=== PATIENT | male | born 1955 | race Caucasian/White ===

== ENCOUNTER 2025-04-14 10:28 | Observation (INO) | payer MEDICARE, SELFPAY ==
[2025-04-14] VITALS (9 sets, daily range): BP systolic 102–151; BP diastolic 63–83; PULSE 69–108; RESP 14–20; TEMP 36.6–37.1; O2SAT 97–100; BMI 33.6; BMI 31.8
--- NOTE | 2025-04-14 10:38 | EKG12_ITS ---
Test Reason : Blood Pressure : */* mmHG Vent. Rate : 79 BPM Atrial Rate : 79 BPM P-R Int : 192 ms QRS Dur : 78 ms QT Int : 354 ms P-R-T Axes : 36 11 12 degrees QTcB Int : 405 ms Normal sinus rhythm Low voltage QRS Borderline ECG When compared with ECG of 14-Apr-2025 10:30, MANUAL COMPARISON REQUIRED DATA IS UNCONFIRMED Confirmed by Javier Cary ([id number]), news videotape editor RAUL ROBB ([id number]) on 04/17/2025 11:37:02 AM Also confirmed by Javier Cary ([id number]), news videotape editor RAUL ROBB ([id number]) on 04/18/2025 9:44:31 AM Referred By: NUHA Confirmed By: Javier Cary
--- NOTE | 2025-04-14 10:40 | EDS_ITS ---
HPI History of Present Illness Chief Complaint: Palpitations Detail of Chief Complaint: Tachycardia Informant: patient Narrative Narrative: Patient presents to the emergency department complaint of tachycardia that started this morning. He states he checks his heart rate every morning and yesterday seem to be fine. He denies chest pain or palpitations or shortness of breath. He has had some cold symptoms for a few days. He took some DayQuil yesterday but none today. Denies recent travel or surgery. No history of A- fib. He does have history of hypertension. His mother had A-fib. PFSH PFSH Home Medications ?Medication ?Instructions ?Recorded ?Last Taken ?Type acetaminophen 650 mg/20.3 mL oral 650 mg PO Q6H PRN Unknown History solution aspirin 81 mg tablet,delayed 81 mg PO DAILY 09/21/23 U nknown History release hydrochlorothiazide 25 mg tablet 25 mg PO DAILY Unknown History meloxicam 15 mg tablet 15 mg PO DAILY 09/21/23 Unkn own History ramipril 10 mg capsule 10 mg PO DAILY 09/21/23 Unkn own History Allergy/AdvReac Type Severity Reaction Status Date / Time No Known Allergies Allergy Verified 04/14/25 10:31 Social History Smoking Status: Never smoker alcohol intake: never substance use type: does not use ROS ROS ED Review of Systems ROS Unobtainable: other Constitutional Constitutional ED: Reports lethargy; Denies chills, fever(s), sweats or weight loss Eyes Eyes: Denies blurry vision, change in vision or diplopia ENT ENT ED: Denies rhinorrhea or sore throat Cardiovascular Cardiovascular: Reports racing heartbeat; Denies chest pain or orthopnea Respiratory/Chest Respiratory/Chest: Reports cough, dyspnea and dyspnea on exertion; Denies orthopnea or sputum Gastrointestinal Gastrointestinal: Denies abdominal pain, diarrhea, nausea or vomiting Genitourinary Genitourinary ED: Denies dysuria, hematuria or urinary frequency Musculoskeletal Musculoskeletal: Denies arthralgias, back pain, myalgias or neck pain Integumentary Denies abscess, Abrasions or rash Neurologic Neurologic: Denies headache(s) or weakness Psychiatric Psychiatric: Denies anxiety, depression or suicidal thoughts Endocrine Endocrinology: Denies polydipsia, polyphagia or polyuria Hematologic/Lymphatic Hematologic/Lymphatic: Denies easy bleeding, easy bruising or lymphadenopathy Allergic/Immunologic Allergic/Immunologic ED: Denies mouth swelling, tongue swelling or urticaria EXAM Physical Exam Const Vital Signs: 04/14/25 10:29 04/14/25 10:31 Temperature 98.1 F 97.9 F Temperature Source Oral Oral Pulse Rate 108 H 99 Respiratory Rate 20 H 18 Blood Pressure 115/82 H 126/83 H Blood Pressure Mean 93 97 Pulse Ox 100 100 Oxygen Delivery Method Room Air Room Air Positive well nourished and well developed General Appearance ED: well developed and NAD HEENT Reports TM's clear and moist mucous membranes normocephalic and atraumatic; Negative for trauma or tenderness Tympanic Membrane ED: Yes TM's clear Eyes PERRL and EOMs intact bilaterally General Eye ED: Negative for pale conjunctiva or scleral icterus Neck no lymphadenopathy, supple and no JVD General: Negative for tenderness Chest Wall inspection of chest normal and palpation of chest normal Chest: Negative for tenderness Resp normal respiratory effort and clear to auscultation bilaterally Effort and Inspection: Negative for respiratory distress or pain with movement Auscultation: Negative for rhonchi, wheezes or diminished lung sounds Cardio S1 normal heart sound, S2 normal heart sound and no murmurs; Negative for regular rate or regular rhythm Rate: tachycardic Rhythm: abnormal rhythm irregularly irregular Peripheral Pulses: pulses 2+ throughout GI normal to inspection, nondistended, normoactive bowel sounds, soft to palpation, non-tender, non-distended and no masses Back/Spine no CVA tenderness and no thoracic nor lumbar tenderness Extremity normal to inspection General Extremety ED: Negative for edema General Extremity: Negative for edema Neuro oriented x3, CN's II-XII intact bilaterally, no sensory deficits noted and gait normal Sensorium / Orientation: awake, alert, oriented to person, oriented to place and oriented to time Motor Exam: strength 5/5 throughout and strength abnormal Psych mental status grossly normal Skin no rashes or lesions noted and no wounds MDM MDM MDM Narrative Medical decision making narrative: Patient presents with tachycardia. History of hypertension. Clinically looks well. He said some cold symptoms for few days. IV line established. EKG obtained on arrival shows atrial fibrillation with rapid ventricular response 100 bpm. CBC with differential obtained showed white count 9.3 with hemoglobin 17 and platelet count of 351. Chemistries show sodium 136 with potassium 3.1 for which she did receive 40 mEq of potassium chloride p.o. BUN 14 and creatinine 1.0. Troponin was normal at 11. Glucose 164. While in the department I did give him Cardizem 20 mg IV bolus and heart rate in the 70s but still in A-fib. COVID flu and RSV testing ordered and pending. 1 view chest x- ray on my interpretation shows no acute disease process. Lab Data Attestation: I reviewed the patient's lab results. Labs: Laboratory Results - last 24 hr 04/14/25 10:30 WBC 9.3 RBC 5.39 Hgb 17.2 H Hct 47.6 MCV 88.3 MCH 31.9 MCHC 36.1 H RDW Std Deviation 39.8 RDW Coeff of Brayden 12.2 Plt Count 351 MPV 9.2 Immature Gran % (Auto) 0.300 Neut % (Auto) 61.9 Lymph % (Auto) 25.1 [place] % (Auto) 10.4 H Eos % (Auto) 1.8 Baso % (Auto) 0.5 Absolute Neuts (auto) 5.8 Absolute Lymphs (auto) 2.34 Nucleated RBC % 0 Sodium 136 Potassium 3.1 L Chloride 95 L Carbon Dioxide 27.1 Anion Gap 14 BUN 14 Creatinine 1.00 Estim Creat Clear Calc 83.79 Est GFR (MDRD) Non-Af 82 BUN/Creatinine Ratio 13.5 Glucose 164 H Calcium 9.4 Troponin T High Sens 11 Radiography Diagnostic Testing: Clinical Impression(s) from Imaging Studies Chest X-Ray 04/14/25 11:20 IMPRESSION: No acute cardiopulmonary process. Reading Location: [facility] 1 view chest x-ray obtained interpreted by myself as no evidence of infiltrate or pneumothorax or acute disease process. Radiology in agreement. EKG Initial EKG: Attestation: I personally reviewed and interpreted this EKG as follows: Comments: Atrial fibrillation with ventricular rate of 100 bpm Discharge Plan Dx/Rx/DC Orders Clinical Impression: Atrial fibrillation, new onset, Acute hypokalemia, Hypertension Disposition Disposition: [facility]
[2025-04-14 10:53] LABS: Hematocrit 47.6 % (40-54); Hemoglobin 17.2 g/dL (13.0-16.5); Immature Granulocytes Count 0.030 X10^3/uL (0.0-0.0); Mean Corp Hgb Conc 36.1 g/dL (32-36); Mean Corpuscular Volume 88.3 fL (80-94); Mean Platelet Vol. 9.2 fl (6.2-12.0); NRBC Flagged by Analyzer 0 % (0-5); Platelet Count 351 K/mm3 (150-450); RBC Distribution Width CV 12.2 % (11.6-14.6); RBC Distribution Width SD 39.8 fl (35.1-43.9); Red Blood Count 5.39 M/mm3 (4.6-6.2); White Blood Count 9.3 K/mm3 (4.4-11.0)
[2025-04-14] MEDS: 0.9% Normal Saline (1000mL) 1,000 ML 150 ML IV (10:57)
[2025-04-14 11:20] LABS: Troponin T High Sensitivity 11 ng/L (<=22)
--- NOTE | 2025-04-14 11:20 | RAD_ITS ---
EXAM: XR Chest, 1 View CLINICAL INDICATION: TACHYCARDIA, COUGH TECHNIQUE: Frontal view of the chest. COMPARISON: No relevant prior studies available. FINDINGS: LUNGS AND PLEURAL SPACES: Unremarkable. No consolidation. No pneumothorax. HEART: Unremarkable. No cardiomegaly. MEDIASTINUM: Unremarkable. Normal mediastinal contour. BONES/JOINTS: Unremarkable. No acute fracture. RAD/Chest 1 View (Portable) IMPRESSION: No acute cardiopulmonary process. Reading Location: [id number]
--- OUTSIDE RECORDS SUMMARY | 2025-04-14 11:20 | XMS RPT_ITS | CCD ---
Author Organization [facility] CliniSyct Care Team Providers Care Billet Checker Name Role Phone Lilly Malone MD Primary Care Provider Lilly Malone MD Primary Care Provider Harris APPLICATION CONSULTANT.MATERNITY FLOOR SUPERVISOR, Kalin Unavailable Rona APPLICATION CONSULTANT.COUPLER, Jodee Unavailable Rona APPLICATION CONSULTANT.COUPLER, Jodee Unavailable [phone] TALAMPAS, LILLY D Attending Unavailable TALAMPAS, LILLY D Primary Care Unavailable TALAMPAS, LILLY D Referring Unavailable TALAMPAS, LILLY D Primary Care Unavailable RONA, JODEE Attending Unavailable TALAMPAS, LILLY D Primary Care Unavailable MASON UNGER Attending Unavailable HARRIS, KALIN Referring Unavailable TALAMPAS, LILLY D Primary Care Unavailable HARRIS, KALIN Referring Unavailable TALAMPAS, LILLY D Primary Care Unavailable HARRIS, KALIN Attending Unavailable TALAMPAS, LILLY D Primary Care Unavailable Yanelis POTTS, Dr. Orlando Primary Care Provider [phone] Dr. Johanny Hilario MD Referring Provider Dr. Mitzy Conde DC Attending Provider Mitzy Conde Attending Unavailable Bonezzi, Johanny Primary Care Unavailable Bonezzrbyson, Johanny Referring Unavailable DosMitzy hayden Attending Unavailable Yanelis, Johanny Referring Unavailable Bonezzbryson, Johanny Primary Care Unavailable DosMitzy hayden Attending Unavailable [place], Johanny Referring Unavailable Bonezzi, Johanny Primary Care Unavailable DosMitzy hayden Attending Unavailable [place], Johanny Referring Unavailable Bonezzi, Johanny Primary Care Unavailable [place], Johanny Referring Unavailable DosMitzy hayden Attending Unavailable Bonezzi, Johanny Primary Care Unavailable Bonezzi, Johanny Referring Unavailable Bonetoddi, Johanny Primary Care Unavailable Mitzy Conde Attending Unavailable Bonetoddi, Johanny Referring Unavailable Bonezzi, Johanny Primary Care Unavailable DosMitzy hayden Attending Unavailable Bonetoddi, Johanny Referring Unavailable Bonezzi, Johanny Primary Care Unavailable DosMitzy hayden Attending Unavailable Shannon APPLICATION CONSULTANT.MATERNITY FLOOR SUPERVISOR, Kalin Unavailable Harris APPLICATION CONSULTANT.MATERNITY FLOOR SUPERVISOR, Kalin Unavailable Medications Current Medications Medication Drug Class(es) Dates Sig (Normalized) Sig (Original) acetaminophen 32 mg/ml oral solution (1 source) Start: 09-21-2023 take 650 mg by mouth every six hours as needed Acetaminophen 650 mg/20.3 mL solution Active 650 mg PO EVERY 6 HOURS as needed September 21, 2023 12:00am [id number] actuat albuterol 0.09 mg/actuat metered dose inhaler (20 sources) beta2-Adrenergic Agonist Start: 06-14-2023 take 2 puff(s) by inhalation every six hours as needed albuterol HFA (PROAIR HFA) 90 mcg/actuation inhaler Indications: Sinobronchitis Inhale 2 Puffs as instructed every 6 hours as needed. 18 g 06/14/2023 Active Start: 07-23-2022 take 2 puff(s) by in halation every six hours as needed albuterol HFA (PROAIR HFA) 90 mcg/actuation inhaler Indications: Sinobronchitis Inhale 2 Puffs as instructed every 6 hours as needed. 1 Each 0 07/23/2022 Active Comment on above: Inhale 2 Puffs as in structed every 6 hours as needed. aspirin 81 mg delayed release oral tablet (20 sources) Platelet Aggregation Inhibitor, Nonsteroidal Anti-inflammatory Drug Start: 07-04-19 10 aspirin(ADULT LOW DOSE ASPIRIN 81 MG TAB, DELAYED RELEASE) daily 0 07/03/2009 Active Comment on above: daily cetirizine hydrochloride 10 mg oral tablet (16 sources) Histamine-1 Receptor Antagonist Start: 08-27-19 24 End: 10-04-19 24 take 1 tablet by mouth once daily as needed cetirizine (ZYRTEC) 10 mg tablet Indications: PND (post-nasal drip) , Ear fullness, bilateral Take 1 tablet by mouth once daily. as needed for allergy symptoms 30 tablet 11 10/04/2023 Active doxycycline hyclate 100 mg oral tablet (3 sources) Tetracycline-class Drug Start: 06-14-19 End: 06-21-19 take 1 tablet by mouth twice daily doxycycline (VIBRA-TABS) 100 mg tablet Indications: Sinobronchitis Take 1 tablet by mouth two times a day for 7 days. 14 tablet 0 06/14/2023 06/21/2023 Active Start: 07-23-2022 End: 07-30-2022 take 1 tablet by mouth twice daily doxycycline (VIBRA-TABS) 100 mg tablet Indications: Sinobronchitis Take 1 tablet by mouth twice daily for 7 days. 14 tablet 0 07/23/2022 07/30/2022 Active Comment on above: Take 1 tablet by nano th twice daily for 7 days. Take 1 tablet by nano th two times a day for 7 days. erythromycin 0.005 mg/mg ophthalmic ointment (1 source) Macrolide, Macrolide Antimicrobial Start: 02-03-20 End: 02-10-20 erythromycin (ROMYCIN) 5 mg/gram (0.5 %) ophthalmic ointment Indications: Cornea abrasion, right, initial encounter Use 1 application in the right eye three times daily for 7 days. 3.5 g 0 02/02/2022 02/09/2022 Active Comment on above: Use 1 application in the right eye three times daily for 7 days. fluticasone propionate 0.05 mg/actuat metered dose nasal spray (20 sources) Corticosteroid Start: 08-27-19 take 2 spray(s) by mouth once daily fluticasone (FLONASE) 50 mcg/actuation nasal spray Indications: PND (post-nasal drip) , Ear fullness, bilateral Use 2 Sprays in each nostril once daily. Rinse mouth after use. 08/27/2023 Active fluticasone prop ionate (FLONASE NASAL) Use in the nose. 0 Active Comment on above: Use in the nose. hydroCHLOROthiazide 25 mg oral tablet (20 sources) Thiazide Diuretic Start: 022 End: 025 take 1 tablet by mouth once daily hydroCHLOROthiazide 25 mg tablet Take 1 tablet by mouth once daily. 90 tablet 3 10/24/2024 Active Start: 10-01-2021 take 1 tablet by nano th once daily hydroCHLOROthiazide (HYDRODIURIL, ESIDRIX) 25 mg tablet Take 1 tablet by mouth once daily. 90 tablet 3 10/01/2021 Active Start: 10-01-2021 take 1 tablet by nano th once daily hydroCHLOROthiazide (HYDRODIURIL, ESIDRIX) 25 mg tablet Take 1 tablet by mouth once daily. 90 tablet 3 10/01/2021 Active Start: 10-01-2021 take 1 tablet by nano th once daily hydroCHLOROthiazide (HYDRODIURIL, ESIDRIX) 25 mg tablet Take 1 tablet by mouth once daily. 90 tablet 3 10/01/2021 Active Start: 10-01-2021 take 1 tablet by nano th once daily hydroCHLOROthiazide (HYDRODIURIL, ESIDRIX) 25 mg tablet Take 1 tablet by mouth once daily. 90 tablet 3 10/01/2021 Active Start: 10-01-2020 End: 08-04-2021 take 1 tablet by mouth once daily hydroCHLOROthiazide (HYDRODIURIL, ESIDRIX) 25 mg tablet Take 1 tablet by mouth once daily. 90 tablet 3 10/01/2020 08/04/2021 Discontinued Comment on above: Take 1 tablet by nano th once daily. LORazepam 0.5 mg oral tablet (1 source) Benzodiazepine Start: 09-30-19 End: 10-07-19 take 0.5 mg by mouth every twelve hours as needed for anxiety and anxiety LORazepam (ATIVAN) 0.5 mg Indications: Anxiety Take 1 tablet by mouth twice daily as needed (anxiety) for up to 7 days. 14 tablet 0 09/29/2022 10/06/2022 Active Comment on above: Take 1 tablet by nano th twice daily as needed (anxiety) for up to 7 days. meloxicam 15 mg oral tablet (20 sources) Nonsteroidal Anti-inflammatory Drug Start: 07-28-19 End: 08-12-19 take 1 tablet by mouth once daily meloxicam (MOBIC) 15 mg tablet Indications: Acute pain of left knee , Arthritis of both knees Take 1 tablet by mouth once daily. 30 tablet 1 08/11/2024 Active Comment on above: Take 1 tablet by nano th once daily. predniSONE 20 mg oral tablet (3 sources) Start: 06-14-19 End: 06-19-19 take 2 tablets by mouth once daily predniSONE (DELTASONE) 20 mg tablet Indications: Sinobronchitis Take 2 tablets by mouth once daily for 5 days. 10 tablet 0 06/14/2023 06/19/2023 Active Start: 07-23-2022 End: 07-28-2022 take 2 tablets by mouth once daily predniSONE (DELTASONE) 20 mg tablet Indications: Sinobronchitis Take 2 tablets by mouth once daily for 5 days. 10 tablet 0 07/23/2022 07/28/2022 Active Comment on above: Take 2 tablets by mo uth once daily for 5 days. ramipril 10 mg oral capsule (20 sources) Angiotensin Converting Enzyme Inhibitor Start: 09-20-2023 End: 10-04-2023 take 1 capsule by mouth once daily ramipril (ALTACE) 10 mg capsule Take 1 capsule by mouth once daily. 90 capsule 3 10/04/2023 Active Start: 10-01-2021 End: 09-17-2023 take 1 capsule by mouth once daily ramipril (ALTACE) 10 mg capsule Take 1 capsule by mouth once daily. 90 capsule 3 09/02/2023 09/17/2023 Discontinued Start: 10-01-2021 take 1 capsule by mo uth once daily ramipril (ALTACE) 10 mg capsule Take 1 capsule by mouth once daily. 90 capsule 3 10/01/2021 Active Start: 10-01-2021 take 1 capsule by mo uth once daily ramipril (ALTACE) 10 mg capsule Take 1 capsule by mouth once daily. 90 capsule 3 10/01/2021 Active Start: 10-01-2021 take 1 capsule by mo uth once daily ramipril (ALTACE) 10 mg capsule Take 1 capsule by mouth once daily. 90 capsule 3 10/01/2021 Active Start: 10-01-2021 take 1 capsule by mo uth once daily ramipril (ALTACE) 10 mg capsule Take 1 capsule by mouth once daily. 90 capsule 3 10/01/2021 Active Start: 10-01-2020 End: 08-04-2021 take 1 capsule by mouth once daily ramipril (ALTACE) 10 mg capsule Take 1 capsule by mouth once daily. 90 capsule 3 10/01/2020 08/04/2021 Discontinued Comment on above: Take 1 capsule by mo [facility] once daily. Completed/Discontinued Medications Medication Drug Class(es) Dates Sig (Normalized) Sig (Original) benzonatate 100 mg oral capsule (9 sources) Non-narcotic Antitussive Start: 06-14-2023 End: 08-27-2023 take 2 capsules by mouth three times daily as needed for cough benzonatate (TESSALON PERLES) 100 mg capsule Indications: Sinobronchitis Take 2 capsules by mouth three times a day as needed for cough. 30 capsule 0 06/14/2023 08/27/2023 Discontinued Start: 07-23-2022 take 2 capsules by m outh three times daily as needed benzonatate (TESSALON PERLES) 100 mg capsule Indications: Sinobronchitis Take 2 capsules by mouth three times daily as needed. 30 capsule 0 07/23/2022 Active Comment on above: Take 2 capsules by m outh three times daily as needed. Take 2 capsules by m outh three times a day as needed for cough. escitalopram 5 mg oral tablet (20 sources) Serotonin Reuptake Inhibitor Start: 06-05-19 End: 08-05-19 escitalopram oxalate (LEXAPRO) 5 mg tablet Indications: Depression, unspecified depression type Take 1 tablet by mouth once daily. When wanting to discontinue, decrease to one half tablet daily x 2 weeks, then one half tab every other day x2 weeks, then discontinue 90 tablet 3 08/04/2021 Active Comment on above: Take 1 tablet by nano once daily. May increase to two tablets after one week Take 1 tablet by nano once daily. When wanting to discontinue, decrease to one half tablet daily x 2 weeks, then one half tab every other day x2 weeks, then discontinue olopatadine 1 mg/ml ophthalmic solution (8 sources) Histamine-1 Receptor Inhibitor Start: 08-27-19 24 End: 04-25-20 24 take 1 drop(s) into the eye(s) twice daily as needed olopatadine (PATANOL) 0.1 % ophthalmic solution Indications: Watery eyes Use 1 Drop in both eyes two times a day as needed. for watery / itchy eyes 5 mL 2 08/27/2023 04/25/2024 Discontinued omeprazole 20 mg delayed release oral tablet (14 sources) Proton Pump Inhibitor Start: 06-05-19 End: 04-10-20 take 1 tablet by mouth once daily before breakfast Omeprazole Magnesium (PRILOSEC OTC) 20 mg tablet Indications: Heartburn Take 1 tablet by mouth daily before breakfast. 1/2 hr before meal. 90 tablet 3 08/08/2021 04/10/2022 Discontinued Comment on above: Take 1 tablet by nano daily before breakfast. 1/2 hr before meal. polyethylene glycol 3350 848189 mg / potassium chloride 2970 mg / sodium bicarbonate 6740 mg / sodium chloride 5860 mg / sodium sulfate 42942 mg powder for oral solution (1 source) Osmotic Laxative Start: 09-09-19 End: 09-09-19 peg 3350-Electrolytes (GOLYTELY) 236-22.74-6.74 -5.86 gram suspension Take 4,000 mL by mouth one time only for 1 dose. 1 Each 0 09/08/2021 09/08/2021 Comment on above: Take 4,000 mL by nano one time only for 1 dose. sodium chloride 0.111 meq/ml nasal spray (12 sources) Start: 05-27-19 End: 04-10-20 sodium chloride (SALINE MIST) 0.65 % nasal spray Indications: Acute non-recurrent maxillary sinusitis Use 1 [place] in the nose as needed for Cold/Allergy Symptoms (nasal congestion). 50 mL 1 05/27/2020 04/10/2022 Discontinued Comment on above: Use 1 [place] in the n ose as needed for Cold/Allergy Symptoms (nasal congestion). Problems Active Problems Problem Classification Problem Date Documented Da te Episodic/Chronic Abdominal pain (3 sources) Right inguinal pain; Translations: [Right lower quadrant pain] Episodic Adjustment disorders (1 source) Family tension; Translations: [Reaction to severe stress, unspecified] 12-14-2023 Chronic Anxiety disorders (2 sources) Anxiety; Translations: [Anxiety disorder, unspecified] Chronic Essential hypertension (20 sources) Hypertensive disorder; Translations: [Essential (primary) hypertension] Onset: 6 08-01-2015 Chronic Gout and other crystal arthropathies (1 source) Chondrocalcinosis of joint of right knee; Translations: [Other chondrocalcinosis, right knee] 09-11-2024 Chronic Immunizations and screening for infectious disease (7 sources) Patient encounter status; Translations: [Encounter for screening for human immunodeficiency virus [HIV]] Episodic Inflammation; infection of eye (except that caused by tuberculosis or sexually transmitteddisease) (1 source) Internal hordeolum of right lower eyelid; Translations: [Hordeolum internum right lower eyelid] 01-14-2023 Episodic Mood disorders (1 source) Depressive disorder; Translations: [Depression, unspecified depression type] Chronic Osteoarthritis (11 sources) Osteoarthritis of left knee joint; Translations: [Bilateral arthritis of knees] Onset: 5 08-11-2024 Chronic Other acquired deformities (5 sources) Scoliosis of lumbar spine; Translations: [Scoliosis, unspecified] 09-27-2023 Chronic Other and unspecified benign neoplasm (4 sources) History of polyp of colon; Translations: [Personal history of colonic polyps] Episodic Other and unspecified benign neoplasm (1 source) Tubular adenoma ; Translations: [Benign neoplasm, unspecified site] Episodic Other bone disease and musculoskeletal deformities (1 source) Other idiopathic scoliosis, lumbar region; Translations: [Other idiopathic scoliosis, lumbar region] Onset: Chronic Other bone disease and musculoskeletal deformities (20 sources) Segmental and somatic dysfunction; Translations: [Segmental and somatic dysfunction of cervical region] 09-21-2023 Episodic Other bone disease and musculoskeletal deformities (1 source) Segmental and somatic dysfunction of pelvic region; Translations: [Segmental and somatic dysfunction of pelvic region] Onset: Episodic Other bone disease and musculoskeletal deformities (1 source) Segmental and somatic dysfunction of lumbar region; Translations: [Segmental and somatic dysfunction of lumbar region] Onset: Episodic Other bone disease and musculoskeletal deformities (1 source) Segmental and somatic dysfunction of thoracic region; Translations: [Segmental and somatic dysfunction of thoracic region] Onset: Episodic Other bone disease and musculoskeletal deformities (1 source) Segmental and somatic dysfunction of cervical region; Translations: [Segmental and somatic dysfunction of cervical region] Onset: Episodic Other ear and sense organ disorders (2 sources) Ear sensations - finding; Translations: [Other specified disorders of ear, bilateral] 08-27-2023 Episodic Other eye disorders (1 source) Bilateral epiphora of eyes; Translations: [Unspecified epiphora, bilateral] 08-27-2023 Episodic Other gastrointestinal disorders (2 sources) Heartburn; Translations: [Heartburn] Episodic Other injuries and conditions due to external causes (3 sources) Injury of groin; Translations: [Unspecified injury of abdomen, initial encounter] Episodic Other nervous system disorders (1 source) Eyelid finding; Translations: [Fasciculation] 12-14-2023 Episodic Other non-traumatic joint disorders (2 sources) Pain in right hip joint; Translations: [Pain in right hip] Episodic Other non-traumatic joint disorders (1 source) Hip pain; Translations: [Pain in unspecified hip] 07-16-2022 Episodic Other non-traumatic joint disorders (4 sources) Pain in left knee; Translations: [Pain in joint, lower leg] Onset: 5 08-11-2024 Episodic Other nutritional; endocrine; and metabolic disorders (20 sources) Obese class I; Translations: [Obesity, unspecified] 02-11-2016 Chronic Other nutritional; endocrine; and metabolic disorders (1 source) Cholesterol level - finding; Translations: [Lipoprotein deficiency] Chronic Other nutritional; endocrine; and metabolic disorders (1 source) Obesity; Translations: [Obesity (BMI 30.0-34.9)] Onset: 6 Chronic Other screening for suspected conditions (not mental disorders or infectious disease) (1 source) Raised prostate specific antigen; Translations: [Elevated prostate specific antigen [PSA]] Episodic Other upper respiratory infections (2 sources) Chronic sinusitis; Translations: [Chronic sinusitis, unspecified] Chronic Other upper respiratory infections (2 sources) Posterior rhinorrhea; Translations: [Postnasal drip] 08-27-2023 Episodic Sprains and strains (2 sources) Acetabular labrum tear; Translations: [Other sprain of right hip, initial encounter] Episodic Superficial injury; contusion (1 source) Abrasion of cornea of right eye; Translations: [Injury of conjunctiva and corneal abrasion without foreign body, right eye, initial encounter] Episodic Unclassified (1 source) Low back pain, unspecified; Translations: [Low back pain, unspecified] Onset: 5 Past or Other Problems Problem Classification Problem Date Documented Da te Episodic/Chronic Diabetes mellitus without complication (3 sources) Impaired fasting glycemia; Translations: [Impaired fasting glucose] Onset: 04-25-2024 Episodic Other nervous system disorders (20 sources) Paresthesia of hand ; Translations: [Anesthesia of skin] Onset: 06-06-2021 Episodic Other non-epithelial cancer of skin (20 sources) Squamous cell carcinoma of skin; Translations: [Squamous cell carcinoma of skin, unspecified] Onset: 08-01-2015 08-01-2015 Episodic Other non-traumatic joint disorders (20 sources) Shoulder pain; Translations: [Pain in left shoulder] Onset: 06-06-2021 Episodic Other non-traumatic joint disorders (20 sources) Pain in left shoulder; Translations: [Pain in joint, shoulder region] Onset: 06-06-2021 06-06-2021 Episodic Screening and history of mental health and substance abuse codes (2 sources) Encounter for screening examination for other mental health and behavioral disorders; Translations: [Encounter for screening for depression] Onset: 04-25-2024 Episodic Spondylosis; intervertebral disc disorders; other back problems (20 sources) Left cervical root neuropathy; Translations: [Radiculopathy, cervical region] Onset: 11-13-2016 Episodic Unclassified (4 sources) Acute pain of left knee 08-11-2024 Results Test Name Value Interpretation Reference Range Facility Chiropractic Reporton 2024 Chiropractic Report [facility] [address] [place] [address] OFFICE VISIT Date of Service: 10/09/24 MR#: [id number] Acct: [id number] Name: DILIA MAST Ari Rep #: [id number] : 1955 Provider: THOMAS Asencio Age/Sex: 69/M Location: [facility] [place] Status: Signed Intake Vital Signs 09/21/23 08:45 Height 5 ft 9 in Intake Visit Reasons: BACK PAIN Chief Complaint: neck and Low back pain Is patient in pain?: Yes (neck and low back ) Pain scale (1-10): 3 Allergies No Known Allergies Allergy (Unverified 10/09/24 08:55) Medications ???Medication ???Instructions ???Recorded ???Confirmed ???Type acetaminophen 650 mg/20.3 mL oral 650 mg PO Q6H PRN 09/21/23 History solution aspirin 81 mg tablet,delayed 81 mg PO DAILY 09/21/23 10/09/24 H istory release hydrochlorothiazide 25 mg tablet 25 mg PO DAILY 09/21/23 10/09/24 H istory meloxicam 15 mg tablet 15 mg PO DAILY 09/21/23 10/09/24 H istory ramipril 10 mg capsule 10 mg PO DAILY 09/21/23 10/09/24 H istory Have you fallen in the past year?: No PFSH Social History Smoking Status: Never smoker alcohol intake: never substance use type: does not use HPI BACK PAIN Chief Complaint: low back and neck pain, left thigh numbness Visit Number: 4 Details: Dilia is a 69 y/o male here for neck, upper and low back pain. Pt. reports neck soreness recently with the left side a little worse. He rates his neck pain 3/10 today. He states he has been painting and looking up has aggravated his neck pain. He also c/o left thigh numbness with prolonged standing. He rates his left thigh pain 3/10. He complains of low back pain achiness at times. He denies new injury, numbness, tingling or radiculopathy today. He treats his back pain at home with Tylenol and stretching as needed. Pt. reports chiropractic adjustments are helpful in relieving his some of his pain and discomfort but it gradually returns. Location: neck, upper, low back Duration: frequent Aggravating or associated factors: standing,walking,moving Relieving factors: chiro,stretching Pain Quality: aching and dull Exam Musc General: Yes normal posture, normal gait, joint tenderness and decreased range of motion; No muscle weakness Cervical Spine: Yes loss of normal cervical lordosis, Yes cervical muscular tenderness bilateral lower , Yes cervical spasm left greater than right lower trapezius and paracervical muscles and Yes misalignment misalignment: C6 and C7 Thoracic/Lumber: Yes thoracic and lumbar spine normal to inspection, Yes paraspinal tenderness on the right greater than left (lumbar) and on the left greater than right (upper thoracic,pelvis), Yes scoliosis (right lumbar), Yes thoraco-lumbar spasm on the right greater than left (mid/lower trap, paraspinal L1-L5) and on the left greater than right (glute med) and Yes misalignment T3, T4, T5, L1, L2, L3, L4, L5 and LIL Sacroiliac joints: on the left tender to palpation Office Procedures Procedures - Chiropractic Procedures Manipulation: Cervical C6, Lumbar L4, Thoracic T3 and T10 and Pelvis LIL Manipulation: 3-4 regions Patient Response: positive Assessment and Plan Assessment and Plan (1) Segmental and somatic dysfunction of cervical region: Status: Acute (2) Segmental and somatic dysfunction of thoracic region: Status: Acute (3) Segmental and somatic dysfunction of lumbar region: Status: Acute (4) Segmental and somatic dysfunction of pelvic region: Status: Acute (5) Scoliosis of lumbar spine: Status: Chronic Qualifiers: Idiopathic scoliosis type: other Scoliosis type: idiopathic Qualified Code(s): M41.26 - Other idiopathic scoliosis, lumbar region Orders: Orders Chiropractic Treatments Today M41.26 - Other idiopathic scoliosis, lumbar region, M99.01 - Segmental and somatic dysfunction of cervical region, M99.02 - Segmental and somatic dysfunction of thoracic region, M99.03 - Segmental and somatic dysfunction of lumbar region, M99.05 - Segmental and somatic dysfunction of pelvic region Plan Patient was treated without incident. Continue care as needed. Plan Details Goals Barriers: Goals Decrease pain Decrease spasm Improve ability to stand Follow Up: PRN Coding Level of Care Code No Charge Diagnoses Segmental and somatic dysfunction of cervical region M99.01 Segmental and somatic dysfunction of thoracic region M99.02 Segmental and somatic dysfunction of lumbar region M99.03 Segmental and somatic dysfunction of pelvic region M99.05 Other idiopathic scoliosis, lumbar region M41.26 Idiopathic scoliosis type: other Scoliosis type: idiopathic CPT Codes Procedures - Manipulation: 3-4 regions ([id number]) Clinical Quality Measures Falls Risk Screen (more content not included)... [facility] ([facility] ) -------- DILIA MAST ([id number]) 1955 M Date Time Provider Department 09/11/24 8:00 AM MASON UNGER During your visit today, we recorded the following information about you: Mason Unger MD 09/11/2024 12:02 PM Addendum Mason Unger MD Department of Orthopaedics Orthopaedics [address] [facility] [address] Dept: [phone] Dept September 11, 2024 CHIEF COMPLAINT: Established Patient and Pain of the Left Knee HPI: HPI Kit is a 69-year-old male presenting for evaluation of bilateral knee pain, with a history of arthritis and previous surgery on the left knee. Kit reports a flare-up of bilateral knee pain, particularly in the left knee, which he attributes to recent activities such as installing a drop ceiling in his basement over the winter and currently doing landscaping for his daughter. These activities involved repetitive movements, including climbing up and down ladders on a concrete floor for several weeks. He describes the pain as a sensation of the knee wanting to give out on him, primarily around the knee joint. He notes that the pain is more pronounced during activities involving stairs or uneven surfaces, rather than flat-level walking. Kit has a history of arthritis in both knees, with the left knee having undergone previous surgery and experiencing more wear and tear. He has been prescribed meloxicam by Kaushik Harris approximately a month ago but takes it on an as-needed basis, particularly when anticipating physical work that may exacerbate the pain. He denies taking the medication regularly. Kit is physically active, regularly attending [employer] and engaging in fishing during the summer, which he notes as a good core workout. He is open to exercise and uses machines at the gym. He has a family history of knee replacements, with his father having undergone a double knee replacement. Patient here today for left knee pain. States he had an ACL tear when he was young, but never had repaired. Had a knee arthroscopy about 25 years ago at [facility]. He continues with pain intermittently. If he does too much he pays for it for a few days. Knee feels weak and aching. X-ray completed on 08/11/2024. Retired. ASSESSMENT: M25.562 Acute pain of left knee M17.0 Arthritis of both knees M17.12 Primary osteoarthritis of left knee M17.11 Primary osteoarthritis of right knee M11.261 Chondrocalcinosis of right knee 1. Acute pain of left knee (M25.562) Primary osteoarthritis of left knee (M17.12) Left knee exhibits significant osteoarthritic changes, including joint space narrowing, bone spurs, and chondrocalcinosis. Previous surgical history and chronic wear contribute to the current condition. Pain is likely exacerbated by patellar maltracking and uneven pressure distribution. - Provided patient with a knee brace to offload stress during activities. - Educated patient on quadriceps strengthening exercises to improve patellar tracking and reduce pain. - Advised regular use of meloxicam for 1-2 weeks to assess baseline pain reduction. - Discussed potential for corticosteroid injections if conservative measures are insufficient. 2. Arthritis of both knees (M17.0) Bilateral knee arthritis with more severe changes in the left knee compared to the right. Right knee shows mild to moderate degenerative changes without significant osteophyte formation. - Initiated conservative management with strengthening exercises and NSAID therapy. - Discussed potential for viscosupplementation (gel injections) if corticosteroid injections are ineffective. - Emphasized the importance of maintaining activity levels and weight management to reduce joint stress. 3. Primary osteoarthritis of right knee (M17.11) Chondrocalcinosis of right knee (M11.261) Right knee demonstrates mild to moderate osteoarthritic changes with chondrocalcinosis noted on imaging. Joint space narrowing is present, but no significant osteophyte formation. - Continue conservative management with strengthening exercises and NSAID therapy. - Monitor for progression of symptoms and consider corticosteroid injections if necessary. Will continue to monitor patient for Acute pain of left knee Arthritis of both knees Primary osteoarthritis of left knee Primary osteoarthritis of right knee Chondrocalcinosis of right knee, patient to schedule visit as per follow up discussed. PLAN: as above OBJECTIVE: Mr. Dilia Mast is a pleasant 69 year old in no apparent distress. Gen:There were no vitals taken for this visit. nl development, non obese, no deformities ENT: Normocephalic, normal hearing, moist mucosa CV: Pulses:DP/PT= 2+ and symmetric, capillary refill < 2 secs, no peripheral edema/varicosities Skin: no rash, bruising or lesions. Good turgor. P (more content not included)... Normal [facility] Chiropractic Reporton 2024 Chiropractic Report [facility] Chiropractic [facility] [place] [address] OFFICE VISIT Date of Service: 09/04/24 MR#: [id number] Acct: [id number] Name: DILIA MAST Rep #: [id number] : 1955 Provider: THOMAS Forrester Do ssi Age/Sex: 69/M [place] [facility] [place]: Signed Intake Vital Signs 09/21/23 08:45 Height 5 ft 9 in Intake Visit Reasons: BACK PAIN Chief Complaint: Low back pain Is patient in pain?: Yes (Right low back) Pain scale (1-10): 8 Allergies No Known Allergies Allergy (Unverified 09/04/24 08:38) Medications ???Medication ???Instructions ???Recorded ???Confirmed ???Type acetaminophen 650 mg/20.3 mL oral 650 mg PO Q6H PRN 09/21/23 History solution aspirin 81 mg tablet,delayed 81 mg PO DAILY 09/21/23 09/04/24 H istory release hydrochlorothiazide 25 mg tablet 25 mg PO DAILY 09/21/23 09/04/24 H istory meloxicam 15 mg tablet 15 mg PO DAILY 09/21/23 09/04/24 H istory ramipril 10 mg capsule 10 mg PO DAILY 09/21/23 09/04/24 H istory Have you fallen in the past year?: No PFSH Social History Smoking Status: Never smoker alcohol intake: never substance use type: does not use HPI BACK PAIN Chief Complaint: low back and neck pain, left thigh numbness Visit Number: 3 Details: Dilia is a 69 y/o male here for neck, upper and low back pain. He reports a flare up of low back pain, he has been moving his daughter from [place] which has caused the flare up. He complains of neck pain and stiffness that is equal bilaterally. He denies headaches. He complains of low back pain and stiffness that is worse on the right side. He states the pain is a constant deep ache that is an 8/10. The pain does intermittently radiate down into his legs. He denies new injury, numbness, tingling or radiculopathy today. He treats his back pain at home with Tylenol and stretching. Pt. reports chiropractic adjustments are helpful in relieving his some of his pain and discomfort but it gradually returns. Location: neck, upper, low back Duration: frequent Aggravating or associated factors: standing,walking,moving Relieving factors: chiro,stretching Pain Quality: aching and dull Exam Musc General: Yes normal posture, normal gait, joint tenderness and decreased range of motion; No muscle weakness Cervical Spine: Yes loss of normal cervical lordosis, Yes cervical muscular tenderness bilateral lower , Yes cervical spasm left greater than right lower trapezius and paracervical muscles and Yes misalignment misalignment: C6 and C7 Thoracic/Lumber: Yes thoracic and lumbar spine normal to inspection, Yes paraspinal tenderness on the right greater than left (lumbar) and on the left greater than right (upper thoracic,pelvis), Yes scoliosis (right lumbar), Yes thoraco-lumbar spasm on the right greater than left (mid/lower trap, paraspinal L1-L5) and on the left greater than right (glute med) and Yes misalignment T3, T4, T5, L1, L2, L3, L4, L5 and LIL Sacroiliac joints: on the left tender to palpation Office Procedures Procedures - Chiropractic Procedures Manipulation: Cervical C6, Lumbar L4, Thoracic T3 and T10 and Pelvis LIL Manipulation: 3-4 regions Patient Response: positive Assessment and Plan Assessment and Plan (1) Back pain: Status: Acute Qualifiers: Back pain laterality: right Back pain location: low back pain Chronicity: acute Sciatica presence: without sciatica Qualified Code(s): M54.50 - Low back pain, unspecified (2) Segmental and somatic dysfunction of cervical region: Status: Acute (3) Segmental and somatic dysfunction of thoracic region: Status: Acute (4) Segmental and somatic dysfunction of lumbar region: Status: Acute (5) Segmental and somatic dysfunction of pelvic region: Status: Acute (6) Scoliosis of lumbar spine: Status: Chronic Qualifiers: Idiopathic scoliosis type: other Scoliosis type: idiopathic Qualified Code(s): M41.26 - Other idiopathic scoliosis, lumbar region Orders: Orders Chiropractic Treatments Today M41.26 - Other idiopathic scoliosis, lumbar region, M54.50 - Low back pain, unspecified, M99.01 - Segmental and somatic dysfunction of cervical region, M99.02 - Segmental and somatic dysfunction of thoracic region, M99.03 - Segmental and somatic dysfunction of lumbar region, M99.05 - Segmental and somatic dysfunction of pelvic region Plan Patient is having an exacerbation of pain from recent overuse. He was treated today and appropriate stretches were recommended. Follow up should pain persist and consider acute care plan. Plan Details Goals Barriers: Goals Decrease pain Decrease spasm Improve ability to stand Follow Up: PRN Coding Level of Care Code No Charge Diagnoses Acute right-sided low back (more content not included)... Normal [facility] CNOVon 08-11-2024 [facility] Office Visit (INTMWS ) -------- DILIA MAST ([id number]) 1955 M Date Time Provider Department 08/11/24 11:20 AM KALIN HARRIS INTMWS During your visit today, we recorded the following information about you: Pulse Respiration Blood pressure Weight 78/minute 16/minute 119/67 102 kg Kalin Harris APRN.MATERNITY FLOOR SUPERVISOR 08/11/2024 11:56 AM Signed Subjective Patient ID: Kit is a 69 year old male who presents for Left Knee Pain. HPI Left Knee Pain and Instability: - Reports weakness and pain in the left knee, with episodes of feeling like it might give out, but it never fully does. - No recent specific injury or trauma recalled; denies recent falls. - Symptoms have been exacerbated by increased activity, including moving his daughter back to [place], packing, and working on home projects, going up ladders etc. - Describes the knee as feeling wobblynot locking up. - Pain localized to the lateral side of the knee joint and beneath patella on the lateral side of the knee, with some mild swelling noted. - Has been taking Tylenol and Aleve with some relief. - Not using compression sleeves or icing the knee. - Has a history of a partial ACL tear in the same knee from a softball injury at age 19-20, which was treated with a full leg cast, reports meniscus surgery at that time - Underwent arthroscopic surgery for a meniscus issue approximately 20 years ago. ROS Musculoskeletal: (+) left knee pain, (+) left knee weakness, (+) left knee instability Objective BP 119/67 Pulse 78 Resp 16 Wt 102 kg (224 lb 13.9 oz) BMI 34.68 kg/m? Physical Exam Vitals reviewed. Constitutional: Appearance: Normal appearance. HENT: Head: Normocephalic and atraumatic. Eyes: Conjunctiva/sclera: Conjunctivae normal. Cardiovascular: Rate and Rhythm: Normal rate. Pulmonary: Effort: Pulmonary effort is normal. Musculoskeletal: Left knee: Bony tenderness present. No crepitus. Decreased range of motion. Tenderness present over the lateral joint line. Skin: General: Skin is warm and dry. 1. Acute pain of left knee (M25.562) 2. Unilateral primary osteoarthritis, left knee (M17.12) - Left knee pain with a history of previous ACL injury and meniscal surgery approximately 20 years ago. Recent increase in activity may have exacerbated symptoms. - No recent imaging; ordered X-ray of the left knee to evaluate current status. - Prescribed meloxicam 15 mg orally once daily for one week, then as needed. - Advised use of a compression sleeve or ANABEL wrap to provide support and reduce swelling. - Referral to Dr. Unger, fireworks display specialist, for further evaluation and management. If not improing with conservative measure endorse ortho appt, PT appt. - Dilia Mast understands and agrees with the treatment plan. Kalin Harris APRN.MATERNITY FLOOR SUPERVISOR Medical Decision Making: Problems: Low: Acute, uncomplicated illness or injury Data: Unique test(s) ordered: 1 Risk: Moderate: Drug management Medical Decision Making Level: 3 - Low Allergies As of Date: 08/11/2024 (No Known Allergies) Date Reviewed: 08/11/2024 Reviewed by: Catia Vasquez LPN - Fully Assessed Reason for Visit: Left Knee Pain [1208] Primary Visit Diagnosis:Acute pain of left knee [M25.562] Other Visit Diagnosis:Arthritis of both knees [M17.0] Order(s):XR KNEE GENERAL 4V AP BOTH/PA BOTH/LAT/MERC LEFT [4935531] Order #: [id number] FUTURE CONSULT TO ORTHOPAEDICS [9042] Order #: [id number]: 1 FUTURE CONSULT TO PHYSICAL THERAPY [9006] Order #: [id number]: 1 FUTURE meloxicam (MOBIC) 15 mg tabletTake 1 tablet by mouth once daily.Disp: 30 tabletRfl: 1 Prescriptions as of 08/11/2024 - meloxicam (MOBIC) 15 mg tablet Take 1 tablet by mouth once daily. - cetirizine (ZYRTEC) 10 mg tablet Take 1 tablet by mouth once daily. as needed for allergy symptoms - ramipril (ALTACE) 10 mg capsule Take 1 capsule by mouth once daily. - hydroCHLOROthiazide 25 mg tablet Take 1 tablet by mouth once daily. - fluticasone (FLONASE) 50 mcg/actuation nasal spray Use 2 Sprays in each nostril once daily. Rinse mouth after use. - albuterol HFA (PROAIR HFA) 90 mcg/actuation inhaler Inhale 2 Puffs as instructed every 6 hours as needed. - aspirin(ADULT LOW DOSE ASPIRIN 81 MG TAB, DELAYED RELEASE) daily Problem List As Of Date 08/11/2024 Noted Resolved HTN (hypertension) [I10] 08/01/2015 Cancer, skin, squamous cell [C44.92] 08/01/2015 Obesity (BMI 30.0-34.9) [E66.811] Neck pain on left side [M54.2] 11/13/2016 Left cervical radiculopathy [M54.12] 03/28/2018 Acute pain of left shoulder [M25.512] 06/06/2021 Numbness and tingling in left hand [R20.0, R20.*06/06/2021 Prescriptions ordered this encounter Disp Refills Start End MELOXICAM 15 MG TABLET 30 t* 1 08/11/2024 Route: ORAL Sig: Take 1 tablet by mouth once daily. Medications Discontinued During This Enco (more content not included)... Normal [facility] XR KNEE 4V AP/PA BOTH+LAT/ME R LTon 08-11-2024 XR KNEE 4V AP/PA BOTH+LAT/ANNA LT * * *Final Report* * * DATE OF EXAM: Aug 11 2024 12:05PM WOX 5202 - XR KNEE 4V AP/PA BOTH+LAT/ANNA LT / PROCEDURE REASON: Acute pain of left knee * * * * Physician Interpretation * * * * EXAM(s): XR KNEE 4V AP/PA BOTH+LAT/ANNA LT EXAM DATE/TIME: 08/11/2024 12:05 PM HISTORY: 69 years old Clinical information: Acute pain of left knee pain for 3 weeks inferior left patella and radiates to lateral side no inj TECHNIQUE: Images: XR KNEE 4V AP/PA BOTH+LAT/ANNA LT Comparison: None. RESULT: Findings: Bilateral findings: There is chondrocalcinosis in the medial and lateral compartments of both knees.. Right :No fractures or dislocations are seen. Severe narrowing of the medial compartment Left :No fractures or dislocations are seen. Severe narrowing of the medial lateral compartments Moderate posterior spurring patella IMPRESSION: Degenerative changes as discussed Template Storage Clerk: JOSE ALFREDO Transcribe Date/Time: Aug 11 2024 12:15P Dictated by : LUCIO CONROY DO This examination was interpreted and the report reviewed and electronically signed by: LUCIO CONROY DO on Aug 11 2024 12:17PM EST [id number] Normal [facility] XR Knee - left 4 Viewson IMPRESSION: Degenerative changes as discussed Template Storage Clerk: JOSE ALFREDO Transcribe Date/Time: Aug 11 2024 12:15P Dictated by : LUCIO CONROY DO This examination was interpreted and the report reviewed and electronically signed by: LUCIO CONROY DO on Aug 11 2024 12:17PM EST DIVISION OF RADIOLOGY * * *Final Report* * * DATE OF EXAM: Aug 11 2024 12:05PM WOX 5202 - XR KNEE 4V AP/PA BOTH+LAT/ANNA LT / PROCEDURE REASON: Acute pain of left knee * * * * Physician Interpretation * * * * EXAM(s): XR KNEE 4V AP/PA BOTH+LAT/ANNA LT EXAM DATE/TIME: 08/11/2024 12:05 PM HISTORY: 69 years old Clinical information: Acute pain of left knee pain for 3 weeks inferior left patella and radiates to lateral side no inj TECHNIQUE: Images: XR KNEE 4V AP/PA BOTH+LAT/ANNA LT Comparison: None. RESULT: Findings: Bilateral findings: There is chondrocalcinosis in the medial and lateral compartments of both knees.. Right :No fractures or dislocations are seen. Severe narrowing of the medial compartment Left :No fractures or dislocations are seen. Severe narrowing of the medial lateral compartments Moderate posterior spurring patella DIVISION OF RADIOLOGY Provider, Candida talbert [place] - 08/11/2024 * * *Final Report* * * DATE OF EXAM: Aug 11 2024 12:05PM WOX 5202 - XR KNEE 4V AP/PA BOTH+LAT/ANNA LT / PROCEDURE REASON: Acute pain of left knee * * * * Physician Interpretation * * * * EXAM(s): XR KNEE 4V AP/PA BOTH+LAT/ANNA LT EXAM DATE/TIME: 08/11/2024 12:05 PM HISTORY: 69 years old Clinical information: Acute pain of left knee pain for 3 weeks inferior left patella and radiates to lateral side no inj TECHNIQUE: Images: XR KNEE 4V AP/PA BOTH+LAT/ANNA LT Comparison: None. RESULT: Findings: Bilateral findings: There is chondrocalcinosis in the medial and lateral compartments of both knees.. Right :No fractures or dislocations are seen. Severe narrowing of the medial compartment Left :No fractures or dislocations are seen. Severe narrowing of the medial lateral compartments Moderate posterior spurring patella IMPRESSION IMPRESSION: Degenerative changes as discussed Template Storage Clerk: JOSE ALFREDO Transcribe Date/Time: Aug 11 2024 12:15P Dictated by : LUCIO CONROY DO This examination was interpreted and the report reviewed and electronically signed by: LUCIO CONROY DO on Aug 11 2024 12:17PM EST [facility] Radiology Study observation (narrative) [facility] XR Knee - left 4 ViewsOrdere d By: [facility] Provider on 08-11-2024 [facility] Chiropractic Reporton 2024 Chiropractic Report [facility] Chiropractic [address] [place] [id number] OFFICE VISIT Date of Service: 07/26/24 MR#: [id number] Acct: [id number] Name: DILIA MAST Rep #: [id number] : 1955 Provider: THOMAS Asencio Age/Sex: 69/M Location: [facility] [place] Status: Signed Intake Vital Signs 09/21/23 08:45 Height 5 ft 9 in Intake Visit Reasons: BACK PAIN Chief Complaint: Low back pain Is patient in pain?: Yes (Neck, LBP) Pain scale (1-10): 3 Allergies No Known Allergies Allergy (Unverified 07/26/24 08:32) Medications ???Medication ???Instructions ???Recorded ???Confirmed ???Type acetaminophen 650 mg/20.3 mL oral 650 mg PO Q6H PRN 09/21/23 History solution aspirin 81 mg tablet,delayed 81 mg PO DAILY 09/21/23 07/26/24 H istory release hydrochlorothiazide 25 mg tablet 25 mg PO DAILY 09/21/23 07/26/24 H istory meloxicam 15 mg tablet 15 mg PO DAILY 09/21/23 07/26/24 H istory ramipril 10 mg capsule 10 mg PO DAILY 09/21/23 07/26/24 H istory Have you fallen in the past year?: No PFSH Social History Smoking Status: Never smoker alcohol intake: never substance use type: does not use HPI BACK PAIN Chief Complaint: low back and neck pain, left thigh numbness Visit Number: 2 Details: Dilia is a 69 y/o male here for neck, upper and low back pain. He complains of increased neck pain that is equal bilaterally. He denies headaches. He also complains of stiffness in his low back, the right side is worse. He rates his pain 3/10. He denies new injury, numbness, tingling or radiculopathy today. He treats his back pain at home with Tylenol and stretching. Pt. reports chiropractic adjustments are helpful in relieving his some of his pain and discomfort but it gradually returns. Location: neck, upper, low back Duration: intermittent Aggravating or associated factors: standing,walking,hunting Relieving factors: chiro Pain Quality: aching and dull Exam Musc General: Yes normal posture, normal gait, joint tenderness and decreased range of motion; No muscle weakness Cervical Spine: Yes loss of normal cervical lordosis, Yes cervical muscular tenderness bilateral diffuse , Yes cervical spasm left greater than right lower trapezius and paracervical muscles, right upper intrinsics and Yes misalignment misalignment: C2, C6 and C7 Thoracic/Lumber: Yes thoracic and lumbar spine normal to inspection, Yes paraspinal tenderness on the right greater than left (lumbar) and on the left greater than right (upper thoracic,pelvis), Yes scoliosis (right lumbar), Yes thoraco-lumbar spasm on the right greater than left (mid/lower trap, paraspinal L1-L5) and on the left greater than right (glute med) and Yes misalignment T3, T4, T5, L1, L2, L3, L4, L5 and LIL Sacroiliac joints: on the left tender to palpation Office Procedures Procedures - Chiropractic Procedures Manipulation: Cervical C2 and C6, Lumbar L4, Thoracic T3 and T10 and Pelvis LIL Manipulation: 3-4 regions Patient Response: positive Assessment and Plan Assessment and Plan (1) Back pain: Status: Acute Qualifiers: Back pain laterality: right Back pain location: low back pain Chronicity: acute Sciatica presence: without sciatica Qualified Code(s): M54.50 - Low back pain, unspecified (2) Segmental and somatic dysfunction of cervical region: Status: Acute (3) Segmental and somatic dysfunction of thoracic region: Status: Acute (4) Segmental and somatic dysfunction of lumbar region: Status: Acute (5) Segmental and somatic dysfunction of pelvic region: Status: Acute (6) Scoliosis of lumbar spine: Status: Chronic Qualifiers: Idiopathic scoliosis type: other Scoliosis type: idiopathic Qualified Code(s): M41.26 - Other idiopathic scoliosis, lumbar region Orders: Orders Chiropractic Treatments Today M41.26 - Other idiopathic scoliosis, lumbar region, M54.50 - Low back pain, unspecified, M99.01 - Segmental and somatic dysfunction of cervical region, M99.02 - Segmental and somatic dysfunction of thoracic region, M99.03 - Segmental and somatic dysfunction of lumbar region, M99.05 - Segmental and somatic dysfunction of pelvic region Plan Patient was treated with gentle Diversified adjustment without incident. Continue care as needed. Plan Details Goals Barriers: Goals Decrease pain Decrease spasm Improve ability to stand Follow Up: PRN Coding Level of Care Code No Charge Diagnoses Acute right-sided low back pain without sciatica M54.50 Back pain laterality: right Back pain location: low back pain Chronicity: acute Sciatica presence: without sciatica Segmental and somatic dysfunction of cervical region M99.01 Segmental and somatic dysfunction of thoracic region M99.02 Segmenta (more content not included)... Normal [facility] Chiropractic Reporton 2024 Chiropractic Report [facility] [address] [place] [address] OFFICE VISIT Date of Service: 06/27/24 MR#: [id number] Acct: [id number] Name: DILIA MAST Rep #: [id number] : 1955 Provider: THOMAS Forrester Do ssi Age/Sex: 69/M Location: [facility] [place] Status: Signed Intake Vital Signs 09/21/23 08:45 Height 5 ft 9 in Intake Visit Reasons: BACK PAIN Chief Complaint: Low back pain Is patient in pain?: Yes (low back ) Pain scale (1-10): 4 Allergies No Known Allergies Allergy (Unverified 06/27/24 10:05) Medications ???Medication ???Instructions ???Recorded ???Confirmed ???Type acetaminophen 650 mg/20.3 mL oral 650 mg PO Q6H PRN 09/21/23 History solution aspirin 81 mg tablet,delayed 81 mg PO DAILY 09/21/23 06/27/24 H istory release hydrochlorothiazide 25 mg tablet 25 mg PO DAILY 09/21/23 06/27/24 H istory meloxicam 15 mg tablet 15 mg PO DAILY 09/21/23 06/27/24 H istory ramipril 10 mg capsule 10 mg PO DAILY 09/21/23 06/27/24 H istory Have you fallen in the past year?: No PFSH Social History Smoking Status: Never smoker alcohol intake: never substance use type: does not use HPI BACK PAIN Chief Complaint: low back and neck pain, left thigh numbness Visit Number: 1 Details: Dilia is a 69 y/o male here for neck, upper and low back pain. Pt c/o low back pain and soreness. He rates his low back pain 4/10 and states it is slightly worse on the right side. Pt states his neck and upper back get tight and stiff at times. He denies new injury, numbness, tingling or radiculopathy today. He treats his back pain at home with Tylenol and stretching. Pt. reports chiropractic adjustments are helpful in relieving his some of his pain and discomfort but it gradually returns. Location: neck, upper, low back Duration: intermittent Aggravating or associated factors: standing,walking,hunting Relieving factors: chiro Pain Quality: aching and dull Exam Musc General: Yes normal posture, normal gait, joint tenderness and decreased range of motion; No muscle weakness Cervical Spine: Yes loss of normal cervical lordosis, Yes cervical muscular tenderness bilateral diffuse , Yes cervical spasm left greater than right lower trapezius and paracervical muscles, right upper intrinsics and Yes misalignment misalignment: C2, C6 and C7 Thoracic/Lumber: Yes thoracic and lumbar spine normal to inspection, Yes paraspinal tenderness on the right greater than left (lumbar) and on the left greater than right (upper thoracic,pelvis), Yes scoliosis (right lumbar), Yes thoraco-lumbar spasm on the right greater than left (mid/lower trap, paraspinal L1-L5) and on the left greater than right (glute med) and Yes misalignment T3, T4, T5, L1, L2, L3, L4, L5 and LIL Sacroiliac joints: on the left tender to palpation Office Procedures Procedures - Chiropractic Procedures Manipulation: Cervical C2 and C6, Lumbar L4, Thoracic T3 and T10 and Pelvis LIL Manipulation: 3-4 regions Patient Response: positive Assessment and Plan Assessment and Plan (1) Back pain: Status: Acute Qualifiers: Back pain laterality: right Back pain location: low back pain Chronicity: acute Sciatica presence: without sciatica Qualified Code(s): M54.50 - Low back pain, unspecified (2) Segmental and somatic dysfunction of cervical region: Status: Acute (3) Segmental and somatic dysfunction of thoracic region: Status: Acute (4) Segmental and somatic dysfunction of lumbar region: Status: Acute (5) Segmental and somatic dysfunction of pelvic region: Status: Acute (6) Scoliosis of lumbar spine: Status: Chronic Qualifiers: Idiopathic scoliosis type: other Scoliosis type: idiopathic Qualified Code(s): M41.26 - Other idiopathic scoliosis, lumbar region Orders: Orders Chiropractic Treatments Today M41.26 - Other idiopathic scoliosis, lumbar region, M54.50 - Low back pain, unspecified, M99.01 - Segmental and somatic dysfunction of cervical region, M99.02 - Segmental and somatic dysfunction of thoracic region, M99.03 - Segmental and somatic dysfunction of lumbar region, M99.05 - Segmental and somatic dysfunction of pelvic region Plan Patient was treated without incident. He is moving his daughter in the coming month and will follow up due to increased lifting/carrying, etc... Plan Details Goals Barriers: Goals Decrease pain Decrease spasm Improve ability to stand Follow Up: PRN Coding Level of Care Code No Charge Diagnoses Acute right-sided low back pain without sciatica M54.50 Back pain laterality: right Back pain location: low back pain Chronicity: acute Sciatica presence: without sciatica Segmental and somatic dysfunction of cervical region M99.01 Segmental and somatic (more content not included)... Normal [facility] 04-25-2024 [facility] Office Visit (INTMWS ) -------- DILIA MAST ([id number]) 1955 M Date Time Provider Department 04/25/24 8:40 AM LILLY MALONE INTMWS During your visit today, we recorded the following information about you: Temperature Pulse Respiration Blood pressure 98.7 degrees 73/minute 16/minute 114/62 Weight Height 97.5 kg 1.715 m Lilly Malone MD 04/25/2024 9:56 AM Signed This note was created using Dolphinriter. Subjective Dilia Mast is a 69 year old male. HISTORY Dilia Mast is a 69 year old gentleman here for yearly exam and follow up appointment. Dilia Mast is a 69-year-old male with a history of HTN, hypercholesterolemia, and prediabetes, presenting for a Medicare Annual Wellness Visit and follow-up. Dilia reports well-controlled blood pressure, with recent readings consistently within normal limits. He is currently taking hydrochlorothiazide 25 mg daily and Altace 10 mg daily. He also uses Flonase, Moxicam, Patanol, albuterol, and Zyrtec as needed. He takes aspirin daily. He reports engaging in exercise approximately two days a week, with increased activity during the summer months due to fishing and walking. He has recently resumed going to [employer] and aims to attend three to four days a week. He denies frequent consumption of fast food and primarily drinks water, carrying a water bottle throughout the day. He reports getting up once a night to urinate. He endorses a preference for raw vegetables over cooked ones and denies any significant issues with gas. Dilia has been actively working on weight management, reporting a weight of 226 lbs in April and a current weight of 210 lbs. He attributes his weight loss to increased exercise, better eating habits, and portion control. He denies symptoms of depression or anxiety. He has a family history of cardiovascular disease and is currently seeing a bread slicer machine and an mentally retarded teacher. He has completed his advance directives and has a healthcare power of staff attorney in place. He is up to date on his vaccinations, including the Prevnar 20 vaccine, and has a colonoscopy scheduled for 2026. He reports that his vision is doing well and he is satisfied with his current glasses. PAST MEDICAL HISTORY Diagnosis Date Basal cell carcinoma right inferior lateral upper back; Dr Santiago Aceves 07/11/14 Elevated fasting blood sugar Hypercholesterolemia Hypertension Obesity (BMI 30.0-34.9) Snoring Tear of MCL (medial collateral ligament) of knee Current Outpatient Medications Medication Sig cetirizine (ZYRTEC) 10 mg tablet Take 1 tablet by mouth once daily. as needed for allergy symptoms meloxicam (MOBIC) 15 mg tablet Take 1 tablet by mouth once daily. (Patient taking differently: Take 15 mg by mouth once daily as needed.) ramipril (ALTACE) 10 mg capsule Take 1 capsule by mouth once daily. hydroCHLOROthiazide 25 mg tablet Take 1 tablet by mouth once daily. fluticasone (FLONASE) 50 mcg/actuation nasal spray Use 2 Sprays in each nostril once daily. Rinse mouth after use. (Patient taking differently: Use 2 Sprays in each nostril once daily as needed. Rinse mouth after use.) albuterol HFA (PROAIR HFA) 90 mcg/actuation inhaler Inhale 2 Puffs as instructed every 6 hours as needed. aspirin(ADULT LOW DOSE ASPIRIN 81 MG TAB, DELAYED RELEASE) daily olopatadine (PATANOL) 0.1 % ophthalmic solution Use 1 Drop in both eyes two times a day as needed. for watery / itchy eyes No current facility-administered medications for this visit. ALLERGIES No Known Allergies FAMILY HISTORY Problem Relation Age of Onset None Mother Cancer Father prostate Skin Cancer Sister Social History Tobacco Use Smoking status: Never Smokeless tobacco: Never Vaping Use Vaping status: Never Used Substance Use Topics Alcohol use: Yes Comment: 0-1 / week Drug use: No Review of Systems Objective BP 114/62 Pulse 73 Temp 37.1 ?C (98.7 ?F) Resp 16 Ht 171.5 cm (5' 7.52) Wt 97.5 kg (215 lb) BMI 33.16 kg/m? Last 5 Encounter Wt Readings: Date: Wt: 04/25/2024 97.5 kg (215 lb) 12/14/2023 100.9 kg (222 lb 7.1 oz) 08/27/2023 102.5 kg (226 lb) 06/14/2023 103.4 kg (228 lb) 04/14/2023 100.2 kg (221 lb) No waist measurement recorded Estimated body mass index is 33.16 kg/m? as calculated from the following: Height as of this encounter: 171.5 cm (5' 7.52). Weight as of this encounter: 97.5 kg (215 lb). Last 5 Encounter BP Readings: Date: BP: 04/25/2024 114/62 12/14/2023 112/78 08/27/2023 118/73 06/14/2023 147/84 04/14/2023 124/72 Physical Exam Vitals reviewed. Constitutional: Appearance: Normal appearance. HENT: Head: Normocephalic. Right Ear: Tympanic membrane, ear canal and external ear normal. Left Ear: Tympanic membrane, ear canal and external ear normal. Mouth/Throat: Mouth: Mucous membranes are moist. Pharynx: Or (more content not included)... Normal [facility] CBC panel Auto (Bld)on 04-14 Erythrocyte distribution width (RBC) [Ratio] 12.6 % Normal 11.5-15.0 [facility] Comment on above: Order Comment: Speci men Type: BLOOD SPECIMENOrdering Facility: [facility] Address: [address] [place] [address] Performed By: #### 5 8410-2 ####[facility] [id number] [place] [address] [place] Hematocrit (Bld) [Volume fraction] 47.5 % Normal 39.0-51.0 [facility] Comment on above: Order Comment: Speci men Type: BLOOD SPECIMENOrdering Facility: [facility] Address: [address] [place] [address] Performed By: #### 5 8410-2 ####[facility] [id number] [place] [address] [place] Hemoglobin (Bld) [Mass/Vol] 16.3 g/dL Normal 13.0-17.0 [facility] Comment on above: Order Comment: Speci men Type: BLOOD SPECIMENOrdering Facility: [facility] Address: [address] [place] [address] Performed By: #### 5 8410-2 ####[facility] [id number] [place] [address] [place] MCH (RBC) [Entitic mass] 31.0 pg Normal 26.0-34.0 [facility] Comment on above: Order Comment: Speci men Type: BLOOD SPECIMENOrdering Facility: [facility] Address: [address] [place] [address] Performed By: #### 5 8410-2 ####[facility] [id number] [place] [address] [place] MCHC (RBC) [Mass/Vol] 34.3 g/dL Normal 30.5-36.0 [facility] Comment on above: Order Comment: Speci men Type: BLOOD SPECIMENOrdering Facility: [facility] Address: [address] [place] [address] Performed By: #### 5 8410-2 ####[facility] [id number] [place] [address] [place] MCV (RBC) [Entitic vol] 90.3 fL Normal 80.0-100.0 [facility] Comment on above: Order Comment: Speci men Type: BLOOD SPECIMENOrdering Facility: [facility] Address: [address] [place] [address] Performed By: #### 5 8410-2 ####[facility] [id number] [place] [address] [place] Nucleated RBC (Bld) [#/Vol] 10*3/uL Normal <0.01 [facility] Comment on above: Order Comment: Speci men Type: BLOOD SPECIMENOrdering Facility: [facility] Address: [address] [place] [address] Performed By: #### 5 8410-2 ####[facility] [id number] [place] [address] [place] Platelet mean volume (Bld) [Entitic vol] 9.4 fL Normal 9.0-12.7 [facility] Comment on above: Order Comment: Speci men Type: BLOOD SPECIMENOrdering Facility: [facility] Address: [address] [place] [address] Performed By: #### 5 8410-2 ####[facility] [id number] [place] [address] [place] Platelets (Bld) [#/Vol] 336 10*3/uL Normal 150-400 [facility] Comment on above: Order Comment: Speci men Type: BLOOD SPECIMENOrdering Facility: [facility] Address: [address] [place] [address] Performed By: #### 5 8410-2 ####[facility] [id number] [place] [address] [place] RBC (Bld) [#/Vol] 5.26 10*6/uL Normal 4.20-6.00 [facility] Comment on above: Order Comment: Speci men Type: BLOOD SPECIMENOrdering Facility: [facility] Address: [address] [place] [address] Performed By: #### 5 8410-2 ####[facility] [id number] [address] [address] [place] WBC (Bld) [#/Vol] 6.38 10*3/uL Normal 3.70-11.00 [facility] Comment on above: Order Comment: Speci men Type: BLOOD SPECIMENOrdering Facility: [facility] Address: [address] [place] [address] Performed By: #### 5 8410-2 ####[facility] [id number] [place] [address] [place] Comprehensive metabolic 2000 panelon 04-14-2024 Albumin [Mass/Vol] 4.2 g/dL Normal 3.9-4.[address] [facility] Comment on above: Order Comment: Speci men Type: BLOOD SPECIMENOrdering Facility: [facility] Address: [address] [place] [address] Performed By: #### 2 4323-8, 50929-2 ####[facility] [id number] [place] [address] [place] ALP [Catalytic activity/Vol] 61 U/L Normal 38-113 [facility] Comment on above: Order Comment: Speci men Type: BLOOD SPECIMENOrdering Facility: [facility] Address: [address] [place] [address] Performed By: #### 2 4323-8, 72193-8 ####[facility] [id number] [place] [id number] [place] ALT [Catalytic activity/Vol] 27 U/L Normal 10-54 [facility] Comment on above: Order Comment: Speci men Type: BLOOD SPECIMENOrdering Facility: [facility] Address: [address] [place] [address] Performed By: #### 2 4323-8, 14868-5 ####[facility] [id number] [place] [address] [place] Anion gap [Moles/Vol] 11 mmol/L Normal 8-15 [facility] Comment on above: Order Comment: Speci men Type: BLOOD SPECIMENOrdering Facility: [facility] Address: [address] [place] [address] Performed By: #### 2 4323-8, 65590-6 ####[facility] [id number] [place] [address] [place] AST [Catalytic activity/Vol] 18 U/L Normal 14-40 [facility] Comment on above: Order Comment: Speci men Type: BLOOD SPECIMENOrdering Facility: [facility] Address: [address] [place] [address] Performed By: #### 2 4323-8, 98514-1 ####[facility] [id number] [place] [address] [place] Bilirubin [Mass/Vol] 0.3 mg/dL Normal 0.2-1.3 [facility] Comment on above: Order Comment: Speci men Type: BLOOD SPECIMENOrdering Facility: [facility] Address: [address] [place] [address] Performed By: #### 2 4323-8, 43367-1 ####[facility] [id number] [place] [address] [place] Calcium [Mass/Vol] 9.0 mg/dL Normal 8.5-10.[address] [facility] Comment on above: Order Comment: Speci men Type: BLOOD SPECIMENOrdering Facility: [facility] Address: [address] [place] [address] Performed By: #### 2 4323-8, 67686-4 ####[facility] [id number] [address] [address] [place] Chloride [Moles/Vol] 98 mmol/L Normal 98-107 [facility] Comment on above: Order Comment: Speci men Type: BLOOD SPECIMENOrdering Facility: [facility] Address: [address] [place] [address] Performed By: #### 2 4323-8, 13537-5 ####[facility] [id number] [place] [address] [place] CO2 [Moles/Vol] 29 mmol/L Normal 22-30 [facility] Comment on above: Order Comment: Speci men Type: BLOOD SPECIMENOrdering Facility: [facility] Address: [address] [place] [address] Performed By: #### 2 4323-8, 13178-5 ####[facility] [id number] [place] [address] [place] Creatinine [Mass/Vol] 0.86 mg/dL Normal 0.73-1.22 [facility] Comment on above: Order Comment: Speci men Type: BLOOD SPECIMENOrdering Facility: [facility] Address: [address] [place] [address] Performed By: #### 2 4323-8, 66449-0 ####[facility] [id number] [place] [address] [place] Creatinine and Glomerular filtration rate.predicted panel (S/P/Bld) 95 mL/min/1.73m??? Normal >=60 [facility] Comment on above: Order Comment: Speci men Type: BLOOD SPECIMENOrdering Facility: [facility] Address: [address] [place] [address] Result Comment: Elena mated Glomerular Filtration Rate (eGFR) is calculated using the 2020 CKD-EPI creatinine equation. This equation utilizes serum creatinine, sex, and age as parameters. The creatinine assay has traceable calibration to isotope dilution-mass spectrometry. Refer to KDIGO guidelines for clinical interpretation. In patients with unstable renal function, e.g. those with acute kidney injury, the eGFR may not accurately reflect actual GFR. Performed By: #### 2 4323-8, 52485-9 ####[facility] [id number] [address] [address] [place] Glucose [Mass/Vol] 112 mg/dL High 74-[address] [facility] Comment on above: Order Comment: Specbryson parrish Type: BLOOD SPECIMENOrdering Facility: [facility] Address: [address] [place] [address] Result Comment: The [place] Diabetes [employer] (ADA) provides guidance for cutoff values for fasting glucose and random glucose. The ADA defines fasting as no caloric intake for at least 8 hours. Fasting plasma glucose results between 100 to 125 mg/dL indicate increased risk for diabetes (prediabetes). Fasting plasma glucose results greater than or equal to 126 mg/dL meet the criteria for diagnosis of diabetes. In the absence of unequivocal hyperglycemia, results should be confirmed by repeat testing. In a patient with classic symptoms of hyperglycemia or hyperglycemic crisis, random plasma glucose results greater than or equal to 200 mg/dL meet the criteria for diagnosis of diabetes. Reference: Standards of Medical Care in Diabetes 2016, [place] [employer]. Diabetes Care. 2016.39(Suppl 1). Performed By: #### 2 4323-8, ####[facility] [id number] [place] [id number] [place] Potassium [Moles/Vol] 3.9 mmol/L Normal 3.7-5.1 [facility] Comment on above: Order Comment: Jonathan parrish Type: BLOOD SPECIMENOrdering Facility: [facility] Address: [address] [place] [address] Performed By: #### 2 4323-8, ####[facility] [id number] [address] [address] [place] Protein [Mass/Vol] 7.3 g/dL Normal 6.3-8.[address] [facility] Comment on above: Order Comment: Speci men Type: BLOOD SPECIMENOrdering Facility: [facility] Address: [address] [place] [address] Performed By: #### 2 4323-8, 92642-0 ####[facility] [id number] [place] [id number] [place] Sodium [Moles/Vol] 138 mmol/L Normal 136-[address] [facility] Comment on above: Order Comment: Speci men Type: BLOOD SPECIMENOrdering Facility: [facility] Address: [address] [place] [address] Performed By: #### 2 4323-8, 18629-6 ####[facility] [id number] [place] [address] [place] Urea nitrogen [Mass/Vol] 19 mg/dL Normal 9-24 [facility] Comment on above: Order Comment: Speci men Type: BLOOD SPECIMENOrdering Facility: [facility] Address: [address] [place] [address] Performed By: #### 2 4323-8, 00112-0 ####[facility] [id number] [place] [address] [place] HbA1c (Bld)on 04-14-2024 Average glucose Estimated from glycated hemoglobin (Bld) [Mass/Vol] 120 mg/dL Normal [facility] Comment on above: Order Comment: Speci men Type: BLOOD SPECIMENOrdering Facility: [facility] Address: [address] [place] [address] Result Comment: eAG: (Estimated average glucose) is a calculated value from HgbA1c and is auto service representative of the average blood glucose level in the last 2-3 month period. Performed By: #### 5 5454-3 ####[facility] [id number] [place] [address] [place] HbA1c (Bld) [Mass fraction] 5.8 % High 4.3-5.6 [facility] Comment on above: Order Comment: Speci men Type: BLOOD SPECIMENOrdering Facility: [facility] Address: [address] [place] [address] Result Comment: [place] Diabetes Association guidelines indicate that patients with HgbA1c in the range 5.7-6.4% are at increased risk for development of diabetes, and intervention by lifestyle modification may be beneficial. HgbA1c greater or equal to 6.5% is considered diagnostic of diabetes. Performed By: #### 5 5454-3 ####[facility] [id number] [place] [address] [place] Lipid 1996 panelon 4 Cholesterol [Mass/Vol] 173 mg/dL Normal <200 [facility] Comment on above: Order Comment: Katherinei men Type: BLOOD SPECIMENOrdering Facility: [facility] Address: [address] [place] [address] Result Comment: <200 mg/dL, Desirable 200-239 mg/dL, Borderline high >239 mg/dL, High Performed By: #### 2 4323-8, 50502-0 ####[facility] [id number] [address] [place] Cholesterol in HDL [Mass/Vol] 39 mg/dL Low >39 [facility] Comment on above: Order Comment: Speci men Type: BLOOD SPECIMENOrdering Facility: [facility] Address: [address] [place] [address] Result Comment: 40-5 9 mg/dL, Acceptable >59 mg/dL, High: Negative risk factor for coronary heart disease <40 mg/dL, Low: Positive risk factor for coronary heart disease Performed By: #### 2 4323-8, 43907-9 ####[facility] [id number] [address] [place] Cholesterol in LDL [Mass/Vol] 95 mg/dL Normal <100 [facility] Comment on above: Order Comment: Speci men Type: BLOOD SPECIMENOrdering Facility: [facility] Address: [address] [place] [address] Result Comment: <100 mg/dL, Optimal 100-129 mg/dL, Near optimal/above optimal 130-159 mg/dL, Borderline high 160-189 mg/dL, High >189 mg/dL, Very high Secondary prevention optimal LDL Cholesterol levels are recommended to be < 70 mg/dL Performed By: #### 2 4323-8, 60217-6 ####[facility] [id number] [place] [address] [place] Cholesterol in LDL/Cholesterol in HDL [Mass ratio] 2.44 {ratio} Normal <2.54 [facility] Comment on above: Order Comment: Speci men Type: BLOOD SPECIMENOrdering Facility: [facility] Address: [address] [place] [address] Result Comment: Refe rence: 1. National Cholesterol Education Program ATP III Guideline At-A-Glance Quick Desk Reference: National Heart, Lung, and Blood [place]. National Institutes of Health. 2001: NIH Publication No. 01-3305. 2. An International Atherosclerosis Society position paper: global recommendations for the management of dyslipidemia: executive summary, Atherosclerosis. 2014: 232(2):410-413. Performed By: #### 2 4323-8, 71318-3 ####[facility] [id number] [place] [address] [place] Cholesterol in VLDL [Mass/Vol] 39 mg/dL High <30 [facility] Comment on above: Order Comment: Speci men Type: BLOOD SPECIMENOrdering Facility: [facility] Address: [address] [place] [address] Performed By: #### 2 4323-8, 74114-3 ####[facility] [id number] [place] [address] [place] Cholesterol non HDL [Mass/Vol] 134 mg/dL High <130 [facility] Comment on above: Order Comment: Speci men Type: BLOOD SPECIMENOrdering Facility: [facility] Address: [address] [place] [address] Result Comment: <130 mg/dL, Optimal 130-159 mg/dL, Near optimal/above optimal 160-189 mg/dL, Borderline high 190-219 mg/dL, High >219 mg/dL, Very high Secondary prevention optimal non HDL Cholesterol levels are recommended to be <100 mg/dL Performed By: #### 2 4323-8, 55621-1 ####[facility] [id number] [place] [address] [place] Cholesterol.total/Chol esterol in HDL [Mass ratio] 4.44 {ratio} Normal <5.10 [facility] Comment on above: Order Comment: Speci men Type: BLOOD SPECIMENOrdering Facility: [facility] Address: [address] [place] [address] Performed By: #### 2 4323-8, 61164-4 ####[facility] [id number] [place] [address] [place] FASTING TIME 13 hrs Normal [facility] Comment on above: Order Comment: Speci men Type: BLOOD SPECIMENOrdering Facility: [facility] Address: [address] [place] [address] Performed By: #### 2 4323-8, 04853-4 ####[facility] [id number] [place] [address] [place] Triglyceride [Mass/Vol] 195 mg/dL High <150 [facility] Comment on above: Order Comment: Speci men Type: BLOOD SPECIMENOrdering Facility: [facility] Address: [address] [place] [address] Result Comment: <150 mg/dL, Normal 150-199 mg/dL, Borderline high 200-499 mg/dL, High >499 mg/dL, Very high Performed By: #### 2 4323-8, 36397-3 ####[facility] [id number] [facility] [address] [place] Chiropractic Reporton 2023 Chiropractic Report [facility] Chiropractic [facility] [place] [address] OFFICE VISIT Date of Service: 04/04/24 MR#: [id number] Acct: [id number] Name: DILIA MAST Rep #: [id number] : 1955 Provider: THOMAS Asencio Age/Sex: 69/M Location: [facility] Status: Signed Intake Vital Signs 09/21/23 08:45 Height 5 ft 9 in Intake Visit Reasons: BACK PAIN Chief Complaint: Low back and left thigh numbness Accompanied by: Self Is patient in pain?: Yes (low right back and right hip) Pain scale (1-10): 4 Allergies No Known Allergies Allergy (Unverified 04/04/24 14:14) Medications ???Medication ???Instructions ???Recorded ???Confirmed ???Type acetaminophen 650 mg/20.3 mL oral 650 mg PO Q6H PRN 09/21/23 04/04/24 History solution aspirin 81 mg tablet,delayed 81 mg PO DAILY 09/21/23 04/04/24 History release hydrochlorothiazide 25 mg tablet 25 mg PO DAILY 09/21/23 04/04/24 History meloxicam 15 mg tablet 15 mg PO DAILY 09/21/23 04/04/24 History ramipril 10 mg capsule 10 mg PO DAILY 09/21/23 04/04/24 History Have you fallen in the past year?: No PFSH Social History Smoking Status: Never smoker alcohol intake: never substance use type: does not use HPI BACK PAIN Chief Complaint: low back and neck pain, left thigh numbness Visit Number: 7 Details: Dilia is a 68 y/o male here for neck, upper and low back pain. c/o right low back and right hip dull achiness rated 4 out of 10 today. Occasional left thigh numbness with prolonged standing or walking long distances with an episode yesterday after walking approx 3 miles while hunting. Pt complains of low back pain that is worse on the right side. Pt states his neck and upper back get tight and sore at times especially on the left side. No new injury, he has just been out in the [place] a lot [place] this fall and feels like he needs an adjustment. He treats his back pain at home with Tylenol and stretching. Pt. reports chiropractic adjustments are helpful in relieving his some of his pain and discomfort. Location: neck, upper, low back Duration: intermittent Aggravating or associated factors: standing, walking Relieving factors: chiro Pain Quality: aching and dull Exam Musc General: Yes normal posture, normal gait, joint tenderness and decreased range of motion; No muscle weakness Cervical Spine: Yes loss of normal cervical lordosis, Yes cervical muscular tenderness (mild) bilateral lower , Yes cervical spasm left greater than right lower trapezius and paracervical muscles, right upper intrinsics and Yes misalignment misalignment: C2, C6 and C7 Thoracic/Lumber: Yes thoracic and lumbar spine normal to inspection, Yes paraspinal tenderness on the right greater than left (lumbar) and on the left greater than right (upper thoracic,pelvis), Yes scoliosis (right lumbar), Yes thoraco-lumbar spasm on the right greater than left (mid/lower trap, paraspinal L1-L5) and on the left greater than right (glute med) and Yes misalignment T3, T4, T5, L1, L2, L3, L4, L5 and LIL Sacroiliac joints: on the left tender to palpation Office Procedures Procedures - Chiropractic Procedures Stimulation: without Manipulation: Cervical C2 and C6, Lumbar L4, Thoracic T3 and T10 and Pelvis LIL Manipulation: 3-4 regions Electronic Stimulation: No Therapy Performed by:: Dr. Mitzy Conde DC Traction, Mechanical: No Theraputic Ultrasound: No Hot and/or cold packs: No Patient Response: positive Assessment and Plan Assessment and Plan (1) Segmental and somatic dysfunction of cervical region: Status: Acute (2) Segmental and somatic dysfunction of thoracic region: Status: Acute (3) Segmental and somatic dysfunction of lumbar region: Status: Acute (4) Segmental and somatic dysfunction of pelvic region: Status: Acute (5) Scoliosis of lumbar spine: Status: Chronic Qualifiers: Idiopathic scoliosis type: other Scoliosis type: idiopathic Qualified Code(s): M41.26 - Other idiopathic scoliosis, lumbar region Orders: Orders Chiropractic Treatments Today M99.01 - Segmental and somatic dysfunction of cervical region, M99.02 - Segmental and somatic dysfunction of thoracic region, M99.03 - Segmental and somatic dysfunction of lumbar region, M99.05 - Segmental and somatic dysfunction of pelvic region Plan Patient was treated without incident.Continue care as needed. Plan Details Goals Barriers: Goals Decrease pain Decrease spasm Improve ability to stand Follow Up: PRN Coding Level of Care Code No Charge Diagnoses Segmental and somatic dysfunction of cervical region M99.01 Segmental and somatic dysfunction of thoracic region M99.02 Segmental and somatic dysfunction of lumbar region M99.03 Segmental and somatic dysfunc (more content not included)... Normal [facility] CNOVon 12-14-2023 CNOV Office Visit (INTMWS ) -------- DILIA MAST ([id number]) 1955 M Date Time Provider Department 12/14/23 10:00 AM JODEE REA INTMWS During your visit today, we recorded the following information about you: Pulse Blood pressure Weight 84/minute 112/78 100.9 kg Jodee Rea APRN.COUPLER 12/14/2023 10:15 AM Signed SUBJECTIVE Dilia Mast is a 68 year old male here today for a check up on his medical problems. Chief Complaint Patient presents with: Eye Problem: flutter,twitching below left eye and mid forehead off and on for the last 3-4 weeks Question if maybe stress related due to moving mother into his home HPI Dilia Mast is a 68 year old male. He is an established patient of Lilly Malone MD. Here today due to he has noticed some eye twitching, fluttering sensation between the eyes to the forehead muscles. Mom recently moved in with him so some added stress but manageable. Off and on symptoms for the last few weeks. Short duration. No twitches since Wednesday. Getting adequate fluids. Trying to improve diet. Walking more. Not having sinus congestion or headaches. Did try Flonase and pseudoephedrine and helped some. Upcoming eye doctor appointment, has been several years, no sudden changes in vision, no blurry vision or double vision. His medications were reviewed today and his list is now up to date. Medications Current Outpatient Medications Medication Sig cetirizine (ZYRTEC) 10 mg tablet Take 1 tablet by mouth once daily. as needed for allergy symptoms meloxicam (MOBIC) 15 mg tablet Take 1 tablet by mouth once daily. ramipril (ALTACE) 10 mg capsule Take 1 capsule by mouth once daily. hydroCHLOROthiazide 25 mg tablet Take 1 tablet by mouth once daily. fluticasone (FLONASE) 50 mcg/actuation nasal spray Use 2 Sprays in each nostril once daily. Rinse mouth after use. olopatadine (PATANOL) 0.1 % ophthalmic solution Use 1 Drop in both eyes two times a day as needed. for watery / itchy eyes albuterol HFA (PROAIR HFA) 90 mcg/actuation inhaler Inhale 2 Puffs as instructed every 6 hours as needed. aspirin(ADULT LOW DOSE ASPIRIN 81 MG TAB, DELAYED RELEASE) daily No current facility-administered medications for this visit. ALLERGIES No Known Allergies ACTIVE PROBLEM LIST Acute Pain of Left Shoulder - 06/06/2021 Numbness and Tingling in Left Hand - 06/06/2021 Left Cervical Radiculopathy - 03/28/2018 Neck Pain On Left Side - 11/13/2016 Obesity (Bmi 30.0-34.9) Htn (Hypertension) - 08/01/2015 Cancer, Skin, Squamous Cell - 08/01/2015 Social History Tobacco Use Smoking status: Never Smokeless tobacco: Never Vaping Use Vaping status: Never Used Substance Use Topics Alcohol use: Yes Comment: 0-1 / week Drug use: No Review of Systems Eyes: Negative for pain, discharge, redness and visual disturbance. Respiratory: Negative. Cardiovascular: Negative. Neurological: Negative for dizziness, tremors, seizures, syncope, facial asymmetry, speech difficulty, weakness, light-headedness, numbness and headaches. OBJECTIVE BP 112/78 Pulse 84 Wt 222 lb 7.1 oz (100.9kg) SpO2 98% Physical Exam Vitals and nursing note reviewed. Constitutional: General: He is awake. He is not in acute distress. Appearance: Normal appearance. He is well-developed and well-groomed. He is not ill-appearing, toxic-appearing or diaphoretic. HENT: Head: Normocephalic. Right Ear: External ear normal. Left Ear: External ear normal. Nose: Nose normal. Eyes: General: Vision grossly intact. Extraocular Movements: Extraocular movements intact. Conjunctiva/sclera: Conjunctivae normal. Pupils: Pupils are equal, round, and reactive to light. Neck: Vascular: No JVD. Trachea: Trachea normal. Pulmonary: Effort: Pulmonary effort is normal. No accessory muscle usage, prolonged expiration or respiratory distress. Musculoskeletal: Cervical back: Neck supple. Skin: General: Skin is warm and dry. Capillary Refill: Capillary refill takes less than 2 seconds. Neurological: General: No focal deficit present. Mental Status: He is alert and oriented to person, place, and time. Mental status is at baseline. Cranial Nerves: Cranial nerves 2-12 are intact. Sensory: Sensation is intact. Motor: Motor function is intact. Coordination: Coordination is intact. Gait: Gait is intact. Psychiatric: Attention and Perception: Attention and perception normal. Mood and Affect: Mood and affect normal. Speech: Speech normal. Behavior: Behavior normal. Behavior is cooperative. Thought Content: Thought content normal. Cognition and Memory: Cognition and memory normal. Judgment: Judgment normal. ASSESSMENT/PLAN: 1. Eye muscle twitches - ICD9: 781.0, ICD10: R25.3 (primary diagnosis) Discussed that this is likely from the increased stress and increased strain on eye muscles given the need to upda (more content not included)... Normal [facility] Chiropractic Reporton 2023 Chiropractic Report [facility] Chiropractic [address] [place] [address] OFFICE VISIT Date of Service: 11/30/23 MR#: [id number] Acct: [id number] Name: DILIA MAST Rep #: [id number] : 1955 Provider: THOMAS Asencio Age/Sex: 68/M Location: [facility] Status: Signed Intake Vital Signs 09/21/23 08:45 Height 5 ft 9 in Intake Visit Reasons: BACK PAIN Chief Complaint: Low back and left thigh numbness Allergies No Known Allergies Allergy (Unverified 11/30/23 10:07) Medications ???Medication ???Instructions ???Recorded ???Confirmed ???Type acetaminophen 650 mg/20.3 mL oral 650 mg PO Q6H PRN 09/21/23 11/30/23 History solution aspirin 81 mg tablet,delayed 81 mg PO DAILY 09/21/23 11/30/23 History release hydrochlorothiazide 25 mg tablet 25 mg PO DAILY 09/21/23 11/30/23 History meloxicam 15 mg tablet 15 mg PO DAILY 09/21/23 11/30/23 History ramipril 10 mg capsule 10 mg PO DAILY 09/21/23 11/30/23 History Have you fallen in the past year?: No PFSH Social History Smoking Status: Never smoker alcohol intake: never substance use type: does not use HPI BACK PAIN Chief Complaint: low back and neck pain, left thigh numbness Visit Number: 6 Details: Dilia is a 68 y/o male here for low back pain. Pt. advises that his pain was improving until last . Last he was stepping up and reaching for an empty suitcase at the same time when he felt a pain in his mid right back. Later night his back popped and the pain improved. He state the left thigh numbness that accompanies prolonged standing or walking has improved. He walked a few miles this morning and barely had any numbness this morning. Pt complains of low back pain that is worse on the right side. Pt states his neck and upper back get tight and sore at times especially on the left side. He treats his back pain at home with Tylenol and stretching. Pt. reports chiropractic adjustments are helpful in relieving his some of his pain and discomfort. Location: neck, upper, low back Duration: intermittent Aggravating or associated factors: standing, walking Relieving factors: chiro Pain Quality: aching and dull Exam Musc General: Yes normal posture, normal gait, joint tenderness and decreased range of motion; No muscle weakness Cervical Spine: Yes loss of normal cervical lordosis, Yes cervical muscular tenderness (mild- improving), Yes cervical spasm left greater than right lower trapezius and paracervical muscles, right upper intrinsics and Yes misalignment misalignment: C2, C6 and C7 Thoracic/Lumber: Yes thoracic and lumbar spine normal to inspection, Yes paraspinal tenderness on the right greater than left (lumbar) and on the left greater than right (upper thoracic,pelvis), No scoliosis, Yes thoraco-lumbar spasm on the right greater than left (mid/lower trap, paraspinal L1- L5) and on the left greater than right (glute med) and Yes misalignment T3, T4, T5, L1, L2, L3, L4, L5 and LIL Sacroiliac joints: on the left tender to palpation Office Procedures Procedures - Chiropractic Procedures Manipulation: Cervical C2 and C6, Lumbar L4, Thoracic T3 and T10 and Pelvis LIL Manipulation: 3-4 regions Patient Response: positive Assessment and Plan Assessment and Plan (1) Back pain: Status: Acute Qualifiers: Back pain laterality: right Back pain location: low back pain Chronicity: acute Sciatica presence: without sciatica Qualified Code(s): M54.50 - Low back pain, unspecified (2) Segmental and somatic dysfunction of cervical region: Status: Acute (3) Segmental and somatic dysfunction of thoracic region: Status: Acute (4) Segmental and somatic dysfunction of lumbar region: Status: Acute (5) Segmental and somatic dysfunction of pelvic region: Status: Acute (6) Scoliosis of lumbar spine: Status: Chronic Qualifiers: Idiopathic scoliosis type: other Scoliosis type: idiopathic Qualified Code(s): M41.26 - Other idiopathic scoliosis, lumbar region Orders: Orders Chiropractic Treatments Today M41.26 - Other idiopathic scoliosis, lumbar region, M54.50 - Low back pain, unspecified, M99.01 - Segmental and somatic dysfunction of cervical region, M99.02 - Segmental and somatic dysfunction of thoracic region, M99.03 - Segmental and somatic dysfunction of lumbar region, M99.05 - Segmental and somatic dysfunction of pelvic region Plan Patient was treated without incident. He is showing improvement overall. Continue care as needed. Plan Details Goals Barriers: Goals Decrease pain Decrease spasm Improve ability to stand Target Due Date 11/05/23 Follow Up: 1 Month Coding Level of Care Code No Charge Diagnoses Acute right-sided low back pain without sciatica M54.50 Back pain (more content not included)... Normal [facility] Chiropractic Reporton 2023 Chiropractic Report [facility] Chiropractic [address] [place] [id number] OFFICE VISIT Date of Service: 10/25/23 MR#: [id number] Acct: [id number] Name: DILIA MAST Rep #: [id number] : 1955 Provider: THOMAS Asencio Age/Sex: 68/M Location: [facility] Status: Signed Intake Vital Signs 09/21/23 08:45 Height 5 ft 9 in Intake Visit Reasons: BACK PAIN Chief Complaint: Low back and left thigh numbness Is patient in pain?: Yes (LBP) Pain scale (1-10): 2 Allergies No Known Allergies Allergy (Unverified 10/25/23 08:50) Medications ???Medication ???Instructions ???Recorded ???Confirmed ???Type acetaminophen 650 mg/20.3 mL oral 650 mg PO Q6H PRN 09/21/23 10/25/23 History solution aspirin 81 mg tablet,delayed 81 mg PO DAILY 09/21/23 10/25/23 History release hydrochlorothiazide 25 mg tablet 25 mg PO DAILY 09/21/23 10/25/23 History meloxicam 15 mg tablet 15 mg PO DAILY 09/21/23 10/25/23 History ramipril 10 mg capsule 10 mg PO DAILY 09/21/23 10/25/23 History Have you fallen in the past year?: No PFSH Social History Smoking Status: Never smoker alcohol intake: never substance use type: does not use HPI BACK PAIN Chief Complaint: low back and neck pain, left thigh numbness Visit Number: 5 Details: Dilia is a 68 y/o male here for low back pain. Pt. advises that his pain continues to improve. He continues to have left thigh numbness that accompanies prolonged standing or walking, but it is intermittent now. Pt complains of low back pain that is worse on the right side. He rates his pain 2/10. He states his right hip pain has also improved but does become bothersome after being on his feet for long periods. Pt states his neck and upper back get tight and sore at times especially on the left side. He treats his back pain at home with Tylenol and stretching. Pt. reports chiropractic adjustments are helpful in relieving his some of his pain and discomfort. Location: neck, upper, low back Duration: intermittent Aggravating or associated factors: standing, walking Relieving factors: chiro Pain Quality: aching and dull Exam Musc General: Yes normal posture, normal gait, joint tenderness and decreased range of motion; No muscle weakness Cervical Spine: Yes loss of normal cervical lordosis, Yes cervical muscular tenderness (mild- improving) bilateral lower , Yes cervical spasm left greater than right lower trapezius and paracervical muscles, right upper intrinsics and Yes misalignment misalignment: C2, C6 and C7 Thoracic/Lumber: Yes thoracic and lumbar spine normal to inspection, Yes paraspinal tenderness on the right greater than left (lumbar) and on the left greater than right (upper thoracic,pelvis), No scoliosis, Yes thoraco-lumbar spasm on the right greater than left (mid/lower trap, paraspinal L1- L5) and on the left greater than right (glute med) and Yes misalignment T3, T4, T5, L1, L2, L3, L4, L5 and LIL Sacroiliac joints: on the left tender to palpation Office Procedures Procedures - Chiropractic Procedures Manipulation: Cervical C2 and C6, Lumbar L4, Thoracic T3 and T10 and Pelvis LIL Manipulation: 3-4 regions Patient Response: positive Assessment and Plan Assessment and Plan (1) Back pain: Status: Acute Qualifiers: Back pain laterality: right Back pain location: low back pain Chronicity: acute Sciatica presence: without sciatica Qualified Code(s): M54.50 - Low back pain, unspecified (2) Segmental and somatic dysfunction of cervical region: Status: Acute (3) Segmental and somatic dysfunction of thoracic region: Status: Acute (4) Segmental and somatic dysfunction of lumbar region: Status: Acute (5) Segmental and somatic dysfunction of pelvic region: Status: Acute (6) Scoliosis of lumbar spine: Status: Chronic Qualifiers: Idiopathic scoliosis type: other Scoliosis type: idiopathic Qualified Code(s): M41.26 - Other idiopathic scoliosis, lumbar region Orders: Orders Chiropractic Treatments Today M41.26 - Other idiopathic scoliosis, lumbar region, M54.50 - Low back pain, unspecified, M99.01 - Segmental and somatic dysfunction of cervical region, M99.02 - Segmental and somatic dysfunction of thoracic region, M99.03 - Segmental and somatic dysfunction of lumbar region, M99.05 - Segmental and somatic dysfunction of pelvic region Plan Patient is showing improvement. Continue care. Plan Details Goals Barriers: Goals Decrease pain Decrease spasm Improve ability to stand Target Due Date 11/05/23 Follow Up: 2 Weeks Coding Level of Care Code No Charge Diagnoses Acute right-sided low back pain without sciatica M54.50 Back pain laterality: right Back pain location: low back pain Chronicity: acute Sciatica presence: wit (more content not included)... Normal [facility] Chiropractic Reporton 2023 Chiropractic Report [facility] Chiropractic [address] [place] [address] OFFICE VISIT Date of Service: 10/18/23 MR#: [id number] Acct: [id number] Name: DILIA MAST Rep #: [id number] : 1955 Provider: THOMAS Asencio Age/Sex: 68/M Location: [facility] Status: Signed Intake Vital Signs 09/21/23 08:45 Height 5 ft 9 in Intake Visit Reasons: BACK PAIN Chief Complaint: Low back and left thigh numbness Allergies No Known Allergies Allergy (Unverified 10/18/23 08:37) Medications ???Medication ???Instructions ???Recorded ???Confirmed ???Type acetaminophen 650 mg/20.3 mL oral 650 mg PO Q6H PRN 09/21/23 10/18/23 History solution aspirin 81 mg tablet,delayed 81 mg PO DAILY 09/21/23 10/18/23 History release hydrochlorothiazide 25 mg tablet 25 mg PO DAILY 09/21/23 10/18/23 History meloxicam 15 mg tablet 15 mg PO DAILY 09/21/23 10/18/23 History ramipril 10 mg capsule 10 mg PO DAILY 09/21/23 10/18/23 History Have you fallen in the past year?: No PFSH Social History Smoking Status: Never smoker alcohol intake: never substance use type: does not use HPI BACK PAIN Chief Complaint: low back and neck pain, left thigh numbness Visit Number: 4 Details: Dilia is a 68 y/o male here for low back pain. Pt. advises he has had a great deal of improvement since coming in for adjustments. He continues to have left thigh numbness but it less severe. His left thigh numbness is after standing or walking for a period of time but reports it is becoming less frequent. Pt. is just overall stiff this morning. He states his right hip pain has also improved. Pt states his neck and upper back get tight and sore at times especially on the left side. He treats his back pain at home with Tylenol and stretching. Pt. reports chiropractic adjustments are helpful in relieving his some of his pain and discomfort. Location: neck, upper, low back Duration: intermittent Aggravating or associated factors: standing, walking Relieving factors: chiro Pain Quality: aching and dull Exam Musc General: Yes normal posture, normal gait, joint tenderness and decreased range of motion; No muscle weakness Cervical Spine: Yes loss of normal cervical lordosis, Yes cervical muscular tenderness (mild) bilateral diffuse , Yes cervical spasm left greater than right lower trapezius and paracervical muscles, right upper intrinsics and Yes misalignment misalignment: C2, C6 and C7 Thoracic/Lumber: Yes thoracic and lumbar spine normal to inspection, Yes paraspinal tenderness on the right greater than left (lumbar) and on the left greater than right (upper thoracic,pelvis), No scoliosis, Yes thoraco-lumbar spasm on the right greater than left (mid/lower trap, paraspinal L1- L5) and on the left greater than right (glute med) and Yes misalignment T3, T4, T5, L1, L2, L3, L4, L5 and LIL Sacroiliac joints: on the left tender to palpation Office Procedures Procedures - Chiropractic Procedures Manipulation: Cervical C2 and C6, Lumbar L3, Thoracic T3 and Pelvis LIL Manipulation: 3-4 regions Patient Response: positive Assessment and Plan Assessment and Plan (1) Back pain: Status: Acute Qualifiers: Back pain laterality: right Back pain location: low back pain Chronicity: acute Sciatica presence: without sciatica Qualified Code(s): M54.50 - Low back pain, unspecified (2) Segmental and somatic dysfunction of cervical region: Status: Acute (3) Segmental and somatic dysfunction of thoracic region: Status: Acute (4) Segmental and somatic dysfunction of lumbar region: Status: Acute (5) Segmental and somatic dysfunction of pelvic region: Status: Acute (6) Scoliosis of lumbar spine: Status: Chronic Qualifiers: Idiopathic scoliosis type: other Scoliosis type: idiopathic Qualified Code(s): M41.26 - Other idiopathic scoliosis, lumbar region Orders: Orders Chiropractic Treatments Today M41.26 - Other idiopathic scoliosis, lumbar region, M54.50 - Low back pain, unspecified, M99.01 - Segmental and somatic dysfunction of cervical region, M99.02 - Segmental and somatic dysfunction of thoracic region, M99.03 - Segmental and somatic dysfunction of lumbar region, M99.05 - Segmental and somatic dysfunction of pelvic region Plan Patient is showing improvement. Continue care at lesser frequency and monitor response. Plan Details Goals Barriers: Goals Decrease pain Decrease spasm Improve ability to stand Target Due Date 11/05/23 Follow Up: 2wks Coding Level of Care Code No Charge Diagnoses Acute right-sided low back pain without sciatica M54.50 Back pain laterality: right Back pain location: low back pain Chronicity: acute Sciatica presence: without sciatica Segmental and somatic dysfunction o (more content not included)... [facility] 09-17-2023 BANNER Telephone (INTMWS) -------- DILIA MAST ([id number]) 1955 M Date Time Provider Department 09/17/23 LILLY MALONE INTWS During your visit today, we recorded the following information about you: Paola Byrne RN 09/17/2023 12:14 PM Signed Patient calls and states that his mother is moving to [facility]. Patient states that Dr. Malone had told him at patient's last appointment that Dr. Malone would see patient's mother as patient. Patient asking if Dr. Malone will see mother? Patient also needs ramipril to be sent to [facility]. Prescription was previously sent to [facility]. Please review and advise, TAYLOR Jones Liza D, MD 09/20/2023 11:01 PM Signed Okay to see his mother as requested. If no appointments soon enough for her to get established at appointment with me, may see Jodee or Kalin first. The following approved medication requests have been transmitted electronically. Requested Prescriptions Signed Prescriptions Disp Refills ramipril (ALTACE) 10 mg capsule 90 capsule 3 Sig: Take 1 capsule by mouth once daily. Authorizing Provider: LILLY MALONE MD Strait, Gillian, O[facility] 09/21/2023 1:19 PM Signed TC to patient who verbalized understanding of below. Patient stating he also needs HCTZ sent to [facility] instead of [facility]. Pended as such. HOLLAND Corley Liza D, MD 09/21/2023 1:20 PM Signed The following approved medication requests have been transmitted electronically. Requested Prescriptions Signed Prescriptions Disp Refills ramipril (ALTACE) 10 mg capsule 90 capsule 3 Sig: Take 1 capsule by mouth once daily. Authorizing Provider: LILLY MALONE hydroCHLOROthiazide 25 mg tablet 90 tablet 3 Sig: Take 1 tablet by mouth once daily. Authorizing Provider: LILLY MALONE MD Allergies As of Date: 09/17/2023 (No Known Allergies) Date Reviewed: 08/27/2023 Reviewed by: Catia Vasquez LPN - Fully Assessed Reason for Visit: Patient Question [1477] Order(s):ramipril (ALTACE) 10 mg capsuleTake 1 capsule by mouth once daily.Disp: 90 capsuleRfl: 3 hydroCHLOROthiazide 25 mg tabletTake 1 tablet by mouth once daily.Disp: 90 tabletRfl: 3 Prescriptions as of 09/21/2023 - hydroCHLOROthiazide 25 mg tablet Take 1 tablet by mouth once daily. - ramipril (ALTACE) 10 mg capsule Take 1 capsule by mouth once daily. - meloxicam (MOBIC) 15 mg tablet Take 1 tablet by mouth once daily. - fluticasone (FLONASE) 50 mcg/actuation nasal spray Use 2 Sprays in each nostril once daily. Rinse mouth after use. - cetirizine (ZYRTEC) 10 mg tablet Take 1 tablet by mouth once daily. as needed for allergy symptoms - olopatadine (PATANOL) 0.1 % ophthalmic solution Use 1 Drop in both eyes two times a day as needed. for watery / itchy eyes - albuterol HFA (PROAIR HFA) 90 mcg/actuation inhaler Inhale 2 Puffs as instructed every 6 hours as needed. - aspirin(ADULT LOW DOSE ASPIRIN 81 MG TAB, DELAYED RELEASE) daily Problem List As Of Date 09/17/2023 Noted Resolved HTN (hypertension) [I10] 08/01/2015 Cancer, skin, squamous cell [C44.92] 08/01/2015 Obesity (BMI 30.0-34.9) [E66.9] Neck pain on left side [M54.2] 11/13/2016 Left cervical radiculopathy [M54.12] 03/28/2018 Acute pain of left shoulder [M25.512] 06/06/2021 Numbness and tingling in left hand [R20.0, R20.*06/06/2021 Prescriptions ordered this encounter Disp Refills Start End RAMIPRIL 10 MG CAPSULE 90 c* 3 09/20/2023 Route: ORAL Sig: Take 1 capsule by mouth once daily. HYDROCHLOROTHIAZIDE 25 MG TABLET 90 t* 3 09/21/2023 Route: ORAL Sig: Take 1 tablet by mouth once daily. Medications Discontinued During This Encounter Prescriptions - ramipril (ALTACE) 10 mg capsule (Discontinued) Take 1 capsule by mouth once daily. - hydroCHLOROthiazide 25 mg tablet (Discontinued) Take 1 tablet by mouth once daily. Encounter Status:Closed by ANTONI GERMAN on 09/21/23 Normal [facility] MRI HIP WO/W IVCON RTon 03- [facility] No Panel Informationon 06-12 IMPRESSION: No acute abnormality Template Storage Clerk: JOSE ALFREDO Transcribe Date/Time: Jun 12 2022 2:35P Dictated by : JACOB LOCK MD This examination was interpreted and the report reviewed and electronically signed by: JACOB LOCK MD on Jun 12 2022 2:36PM [facility] DIVISION OF RADIOLOGY No Panel InformationOrdered By: Ccf Provider on 06-12-2022 [facility] XR Pelvis and Hip - right AP and Lateral frogon 06-12-2022 * * *Final Report* * * DATE OF EXAM: Jun 08 2022 3:27PM WOX [id number] - XR HIP 3V PELV+ AP/LAT RT / PROCEDURE REASON: multiple diagnoses * * * * Physician Interpretation * * * * PROCEDURE: Pelvis and right hip, sacrum and coccyx INDICATION: Pain in the coccyx. Injury of right groin. Right groin pain. .Posterior right hip and coccyx pain after slipping off a tailgate step multiple times. Did not fall but stretched the leg out to the side over the last several months. TECHNIQUE: XR SACRUM/COCCYX 3V AP/LAT, XR HIP 3V PELV+ AP/LAT RT COMPARISON: None FINDINGS: Degenerative change in the lower lumbar spine. Hip and sacroiliac joints are within normal limits. Symphysis pubis is maintained. No fracture or dislocation. DIVISION OF RADIOLOGY Provider, [facility] - 06/12/2022 * * *Final Report* * * DATE OF EXAM: Jun 08 2022 3:27PM WOX [id number] - XR HIP 3V PELV+ AP/LAT RT / PROCEDURE REASON: multiple diagnoses * * * * Physician Interpretation * * * * PROCEDURE: Pelvis and right hip, sacrum and coccyx INDICATION: Pain in the coccyx. Injury of right groin. Right groin pain. .Posterior right hip and coccyx pain after slipping off a tailgate step multiple times. Did not fall but stretched the leg out to the side over the last several months. TECHNIQUE: XR SACRUM/COCCYX 3V AP/LAT, XR HIP 3V PELV+ AP/LAT RT COMPARISON: None FINDINGS: Degenerative change in the lower lumbar spine. Hip and sacroiliac joints are within normal limits. Symphysis pubis is maintained. No fracture or dislocation. IMPRESSION IMPRESSION: No acute abnormality Template Storage Clerk[facility] Transcribe Date/Time: Jun 12 2022 2:35P Dictated by : JACOB LOCK MD This examination was interpreted and the report reviewed and electronically signed by: JACOB LOCK MD on Jun 12 2022 2:36PM [facility] XR Sacrum and Coccyx 3 Views on 06-12-2022 * * *Final Report* * * DATE OF EXAM: Jun 08 2022 3:27PM WOX [id number] - XR SACRUM/COCCYX 3V AP/LAT / PROCEDURE REASON: Pain in the coccyx * * * * Physician Interpretation * * * * PROCEDURE: Pelvis and right hip, sacrum and coccyx INDICATION: Pain in the coccyx. Injury of right groin. Right groin pain. .Posterior right hip and coccyx pain after slipping off a tailgate step multiple times. Did not fall but stretched the leg out to the side over the last several months. TECHNIQUE: XR SACRUM/COCCYX 3V AP/LAT, XR HIP 3V PELV+ AP/LAT RT COMPARISON: None FINDINGS: Degenerative change in the lower lumbar spine. Hip and sacroiliac joints are within normal limits. Symphysis pubis is maintained. No fracture or dislocation. DIVISION OF RADIOLOGY Provider, [facility] - 06/12/2022 * * *Final Report* * * DATE OF EXAM: Jun 08 2022 3:27PM WOX [id number] - XR SACRUM/COCCYX 3V AP/LAT / PROCEDURE REASON: Pain in the coccyx * * * * Physician Interpretation * * * * PROCEDURE: Pelvis and right hip, sacrum and coccyx INDICATION: Pain in the coccyx. Injury of right groin. Right groin pain. .Posterior right hip and coccyx pain after slipping off a tailgate step multiple times. Did not fall but stretched the leg out to the side over the last several months. TECHNIQUE: XR SACRUM/COCCYX 3V AP/LAT, XR HIP 3V PELV+ AP/LAT RT COMPARISON: None FINDINGS: Degenerative change in the lower lumbar spine. Hip and sacroiliac joints are within normal limits. Symphysis pubis is maintained. No fracture or dislocation. IMPRESSION IMPRESSION: No acute abnormality Template Storage Clerk: [facility] Transcribe Date/Time: Jun 12 2022 2:35P Dictated by : JACOB LOCK MD This examination was interpreted and the report reviewed and electronically signed by: JACOB LOCK MD on Jun 12 2022 2:36PM EST [facility] No Panel Informationon 06-08 Radiology Study observation (narrative) [facility] No Panel Informationon 11-03 [facility] No Panel InformationOrdered By: Ccf Provider on 06-05-2021 [facility] No Panel Informationon 06-05 Radiology Study observation (narrative) [facility] XR Cervical spine AP and Lat eralon 06-05-2021 IMPRESSION: Degenera tive changes as detailed in report. Template Storage Clerk: JOSE ALFREDO Transcribe Date/Time: Jun 05 2021 3:56P Dictated by : ABEL CUBA MD This examination was interpreted and the report reviewed and electronically signed by: ABEL CUBA MD on Jun 05 2021 3:58PM [facility] DIVISION OF RADIOLOGY * * *Final Report* * * DATE OF EXAM: Jun 05 2021 3:33PM WOX [id number] - XR CERVICAL 2V AP/LAT / PROCEDURE REASON: Cervicalgia * * * * Physician Interpretation * * * * EXAMINATION: XR CERVICAL 2V AP/LAT HISTORY: Neck pain. Pt had same pain 2 years ago, went through physical therapy at that time and experienced relief but pain has returned. Cervicalgia. TECHNIQUE: XR CERVICAL 2V AP/LAT Laterality: NOT APPLICABLE Number of different views (projections): 2 M: XB_1 COMPARISON: There are no prior relevant examinations available for comparison within the [facility] Imaging Archives. RESULT: 2 views of the cervical spine demonstrate multilevel degenerative change with vertebral body osteophytosis and disc space narrowing, greatest at C5-6 and C6-7 where there is mild straightening of the normal cervical lordosis. There are no vertebral body compression deformities and alignment is well maintained. The atlantoaxial interval and craniocervical junction are intact. There is no prevertebral soft tissue abnormality. DIVISION OF RADIOLOGY Provider, [facility] - 06/05/2021 * * *Final Report* * * DATE OF EXAM: Jun 05 2021 3:33PM WOX [id number] - XR CERVICAL 2V AP/LAT / PROCEDURE REASON: Cervicalgia * * * * Physician Interpretation * * * * EXAMINATION: XR CERVICAL 2V AP/LAT HISTORY: Neck pain. Pt had same pain 2 years ago, went through physical therapy at that time and experienced relief but pain has returned. Cervicalgia. TECHNIQUE: XR CERVICAL 2V AP/LAT Laterality: NOT APPLICABLE Number of different views (projections): 2 M: XB_1 COMPARISON: There are no prior relevant examinations available for comparison within the [facility] Imaging Archives. RESULT: 2 views of the cervical spine demonstrate multilevel degenerative change with vertebral body osteophytosis and disc space narrowing, greatest at C5-6 and C6-7 where there is mild straightening of the normal cervical lordosis. There are no vertebral body compression deformities and alignment is well maintained. The atlantoaxial interval and craniocervical junction are intact. There is no prevertebral soft tissue abnormality. IMPRESSION IMPRESSION: Degenerative changes as detailed in report. Template Storage Clerk: [facility] Transcribe Date/Time: Jun 05 2021 3:56P Dictated by : ABEL CUBA MD This examination was interpreted and the report reviewed and electronically signed by: ABEL CUBA MD on Jun 05 2021 3:58PM EST [facility] XR Shoulder - left 2 Viewson 06-05-2021 IMPRESSION: Findings are suggestive of degenerative changes of the acromioclavicular joint. Template Storage Clerk: [facility] Transcribe Date/Time: Jun 05 2021 3:58P Dictated by : EVIE BUENROSTRO MD This examination was interpreted and the report reviewed and electronically signed by: EVIE BUENROSTRO MD on Jun 05 2021 4:01PM [facility] DIVISION OF RADIOLOGY * * *Final Report* * * DATE OF EXAM: Jun 05 2021 3:33PM WOX [id number] - XR SHOULDER 2V AP/TRUE AP LT / PROCEDURE REASON: multiple diagnoses * * * * Physician Interpretation * * * * EXAM TITLE: XR SHOULDER 2V AP/TRUE AP LT EXAM DATE/TIME: 06/05/2021 3:33 PM COMPARISON: None. CLINICAL INDICATION/HISTORY: Left shoulder pain. TECHNIQUE: AP and true AP views of the left shoulder are presented FINDINGS: No acute fractures or subluxations are noted. There is acromioclavicular joint space narrowing, with cystic formation. Normal appearance of the glenohumeral joint. The acromiohumeral interval is maintained. The mineralization of the bones is normal. There is no significant soft tissue swelling. DIVISION [facility] RADIOLOGY [facility] * * *Final Report* * * DATE OF EXAM: Jun 05 2021 3:33PM WOX 5254 - XR SHOULDER 2V AP/TRUE AP LT / PROCEDURE REASON: multiple diagnoses * * * * Physician Interpretation * * * * EXAM TITLE: XR SHOULDER 2V AP/TRUE AP LT EXAM DATE/TIME: 06/05/2021 3:33 PM COMPARISON: None. CLINICAL INDICATION/HISTORY: Left shoulder pain. TECHNIQUE: AP and true AP views of the left shoulder are presented FINDINGS: No acute fractures or subluxations are noted. There is acromioclavicular joint space narrowing, with cystic formation. Normal appearance of the glenohumeral joint. The acromiohumeral interval is maintained. The mineralization of the bones is normal. There is no significant soft tissue swelling. IMPRESSION IMPRESSION: Findings are suggestive of degenerative changes of the acromioclavicular joint. Template Storage Clerk: JOSE ALFREDO Transcribe Date/Time: Jun 05 2021 3:58P Dictated by : EVIE BUENROSTRO MD This examination was interpreted and the report reviewed and electronically signed by: EVIE BUENROSTRO MD on Jun 05 2021 4:01PM [facility] CNNURSEon 07-30-2020 CNNURSE Nurse Visit (COVAMD) -------- DILIA MAST ([id number]) 1955 M Date Time Provider Department 07/30/20 MAINE BYRNE JR During your visit today, we recorded the following information about you: Allergies As of Date: 07/30/2020 (No Known Allergies) Date Reviewed: 05/27/2020 Reviewed by: Kalin ([facility]) Sandip - Fully Assessed Order(s):SportsBUZZ SARS-COV-2 VACCINE 2D DOSE APPT [[id number]] Order #: [id number] Prescriptions as of 07/30/2020 Sig: SALINE MIST 0.65 % NASAL SPRA* Use 1 [place] in the nose as ne* HYDROCHLOROTHIAZIDE 25 MG TAB* Take 1 tablet by mouth once d* RAMIPRIL 10 MG CAPSULE Take 1 capsule by mouth once * * ADULT LOW DOSE ASPIRIN 81 MG * daily Problem List As Of Date 07/30/2020 Noted Resolved HTN (hypertension) [I10] 08/01/2015 Cancer, skin, squamous cell [C44.92] 08/01/2015 Obesity (BMI 30.0-34.9) [E66.9] Neck pain on left side [M54.2] 11/13/2016 Left cervical radiculopathy [M54.12] 03/28/2018 Encounter Status:Open [facility] Vital Signs Date Time Vital Sign Value Performing Clinician Darrion sun 08-11-2024 11:14-0400 Body mass index (BMI) [Ratio] 34.68 kg/m2 Kalin Harris APPLICATION CONSULTANT.MATERNITY FLOOR SUPERVISOR Work Phone: [facility] 08-11-2024 11:14-0400 Body weight 102 kg Kalin Harris APPLICATION CONSULTANT.MATERNITY FLOOR SUPERVISOR Work Phone: [facility] 08-11-2024 11:14-0400 Diastolic blood pressure 67 mm[Hg] Kalin Harris APPLICATION CONSULTANT.MATERNITY FLOOR SUPERVISOR Work Phone: [facility] 08-11-2024 11:14-0400 Heart rate 78 /min Kalin Harris APPLICATION CONSULTANT.MATERNITY FLOOR SUPERVISOR Work Phone: [facility] 08-11-2024 11:14-0400 Respiratory rate 16 /min Kalin Harris APPLICATION CONSULTANT.MATERNITY FLOOR SUPERVISOR Work Phone: [facility] 08-11-2024 11:14-0400 Systolic blood pressure 119 mm[Hg] Kalin Harris APPLICATION CONSULTANT.MATERNITY FLOOR SUPERVISOR Work Phone: [facility] 04-25-2024 08:51-0500 Body height 171.5 cm Lilly Malone MD Work Phone: [facility] 04-25-2024 08:51-0500 Body mass index (BMI) [Ratio] 33.16 kg/m2 Lilly Malone MD Work Phone: [facility] 04-25-2024 08:51-0500 Body temperature 98.71 [degF] Lilly Malone MD Work Phone: [facility] 04-25-2024 08:51-0500 Body weight 97.52 kg Lilly Malone MD Work Phone: [facility] 04-25-2024 08:51-0500 Diastolic blood pressure 62 mm[Hg] Lilly Malone MD Work Phone: [facility] 04-25-2024 08:51-0500 Heart rate 73 /min iLlly Malone MD Work Phone: [facility] 04-25-2024 08:51-0500 Respiratory rate 16 /min Lilly Malone MD Work Phone: [facility] 04-25-2024 08:51-0500 Systolic blood pressure 114 mm[Hg] Lilly Malone MD Work Phone: [facility] 12-14-2023 09:54-0400 Diastolic blood pressure 78 mm[Hg] Jodee Rona APPLICATION CONSULTANT.COUPLER Work Phone: [facility] 12-14-2023 09:54-0400 Systolic blood pressure 112 mm[Hg] Jodee Rona APPLICATION CONSULTANT.COUPLER Work Phone: [facility] 12-14-2023 09:52-0400 Body mass index (BMI) [Ratio] 33.91 kg/m2 Jodee Rona APPLICATION CONSULTANT.COUPLER Work Phone: [facility] 12-14-2023 09:52-0400 Body weight 100.9 kg Jodee Rona APPLICATION CONSULTANT.COUPLER Work Phone: [facility] 12-14-2023 09:52-0400 Heart rate 84 /min Jodee Rona APPLICATION CONSULTANT.COUPLER Work Phone: [facility] 12-14-2023 09:52-0400 SaO2% (BldA) [Mass fraction] 98 % Jodee Rona APPLICATION CONSULTANT.COUPLER Work Phone: [facility] 08-27-2023 09:55-0400 Body mass index (BMI) [Ratio] 34.45 kg/m2 Kalin Harris APPLICATION CONSULTANT.MATERNITY FLOOR SUPERVISOR Work Phone: [facility] 08-27-2023 09:55-0400 Body temperature 98.4 [degF] Kalin Harris APPLICATION CONSULTANT.MATERNITY FLOOR SUPERVISOR Work Phone: [facility] 08-27-2023 09:55-0400 Body weight 102.51 kg Kalin Harris APPLICATION CONSULTANT.MATERNITY FLOOR SUPERVISOR Work Phone: [facility] 08-27-2023 09:55-0400 Diastolic blood pressure 73 mm[Hg] Kalin Harris APPLICATION CONSULTANT.MATERNITY FLOOR SUPERVISOR Work Phone: [facility] 08-27-2023 09:55-0400 Heart rate 76 /min Kalin Harris APPLICATION CONSULTANT.MATERNITY FLOOR SUPERVISOR Work Phone: [facility] 08-27-2023 09:55-0400 Respiratory rate 16 /min Kalin Harris APPLICATION CONSULTANT.MATERNITY FLOOR SUPERVISOR Work Phone: [facility] 08-27-2023 09:55-0400 Systolic blood pressure 118 mm[Hg] Kalin Harris APPLICATION CONSULTANT.MATERNITY FLOOR SUPERVISOR Work Phone: [facility] 06-14-2023 08:06-0500 Diastolic blood pressure 84 mm[Hg] Kalin Harris APPLICATION CONSULTANT.MATERNITY FLOOR SUPERVISOR Work Phone: [facility] 06-14-2023 08:06-0500 Systolic blood pressure 147 mm[Hg] Kalin Harris APPLICATION CONSULTANT.MATERNITY FLOOR SUPERVISOR Work Phone: [facility] 06-14-2023 08:04-0500 Body temperature 100.6 [degF] Kalin Harris APPLICATION CONSULTANT.MATERNITY FLOOR SUPERVISOR Work Phone: [facility] 06-14-2023 08:04-0500 Body weight 103.42 kg Kalin Harris APPLICATION CONSULTANT.MATERNITY FLOOR SUPERVISOR Work Phone: [facility] 06-14-2023 08:04-0500 Heart rate 94 /min Kalin Harris APPLICATION CONSULTANT.MATERNITY FLOOR SUPERVISOR Work Phone: [facility] 06-14-2023 08:04-0500 Respiratory rate 16 /min Kalin Harris APPLICATION CONSULTANT.MATERNITY FLOOR SUPERVISOR Work Phone: [facility] 06-14-2023 08:04-0500 SaO2% (BldA) [Mass fraction] 98 % Kalin Harris APRN.CNS Work Phone: [facility] 01-14-2023 19:01-0400 Body temperature 99.19 [degF] William Moran MD Work Phone: [facility] 01-14-2023 19:01-0400 Body weight 104.42 kg William Moran MD Work Phone: [facility] 01-14-2023 19:01-0400 Diastolic blood pressure 80 mm[Hg] William Moran MD Work Phone: [facility] 01-14-2023 19:01-0400 Heart rate 85 /min William Moran MD Work Phone: [facility] 01-14-2023 19:01-0400 Respiratory rate 16 /min William Moran MD Work Phone: [facility] 01-14-2023 19:01-0400 SaO2% (BldA) [Mass fraction] 96 % William Moran MD Work Phone: [facility] 01-14-2023 19:01-0400 Systolic blood pressure 128 mm[Hg] William Moran MD Work Phone: [facility] 07-23-2022 07:09-0400 Body temperature 98.2 [degF] Maritza Athy PA-C Work Phone: [facility] 07-23-2022 07:09-0400 Body weight 104.87 kg Maritza Athy PA-C Work Phone: [facility] 07-23-2022 07:09-0400 Diastolic blood pressure 78 mm[Hg] Maritza Athy PA-C Work Phone: [facility] 07-23-2022 07:09-0400 Heart rate 83 /min Maritza Athy PA-C Work Phone: [facility] 07-23-2022 07:09-0400 Respiratory rate 16 /min Maritza Athy PA-C Work Phone: [facility] 07-23-2022 07:09-0400 SaO2% (BldA) [Mass fraction] 99 % Maritzamandy Anney PA-C Work Phone: [facility] 07-23-2022 07:09-0400 Systolic blood pressure 134 mm[Hg] Maritzamandy Anney PA-C Work Phone: [facility] 05-29-2022 16:08-0500 Body weight 102.51 kg Kalin Harris APPLICATION CONSULTANT.MATERNITY FLOOR SUPERVISOR Work Phone: [facility] 05-29-2022 16:08-0500 Diastolic blood pressure 70 mm[Hg] Kalin Harris APPLICATION CONSULTANT.MATERNITY FLOOR SUPERVISOR Work Phone: [facility] 05-29-2022 16:08-0500 Heart rate 72 /min Kalin Harris APPLICATION CONSULTANT.MATERNITY FLOOR SUPERVISOR Work Phone: [facility] 05-29-2022 16:08-0500 Respiratory rate 16 /min Kalin Harris APPLICATION CONSULTANT.MATERNITY FLOOR SUPERVISOR Work Phone: [facility] 05-29-2022 16:08-0500 SaO2% (BldA) [Mass fraction] 96 % Kalin Harris APPLICATION CONSULTANT.MATERNITY FLOOR SUPERVISOR Work Phone: [facility] 05-29-2022 16:08-0500 Systolic blood pressure 128 mm[Hg] Kalin Harris APPLICATION CONSULTANT.MATERNITY FLOOR SUPERVISOR Work Phone: [facility] 02-02-2022 07:12-0400 Body temperature 97.5 [degF] Ranjeet García APPLICATION CONSULTANT.COUPLER Work Phone: [facility] 02-02-2022 07:12-0400 Body weight 103.87 kg Ranjeet García APPLICATION CONSULTANT.COUPLER Work Phone: [facility] 02-02-2022 07:12-0400 Diastolic blood pressure 80 mm[Hg] Ranjeet García APPLICATION CONSULTANT.COUPLER Work Phone: [facility] 02-02-2022 07:12-0400 Heart rate 70 /min Ranjeet García APPLICATION CONSULTANT.COUPLER Work Phone: [facility] 02-02-2022 07:12-0400 Respiratory rate 16 /min Ranjeet García APPLICATION CONSULTANT.COUPLER Work Phone: [facility] 02-02-2022 07:12-0400 SaO2% (BldA) [Mass fraction] 98 % Ranjeet García APPLICATION CONSULTANT.COUPLER Work Phone: [facility] 02-02-2022 07:12-0400 Systolic blood pressure 126 mm[Hg] Ranjeet King APPLICATION CONSULTANT.COUPLER Work Phone: [facility] 11-03-2021 10:38-0400 Diastolic blood pressure 76 mm[Hg] Lan Holcomb MD Work Phone: [facility] 11-03-2021 10:38-0400 Heart rate 69 /min Lan Holcomb MD Work Phone: [facility] 11-03-2021 10:38-0400 Respiratory rate 16 /min Lan Holcomb MD Work Phone: [facility] 11-03-2021 10:38-0400 SaO2% (BldA) [Mass fraction] 94 % Lan Holcomb MD Work Phone: [facility] 11-03-2021 10:38-0400 Systolic blood pressure 115 mm[Hg] Lan Holcomb MD Work Phone: [facility] 11-03-2021 09:17-0400 Body temperature 98.29 [degF] Lan Holcomb MD Work Phone: [facility] 11-03-2021 09:17-0400 Body weight 103.9 kg Lan Holcomb MD Work Phone: [facility] 09-08-2021 07:59-0400 Body height 175.3 cm Sherri REYES-C Work Phone: [facility] 09-08-2021 07:59-0400 Body temperature 98.01 [degF] Sherri REYES-C Work Phone: [facility] 09-08-2021 07:59-0400 Body weight 103.87 kg Sherri Ranjan PA-C Work Phone: [facility] 09-08-2021 07:59-0400 Diastolic blood pressure 82 mm[Hg] Sherri Bayou Goula PA-C Work Phone: [facility] 09-08-2021 07:59-0400 Heart rate 73 /min Sherri Ranjan PA-C Work Phone: [facility] 09-08-2021 07:59-0400 SaO2% (BldA) [Mass fraction] 98 % Sherri Bayou Goula PA-C Work Phone: [facility] 09-08-2021 07:59-0400 Systolic blood pressure 120 mm[Hg] Sherri Ranjan PA-C Work Phone: [facility] 08-04-2021 08:18-0400 Body weight 97.98 kg Kalin Harris APPLICATION CONSULTANT.MATERNITY FLOOR SUPERVISOR Work Phone: [facility] 08-04-2021 08:18-0400 Diastolic blood pressure 82 mm[Hg] Kalin Harris APPLICATION CONSULTANT.MATERNITY FLOOR SUPERVISOR Work Phone: [facility] 08-04-2021 08:18-0400 Heart rate 68 /min Kalin Harris APPLICATION CONSULTANT.MATERNITY FLOOR SUPERVISOR Work Phone: [facility] 08-04-2021 08:18-0400 Respiratory rate 26 /min Kalin Harris APPLICATION CONSULTANT.MATERNITY FLOOR SUPERVISOR Work Phone: [facility] 08-04-2021 08:18-0400 Systolic blood pressure 118 mm[Hg] Kalin Harris APPLICATION CONSULTANT.MATERNITY FLOOR SUPERVISOR Work Phone: [facility] Encounters Encounter Date Encounter Type Care Provider Facility Start: 10-24-2024 End: 10-25-2024 Refill Lilly Malone MD Work Phone: [facility] Comment on above: Refill Request Start: 10-09-2024 End: 10-09-[address] Mitzy Conde [place] -[facility] Work Phone: Start: 10-09-2024 End: 10-09-[address] Johanny Hilario MD Work Phone: [facility] Work Phone: Start: 09-11-2024 End: 09-11-2024 Patient encounter procedure Mason Unger MD Work Phone: Orthopaedics Comment on above: Acute pain of left k nee; Arthritis of both knees; Primary osteoarthritis of left knee; Primary osteoarthritis of right knee; Chondrocalcinosis of right knee Start: 09-11-2024 End: 09-11-2024 ambulatory MASON UNGER Facility:[facility] Start: 09-04-2024 End: 09-04-[address] Mitzy Conde [place] -[facility] Work Phone: Start: 09-04-2024 End: 09-04-2024 ambulatory Johanny Hilairo Facility:[facility] Start: 08-11-2024 End: 10-11-2024 Follow-up encounter Kalin Harris APRN.MATERNITY FLOOR SUPERVISOR Work Phone: [facility] Start: 08-11-2024 End: 08-11-2024 Subsequent hospital visit by physician Xr [facility] Work Phone: Radiology Comment on above: Acute pain of left k nee [M25.562] Start: 08-11-2024 End: 08-11-2024 Office outpatient visit 15 minutes Kalin Harris APRN.MATERNITY FLOOR SUPERVISOR Work Phone: [facility] Comment on above: Acute pain of left k nee (Primary Dx); Arthritis of both knees Start: 08-11-2024 End: 08-11-2024 ambulatory KALIN HARRIS Facility:[facility] Start: 08-10-2024 End: 08-11-2024 ambulatory Lilly Malone MD Work Phone: [facility] [place] Comment on above: left knee instabilit y Start: 07-26-2024 End: 07-26-[address] Mitzy Conde [place] -[facility] Work Phone: Start: 07-26-2024 End: 07-26-2024 ambulatory Johanny Sandersi Facility:[facility] Start: 06-27-2024 End: 06-27-[address] Mitzy Conde [place] -[facility] Work Phone: Start: 06-27-2024 End: 06-27-2024 ambulatory Johanny Gavintoddi Facility:[facility] Start: 06-16-2024 End: 06-16-2024 ambulatory Trinidad Tapia MA [facility] Start: 06-16-2024 End: 06-16-2024 Patient encounter procedure [facility] Comment on above: Population Health Na vigation Outreach ([employer] High Risk - Attempt 1) Start: 04-25-2024 End: 04-25-2024 ambulatory LILLY MALONE Facility:[facility] Start: 04-25-2024 End: 04-25-2024 Patient encounter procedure Lilly Malone MD Work Phone: [facility] Comment on above: Medicare annual well ness visit, subsequent (Primary Dx); Primary hypertension; IFG (impaired fasting glucose); Obesity (BMI 30.0-34.9); Encounter for screening examination for other mental health and behavioral disorders; Screening for depression Start: 04-14-2024 End: 04-14-2024 ambulatory LILLY MALONE Facility:[facility] Start: 04-04-2024 End: 04-04-2024 ambulatory Johanny Hilario Facility:[facility] Start: 12-14-2023 End: 12-14-2023 ambulatory JODEE REA Facility:[facility] Start: 12-14-2023 End: 12-14-2023 Patient encounter procedure Jodee Rea APPLICATION CONSULTANT.COUPLER Work Phone: [facility] Comment on above: Eye muscle twitches (Primary Dx); Stress at home Start: 11-30-2023 End: 11-30-2023 ambulatory Mitzy Conde Facility:[facility] Start: 10-25-2023 End: 10-25-2023 ambulatory Mitzy Conde Facility:[facility] Start: 10-18-2023 End: 10-18-2023 ambulatory Mitzy Conde Facility:[facility] Start: 10-04-2023 Refill Lilly benson MD Work Phone: [address] [place] [address] Comment on above: Refill Request Start: 09-17-2023 Telephone encounter Lilly hawkins MD Work Phone: [facility] Comment on above: Patient Question Start: 09-03-2023 Refill Kalin Harris APPLICATION CONSULTANT.MATERNITY FLOOR SUPERVISOR Work Phone: [facility] Comment on above: Refill Request Start: 09-02-2023 Refill Kalin Harris APPLICATION CONSULTANT.MATERNITY FLOOR SUPERVISOR Work Phone: [facility] Comment on above: Refill Request Start: 08-27-2023 End: 08-27-2023 Office outpatient visit 15 minutes Kalin Harris APPLICATION CONSULTANT.MATERNITY FLOOR SUPERVISOR Work Phone: [facility] Comment on above: PND (post-nasal drip ) (Primary Dx); Ear fullness, bilateral; Watery eyes Start: 08-25-2023 ambulatory Lilly benson MD Work Phone: [facility] Comment on above: Sinus pressure Start: 06-14-2023 End: 06-14-2023 Office outpatient visit 15 minutes Kalin Harris APPLICATION CONSULTANT.MATERNITY FLOOR SUPERVISOR Work Phone: [facility] [place] Comment on above: Sinobronchitis Start: 06-13-2023 ambulatory Lilly benson MD Work Phone: [facility] Comment on above: Cough and congestion Start: 01-14-2023 End: 01-14-2023 Patient encounter procedure William Moran MD Work Phone: [facility] Comment on above: Hordeolum internum o f right lower eyelid (Primary Dx) Start: 09-29-2022 ambulatory Lilly benson MD Work Phone: [facility] Comment on above: Lorazepam Start: 09-07-2022 Refill Kalin Harris APPLICATION CONSULTANT.MATERNITY FLOOR SUPERVISOR Work Phone: [facility] Comment on above: Refill Request Start: 08-06-2022 ambulatory Mason Unger MD Work Phone: [facility] Start: 08-06-2022 Manual pelvic examination Florencio Unger MD Work Phone: Orthopaedics Comment on above: Pelvic inflammation per MRI Start: 07-27-2022 End: 07-27-2022 Patient encounter procedure Mason Unger MD Work Phone: Orthopaedics Comment on above: Right hip pain; Tear of right acetabular labrum, initial encounter Start: 07-23-2022 End: 07-23-2022 Patient encounter procedure Maritza Santamaria PA-C Work Phone: [facility] Comment on above: Sinobronchitis (Prim trevin Dx) Start: 07-16-2022 Telephone encounter Kalin raymond APPLICATION CONSULTANT.MATERNITY FLOOR SUPERVISOR Work Phone: [facility] Comment on above: Results (MRI hip) Start: 07-16-2022 End: 07-16-2022 Subsequent hospital visit by physician Mri Radio [facility] (I-Stat/1.5t) Work Phone: Radiology Comment on above: Pain in hip [M25.559 ] Start: 06-14-2022 Telephone encounter Siri ( Coord) [facility] Comment on above: Appointment Start: 06-09-2022 Telephone encounter Lilly hawkins MD Work Phone: [facility] [place] Comment on above: Order Update Start: 06-08-2022 End: 06-08-2022 Subsequent hospital visit by physician Xr [facility] Work Phone: Radiology Comment on above: Injury of groin, ini tial encounter [S39.91XA] Start: 06-08-2022 Telephone encounter Siri ( Coord) [facility] Comment on above: Appointment Orders Start: 05-29-2022 End: 05-29-2022 Office outpatient visit 15 minutes Kalin Harris APPLICATION CONSULTANT.MATERNITY FLOOR SUPERVISOR Work Phone: [facility] Comment on above: Injury of groin, ini tial encounter (Primary Dx); Right groin pain; Pain in the coccyx Start: 04-10-2022 End: 04-10-2022 Office outpatient visit 25 minutes Lilly Malone MD Work Phone: [facility] [place] Comment on above: Essential hypertensi on (Primary Dx); IFG (impaired fasting glucose); Anxiety; Low HDL (under 40); Need for vaccination; Elevated PSA, less than 10 ng/ml Start: 02-02-2022 End: 02-02-2022 Patient encounter procedure Ranjeet García UNA Work Phone: [facility] Comment on above: Cornea abrasion, rig ht, initial encounter (Primary Dx) Start: 12-15-2021 ambulatory Lilly benson MD Work Phone: [facility] Comment on above: Indigestion Start: 11-30-2021 ambulatory Lilly benson MD Work Phone: [facility] Comment on above: Baby aspirin Start: 11-14-2021 End: 11-14-2021 ambulatory Sherri Woodruff PA-C Work Phone: General Surgery Comment on above: Tubular adenoma ([facility] alf Dx); History of colonic polyps Start: 11-14-2021 End: 11-14-2021 Telemedicine consultation with patient Sherri Woodruff PA-C Work Phone: [facility] Start: 11-03-2021 End: 11-03-2021 Subsequent hospital visit by physician Lan Holcomb MD Work Phone: Ambulatory Surgery Comment on above: History of colonic p olyps [Z86.010] Start: 10-23-2021 ambulatory Lan sanchez MD Work Phone: Ambulatory Surgery Start: 09-08-2021 Telephone encounter Sherri colon PA-C Work Phone: General Surgery Comment on above: 11/03/2021 COLON ASC Start: 09-08-2021 End: 09-08-2021 Patient encounter procedure Sherri Woodruff PA-C Work Phone: General Surgery Comment on above: History of colonic p olyps (Primary Dx); Screening for colorectal cancer Start: 08-07-2021 ambulatory Kalin Harris APRN.MATERNITY FLOOR SUPERVISOR Work Phone: [facility] Comment on above: Prilosec Start: 08-05-2021 ambulatory Kalin Harris APRN.MATERNITY FLOOR SUPERVISOR Work Phone: [facility] Comment on above: Prilosec Start: 08-04-2021 End: 08-04-2021 Patient encounter procedure Kalin Harris APRN.MATERNITY FLOOR SUPERVISOR Work Phone: [facility] Comment on above: Left cervical radicu lopathy (Primary Dx); Depression, unspecified depression type; Heartburn; Screening for HIV (human immunodeficiency virus); Screening for prostate cancer; Screening for colorectal cancer; Cervicalgia; Numbness and tingling in left hand; Acute pain of left shoulder Start: 06-05-2021 End: 06-05-2021 Subsequent hospital visit by physician Xr [facility] Work Phone: Radiology Comment on above: Cervicalgia [M54.2] Procedures Date Procedure Procedure Detail Performing Clinician Start: 08-11-2024 Radiologic exam knee complete 4/more views Kalin Harris APRN.MATERNITY FLOOR SUPERVISOR Work Phone: Start: 04-25-2024 Adult depression scr eening assessment Lilly Malone MD Work Phone: Start: 04-14-2024 Lipid 1995 panel - S johnnie or Plasma Lilly Malone MD Work Phone: Start: 03-30-2023 Lipid 1996 panel - S johnnie or Plasma Lilly Malone MD Work Phone: Start: 07-16-2022 Mri any jt lower ext rem w/o & w/contrast matrl Kalin Harris APRN.MATERNITY FLOOR SUPERVISOR Work Phone: Start: 06-08-2022 Radex hip unilateral with pelvis 2-3 views Kalin Harris APRN.MATERNITY FLOOR SUPERVISOR Work Phone: Start: 03-05-2022 Lipid 1996 panel - S johnnie or Plasma William Moran MD Work Phone: Start: 11-03-2021 Colon ca scrn not hi rsk [place] Sherri Woodruff PA-C Work Phone: Start: 11-03-2021 Colonoscopy Lan bingham MD Work Phone: Start: 06-05-2021 End: 06-05-2021 Radex spine cervical 2 or 3 views Kalin Walkers APPLICATION CONSULTANT.MATERNITY FLOOR SUPERVISOR Work Phone: Start: 04-06-2021 Adult depression scr eening assessment Kalinbryson Harris APPLICATION CONSULTANT.MATERNITY FLOOR SUPERVISOR Work Phone: Start: 04-05-2017 Colonoscopy Kalinbryson raymond APPLICATION CONSULTANT.MATERNITY FLOOR SUPERVISOR Work Phone: Plan of Treatment Date Care Activity Detail Author Start: 04-02-2030 Urine microalbumin profile [facility] Start: 04-14-2029 Lipid panel Lipid Screening [facility] Start: 03-30-2028 Lipid panel Lipid Screening [facility] Start: 04-14-2027 Diabetes Screening Diabetes Screenin g [facility] Start: 03-05-2027 Lipid 1996 panel - Serum or Plasma Lipid Screening [facility] Start: 03-05-2027 LIPID SCREEN LIPID SCREEN [facility] Start: 03-05-2027 PROSTATE CANCER SCREENING DISCUSSION PROSTATE CANCER SCREENING DISCUSSION [facility] Start: 03-05-2027 Prostate specific antigen measurement Prostate Cancer Screening Discussion [facility] Start: 11-03-2026 Colonoscopy COLONOSCOPY [facility] Start: 11-03-2026 COLORECTAL CANCER SCREENING COLORECTAL CANCER SCREENING [facility] Start: 11-03-2026 Screening for malignant neoplasm of colon [facility] Start: 03-30-2026 Diabetes Screening Diabetes Screenin g [facility] Start: 03-03-2026 LIPID SCREEN LIPID SCREEN [facility] Start: 08-11-2025 BP Controlled (<130/80) BP Controlled (<130/80) [facility] Start: 04-25-2025 Annual PCP Team Chronic Disease Visit Annual PCP Team Chronic Disease Visit [facility] Start: 04-25-2025 Anxiety Screening Anxiety Screening [facility] Start: 04-25-2025 BP Controlled (<130/80) BP Controlled (<130/80) [facility] Start: 04-25-2025 Depression Screening Depression Scre ening [facility] Start: 04-23-2025 End: 04-23-2025 Patient encounter procedure 04/23/2025 2:00 PM EST Office Visit [facility] [address] [place] [address] Lilly Malone MD [address] [place] [address] Medicare Wellness [facility] Comment on above: Medicare Wellness Start: 04-06-2025 End: 04-06-2025 ambulatory 04/06/2025 8:00 AM EST Results Only [facility] Draw Station [address] [place] [address] [facility] Start: 03-26-2025 End: 06-25-2025 CBC panel - Blood by Automated count COMPLETE BLOOD COUNT Lab Routine Primary hypertension Expected: 03/26/2025 (Approximate), Expires: 06/25/2025 [facility] Comment on above: Expected: 03/26/2025 (Approximate), Expires: 06/25/2025 Start: 03-26-2025 End: 06-25-2025 Comprehensive metabolic 2000 panel - Serum or Plasma COMPREHENSIVE METABOLIC PANEL Lab Routine Primary hypertension IFG (impaired fasting glucose) Expected: 03/26/2025 (Approximate), Expires: 06/25/2025 [facility] Work Phone: Comment on above: Expected: 03/26/2025 (Approximate), Expires: 06/25/2025 Start: 03-26-2025 End: 06-25-2025 Hemoglobin A1c in Blood HEMOGLOBIN A1C Lab Routine IFG (impaired fasting glucose) Expected: 03/26/2025 (Approximate), Expires: 06/25/2025 [facility] Comment on above: Expected: 03/26/2025 (Approximate), Expires: 06/25/2025 Start: 03-26-2025 End: 06-25-2025 Lipid 1996 panel - Serum or Plasma LIPID PANEL BASIC Lab Routine Primary hypertension Expected: 03/26/2025 (Approximate), Expires: 06/25/2025 [facility] Comment on above: Expected: 03/26/2025 (Approximate), Expires: 06/25/2025 Start: 03-05-2025 DIABETES SCREEN DIABETES SCREEN [facility] Start: 03-05-2025 Diabetes Screening Diabetes Screenin g [facility] Start: 12-25-2024 Influenza vaccination Influenza Vacc ine (#1) [facility] Start: 12-13-2024 Annual PCP Team Chronic Disease Visit Annual PCP Team Chronic Disease Visit [facility] Start: 12-13-2024 BP Controlled (<130/80) BP Controlled (<130/80) [facility] Start: 08-28-2024 End: 08-28-2024 Patient encounter procedure 08/28/2024 9:30 AM EDT Office Visit Orthopaedics [address] [place] [id number] Mason Unger MD [address] [place] [address] Acute pain of left knee [M25.562] Orthopaedics Comment on above: Acute pain of left k nee [M25.562] Start: 08-26-2024 BP Controlled (<130/80) BP Controlled (<130/80) [facility] Start: 08-07-2024 Covid-19 Vaccine () Covid-19 Vaccine () [facility] Start: 04-26-2024 Advance Directive Discussion Advance Directive Discussion [facility] Start: 04-26-2024 Medicare Advantage Annual Wellness Visit Medicare Advantage Annual Wellness Visit [facility] Start: 04-25-2024 End: 04-25-2024 Patient encounter procedure 04/25/2024 8:40 AM EST Office Visit [facility] [place] [address] [place] [address] Lilly Malone MD [address] [place] [address] medi well mar 2024 [facility] Comment on above: medi well mar 2024 Start: 04-14-2024 Annual PCP Team Chronic Disease Visit Annual PCP Team Chronic Disease Visit [facility] Start: 03-03-2024 DIABETES SCREEN DIABETES SCREEN [facility] Start: 12-26-2023 Covid-19 Vaccine () Covid-19 Vaccine () [facility] Start: 12-26-2023 Influenza vaccination Influenza Vacc ine (#1) [facility] Start: 08-27-2023 End: 08-27-2023 Patient encounter procedure 08/27/2023 10:00 AM EDT Office Visit [facility] [address] [place], [place] [id number] Kalin Harris APRN.MATERNITY FLOOR SUPERVISOR [address] [place] [address] Ear and sinus pressure [facility] Comment on above: Ear and sinus pressu re Start: 06-24-2023 Covid-19 Vaccine () Covid-19 Vaccine () [facility] Start: 05-29-2023 BP CONTROLLED (<130/80) BP CONTROLLED (<130/80) [facility] Start: 04-26-2023 Advance Directive Discussion Advance Directive Discussion [facility] Start: 04-26-2023 Behavioral Health Screening Behavioral Health Screening [facility] Start: 04-26-2023 Depression Assessment Depression Ass essment [facility] Start: 04-10-2023 ANNUAL PCP TEAM CHRONIC DISEASE VISIT ANNUAL PCP TEAM CHRONIC DISEASE VISIT [facility] Start: 04-10-2023 BP CONTROLLED (<130/80) BP CONTROLLED (<130/80) [facility] Start: 04-10-2023 End: 06-10-2023 CBC panel - Blood by Automated count CBC Lab Routine Essential hypertension Expected: 04/10/2023 (Approximate), Expires: 06/10/2023 [facility] Work Phone: Comment on above: Expected: 04/10/2023 (Approximate), Expires: 06/10/2023 Start: 04-10-2023 End: 06-10-2023 Comprehensive metabolic 2000 panel - Serum or Plasma COMP METABOLIC PANEL Lab Routine Essential hypertension IFG (impaired fasting glucose) Expected: 04/10/2023 (Approximate), Expires: 06/10/2023 [facility] Work Phone: Comment on above: Expected: 04/10/2023 (Approximate), Expires: 06/10/2023 Start: 04-10-2023 End: 06-10-2023 Hemoglobin A1c in Blood HGB A1C Lab Routine IFG (impaired fasting glucose) Expected: 04/10/2023 (Approximate), Expires: 06/10/2023 [facility] Work Phone: Comment on above: Expected: 04/10/2023 (Approximate), Expires: 06/10/2023 Start: 04-10-2023 End: 06-10-2023 Lipid 1996 panel - Serum or Plasma LIPID PANEL BASIC Lab Routine Low HDL (under 40) Expected: 04/10/2023 (Approximate), Expires: 06/10/2023 [facility] Work Phone: Comment on above: Expected: 04/10/2023 (Approximate), Expires: 06/10/2023 Start: 12-25-2022 Covid-19 Vaccine () Covid-19 Vaccine () [facility] Start: 12-25-2022 Influenza vaccination Influenza Vacc ine (#1) [facility] Start: 08-04-2022 ANNUAL PCP TEAM CHRONIC DISEASE VISIT ANNUAL PCP TEAM CHRONIC DISEASE VISIT [facility] Start: 06-05-2022 BP CONTROLLED (<130/80) BP CONTROLLED (<130/80) [facility] Start: 06-02-2022 Covid-19 Vaccine (6 - Pfizer series) Covid-19 Vaccine (6 - Pfizer series) [facility] Start: 04-26-2022 ADVANCE DIRECTIVE DISCUSSION ADVANCE DIRECTIVE DISCUSSION [facility] Start: 04-26-2022 DEPRESSION ASSESSMENT DEPRESSION ASS ESSMENT [facility] Start: 04-10-2022 End: 06-10-2022 Prostate specific Ag [Mass/volume] in Serum or Plasma PSA/PROSTSPECAG DIAG Lab Routine Elevated PSA, less than 10 ng/ml Expected: 04/10/2022, Expires: 06/10/2022 [facility] Work Phone: Comment on above: Expected: 04/10/2022 , Expires: 06/10/2022 Start: 04-08-2022 ANNUAL PCP TEAM CHRONIC DISEASE VISIT ANNUAL PCP TEAM CHRONIC DISEASE VISIT [facility] Start: 04-06-2022 Adult depression screening assessment DEPRESSION SCREENING [facility] Start: 04-05-2022 Colonoscopy COLONOSCOPY [facility] Start: 04-05-2022 COLORECTAL CANCER SCREENING COLORECTAL CANCER SCREENING [facility] Start: 03-26-2022 End: 07-27-2022 HIV 1+2 Ab [Presence] in Serum or Plasma by Immunoassay HIV 1 2 COMBO(AG/AB),WITH REFLEX TO DIFFERENTIATION Lab Routine Screening for HIV (human immunodeficiency virus) Expected: 03/26/2022, Expires: 07/27/2022 [facility] Work Phone: Comment on above: Expected: 03/26/2022 , Expires: 07/27/2022 Start: 03-26-2022 End: 07-27-2022 PSA/PROSTSPECAG SCRN PSA/PROSTSPECAG SCRN Lab Routine Screening for prostate cancer Expected: 03/26/2022, Expires: 07/27/2022 [facility] Work Phone: Comment on above: Expected: 03/26/2022 , Expires: 07/27/2022 Start: 2022 ADVANCE DIRECTIVE DISCUSSION ADVANCE DIRECTIVE DISCUSSION [facility] Start: 2022 PNEUMOCOCCAL: 65+ (1 - PCV) PNEUMOCOCCAL: 65+ (1 - PCV) [facility] Start: 12-25-2021 Influenza vaccination INFLUENZA (#1) [facility] Start: 07-24-2021 PROSTATE CANCER SCREENING DISCUSSION PROSTATE CANCER SCREENING DISCUSSION [facility] Start: 04-26-2021 DEPRESSION ASSESSMENT DEPRESSION ASS ESSMENT [facility] Start: 2017 RSV Vaccine (1 - 1-dose 60+ series) RSV Vaccine (1 - 1-dose 60+ series) [facility] Start: 2002 COLOGUARD (FIT-DNA) COLOGUARD (FIT-D NA) [facility] Start: [address] COLONOGRAPHY [facility] Start: 2002 FECAL OCCULT BLOOD FECAL OCCULT BLOO D [facility] Start: 2002 Screening for malignant neoplasm of colon [facility] Start: 2002 [facility] Start: 1975 Anxiety Screening Anxiety Screening [facility] Start: 1975 Depression Screening Depression Scre ening [facility] Start: 1975 HIV SCREENING HIV SCREENING [facility] End: 06-28-2023 Radex sacrum & coccyx minimum 2 views XR SACRUM/COCCYX 3V AP/LAT Radiology Routine Pain in the coccyx 1 Occurrences starting 05/29/2022 until 06/28/2023 [facility] Work Phone: Comment on above: 1 Occurrences starti ng 05/29/2022 until 06/28/2023 SURGICAL PATHOLOGY [facility] Work Phone: Comment on above: Release Upon Orderin g for 1 Occurrences starting 11/03/2021, 1 completed End: 06-28-2023 Us compl joint r-t w/image documentation US HIP RT Radiology Routine Injury of groin, initial encounter Right groin pain 1 Occurrences starting 05/29/2022 until 06/28/2023 [facility] Work Phone: Comment on above: 1 Occurrences starti ng 05/29/2022 until 06/28/2023 End: 06-28-2023 XR HIP GENERAL 3V PELV/AP/LAT RIGHT XR HIP GENERAL 3V PELV/AP/LAT RIGHT Radiology Routine Injury of groin, initial encounter Right groin pain 1 Occurrences starting 05/29/2022 until 06/28/2023 [facility] Work Phone: Comment on above: 1 Occurrences starti ng 05/29/2022 until 06/28/2023 [facility] Immunizations Immunization Date Immunization Notes Care Provider [facility] 02-07-2024 influenza, high dose seasonal, preservative-free Lilly Malone MD Work Phone: [facility] 02-07-2024 influenza virus vaccine, unspecified formulation Lilly Maloen MD Work Phone: [facility] 02-22-2023 influenza (aIIV4) vaccine, age 65+ yr, quadrivalent, PF (FLUAD QUAD) Lilly Malone MD Work Phone: [facility] 02-22-2023 respiratory syncytia l virus (RSV) vaccine, bivalent (ABRYSVO) Lilly Malone MD Work Phone: [facility] 02-22-2023 influenza virus vaccine, unspecified formulation Jodee Rea APPLICATION CONSULTANT.COUPLER Work Phone: [facility] 04-10-2022 pneumococcal (PCV20) vaccine, 20 valent (PREVNAR 20) Lilly Malone MD Work Phone: [facility] 04-10-2022 pneumococcal Conjuga te, unspecified formulation Lilly Malone MD Work Phone: [facility] Work Phone: 02-16-2022 influenza, high dose seasonal, preservative-free Lilly Malone MD Work Phone: [facility] Work Phone: 02-16-2022 influenza, injectabl e, quadrivalent, preservative free Lilly Malone MD Work Phone: [facility] 02-16-2022 influenza virus vaccine, unspecified formulation William Moran MD Work Phone: [facility] 2021 influenza, injectabl e, quadrivalent, preservative free Kalin Harris APPLICATION CONSULTANT.MATERNITY FLOOR SUPERVISOR Work Phone: [facility] 07-30-2020 COVID-19 vaccine, ag e 12+ yr (PFIZER-BIONTECH - PURPLE TOP) Kalin Harris APRN.MATERNITY FLOOR SUPERVISOR Work Phone: [facility] 07-09-2020 COVID-19 vaccine, ag e 12+ yr (PFIZER-BIONTECH - PURPLE TOP) Kalin Harris APRN.MATERNITY FLOOR SUPERVISOR Work Phone: [facility] Work Phone: 04-02-2020 tetanus toxoid, redu den diphtheria toxoid, and acellular pertussis vaccine, adsorbed Kalin Harris APPLICATION CONSULTANT.MATERNITY FLOOR SUPERVISOR Work Phone: [facility] 01-11-2020 influenza, injectabl e, quadrivalent, preservative free Kalin Harris APPLICATION CONSULTANT.MATERNITY FLOOR SUPERVISOR Work Phone: [facility] 03-20-2019 influenza, injectabl e, quadrivalent, contains preservative Kalin Harris APPLICATION CONSULTANT.MATERNITY FLOOR SUPERVISOR Work Phone: [facility] Work Phone: 10-24-2018 zoster vaccine recombinant Kalin Harris APPLICATION CONSULTANT.MATERNITY FLOOR SUPERVISOR Work Phone: [facility] Work Phone: 08-17-2018 zoster vaccine recombinant Kalin Harris APPLICATION CONSULTANT.MATERNITY FLOOR SUPERVISOR Work Phone: [facility] Work Phone: 03-14-2018 influenza, injectabl e, quadrivalent, contains preservative Kalin Harris APPLICATION CONSULTANT.MATERNITY FLOOR SUPERVISOR Work Phone: [facility] 05-24-2008 tetanus and diphther ia toxoids, not adsorbed, for adult use Kalin Harris APPLICATION CONSULTANT.MATERNITY FLOOR SUPERVISOR Work Phone: [facility] Payers Date Payer Category Payer Self-pay 2022 Medicare AETNA MEDICARE A ETNA MEDICARE PPO [id number] 2022-Present [phone] [facility] [id number] [place] [address] [facility] [id number] 2022 Medicare (Managed Care) [employer] [place] [id number] 2022 Medicare [id number] 2018 Unknown MMO MMO SUPERMED PLUS [id number] 2018-Present [phone] [address] [place] [address] PPO [id number] 2018 Unknown MMO MMO SUPERMED PPO [id number] 2018-2021 [address] [place] [address] PPO [id number] 2012 Unknown [facility] [id number] Unknown [id number] Unknown [id number] Unknown [id number] Unknown [id number] Unknown [id number] Unknown [id number] Unknown [id number] Unknown [id number] Social History Date Type Detail Facility Start: 02-02-2022 End: 09-21-2023 Tobacco smoking status NHIS Never smoked tobacco [facility] Work Phone: Start: 08-04-2021 End: 09-11-2024 Alcohol intake Current drinker of alcohol (finding) [facility] Start: 04-06-2021 End: 04-04-2022 History SDOH Alcohol Frequency 3 [facility] Start: 04-06-2021 End: 04-04-2022 History SDOH Alcohol Std Drinks 1 [facility] Start: 08-01-2015 History SDOH Alcohol Comment 0-1 / week [facility] Start: 04-06-2021 End: 04-04-2022 History SDOH Social Connections Phone 5 [facility] Start: 04-06-2021 History SDOH Social Connections Get Together 4 [facility] Start: 03-20-2020 End: 04-04-2022 History SDOH Social Connections Membership 2 [facility] Start: 03-20-2020 Education 18 [facility] Start: 1955 Sex Assigned At Not on file [facility] Start: 05-06-2021 End: 02-02-2022 Exposure to SARS-CoV-2 (event) Not sure [facility] Work Phone: Start: 03-20-2019 End: 02-02-2022 Tobacco use and exposure Smokeless tobacco non-user [facility] Work Phone: Start: 04-04-2022 End: 04-11-2023 History of Social function [facility] Start: 04-04-2022 End: 04-11-2023 Social connection and isolation panel [facility] Do you belong to any clubs or organizations such as congregational groups, unions, fraternal or athletic groups, or school groups? No [facility] Are you now , , , , never or living with a partner? [facility] How often to you hav e a drink containing alcohol? 2-4 times a month [facility] How many standard dr inks containing alcohol do you have on a typical day? 1 or 2 [facility] How often do you hav e 6 or more drinks on 1 occasion? Never [facility] How hard is it for y ou to pay for the very basics like food, housing, medical care, and heating Not hard at all [facility] Do you feel stress - tense, restless, nervous, or anxious, or unable to sleep at night because your mind is troubled all the time - these days [OSQ] Only a little [facility] (I/We) worried wheth er (my/our) food would run out before (I/we) got money to buy more. Never true [facility] Do you belong to any clubs or organizations such as congregational groups, unions, fraternal or athletic groups, or school groups? Yes [facility] How often to you hav e a drink containing alcohol? Monthly or less [facility] Do you feel stress - tense, restless, nervous, or anxious, or unable to sleep at night because your mind is troubled all the time - these days [OSQ] Not at all [facility] Do you feel stress - tense, restless, nervous, or anxious, or unable to sleep at night because your mind is troubled all the time - these days [OSQ] To some extent [facility] Start: 1955 Sex Assigned At Male [facility] Goals Date Patient Goal Desired Activity /State Clinical Notes 08-04-2021 to 10-24-2024 Telephone Encounter - Lilly Malone MD - 10/24/2024 8:42 PM EDTTelephone Encounter - Lilly Malone MD - 10/24/2024 8:42 PM EDTTelephone Encounter - Ana Siddiqui RN - 10/24/2024 4:12 PM EDT Note Date & Type Note Facility 10-24-2024 Telephone encount er Note The following approved medication requests have been transmitted electronically. Requested Prescriptions Pending Prescriptions Disp Refills hydroCHLOROthiazide 25 mg tablet 90 tablet 3 Sig: Take 1 tablet by mouth once daily. Lilly Malone MD [facility] 10-24-2024 Miscellaneous Notes Formattin g of this note is different from the original. The following approved medication requests have been transmitted electronically. Requested Prescriptions Pending Prescriptions Disp Refills hydroCHLOROthiazide 25 mg tablet 90 tablet 3 Sig: Take 1 tablet by mouth once daily. Lilly Malone MD The patient has been identified by name and date of : Yes Caregiver verified no other encounters exist for this prescription request: Yes Caregiver confirmed with patient/requestor that no other refills are due, in the near future, with this provider at this time: Yes The last office visit in the department: 08/11/2024 Does the patient have a future office visit with this provider/department: Yes 04/23/2025 Requested Prescriptions Pending Prescriptions Disp Refills hydroCHLOROthiazide 25 mg tablet 90 tablet 3 Sig: Take 1 tablet by mouth once daily. Ana Siddiqui RN documented in this encounter [facility] 10-24-2024 Telephone encount er Note The patient has been identified by name and date of : Yes Caregiver verified no other encounters exist for this prescription request: Yes Caregiver confirmed with patient/requestor that no other refills are due, in the near future, with this provider at this time: Yes The last office visit in the department: 08/11/2024 Does the patient have a future office visit with this provider/department: Yes 04/23/2025 Requested Prescriptions Pending Prescriptions Disp Refills hydroCHLOROthiazide 25 mg tablet 90 tablet 3 Sig: Take 1 tablet by mouth once daily. Ana Siddiqui RN [facility] 10-09-2024 Progress note [facility] 10-09-2024 Progress note Note Date/Time October 09, 2024 9:21am [facility] [address] [place] [address] OFFICE VISIT Date of Service: 10/09/24 MR#: [id number] Acct: [id number] Name: DILIA MAST Rep #: [id number] : 1955 Provider: THOMAS Conde Age/Sex: 69/M Location: [facility] Status: Signed Intake Vital Signs 09/21/23 08:45 Height 5 ft 9 in Intake Visit Reasons: BACK PAIN Chief Complaint: neck and Low back pain Is patient in pain?: Yes (neck and low back ) Pain scale (1-10): 3 Allergies No Known Allergies Allergy (Unverified 10/09/24 08:55) Medications ?Medication ?Instructions ?Recorded ?Confirmed ?Type acetaminophen 650 mg/20.3 mL oral 650 mg PO Q6H PRN 10/09/24 History solution aspirin 81 mg tablet,delayed 81 mg PO DAILY 09/21/23 0 10/09/24 History release hydrochlorothiazide 25 mg tablet 25 mg PO DAILY 10/09/24 History meloxicam 15 mg tablet 15 mg PO DAILY 09/21/2309/24 History ramipril 10 mg capsule 10 mg PO DAILY 09/21/2309/24 History Have you fallen in the past year?: No PFSH Social History Smoking Status: Never smoker alcohol intake: never substance use type: does not use HPI BACK PAIN Chief Complaint: low back and neck pain, left thigh numbness Visit Number: 4 Details: Dilia is a 69 y/o male here for neck, upper and low back pain. Pt. reports neck soreness recently with the left side a little worse. He rates his neck pain 3today. He states he has been painting and looking up has aggravated his neck pain. He also c/o left thigh numbness with prolonged standing. He rates his leftthigh pain 3/10. He complains of low back pain achiness at times. He denies new injury, numbness, tingling or radiculopathy today. He treats his back pain at home with Tylenol and stretching as needed. Pt. reports chiropractic adjustments are helpful in relieving his some of his pain and discomfort but it gradually returns. Location: neck, upper, low back Duration: frequent Aggravating or associated factors: standing,walking,moving Relieving factors: chiro,stretching Pain Quality: aching and dull Exam Musc General: Yes normal posture, normal gait, joint tenderness and decreased range of motion; No muscle weakness Cervical Spine: Yes loss of normal cervical lordosis, Yes cervical muscular tenderness bilateral lower , Yes cervical spasm left greater than right lower trapezius and paracervical muscles and Yes misalignment misalignment: C6 and C7 Thoracic/Lumber: Yes thoracic and lumbar spine normal to inspection, Yes paraspinal tenderness on the right greater than left (lumbar) and on the left greater than right (upper thoracic,pelvis), Yes scoliosis (right lumbar), Yes thoraco-lumbar spasm on the right greater than left (mid/lower trap, paraspinal L1-L5) and on the left greater than right (glute med) and Yes misalignment T3, T4, T5, L1, L2, L3, L4, L5 and LIL Sacroiliac joints: on the left tender to palpation Office Procedures Procedures - Chiropractic Procedures Manipulation: Cervical C6, Lumbar L4, Thoracic T3 and T10 and Pelvis LIL Manipulation: 3-4 regions Patient Response: positive Assessment and Plan Assessment and Plan (1) Segmental and somatic dysfunction of cervical region: Status: Acute (2) Segmental and somatic dysfunction of thoracic region: Status: Acute (3) Segmental and somatic dysfunction of lumbar region: Status: Acute (4) Segmental and somatic dysfunction of pelvic region: Status: Acute (5) Scoliosis of lumbar spine: Status: Chronic Qualifiers: Idiopathic scoliosis type: other Scoliosis type: idiopathic Qualified Code(s): M41.26 - Other idiopathic scoliosis, lumbar region Orders: Orders Chiropractic Treatments Today M41.26 - Other idiopathic scoliosis, lumbar region, M99.01 - Segmental and somatic dysfunction of cervical region, M99.02 - Segmental and somatic dysfunction of thoracic region, M99.03 - Segmental and somatic dysfunction of lumbar region, M99.05 - Segmental and somatic dysfunctionof pelvic region Plan Patient was treated without incident. Continue care as needed. Plan Details Goals & Barriers: Goals Decrease pain Decrease spasm Improve ability to stand Follow Up: PRN Coding Level of Care Code No Charge Diagnoses Segmental and somatic dysfunction of cervical region M99.01 Segmental and somatic dysfunction of thoracic region M99.02 Segmental and somatic dysfunction of lumbar region M99.03 Segmental and somatic dysfunction of pelvic region M99.05 Other idiopathic scoliosis, lumbar region M41.26 Idiopathic scoliosis type: other Scoliosis type: idiopathic CPT Codes Procedures - Manipulation: 3-4 regions (43103) Clinical Quality Measures Falls Risk Screening/Assistive Devices Have you fallen in the past year?: No 10/09/24 0921 <Electronically signed by Mitzy Alcazar> Date _ Mitzy Gonsales Signature: Date (if applicable) CC: ~ [facility] Work Phone: 1(583) 337-608605-20-2025 NoteHNO ID: [id number] Author: NILSA PALACIOS RN Service: ? Author Type: Registered Nurse Type: Progress Notes Filed: 09/12/2024 09:59 Note Text: Value Based Care Coordination Chart Review Provider Action / FYI: Unable to Reach Upon review of patient chart, the patient is excluded from Chronic Disease Management Patient is not a candidate for CDM at this time and placed in the following status: Unable to reach Action taken: No action needed . Nilsa Palacios RN September 12, 2024 9:58 [facility]05-20-2025 NotePatient Outreach ([facility]) DILIA MAST ([id number]) 1955 M Date Time Provider Department 09/12/24 NILSA PALACIOS [facility] During your visit today, we recorded the following information about you: Nilsa Palacios RN 09/12/2024 9:59 AM Signed Value Based Care Coordination Chart Review Provider Action / FYI: Unable to Reach Upon review of patient chart, the patient is excluded from Chronic Disease Management Patient is not a candidate for CDM at this time and placed in the following status: Unable to reach Action taken: No action needed . Nilsa Palacios RN September 12, 2024 9:58 AM Allergies As of Date: 09/12/2024 (No Known Allergies) Date Reviewed: 09/11/2024 Reviewed by: Rand Miller MA - Fully Assessed Reason for Visit: Care Coordination [3491] Prescriptions as of 09/12/2024 - meloxicam (MOBIC) 15 mg tablet Take 1 tablet by mouth once daily. - cetirizine (ZYRTEC) 10 mg tablet Take 1 tablet by mouth once daily. as needed for allergy symptoms - ramipril (ALTACE) 10 mg capsule Take 1 capsule by mouth once daily. - hydroCHLOROthiazide 25 mg tablet Take 1 tablet by mouth once daily. - fluticasone (FLONASE) 50 mcg/actuation nasal spray Use 2 Sprays in each nostril once daily. Rinse mouth after use. - albuterol HFA (PROAIR HFA) 90 mcg/actuation inhaler Inhale 2 Puffs as instructed every 6 hours as needed. - aspirin(ADULT LOW DOSE ASPIRIN 81 MG TAB, DELAYED RELEASE) daily Problem List As Of Date 09/12/2024 Noted Resolved HTN (hypertension) [I10] 08/01/2015 Cancer, skin, squamous cell [C44.92] 08/01/2015 Obesity (BMI 30.0-34.9) [E66.811] Neck pain on left side [M54.2] 11/13/2016 Left cervical radiculopathy [M54.12] 03/28/2018 Acute pain of left shoulder [M25.512] 06/06/2021 Numbness and tingling in left hand [R20.0, R20.*06/06/2021 Encounter Status:Closed by NILSA PALACIOS on 09/12/24[facility] 09-11-2024 NoteHNO ID: [id number] Author: RAND MILLER MA Service: ? Author Type: Travel Services Professional Type: Progress Notes Filed: 09/11/2024 12:01 Note Text: PT ASSESSMENT - CASTING ROOM Dilia presents for Application of brace. Applied M/L reaction brace to Left knee. Patient electronically signed Doron HERMAN. Patient has been instructed in Care and proper application of brace. Rand Miller [facility]05-19-2025 History of Present illness Narrative* Rand Miller MA - 09/11/2024 8:42 AM EDT PT ASSESSMENT - CASTING ROOM Dilia presents for Application of brace. Applied M/L reaction brace to Left knee. Patient electronically signed Doron HERMAN. Patient has been instructed in Care and proper application of brace. Rand Miller MA * Mason Unger MD - 09/11/2024 7:56 AM EDT Mason Unger MD Department of Orthopaedics Orthopaedics [address] [facility] [address] Dept: [phone] Dept September 11, 2024 CHIEF COMPLAINT: Established Patient and Pain of the Left Knee HPI: HPI Kit is a 69-year-old male presenting for evaluation of bilateral knee pain, with a history of arthritis and previous surgery on the left knee. Kit reports a flare-up of bilateral knee pain, particularly in the left knee, which he attributes to recent activities such as installing a drop ceiling in his basement over the winter and currentlydoing landscaping for his daughter. These activities involved repetitive movements, including climbing up and down ladders on a concrete floor for several weeks. He describes the pain as a sensation of the knee wanting to give out on him, primarily around the knee joint. He notes that the pain ismore pronounced during activities involving stairs or uneven surfaces, rather than flat-level walking. Kit has a history of arthritis in both knees, with the left knee having undergone previous surgeryand experiencing more wear and tear. He has been prescribed meloxicam by Kaushik Harris approximatelya month ago but takes it on an as-needed basis, particularly when anticipating physical work that may exacerbate the pain. He denies taking the medication regularly. Kit is physically active, regularly attending [employer] and engaging in fishing during the summer, which he notes as a good core workout. He is open to exercise and uses machines at the gym. He has a family history of knee replacements, with his father having undergone a double knee replacement. Patient here today for left knee pain. States he had an ACL tear when he was young, but never had repaired. Had a knee arthroscopy about 25 years ago at [facility]. He continues with pain intermittently. If he does too much he pays for it for a few days. Knee feels weak and aching. X-ray completed on 08/11/2024. Retired. ASSESSMENT: M25.562 Acute pain of left knee M17.0 Arthritis of both knees M17.12 Primary osteoarthritis of left knee M17.11 Primary osteoarthritis of right knee M11.261 Chondrocalcinosis of right knee 1. Acute pain of left knee (M25.562) Primary osteoarthritis of left knee (M17.12) Left knee exhibits significant osteoarthritic changes, including joint space narrowing, bone spurs,and chondrocalcinosis. Previous surgical history and chronic wear contribute to the current condition. Pain is likely exacerbated by patellar maltracking and uneven pressure distribution. - Provided patient with a knee brace to offload stress during activities. - Educated patient on quadriceps strengthening exercises to improve patellar tracking and reduce pain. - Advised regular use of meloxicam for 1-2 weeks to assess baseline pain reduction. - Discussed potential for corticosteroid injections if conservative measures are insufficient. 2. Arthritis of both knees (M17.0) Bilateral knee arthritis with more severe changes in the left knee compared to the right. Right knee shows mild to moderate degenerative changes without significant osteophyte formation. - Initiated conservative management with strengthening exercises and NSAID therapy. - Discussed potential for viscosupplementation (gel injections) if corticosteroid injections are ineffective. - Emphasized the importance of maintaining activity levels and weight management to reduce joint stress. 3. Primary osteoarthritis of right knee (M17.11) Chondrocalcinosis of right knee (M11.261) Right knee demonstrates mild to moderate osteoarthritic changes with chondrocalcinosis noted on imaging. Joint space narrowing is present, but no significant osteophyte formation. - Continue conservative management with strengthening exercises and NSAID therapy. - Monitor for progression of symptoms and consider corticosteroid injections if necessary. Will continue to monitor patient for Acute pain of left knee Arthritis of both knees Primary osteoarthritis of left knee Primary osteoarthritis of right knee Chondrocalcinosis of right knee, patient to schedule visit as per follow up discussed. PLAN: as above OBJECTIVE: Mr. Dilia Mast is a pleasant 69 year old in no apparent distress. Gen:There were no vitals taken for this visit. nl development, non obese, no deformities ENT: Normocephalic, normal hearing, moist mucosa CV: Pulses:DP/PT= 2+ and symmetric, capillary refill < 2 secs, no peripheral edema/varicosities Skin: no rash, bruising or lesions. Good turgor. Psych: cooperative and appropriate, alert and oriented x 3, good mood and affect. Musculoskeletal: - Musculoskeletal: - Left Knee: Mild varus deformity, patellar tilt laterally. - Right Knee: Mild to moderate arthritis, good lateral compartment cushioning. - Neurological: No focal deficits noted. Imaging: Labs - Blood work: Borderline diabetes noted; kidney function normal Imaging - Bilateral Knee X-ray: - Right Knee: Mild to moderate degenerative changes without prominent osteophytes; meniscal chondrocalcinosis noted; slightly decreased joint space - Left Knee: Moderate degenerative changes with osteophyte formation; meniscal chondrocalcinosis noted; narrowed joint space under patella with lateral tilt Supporting Subjective Information Below: Past Medical History: PAST MEDICAL HISTORY Diagnosis Date Basal cell carcinoma right inferior lateral upper back; Dr Santiago Aceves 07/11/14 Elevated fasting blood sugar Hypercholesterolemia Hypertension Obesity (BMI 30.0-34.9) Snoring Tear of MCL (medial collateral ligament) of knee Past Surgical History: PAST SURGICAL HISTORY Procedure Laterality Date COLONOSCOPY 11/03/2021 repeat in 5 years COLONOSCOPY FLX DX W/COLLJ SPEC WHEN PFRMD 04/05/2017 REPEAT 5 YEARS KNEE SURGERY HX SKIN BIOPSY HX Medications: Current Outpatient Medications Medication Sig meloxicam (MOBIC) 15 mg tablet Take 1 tablet by mouth once daily. cetirizine (ZYRTEC) 10 mg tablet Take 1 tablet by mouth once daily. as needed for allergy symptoms ramipril (ALTACE) 10 mg capsule Take 1 capsule by mouth once daily. hydroCHLOROthiazide 25 mg tablet Take 1 tablet by mouth once daily. fluticasone (FLONASE) 50 mcg/actuation nasal spray Use 2 Sprays in each nostril once daily. Rinse mouth after use. albuterol HFA (PROAIR HFA) 90 mcg/actuation inhaler Inhale 2 Puffs as instructed every 6 hours as needed. aspirin(ADULT LOW DOSE ASPIRIN 81 MG TAB, DELAYED RELEASE) daily No current facility-administered medications for this visit. Allergies: Patient has no known allergies. ROS: General (negative for fatigue, malaise, weight loss/gain) HEENT (negative for headache, earache, recent vision changes, sinus pain, sore throat) Respiratory (no recent shortness of breath, hemoptysis) CV (negative for chest tightness, palpitations) Musculoskeletal (see HPI) Psych (no depression, anxiety) Musculoskeletal: (+) left knee pain, (+) left knee instability Recording using ambient [employer] software for draft documentation of the visit was discussed with the patient/authorized auto service representative; all questions welcomed and answered. Patient/authorized auto service representative agreed to proceed Mason Unger MD [facility] NoteHNO ID: [id number] Author: MASON UNGER MD Service: ? Author Type: Physician Type: Progress Notes Filed: 09/11/2024 12:02 Note Text: Mason Unger MD Department of Orthopaedics Orthopaedics [address] [facility] [address] Dept: [phone] Dept September 11, 2024 CHIEF COMPLAINT: Established Patient and Pain of the Left Knee HPI: HPI Kit is a 69-year-old male presenting for evaluation of bilateral knee pain, with a history of arthritis and previous surgery on the left knee. Kit reports a flare-up of bilateral knee pain, particularly in the left knee, which he attributes to recent activities such as installing a drop ceiling in his basement over the winter and currently doing landscaping for his daughter. These activities involved repetitive movements, including climbing up and down ladders on a concrete floor for several weeks. He describes the pain as a sensation of the knee wanting to give out on him, primarily around the knee joint. He notes that the pain is more pronounced during activities involving stairs or uneven surfaces, rather than flat-level walking. Kit has a history of arthritis in both knees, with the left knee having undergone previous surgery and experiencing more wear and tear. He has been prescribed meloxicam by Kaushik Harris approximately a month ago but takes it on an as-needed basis, particularly when anticipating physical work that may exacerbate the pain. He denies taking the medication regularly. Kit is physically active, regularly attending [employer] and engaging in fishing during the summer, which he notes as a good core workout. He is open to exercise and uses machines at the gym. He has a family history of knee replacements, with his father having undergone a double knee replacement. Patient here today for left knee pain. States he had an ACL tear when he was young, but never had repaired. Had a knee arthroscopy about 25 years ago at [facility]. He continues with pain intermittently. If he does too much he pays for it for a few days. Knee feels weak and aching. X-ray completed on 08/11/2024. Retired. ASSESSMENT: M25.562 Acute pain of left knee M17.0 Arthritis of both knees M17.12 Primary osteoarthritis of left knee M17.11 Primary osteoarthritis of right knee M11.261 Chondrocalcinosis of right knee 1. Acute pain of left knee (M25.562) Primary osteoarthritis of left knee (M17.12) Left knee exhibits significant osteoarthritic changes, including joint space narrowing, bone spurs, and chondrocalcinosis. Previous surgical history and chronic wear contribute to the current condition. Pain is likely exacerbated by patellar maltracking and uneven pressure distribution. - Provided patient with a knee brace to offload stress during activities. - Educated patient on quadriceps strengthening exercises to improve patellar tracking and reduce pain. - Advised regular use of meloxicam for 1-2 weeks to assess baseline pain reduction. - Discussed potential for corticosteroid injections if conservative measures are insufficient. 2. Arthritis of both knees (M17.0) Bilateral knee arthritis with more severe changes in the left knee compared to the right. Right knee shows mild to moderate degenerative changes without significant osteophyte formation. - Initiated conservative management with strengthening exercises and NSAID therapy. - Discussed potential for viscosupplementation (gel injections) if corticosteroid injections are ineffective. - Emphasized the importance of maintaining activity levels and weight management to reduce joint stress. 3. Primary osteoarthritis of right knee (M17.11) Chondrocalcinosis of right knee (M11.261) Right knee demonstrates mild to moderate osteoarthritic changes with chondrocalcinosis noted on imaging. Joint space narrowing is present, but no significant osteophyte formation. - Continue conservative management with strengthening exercises and NSAID therapy. - Monitor for progression of symptoms and consider corticosteroid injections if necessary. Will continue to monitor patient for Acute pain of left knee Arthritis of both knees Primary osteoarthritis of left knee Primary osteoarthritis of right knee Chondrocalcinosis of right knee, patient to schedule visit as per follow up discussed. PLAN: as above OBJECTIVE: Mr. Dilia Mast is a pleasant 69 year old in no apparent distress. Gen:There were no vitals taken for this visit. nl development, non obese, no deformities ENT: Normocephalic, normal hearing, moist mucosa CV: Pulses:DP/PT= 2+ and symmetric, capillary refill < 2 secs, no peripheral edema/varicosities Skin: no rash, bruising or lesions. Good turgor. Psych: cooperative and appropriate, alert and oriented x 3, good mood and affect. Musculoskeletal: - Musculoskeletal: - Left Knee: Mild varus deformity, patellar tilt laterally. - Right (more content not included)...[facility]04-18-2025 Progress note* Result Encounter Note - Kalin Harris APRN.CNS - 08/11/2024 1:26 PM EDT Bilateral findings shows chondrocalcinosis medial lateral aspects of both knees, severe narrowing of the medial lateral compartment on the left knee, moderate posterior spurring patella, no acute findings no fractures or dislocations [facility]04-[facility] Miscellaneous Notes* Result Encounter Note - Kalin Harris APRN.CNS - 08/11/2024 1:26 PM EDT Bilateral findings shows chondrocalcinosis medial lateral aspects of both knees, severe narrowing of the medial lateral compartment on the left knee, moderate posterior spurring patella, no acute findings no fractures or dislocations documented in this encounter[facility] History of Present illness Narrative* Blaise Luna RT(R) - 08/11/2024 12:00 PM EDT Radiology Service Progress Note PATIENT NAME: Dilia Mast DATE OF SERVICE: August 11, 2024 TIME: 11:50 AM PATIENT IDENTITY VERIFICATION COMPLETED USING TWO (2) IDENTIFIERS: Name and Date of confirmedby patient verbally. FALL SCREENING: Has the patient had 2 falls in the last year or 1 fall with injury or currently using an Ambulatory Assistive Device (Walker, Cane, Wheelchair, Crutches, etc.)? No PATIENT GENDER DATA: Assigned male at PATIENT RELEVANT IMPLANT DATA REVIEWED: Not Applicable PATIENT PRESENTS WITH AN IMPLANTABLE OR ATTACHED STEAM ENGINEER: No RADIOLOGY DEPARTMENT: General X-ray: Exam(s) Completed: Lower Extremity X- Ray(s): Knee, AP / Lat / Tunne / Merchant Left and Wt. Bearing PERIPHERAL IV DATA: Not applicable SIGNED BY: RT Hussain(R) August 11, 2024 11:50 AM documented in this [facility]25 NoteHNO ID: [id number] Author: BLIASE LUNA RT(R) Service: Radiology Author Type: Technologist Type: Progress Notes Filed: 08/11/2024 12:06 Note Text: Radiology Service Progress Note PATIENT NAME: Dilia Mast DATE OF SERVICE: August 11, 2024 TIME: 11:50 AM PATIENT IDENTITY VERIFICATION COMPLETED USING TWO (2) IDENTIFIERS: Name and Date of confirmed by patient verbally. FALL SCREENING: Has the patient had 2 falls in the last year or 1 fall with injury or currently using an Ambulatory Assistive Device (Walker, Cane, Wheelchair, Crutches, etc.)? No PATIENT GENDER DATA: Assigned male at PATIENT RELEVANT IMPLANT DATA REVIEWED: Not Applicable PATIENT PRESENTS WITH AN IMPLANTABLE OR ATTACHED STEAM ENGINEER: No RADIOLOGY DEPARTMENT: General X-ray: Exam(s) Completed: Lower Extremity X-Ray(s): Knee, AP / Lat / Tunne / Merchant Left and Wt. Bearing PERIPHERAL IV DATA: Not applicable SIGNED BY: RT Hussain(Renetta) August 11, 2024 11:50 [facility]04-18-2025 NoteHNO ID: [id number] Author: KALIN HARRIS APRN.MATERNITY FLOOR SUPERVISOR Service: ? Author Type: Nurse Specialist Type: Progress Notes Filed: 08/11/2024 11:56 Note Text: Subjective Patient ID: Kit is a 69 year old male who presents for Left Knee Pain. HPI Left Knee Pain and Instability: - Reports weakness and pain in the left knee, with episodes of feeling like it might give out, but it never fully does. - No recent specific injury or trauma recalled; denies recent falls. - Symptoms have been exacerbated by increased activity, including moving his daughter back to [place], packing, and working on home projects, going up ladders etc. - Describes the knee as feeling wobblynot locking up. - Pain localized to the lateral side of the knee joint and beneath patella on the lateral side of the knee, with some mild swelling noted. - Has been taking Tylenol and Aleve with some relief. - Not using compression sleeves or icing the knee. - Has a history of a partial ACL tear in the same knee from a softball injury at age 19-20, which was treated with a full leg cast, reports meniscus surgery at that time - Underwent arthroscopic surgery for a meniscus issue approximately 20 years ago. ROS Musculoskeletal: (+) left knee pain, (+) left knee weakness, (+) left knee instability Objective BP 119/67 Pulse 78 Resp 16 Wt 102 kg (224 lb 13.9 oz) BMI 34.68 kg/m? Physical Exam Vitals reviewed. Constitutional: Appearance: Normal appearance. HENT: Head: Normocephalic and atraumatic. Eyes: Conjunctiva/sclera: Conjunctivae normal. Cardiovascular: Rate and Rhythm: Normal rate. Pulmonary: Effort: Pulmonary effort is normal. Musculoskeletal: Left knee: Bony tenderness present. No crepitus. Decreased range of motion. Tenderness present over the lateral joint line. Skin: General: Skin is warm and dry. 1. Acute pain of left knee (M25.562) 2. Unilateral primary osteoarthritis, left knee (M17.12) - Left knee pain with a history of previous ACL injury and meniscal surgery approximately 20 years ago. Recent increase in activity may have exacerbated symptoms. - No recent imaging; ordered X-ray of the left knee to evaluate current status. - Prescribed meloxicam 15 mg orally once daily for one week, then as needed. - Advised use of a compression sleeve or ANABEL wrap to provide support and reduce swelling. - Referral to Dr. Unger, fireworks display specialist, for further evaluation and management. If not improing with conservative measure endorse ortho appt, PT appt. - Dilia Mast understands and agrees with the treatment plan. Kalin Harris APRN.JAXON Medical Decision Making: Problems: Low: Acute, uncomplicated illness or injury Data: Unique test(s) ordered: 1 Risk: Moderate: Drug management Medical Decision Making Level: 3 - [facility] History of Present illness Narrative* Kalin Harris APRN.MATERNITY FLOOR SUPERVISOR - 08/11/2024 11:23 AM EDT Subjective Patient ID: Kit is a 69 year old male who presents for Left Knee Pain. HPI Left Knee Pain and Instability: - Reports weakness and pain in the left knee, with episodes of feeling like it might give out, but it never fully does. - No recent specific injury or trauma recalled; denies recent falls. - Symptoms have been exacerbated by increased activity, including moving his daughter back to [place],packing, and working on home projects, going up ladders etc. - Describes the knee as feeling wobblynot locking up. - Pain localized to the lateral side of the knee joint and beneath patella on the lateral side of the knee, with some mild swelling noted. - Has been taking Tylenol and Aleve with some relief. - Not using compression sleeves or icing the knee. - Has a history of a partial ACL tear in the same knee from a softball injury at age 19-20, which was treated with a full leg cast, reports meniscus surgery at that time - Underwent arthroscopic surgery for a meniscus issue approximately 20 years ago. ROS Musculoskeletal: (+) left knee pain, (+) left knee weakness, (+) left knee instability Objective BP 119/67 Pulse 78 Resp 16 Wt 102 kg (224 lb 13.9 oz) BMI 34.68 kg/m Physical Exam Vitals reviewed. Constitutional: Appearance: Normal appearance. HENT: Head: Normocephalic and atraumatic. Eyes: Conjunctiva/sclera: Conjunctivae normal. Cardiovascular: Rate and Rhythm: Normal rate. Pulmonary: Effort: Pulmonary effort is normal. Musculoskeletal: Left knee: Bony tenderness present. No crepitus. Decreased range of motion. Tenderness present overthe lateral joint line. Skin: General: Skin is warm and dry. 1. Acute pain of left knee (M25.562) 2. Unilateral primary osteoarthritis, left knee (M17.12) - Left knee pain with a history of previous ACL injury and meniscal surgery approximately 20 years ago. Recent increase in activity may have exacerbated symptoms. - No recent imaging; ordered X-ray of the left knee to evaluate current status. - Prescribed meloxicam 15 mg orally once daily for one week, then as needed. - Advised use of a compression sleeve or ANABEL wrap to provide support and reduce swelling. - Referral to Dr. Unger, fireworks display specialist, for further evaluation and management. If not improing with conservative measure endorse ortho appt, PT appt. - Dilia Mast understands and agrees with the treatment plan. Kalin Harris APRN.CNS Medical Decision Making: Problems: Low: Acute, uncomplicated illness or injury Data: Unique test(s) ordered: 1 Risk: Moderate: Drug management Medical Decision Making Level: 3 - Low documented [facility] Evaluation note* Diagnosis Onset Date Resolution Status Admit Date Back pain acute June 27 9:45am Segmental and somatic dysfunction of cervical region acute [facility] 2024 9:45am Segmental and somatic dysfunction of lumbar region acute [facility] 2024 9:45am Segmental and somatic dysfunction of pelvic region acute [facility] 2024 9:45am Segmental and somatic dysfunction of thoracic region acute [facility] 2024 9:45am Scoliosis of lumbar spine chronic June 27, 2024 9:45am Back pain acute July 26 8:09am Segmental and somatic dysfunction of cervical region acute A pril 2024 8:09am Segmental and somatic dysfunction of lumbar region acute Apr il 2024 8:09am Segmental and somatic dysfunction of pelvic region acute Apr [place] 2024 8:09am Segmental and somatic dysfunction of thoracic region acute A pril 2024 8:09am Scoliosis of lumbar spine chronic July 26, 2024 8:09am Back pain acute September 04, 2024 8:11am Segmental and somatic dysfunction of cervical region acute M 2024 8:11am Segmental and somatic dysfunction of lumbar region acute September 04, 2024 8:11am Segmental and somatic dysfunction of pelvic region acute September 04, 2024 8:11am Segmental and somatic dysfunction of thoracic region acute M ay 2024 8:11am Scoliosis of lumbar spine chronic September 04, 2024 8:11am Segmental and somatic dysfunction of cervical region acute J une 2024 8:28am Segmental and somatic dysfunction of lumbar region acute Erasto e 2024 8:28am Segmental and somatic dysfunction of pelvic region acute Erasto e 2024 8:28am Segmental and somatic dysfunction of thoracic region acute J une 2024 8:28am Scoliosis of lumbar spine chronic October 09, 2024 8:28am [employer] Work Phone: [phone]) 993-348702-24-2025 NoteHNO ID: [id number] Author: TRINIDAD TAPIA MA Service: ? Author Type: Travel Services Professional Type: Progress Notes Filed: 06/19/2024 08:16 Note Text: POPULATION HEALTH NAVIGATION OUTREACH Action/FYI Spoke to patient. Declined follow up. Reason for Outreach Returned Call/TicketForEventhart Patient Contacted: Spoke to patient/parent/or legal guardian Patient identified by name and date of : Yes Returned call/TicketForEventhart actions taken: Patient declined: Doesn't feel it's necessary Navigation Signature: Trinidad Tapia MA June 19, 2024 8:12 [facility]02-21-2025 NoteHNO ID: [id number] Author: TRINIDAD TAPIA MA Service: ? Author Type: Travel Services Professional Type: Progress Notes Filed: 06/16/2024 15:20 Note Text: POPULATION HEALTH NAVIGATION OUTREACH Action/FYI Spoke to patient via [employer]. Will await for response. Reason for Outreach Returned Call/TicketForEventhart Patient Contacted: Spoke to patient/parent/or legal guardian Patient identified by name and date of : Yes Returned call/MyChart actions taken: No action required Navigation Signature: Trinidad Tapia MA June 16, 2024 3:20 [facility]02-21-2025 History of Present illness Narrative* Trinidad Tapia MA - 06/16/2024 3:20 PM EST POPULATION HEALTH NAVIGATION OUTREACH Action/FYI Spoke to patient via mychart. Will await for response. Reason for Outreach Returned Call/MyChart Patient Contacted: Spoke to patient/parent/or legal guardian Patient identified by name and date of : Yes Returned call/MyChart actions taken: No action required Navigation Signature: Trinidad Tapia MA June 16, 2024 3:20 PM * Trinidad Tapia MA - 06/16/2024 7:33 AM EST POPULATION HEALTH NAVIGATION OUTREACH Action/FYI Patient is on [employer] High Risk list for below and needs appointment to address: Advance Directive Discussion Hemoglobin A1C (%) Date Value 04/14/2024 5.8 03/03/2021 5.5 Patient due for: Follow up Appointment - AWV scheduled 03/2025 MyChart Active: Yes Left message for patient to call back. Sent mychart message. Reason for Outreach Care Gap/HCC or Scheduling Wellness Visits Care Gaps due: Follow-up Appointment Patient Contacted: Unable or unnecessary to reach patient: Left message TicketForEventhart message sent Navigation Signature: Trinidad Tapia MA June 16, 2024 7:33 AM documented in this [facility]25 NoteHNO ID: [id number] Author: TRINIDAD TAPIA MA Service: ? Author Type: Travel Services Professional Type: Progress Notes Filed: 06/16/2024 12:35 Note Text: POPULATION HEALTH NAVIGATION OUTREACH Action/FYI Patient is on [employer] High Risk list for below and needs appointment to address: Advance Directive Discussion Hemoglobin A1C (%) Date Value 04/14/2024 5.8 03/03/2021 5.5 Patient due for: Follow up Appointment - AWV scheduled 03/2025 MyChart Active: Yes Left message for patient to call back. Sent mychart message. Reason for Outreach Care Gap/HCC or Scheduling Wellness Visits Care Gaps due: Follow-up Appointment Patient Contacted: Unable or unnecessary to reach patient: Left message MyChart message sent Navigation Signature: Trinidad Tapia MA June 16, 2024 7:33 [facility]02-21-2025 NotePatient Outreach (NETNAV) DILIA MAST ([id number]) 1955 M Date Time Provider Department 06/16/24 TRINIDAD TAPIA NETNAV During your visit today, we recorded the following information about you: Trinidad Tapia MA 06/16/2024 12:35 PM Signed POPULATION HEALTH NAVIGATION OUTREACH Action/FYI Patient is on [employer] High Risk list for below and needs appointment to address: Advance Directive Discussion Hemoglobin A1C (%) Date Value 04/14/2024 5.8 03/03/2021 5.5 Patient due for: Follow up Appointment - AWV scheduled 03/2025 [employer] Active: Yes Left message for patient to call back. Sent [employer] message. Reason for Outreach Care Gap/HCC or Scheduling Wellness Visits Care Gaps due: Follow-up Appointment Patient Contacted: Unable or unnecessary to reach patient: Left message [employer] message sent Navigation Signature: Trinidad Tapia MA June 16, 2024 7:33 AM Trinidad Tapia MA 06/16/2024 3:20 PM Signed POPULATION HEALTH NAVIGATION OUTREACH Action/FYI Spoke to patient via [employer]. Will await for response. Reason for Outreach Returned Call/MyChart Patient Contacted: Spoke to patient/parent/or legal guardian Patient identified by name and date of : Yes Returned call/MyChart actions taken: No action required Navigation Signature: Trinidad Tapia MA June 16, 2024 3:20 PM Trinidad Tapia MA 06/19/2024 8:16 AM Signed POPULATION HEALTH NAVIGATION OUTREACH Action/FYI Spoke to patient. Declined follow up. Reason for Outreach Returned Call/MyChart Patient Contacted: Spoke to patient/parent/or legal guardian Patient identified by name and date of : Yes Returned call/MyChart actions taken: Patient declined: Doesn't feel it's necessary Navigation Signature: Trinidad Tapia MA June 19, 2024 8:12 AM Allergies As of Date: 06/16/2024 (No Known Allergies) Date Reviewed: 04/25/2024 Reviewed by: Becca Sykes LPN - Fully Assessed Reason for Visit: Population Health Navigation Outreach [3910] Cmt: [employer] High Risk - Attempt 1 Prescriptions as of 06/19/2024 - cetirizine (ZYRTEC) 10 mg tablet Take 1 tablet by mouth once daily. as needed for allergy symptoms - meloxicam (MOBIC) 15 mg tablet Take 1 tablet by mouth once daily. - ramipril (ALTACE) 10 mg capsule Take 1 capsule by mouth once daily. - hydroCHLOROthiazide 25 mg tablet Take 1 tablet by mouth once daily. - fluticasone (FLONASE) 50 mcg/actuation nasal spray Use 2 Sprays in each nostril once daily. Rinse mouth after use. - albuterol HFA (PROAIR HFA) 90 mcg/actuation inhaler Inhale 2 Puffs as instructed every 6 hours as needed. - aspirin(ADULT LOW DOSE ASPIRIN 81 MG TAB, DELAYED RELEASE) daily Problem List As Of Date 06/16/2024 Noted Resolved HTN (hypertension) [I10] 08/01/2015 Cancer, skin, squamous cell [C44.92] 08/01/2015 Obesity (BMI 30.0-34.9) [E66.811] Neck pain on left side [M54.2] 11/13/2016 Left cervical radiculopathy [M54.12] 03/28/2018 Acute pain of left shoulder [M25.512] 06/06/2021 Numbness and tingling in left hand [R20.0, R20.*06/06/2021 Encounter Status:Closed by TRINIDAD TAPIA on 06/16/24[facility]12-[facility] Instructions* Patient Instructions* Lilly Malone MD - 04/25/2024 9:30 AM EST - Continue taking Altace 10 mg daily and hydrochlorothiazide 25 mg daily. - Continue taking Flonase, Moxicam, Patanol, Albuterol, and Zyrtec as needed. - Take Aspirin daily. - Incorporate more [place]-3 rich foods into your diet, such as edamame, marine fish (e.g., tuna, salmon), ground flaxseed, and walnuts. - Aim for at least 30 minutes of aerobic exercise 5 days a week. This can include activities like walking, hiking, or any other form of moderate exercise. - Maintain your current healthy eating habits and portion control. - Next follow-up appointment in March for your Medicare wellness visit. - Complete lab tests (hemoglobin A1c, cholesterol panel, CBC, and CMP) in March before your nextappointment. Screening schedule The following prevention plan is recommended: Depression Screening Never done Anxiety Screening Never done Advance Directive Discussion due on 04/26/2023 WHAT YOU CAN DO TO PREVENT FALLS Many falls can be prevented. By making some changes, you can lower your chances of falling. Four things YOU can do to prevent falls for you* and your caregiver 1. Begin a regular exercise program Exercise is one of the most important ways to lower your chances of falling. It makes you stronger and helps you feel better. Exercises that improve balance and coordination (like Abel Chi) are the most helpful. Lack of exercise leads to weakness and increases your chances of falling. Ask your doctor or health care provider about the best type of exercise program for you. 2. Have your health care provider review your medicines Have your doctor or pharmacist review all the medicines you take, even [id number] medicines. As you get older, the way medicines work in your body can change. Some medicines, or combinations of medicines, can make you sleepy or dizzy andcan cause you to fall. 3. Have your vision checked Have your eyes checked by an eye doctor at least once a year. You may be wearing the wrong glasses or have a condition like glaucoma or cataracts that limits your vision. Poor vision can increase your chances of falling. 4. Make your home safer About half of all falls happen at home. To make your home safer: Remove things you can trip over (like papers, books, clothes, and shoes) from stairs and places where you walk. Remove small throw rugs or use double-sided tape to keep the rugs from slipping. Keep items you use often in cabinets you can reach easily without using a step stool. Have grab bars put in next to your toilet and in the tub or shower. Use non-slip mats in the bathtub and on shower floors. Improve the lighting in your home. As you get older, you need brighter lights to see well. Hang light-weight curtains or shades to reduce glare. Have handrails and lights put in on all staircases. Wear shoes both inside and outside the house. Avoid going barefoot or wearing slippers. For more information, contact: Centers for Disease Control and Prevention www.cdc.gov/injury * This information may not apply if you have certain medical conditions. [facility] NoteHNO ID: [id number] Author: LILLY MALONE MD Service: ? Author Type: Physician Type: Progress Notes Filed: 04/25/2024 09:56 Note Text: This note was created using Dolphinriter. Subjective Dilia Mast is a 69 year old male. HISTORY Dilia Mast is a 69 year old gentleman here for yearly exam and follow up appointment. Dilia Mast is a 69-year-old male with a history of HTN, hypercholesterolemia, and prediabetes, presenting for a Medicare Annual Wellness Visit and follow-up. Dilia reports well-controlled blood pressure, with recent readings consistently within normal limits. He is currently taking hydrochlorothiazide 25 mg daily and Altace 10 mg daily. He also uses Flonase, Moxicam, Patanol, albuterol, and Zyrtec as needed. He takes aspirin daily. He reports engaging in exercise approximately two days a week, with increased activity during the summer months due to fishing and walking. He has recently resumed going to [employer] and aims to attend three to four days a week. He denies frequent consumption of fast food and primarily drinks water, carrying a water bottle throughout the day. He reports getting up once a night to urinate. He endorses a preference for raw vegetables over cooked ones and denies any significant issues with gas. Dilia has been actively working on weight management, reporting a weight of 226 lbs in April and a current weight of 210 lbs. He attributes his weight loss to increased exercise, better eating habits, and portion control. He denies symptoms of depression or anxiety. He has a family history of cardiovascular disease and is currently seeing a bread slicer machine and an mentally retarded teacher. He has completed his advance directives and has a healthcare power of staff attorney in place. He is up to date on his vaccinations, including the Prevnar 20 vaccine, and has a colonoscopy scheduled for 2026. He reports that his vision is doing well and he is satisfied with his current glasses. PAST MEDICAL HISTORY Diagnosis Date Basal cell carcinoma right inferior lateral upper back; Dr Santiago Aceves 07/11/14 Elevated fasting blood sugar Hypercholesterolemia Hypertension Obesity (BMI 30.0-34.9) Snoring Tear of MCL (medial collateral ligament) of knee Current Outpatient Medications Medication Sig cetirizine (ZYRTEC) 10 mg tablet Take 1 tablet by mouth once daily. as needed for allergy symptoms meloxicam (MOBIC) 15 mg tablet Take 1 tablet by mouth once daily. (Patient taking differently: Take 15 mg by mouth once daily as needed.) ramipril (ALTACE) 10 mg capsule Take 1 capsule by mouth once daily. hydroCHLOROthiazide 25 mg tablet Take 1 tablet by mouth once daily. fluticasone (FLONASE) 50 mcg/actuation nasal spray Use 2 Sprays in each nostril once daily. Rinse mouth after use. (Patient taking differently: Use 2 Sprays in each nostril once daily as needed. Rinse mouth after use.) albuterol HFA (PROAIR HFA) 90 mcg/actuation inhaler Inhale 2 Puffs as instructed every 6 hours as needed. aspirin(ADULT LOW DOSE ASPIRIN 81 MG TAB, DELAYED RELEASE) daily olopatadine (PATANOL) 0.1 % ophthalmic solution Use 1 Drop in both eyes two times a day as needed. for watery / itchy eyes No current facility-administered medications for this visit. ALLERGIES No Known Allergies FAMILY HISTORY Problem Relation Age of Onset None Mother Cancer Father prostate Skin Cancer Sister Social History Tobacco Use Smoking status: Never Smokeless tobacco: Never Vaping Use Vaping status: Never Used Substance Use Topics Alcohol use: Yes Comment: 0-1 / week Drug use: No Review of Systems Objective BP 114/62 Pulse 73 Temp 37.1 ?C (98.7 ?F) Resp 16 Ht 171.5 cm (5' 7.52) Wt 97.5 kg (215 lb) BMI 33.16 kg/m? Last 5 Encounter Wt Readings: Date: Wt: 04/25/2024 97.5 kg (215 lb) 12/14/2023 100.9 kg (222 lb 7.1 oz) 08/27/2023 102.5 kg (226 lb) 06/14/2023 103.4 kg (228 lb) 04/14/2023 100.2 kg (221 lb) No waist measurement recorded Estimated body mass index is 33.16 kg/m? as calculated from the following: Height as of this encounter: 171.5 cm (5' 7.52). Weight as of this encounter: 97.5 kg (215 lb). Last 5 Encounter BP Readings: Date: BP: 04/25/2024 114/62 12/14/2023 112/78 08/27/2023 118/73 06/14/2023 147/84 04/14/2023 124/72 Physical Exam Vitals reviewed. Constitutional: Appearance: Normal appearance. HENT: Head: Normocephalic. Right Ear: Tympanic membrane, ear canal and external ear normal. Left Ear: Tympanic membrane, ear canal and external ear normal. Mouth/Throat: Mouth: Mucous membranes are moist. Pharynx: Oropharynx is clear. Eyes: Extraocular Movements: Extraocular movements intact. Conjunctiva/sclera: Conjunctivae normal. Pupils: Pupils are equal, round, and reactive to light. Neck: Vascular: No carotid bruit. Cardiovascular: Rate and Rhythm: Normal rate and regular rhythm. Pulses: Normal pulses. H (more content not included)...[facility] History of Present illness Narrative* Lilly Malone MD - 04/25/2024 9:27 AM EST Images from the original note were not included. This note was created using Dolphinriter. Subjective Dilia Mast is a 69 year old male. HISTORY Dilia Mast is a 69 year old gentleman here for yearly exam and follow up appointment. Dilia Mast is a 69-year-old male with a history of HTN, hypercholesterolemia, and prediabetes, presenting for a Medicare Annual Wellness Visit and follow-up. Dilia reports well-controlled blood pressure, with recent readings consistently within normal limits. He is currently taking hydrochlorothiazide 25 mg daily and Altace 10 mg daily. He also uses Flonase, Moxicam, Patanol, albuterol, and Zyrtec as needed. He takes aspirin daily. He reports engaging in exercise approximately two days a week, with increased activity during the summer months due to fishing and walking. He has recently resumed going to [employer] and aims to attend three to four days a week. He denies frequent consumption of fast food and primarily drinks water, carrying a water bottle throughout the day. He reports getting up once a night to urinate. He endorses a preference for raw vegetables over cooked ones and denies any significant issues with gas. Dilia has been actively working on weight management, reporting a weight of 226 lbs in April and a current weight of 210 lbs. He attributes his weight loss to increased exercise, better eating habits, and portion control. He denies symptoms of depression or anxiety. He has a family history of cardiovascular disease and is currently seeing a bread slicer machine and an mentally retarded teacher. He has completed his advance directives and has a healthcare power of staff attorney in place. He is up to date on his vaccinations, including the Prevnar 20 vaccine, and has a colonoscopy scheduled for 2026. He reports that his vision is doing well and he is satisfied with his current glasses. PAST MEDICAL HISTORY Diagnosis Date Basal cell carcinoma right inferior lateral upper back; Dr Santiago Aceves 07/11/14 Elevated fasting blood sugar Hypercholesterolemia Hypertension Obesity (BMI 30.0-34.9) Snoring Tear of MCL (medial collateral ligament) of knee Current Outpatient Medications Medication Sig cetirizine (ZYRTEC) 10 mg tablet Take 1 tablet by mouth once daily. as needed for allergy symptoms meloxicam (MOBIC) 15 mg tablet Take 1 tablet by mouth once daily. (Patient taking differently: Take15 mg by mouth once daily as needed.) ramipril (ALTACE) 10 mg capsule Take 1 capsule by mouth once daily. hydroCHLOROthiazide 25 mg tablet Take 1 tablet by mouth once daily. fluticasone (FLONASE) 50 mcg/actuation nasal spray Use 2 Sprays in each nostril once daily. Rinse mouth after use. (Patient taking differently: Use 2 Sprays in each nostril once daily as needed. Rinse mouth after use.) albuterol HFA (PROAIR HFA) 90 mcg/actuation inhaler Inhale 2 Puffs as instructed every 6 hours as needed. aspirin(ADULT LOW DOSE ASPIRIN 81 MG TAB, DELAYED RELEASE) daily olopatadine (PATANOL) 0.1 % ophthalmic solution Use 1 Drop in both eyes two times a day as needed. for watery / itchy eyes No current facility-administered medications for this visit. ALLERGIES No Known Allergies FAMILY HISTORY Problem Relation Age of Onset None Mother Cancer Father prostate Skin Cancer Sister Social History Tobacco Use Smoking status: Never Smokeless tobacco: Never Vaping Use Vaping status: Never Used Substance Use Topics Alcohol use: Yes Comment: 0-1 / week Drug use: No Review of Systems Objective BP 114/62 Pulse 73 Temp 37.1 C (98.7 F) Resp 16 Ht 171.5 cm (5' 7.52) Wt 97.5 kg (215 lb) BMI 33.16 kg/m Last 5 Encounter Wt Readings: Date: Wt: 04/25/2024 97.5 kg (215 lb) 12/14/2023 100.9 kg (222 lb 7.1 oz) 08/27/2023 102.5 kg (226 lb) 06/14/2023 103.4 kg (228 lb) 04/14/2023 100.2 kg (221 lb) No waist measurement recorded Estimated body mass index is 33.16 kg/m as calculated from the following: Height as of this encounter: 171.5 cm (5' 7.52). Weight as of this encounter: 97.5 kg (215 lb). Last 5 Encounter BP Readings: Date: BP: 04/25/2024 114/62 12/14/2023 112/78 08/27/2023 118/73 06/14/2023 147/84 04/14/2023 124/72 Physical Exam Vitals reviewed. Constitutional: Appearance: Normal appearance. HENT: Head: Normocephalic. Right Ear: Tympanic membrane, ear canal and external ear normal. Left Ear: Tympanic membrane, ear canal and external ear normal. Mouth/Throat: Mouth: Mucous membranes are moist. Pharynx: Oropharynx is clear. Eyes: Extraocular Movements: Extraocular movements intact. Conjunctiva/sclera: Conjunctivae normal. Pupils: Pupils are equal, round, and reactive to light. Neck: Vascular: No carotid bruit. Cardiovascular: Rate and Rhythm: Normal rate and regular rhythm. Pulses: Normal pulses. Heart sounds: Normal heart sounds. Pulmonary: Effort: Pulmonary effort is normal. Breath sounds: Normal breath sounds. Abdominal: General: Abdomen is flat. There is no distension. Palpations: Abdomen is soft. There is no mass. Musculoskeletal: Cervical back: Normal range of motion. Skin: General: Skin is warm and dry. Neurological: General: No focal deficit present. Mental Status: He is alert and oriented to person, place, and time. Psychiatric: Attention and Perception: Attention and perception normal. Mood and Affect: Mood and affect normal. Speech: Speech normal. Behavior: Behavior normal. Thought Content: Thought content normal. Cognition and Memory: Cognition and memory normal. Judgment: Judgment normal. Latest Ref Rng 03/03/2021 03/05/2022 03/30/2023 04/14/2024 Protein, Total 6.3 - 8.0 g/dL 7.4 7.2 6.9 7.3 Albumin 3.9 - 4.9 g/dL 4.4 4.2 3.9 4.2 Calcium 8.5 - 10.2 mg/dL 9.5 9.3 9.0 9.0 Bilirubin, Total 0.2 - 1.3 mg/dL 0.4 0.4 0.2 0.3 Alkaline Phosphatase 38 - 113 U/L 63 72 72 61 AST 14 - 40 U/L 19 24 23 18 Glucose 74 - 99 mg/dL 110 (H) 105 (H) 122 (H) 112 (H) BUN 9 - 24 mg/dL 15 18 18 19 Creatinine 0.73 - 1.22 mg/dL 0.94 0.82 0.95 0.86 Sodium 136 - 144 mmol/L 137 136 137 138 Potassium 3.7 - 5.1 mmol/L 3.9 4.0 4.0 3.9 Chloride 98 - 107 mmol/L 98 100 99 98 CO2 22 - 30 mmol/L 26 25 27 29 Anion Gap 8 - 15 mmol/L 13 11 11 11 ALT 10 - 54 U/L 24 24 31 27 eGFR- >60 eGFR-All Other Races . >60 eGFR >=60 mL/min/1.73m 97 88 95 WBC 3.70 - 11.00 k/uL 6.56 7.01 7.60 6.38 RBC 4.20 - 6.00 m/uL 5.50 5.37 5.28 5.26 Hemoglobin 13.0 - 17.0 g/dL 17.2 (H) 16.6 16.1 16.3 Hematocrit 39.0 - 51.0 % 50.8 48.2 47.9 47.5 MCV 80.0 - 100.0 fL 92.4 89.8 90.7 90.3 MCH 26.0 - 34.0 pg 31.3 30.9 30.5 31.0 MCHC 30.5 - 36.0 g/dL 33.9 34.4 33.6 34.3 RDW-CV 11.5 - 15.0 % 12.6 12.6 12.9 12.6 Platelet Count 150 - 400 k/uL 343 374 379 336 MPV 9.0 - 12.7 fL 9.9 9.7 9.6 9.4 Absolute nRBC <0.01 k/uL <0.01 <0.01 <0.01 <0.01 Cholesterol, Total <200 mg/dL 160 154 173 Triglyceride <150 mg/dL 134 112 195 (H) HDL Cholesterol >39 mg/dL 34 (L) 35 (L) 39 (L) Non HDL Cholesterol <130 mg/dL 126 119 134 (H) Fasting Time hrs 12 14 13 VLDL Cholesterol <30 mg/dL 27 22 39 (H) TC:HDL Ratio <5.10 4.71 4.40 4.44 LDL Cholesterol <100 mg/dL 99 97 95 LDL:HDL Ratio <2.54 2.91 (H) 2.77 (H) 2.44 Total Cholesterol, Nonfasting <200 mg/dL 159 Triglycerides, Nonfasting <150 mg/dL 112 HDL Cholesterol, Nonfasting >39 mg/dL 36 (L) LDL Cholesterol, Nonfasting <100 mg/dL 101 (H) Non HDL Cholesterol, Nonfasting <130 mg/dL 123 VLDL Cholesterol, Nonfasting <30 mg/dL 22 Total Chol/HDL Ratio, Nonfasting <5.10 mg/dL 4.42 LDL/HDL Ratio, Nonfasting <2.54 mg/dL 2.81 (H) HIV 12 Combo (Ag/Ab) Nonreactive Nonreactive HIV 1/2 Ab -- HIV Interpretation -- Hemoglobin A1C 4.3 - 5.6 % 5.5 5.5 5.8 (H) 5.8 (H) Estimated Average Glucose mg/dL 111 111 120 120 PSA Screening <2.60 ng/mL 3.88 (H) Legend: (H) High (L) Low The 10-year ASCVD risk score (Julienne DELGADO, et al., 2019) is: 14.6% Values used to calculate the score: Age: 69 years Sex: Male Is Non- : No Diabetic: No Tobacco smoker: No Systolic Blood Pressure: 114 mmHg Is BP treated: Yes HDL Cholesterol: 39 mg/dL Total Cholesterol: 173 mg/dL Assessment and Plan Dilia Mast is a 69 year old male here for a Medicare wellness visit. Medicare Health Risk Assessment General Health Excellent Exercise: Minutes/Day 30 min; also does functional exercise Exercise: Days/Week 2 days; active on other days as well Alcohol: Daily Use Monthly or less Alcohol: Drinks/Day 1 or 2 Alcohol: 6 or more drinks Never Feel off balance No Concerns: Teeth/Dentures No Concerns: Sexual function No Troubled by feelings None of the above Frequency: Eating healthy diet Nearly every day ADLs requiring help None of the above Safety precautions in home/vehicle Yes Smoke, vape, chews tobacco No Difficulty hearing No Difficulty seeing No Current Providers Specialists: I have reviewed specialist-related care of the patient in the medical record. Outside specialists seen: Dermatology--Dr. Santiago Aceves,. Ophthalmology--Dr. Checo Aceves Medical/Family history review Reviewed and updated problem list, medical/surgical/family/social history, medications, and allergies. Opioid use review Opioid Medications (last 90 days) No data to display Anxiety/Depression screening PHQ-9 Score: 0. KATEY-7 Score: 0. Recommendation: no further intervention at this time Cognitive screening Mini Cog Score: 5 Cognitive screening reviewed and No further action needed (score 3-5). Functional Observation Was the patient's Timed Up & Go test unsteady or >= 12 seconds? No Advance Care Planning Surrogate decision maker and/or advance care plan documented Measurements BP 114/62 Pulse 73 Temp 37.1 C (98.7 F) Resp 16 Ht 171.5 cm (5' 7.52) Wt 97.5 kg (215 lb) BMI 33.16 kg/m Vision Screening: Follows with optometry/ophthalmology Assessment/Plan Medicare annual wellness visit, subsequent (Z00.00) - Counseled on healthy diet and regular exercise - Fall avoidance information provided - Personalized prevention plan provided # Medicare annual wellness visit, subsequent (Z00.) - Completed comprehensive wellness examination. - Reviewed and updated medication list: Altace 10 mg daily, hydrochlorothiazide 25 mg daily, aspirin daily, Flonase, Moxicam, Patanol, albuterol, and Zyrtec as needed. - Discussed active lifestyle and functional exercise; patient engages in fishing, hunting, and gym activities. - Reviewed safety precautions and advanced directives; confirmed living will and healthcare power of staff attorney are on file. - Scheduled next Medicare wellness visit for early March next year. - Ordered labs for next visit: hemoglobin A1c, cholesterol panel, CBC, and CMP. # Primary hypertension (I10) - Blood pressure well-controlled with readings consistently around 110/60 mmHg. - Continue current medications: Altace 10 mg daily and hydrochlorothiazide 25 mg daily. - No need for home blood pressure monitoring at this time. # IFG (impaired fasting glucose) (R73.01) - Fasting glucose improved to 112 mg/dL. - Hemoglobin A1c stable at 5.8%. - Emphasized importance of regular exercise and healthy diet to maintain glucose levels. # Obesity (BMI 30.0-34.9) (E66.811) - Weight gradually decreasing; patient implementing portion control and increased physical activity. - Encouraged continuation of current lifestyle changes to further reduce BMI. # Encounter for screening examination for other mental health and behavioral disorders (Z13.39) # Screening for depression (Z13.31) - Depression and anxiety screenings negative. Lilly Malone MD [facility] NoteHNO ID: [id number] Author: JODEE REA APRN.COUPLER Service: ? Author Type: Nurse Practitioner Type: Progress Notes Filed: 12/14/2023 10:15 Note Text: SUBJECTIVE Dilia Mast is a 68 year old male here today for a check up on his medical problems. Chief Complaint Patient presents with: Eye Problem: flutter,twitching below left eye and mid forehead off and on for the last 3-4 weeks Question if maybe stress related due to moving mother into his home HPI Dilia Mast is a 68 year old male. He is an established patient of Lilly Malone MD. Here today due to he has noticed some eye twitching, fluttering sensation between the eyes to the forehead muscles. Mom recently moved in with him so some added stress but manageable. Off and on symptoms for the last few weeks. Short duration. No twitches since Wednesday. Getting adequate fluids. Trying to improve diet. Walking more. Not having sinus congestion or headaches. Did try Flonase and pseudoephedrine and helped some. Upcoming eye doctor appointment, has been several years, no sudden changes in vision, no blurry vision or double vision. His medications were reviewed today and his list is now up to date. Medications Current Outpatient Medications Medication Sig cetirizine (ZYRTEC) 10 mg tablet Take 1 tablet by mouth once daily. as needed for allergy symptoms meloxicam (MOBIC) 15 mg tablet Take 1 tablet by mouth once daily. ramipril (ALTACE) 10 mg capsule Take 1 capsule by mouth once daily. hydroCHLOROthiazide 25 mg tablet Take 1 tablet by mouth once daily. fluticasone (FLONASE) 50 mcg/actuation nasal spray Use 2 Sprays in each nostril once daily. Rinse mouth after use. olopatadine (PATANOL) 0.1 % ophthalmic solution Use 1 Drop in both eyes two times a day as needed. for watery / itchy eyes albuterol HFA (PROAIR HFA) 90 mcg/actuation inhaler Inhale 2 Puffs as instructed every 6 hours as needed. aspirin(ADULT LOW DOSE ASPIRIN 81 MG TAB, DELAYED RELEASE) daily No current facility-administered medications for this visit. ALLERGIES No Known Allergies ACTIVE PROBLEM LIST Acute Pain of Left Shoulder - 06/06/2021 Numbness and Tingling in Left Hand - 06/06/2021 Left Cervical Radiculopathy - 03/28/2018 Neck Pain On Left Side - 11/13/2016 Obesity (Bmi 30.0-34.9) Htn (Hypertension) - 08/01/2015 Cancer, Skin, Squamous Cell - 08/01/2015 Social History Tobacco Use Smoking status: Never Smokeless tobacco: Never Vaping Use Vaping status: Never Used Substance Use Topics Alcohol use: Yes Comment: 0-1 / week Drug use: No Review of Systems Eyes: Negative for pain, discharge, redness and visual disturbance. Respiratory: Negative. Cardiovascular: Negative. Neurological: Negative for dizziness, tremors, seizures, syncope, facial asymmetry, speech difficulty, weakness, light-headedness, numbness and headaches. OBJECTIVE BP 112/78 Pulse 84 Wt 222 lb 7.1 oz (100.9kg) SpO2 98% Physical Exam Vitals and nursing note reviewed. Constitutional: General: He is awake. He is not in acute distress. Appearance: Normal appearance. He is well-developed and well-groomed. He is not ill-appearing, toxic-appearing or diaphoretic. HENT: Head: Normocephalic. Right Ear: External ear normal. Left Ear: External ear normal. Nose: Nose normal. Eyes: General: Vision grossly intact. Extraocular Movements: Extraocular movements intact. Conjunctiva/sclera: Conjunctivae normal. Pupils: Pupils are equal, round, and reactive to light. Neck: Vascular: No JVD. Trachea: Trachea normal. Pulmonary: Effort: Pulmonary effort is normal. No accessory muscle usage, prolonged expiration or respiratory distress. Musculoskeletal: Cervical back: Neck supple. Skin: General: Skin is warm and dry. Capillary Refill: Capillary refill takes less than 2 seconds. Neurological: General: No focal deficit present. Mental Status: He is alert and oriented to person, place, and time. Mental status is at baseline. Cranial Nerves: Cranial nerves 2-12 are intact. Sensory: Sensation is intact. Motor: Motor function is intact. Coordination: Coordination is intact. Gait: Gait is intact. Psychiatric: Attention and Perception: Attention and perception normal. Mood and Affect: Mood and affect normal. Speech: Speech normal. Behavior: Behavior normal. Behavior is cooperative. Thought Content: Thought content normal. Cognition and Memory: Cognition and memory normal. Judgment: Judgment normal. ASSESSMENT/PLAN: 1. Eye muscle twitches - ICD9: 781.0, ICD10: R25.3 (primary diagnosis) Discussed that this is likely from the increased stress and increased strain on eye muscles given the need to update his prescription. He has an up coming eye appointment, stress is manageable. Discussed staying adequately hydrated. If symptoms worsen or persist then we will update labs. Reviewed prior labs today. 2. Stress at home - ICD9: V61.9 (more content not included)...[facility]08-20-2024 History of Present illness Narrative* Jodee Rea APRN.COUPLER - 12/14/2023 9:53 AM EDT SUBJECTIVE Dilia Mast is a 68 year old male here today for a check up on his medical problems. Chief Complaint Patient presents with: Eye Problem: flutter,twitching below left eye and mid forehead off and on for the last 3-4 weeks Question if maybe stress related due to moving mother into his home HPI Dilia Mast is a 68 year old male. He is an established patient of Lilly Malone MD. Here todaydue to he has noticed some eye twitching, fluttering sensation between the eyes to the forehead muscles. Mom recently moved in with him so some added stress but manageable. Off and on symptoms for the last few weeks. Short duration. No twitches since Wednesday. Getting adequate fluids. Trying to improve diet. Walking more. Not having sinus congestion or headaches. Did try Flonase and pseudoephedrineand helped some. Upcoming eye doctor appointment, has been several years, no sudden changes in vision, no blurry vision or double vision. His medications were reviewed today and his list is now up to date. Medications Current Outpatient Medications Medication Sig cetirizine (ZYRTEC) 10 mg tablet Take 1 tablet by mouth once daily. as needed for allergy symptoms meloxicam (MOBIC) 15 mg tablet Take 1 tablet by mouth once daily. ramipril (ALTACE) 10 mg capsule Take 1 capsule by mouth once daily. hydroCHLOROthiazide 25 mg tablet Take 1 tablet by mouth once daily. fluticasone (FLONASE) 50 mcg/actuation nasal spray Use 2 Sprays in each nostril once daily. Rinse mouth after use. olopatadine (PATANOL) 0.1 % ophthalmic solution Use 1 Drop in both eyes two times a day as needed. for watery / itchy eyes albuterol HFA (PROAIR HFA) 90 mcg/actuation inhaler Inhale 2 Puffs as instructed every 6 hours as needed. aspirin(ADULT LOW DOSE ASPIRIN 81 MG TAB, DELAYED RELEASE) daily No current facility-administered medications for this visit. ALLERGIES No Known Allergies ACTIVE PROBLEM LIST Acute Pain of Left Shoulder - 06/06/2021 Numbness and Tingling in Left Hand - 06/06/2021 Left Cervical Radiculopathy - 03/28/2018 Neck Pain On Left Side - 11/13/2016 Obesity (Bmi 30.0-34.9) Htn (Hypertension) - 08/01/2015 Cancer, Skin, Squamous Cell - 08/01/2015 Social History Tobacco Use Smoking status: Never Smokeless tobacco: Never Vaping Use Vaping status: Never Used Substance Use Topics Alcohol use: Yes Comment: 0-1 / week Drug use: No Review of Systems Eyes: Negative for pain, discharge, redness and visual disturbance. Respiratory: Negative. Cardiovascular: Negative. Neurological: Negative for dizziness, tremors, seizures, syncope, facial asymmetry, speech difficulty, weakness, light-headedness, numbness and headaches. OBJECTIVE BP 112/78 Pulse 84 Wt 222 lb 7.1 oz (100.9kg) SpO2 98% Physical Exam Vitals and nursing note reviewed. Constitutional: General: He is awake. He is not in acute distress. Appearance: Normal appearance. He is well-developed and well-groomed. He is not ill-appearing, toxic-appearing or diaphoretic. HENT: Head: Normocephalic. Right Ear: External ear normal. Left Ear: External ear normal. Nose: Nose normal. Eyes: General: Vision grossly intact. Extraocular Movements: Extraocular movements intact. Conjunctiva/sclera: Conjunctivae normal. Pupils: Pupils are equal, round, and reactive to light. Neck: Vascular: No JVD. Trachea: Trachea normal. Pulmonary: Effort: Pulmonary effort is normal. No accessory muscle usage, prolonged expiration or respiratory distress. Musculoskeletal: Cervical back: Neck supple. Skin: General: Skin is warm and dry. Capillary Refill: Capillary refill takes less than 2 seconds. Neurological: General: No focal deficit present. Mental Status: He is alert and oriented to person, place, and time. Mental status is at baseline. Cranial Nerves: Cranial nerves 2-12 are intact. Sensory: Sensation is intact. Motor: Motor function is intact. Coordination: Coordination is intact. Gait: Gait is intact. Psychiatric: Attention and Perception: Attention and perception normal. Mood and Affect: Mood and affect normal. Speech: Speech normal. Behavior: Behavior normal. Behavior is cooperative. Thought Content: Thought content normal. Cognition and Memory: Cognition and memory normal. Judgment: Judgment normal. ASSESSMENT/PLAN: 1. Eye muscle twitches - ICD9: 781.0, ICD10: R25.3 (primary diagnosis) Discussed that this is likely from the increased stress and increased strain on eye muscles given the need to update his prescription. He has an up coming eye appointment, stress is manageable. Discussed staying adequately hydrated. If symptoms worsen or persist then we will update labs. Reviewed prior labs today. 2. Stress at home - ICD9: V61.9, ICD10: F43.9 Manageable. Medical Decision Making: Problems: Low: Acute, uncomplicated illness or injury Data: Unique test result(s) reviewed: 2 Medical Decision Making Level: 3 - Low Portions of this note have been entered by ancillary staff. I have reviewed and when necessary edited, so that they are an adequate record of my encounter with this patient Please note that parts of this document were created using voice recognition software and therefore may contain grammatical errors. Patient verbalizes understanding of instructions from today's visit and in agreement with treatmentplan. Questions answered. Agrees to call the office if questions, concerns of issues with acute symptoms not improving or if they worsen. See diagnoses and orders for additional plan(s). Allergies and medications were reviewed, list was updated, and refills given if needed. Past medical, surgical, social, and family history reviewed and updated as appropriate. Encouraged proper diet & exercise as well as compliance with taking medications. Age- appropriate health preventative measures were discussed. Return if symptoms worsen or fail to improve, for Keep next scheduled appointment.. Jodee Rea APRN-BELKIS documented [facility] Telephone encounter Note * Telephone Encounter - Catia Vasquez LPN - 10/04/2023 3:38 PM EDT Patient needs future refills to go to [facility]. He does not need meds at this time. Prescription Refill Information The patient has been identified by name and date of : Yes Caregiver verified no other encounters exist for this prescription request: Yes Caregiver confirmed with patient/requestor that no other refills are due, in the near future, with this provider at this time: Yes The last office visit in the department: 08/27/23 Does the patient have a future office visit with this provider/department: Yes Requested Prescriptions Pending Prescriptions Disp Refills cetirizine (ZYRTEC) 10 mg tablet 30 tablet 11 Sig: Take 1 tablet by mouth once daily. as needed for allergy symptoms meloxicam (MOBIC) 15 mg tablet 30 tablet 1 Sig: Take 1 tablet by mouth once daily. ramipril (ALTACE) 10 mg capsule 90 capsule 3 Sig: Take 1 capsule by mouth once daily. Catia Vasquez LPN October 04, 2023 3:41 PM [facility] Miscellaneous Notes* Telephone Encounter - Catia Vasquez LPN - 10/04/2023 3:38 PM EDT Patient needs future refills to go to [facility]. He does not need meds at this time. Prescription Refill Information The patient has been identified by name and date of : Yes Caregiver verified no other encounters exist for this prescription request: Yes Caregiver confirmed with patient/requestor that no other refills are due, in the near future, with this provider at this time: Yes The last office visit in the department: 08/27/23 Does the patient have a future office visit with this provider/department: Yes Requested Prescriptions Pending Prescriptions Disp Refills cetirizine (ZYRTEC) 10 mg tablet 30 tablet 11 Sig: Take 1 tablet by mouth once daily. as needed for allergy symptoms meloxicam (MOBIC) 15 mg tablet 30 tablet 1 Sig: Take 1 tablet by mouth once daily. ramipril (ALTACE) 10 mg capsule 90 capsule 3 Sig: Take 1 capsule by mouth once daily. Catia Vasquez LPN October 04, 2023 3:41 PM * Telephone Encounter - Amanda Alegria - 10/04/2023 3:33 PM EDT Patient needs future refills to go to [facility]. He does not need meds at this time. documented in this encounter[facility]06[facility] Telephone encounter Note * Telephone Encounter - Yogesh CejaAmanda - 10/04/2023 3:33 PM EDT Patient needs future refills to go to [facility]. He does not need meds at this time. [facility] Telephone encounter Note* Telephone Encounter - Lilly Malone MD - 09/21/2023 1:20 PM EDT The following approved medication requests have been transmitted electronically. Requested Prescriptions Signed Prescriptions Disp Refills ramipril (ALTACE) 10 mg capsule 90 capsule 3 Sig: Take 1 capsule by mouth once daily. Authorizing Provider: LILLY MALONE hydroCHLOROthiazide 25 mg tablet 90 tablet 3 Sig: Take 1 tablet by mouth once daily. Authorizing Provider: LILLY MALONE MD [facility] Miscellaneous Notes* Telephone Encounter - Lilly Malone MD - 09/21/2023 1:20 PM EDT The following approved medication requests have been transmitted electronically. Requested Prescriptions Signed Prescriptions Disp Refills ramipril (ALTACE) 10 mg capsule 90 capsule 3 Sig: Take 1 capsule by mouth once daily. Authorizing Provider: LILLY MALONE hydroCHLOROthiazide 25 mg tablet 90 tablet 3 Sig: Take 1 tablet by mouth once daily. Authorizing Provider: LILLY MALONE MD * Telephone Encounter - Shani Stanton OCCA - 09/21/2023 1:18 PM EDT TC to patient who verbalized understanding of below. Patient stating he also needs HCTZ sent to [facility] instead of [facility]. Pended as such. HOLLAND Corley * Telephone Encounter - Lilly Malone MD - 09/20/2023 10:59 PM EDT Okay to see his mother as requested. If no appointments soon enough for her to get established at appointment with me, may see Jodee or Kalin first. The following approved medication requests have been transmitted electronically. Requested Prescriptions Signed Prescriptions Disp Refills ramipril (ALTACE) 10 mg capsule 90 capsule 3 Sig: Take 1 capsule by mouth once daily. Authorizing Provider: LILLY MALONE MD * Telephone Encounter - Paola Byrne RN - 09/17/2023 12:09 PM EDT Patient calls and states that his mother is moving to [facility]. Patient states that Dr. Malone had told him at patient's last appointment that Dr. Malone would see patient's mother as patient. Patient asking if Dr. Malone will see mother? Patient also needs ramipril to be sent to [facility]. Prescription was previously sent to [facility]. Please review and advise, Paola Byrne RN documented in this encounter[facility]05-28-[facility]24 Telephone encounter Note * Telephone Encounter - Shani Stanton OCCA - 09/21/2023 1:18 PM EDT TC to patient who verbalized understanding of below. Patient stating he also needs HCTZ sent to [facility] instead of [facility]. Pended as such. HOLLAND Corley [facility] Telephone encounter Note* Telephone Encounter - Lilly Malone MD - 09/20/2023 10:59 PM EDT Okay to see his mother as requested. If no appointments soon enough for her to get established at appointment with me, may see Jodee or Kalin first. The following approved medication requests have been transmitted electronically. Requested Prescriptions Signed Prescriptions Disp Refills ramipril (ALTACE) 10 mg capsule 90 capsule 3 Sig: Take 1 capsule by mouth once daily. Authorizing Provider: LILLY MALONE MD [facility] Telephone encounter Note* Telephone Encounter - Paola Byrne RN - 09/17/2023 12:09 PM EDT Patient calls and states that his mother is moving to [facility]. Patient states that Dr. Malone had told him at patient's last appointment that Dr. Malone would see patient's mother as patient. Patient asking if Dr. Malone will see mother? Patient also needs ramipril to be sent to [facility]. Prescription was previously sent to [facility]. Please review and advise, Paola Byrne RN [facility] Telephone encounter Note* Telephone Encounter - Sudhir Vu MA - 09/02/2023 9:31 AM EDT Requested Prescriptions Pending Prescriptions Disp Refills ramipril (ALTACE) 10 mg capsule 90 capsule 3 Sig: Take 1 capsule by mouth once daily. hydroCHLOROthiazide 25 mg tablet 90 tablet 3 Sig: Take 1 tablet by mouth once daily. Date of last office visit in primary care: 08/27/2023 Date of next office visit in primary care: 04/25/2024 Please advise. Thank you. Sudhir Vu MA. [facility] Miscellaneous Notes* Telephone Encounter - Sudhir Vu MA - 09/02/2023 9:31 AM EDT Requested Prescriptions Pending Prescriptions Disp Refills ramipril (ALTACE) 10 mg capsule 90 capsule 3 Sig: Take 1 capsule by mouth once daily. hydroCHLOROthiazide 25 mg tablet 90 tablet 3 Sig: Take 1 tablet by mouth once daily. Date of last office visit in primary care: 08/27/2023 Date of next office visit in primary care: 04/25/2024 Please advise. Thank you. Sudhir Vu MA. documented in this encounter[facility]05-[facility] History of Present illness Narrative* Kalin Harris, APPLICATION CONSULTANT.MATERNITY FLOOR SUPERVISOR - 08/27/2023 10:00 AM EDT SUBJECTIVE: BP Controlled (<130/80) due on 06/05/2022 Advance Directive Discussion due on 04/26/2023 Behavioral Health Screening Never done Covid-19 Vaccine( season) due on 06/24/2023 HPI Dilia Mast is a 68 year old male. PMH significant for ACTIVE PROBLEM LIST Htn (Hypertension) Cancer, Skin, Squamous Cell Obesity (Bmi 30.0-34.9) Neck Pain On Left Side Left Cervical Radiculopathy Acute Pain of Left Shoulder Numbness and Tingling in Left Hand He has noted itchy and watery eyes. Postnasal drip and ear fullness. Notes he does get sinus type headaches with weather changes, barometric pressure changes. Does occasionally use Flonase and Sudafed for symptoms which have helped. Symptoms present for last several days. Not feeling ill. Afebrile. Review of Systems Constitutional: Negative. HENT: Positive for postnasal drip and sinus pressure. Eyes: Positive for itching. Respiratory: Negative. Objective BP 118/73 Pulse 76 Temp 36.9 C (98.4 F) Resp 16 Wt 102.5 kg (226 lb) BMI 34.45 kg/m Physical Exam Vitals and nursing note reviewed. Constitutional: Appearance: Normal appearance. HENT: Head: Normocephalic and atraumatic. Right Ear: Tympanic membrane and ear canal normal. Left Ear: Tympanic membrane and ear canal normal. Nose: Mucosal edema and rhinorrhea present. Right Sinus: No maxillary sinus tenderness or frontal sinus tenderness. Left Sinus: No maxillary sinus tenderness or frontal sinus tenderness. Mouth/Throat: Lips: [place]. Mouth: Mucous membranes are moist. Pharynx: Oropharynx is clear. Eyes: Conjunctiva/sclera: Conjunctivae normal. Cardiovascular: Rate and Rhythm: Normal rate and regular rhythm. Heart sounds: Normal heart sounds. Pulmonary: Effort: Pulmonary effort is normal. Breath sounds: Normal breath sounds. Lymphadenopathy: Cervical: No cervical adenopathy. Skin: General: Skin is warm and dry. Neurological: General: No focal deficit present. Mental Status: He is alert and oriented to person, place, and time. ALLERGIES No Known Allergies Medications albuterol HFA (PROAIR HFA) 90 mcg/actuation inhaler Inhale 2 Puffs as instructed every 6 hours as needed. ramipril (ALTACE) 10 mg capsule Take 1 capsule by mouth once daily. hydroCHLOROthiazide 25 mg tablet Take 1 tablet by mouth once daily. meloxicam (MOBIC) 15 mg tablet Take 1 tablet by mouth once daily. fluticasone (FLONASE) 50 mcg/actuation nasal spray Use 2 Sprays in each nostril once daily. Rinse mouth after use. cetirizine (ZYRTEC) 10 mg tablet Take 1 tablet by mouth once daily. as needed for allergy symptoms olopatadine (PATANOL) 0.1 % ophthalmic solution Use 1 Drop in both eyes two times a day as needed. for watery / itchy eyes aspirin(ADULT LOW DOSE ASPIRIN 81 MG TAB, DELAYED RELEASE) daily PAST MEDICAL HISTORY Diagnosis Date Basal cell carcinoma right inferior lateral upper back; Dr Santiago Aceves 07/11/14 Elevated fasting blood sugar Hypercholesterolemia Hypertension Obesity (BMI 30.0-34.9) Snoring Tear of MCL (medial collateral ligament) of knee Social History Tobacco Use Smoking status: Never Smokeless tobacco: Never Vaping Use Vaping Use: Never used Substance Use Topics Alcohol use: Yes Comment: 0-1 / week Drug use: No ASSESSMENT/PLAN: 1. PND (post-nasal drip) - ICD9: 784.91, ICD10: R09.82 (primary diagnosis) - FLUTICASONE PROPIONATE 50 MCG/ACTUATION NASAL SPRAY,SUSPENSION - CETIRIZINE 10 MG TABLET 2. Ear fullness, bilateral - ICD9: 388.8, ICD10: H93.8X3 - FLUTICASONE PROPIONATE 50 MCG/ACTUATION NASAL SPRAY,SUSPENSION - CETIRIZINE 10 MG TABLET 3. Watery eyes - ICD9: 375.20, ICD10: H04.203 - OLOPATADINE 0.1 % EYE DROPS Symptoms are consistent with seasonal allergies. Recommend cetirizine and Flonase daily as needed. Olopatadine as needed for itchy watery eyes. Endorse environmental controls. Kalin Harris APRN.CNS Medical Decision Making: Problems: Low: Acute, uncomplicated illness or injury Risk: Moderate: Drug management Medical Decision Making Level: 3 - Low documented in this encounter[facility]24 Miscellaneous Notes* Telephone Encounter - Catia Vasquez LPN - 06/14/2023 8:25 AM EST Patient made appointment and we seen today documented in this encounterSouth[facility]02-[facility]24 History of Present illness Narrative* Kalin Harris APRN.CNS - 06/14/2023 8:20 AM EST Telemedicine Evaluation for COVID-19 Infection SUBJECTIVE Dilia Mast is a 68 year old male who presents with more than a week of symptoms that are stable. Negative home Covid19 test. Symptoms include: Fever (?100.4F): Yes or Chills: Yes Cough: Yes Shortness of breath: No or Difficulty breathing: No Fatigue: Yes Muscle aches: No Headache: Yes frontal New loss of smell or taste: No Sore throat: Yes Nasal congestion: Yes or Rhinorrhea: Yes Nausea: No or Vomiting: No Diarrhea: No Decreased appetite OTC meds/remedies that patient has tried: OTC cold medicine and pseudoephedrine. Exposures: Sick contacts? Yes ill with the same thing Family or close contacts with confirmed/probable COVID-19 in last 14 days? No OBJECTIVE PHYSICAL EXAM: BP 147/84 Pulse 94 Temp (!) 38.1 C (100.6 F) Resp 16 Wt 103.4 kg (228 lb) SpO2 98% BMI 34.76 kg/m General appearance: tired/ill appearing, alert, cooperative, pleasant, in no acute distress Head: Normocephalic Eyes: conjunctiva/corneas normal Ears: R TM - clear with good landmarks, nl light reflex, L TM - clear with good landmarks, nl lightreflex Nose: clear rhinorrhea, mucosa erythematous and swollen Oropharynx: moist without lesions Neck: supple and small, benign anterior cervical nodes bilaterally Heart: regular rate and rhythm, without murmur Lungs: clear to auscultation, without rales or wheeze, good air exchange + cough ASSESSMENT/PLAN (J32.9, J40) Sinobronchitis ASSESSMENT/PLAN: 1. Sinobronchitis - ICD9: 473.9, 490, ICD10: J32.9, J40 - Will begin treatment, see orders - Supportive care with plenty of fluids, rest, and analgesia prn. - Follow up if symptoms persist or worsen. - PREDNISONE 20 MG TABLET - DOXYCYCLINE HYCLATE 100 MG TABLET - BENZONATATE 100 MG CAPSULE - ALBUTEROL SULFATE HFA 90 MCG/ACTUATION AEROSOL INHALER Kalin Harris APRN.CNS Medical Decision Making: Problems: Low: Acute, uncomplicated illness or injury Risk: Moderate: Drug management Medical Decision Making Level: 3 - Low documented in this encounterSouth[facility]09-[facility]23 History of Present illness Narrative* William Moran MD - 01/14/2023 7:04 PM EDT Patient presents with: Eye Problem: Irritation under lower right eyelid x 3 days HPI: Skin Lesion: Location: right lower eyelid Duration: 3 days Pruritis/Pain: irritated lid, feels object on his eyeball Change: Drainage/blister/pustule/ulceration: bump in eyelid, redness in eyelid Treatment: none. PAST MEDICAL HISTORY Diagnosis Date Basal cell carcinoma right inferior lateral upper back; Dr Santiago Aceves 07/11/14 Elevated fasting blood sugar Hypercholesterolemia Hypertension Obesity (BMI 30.0-34.9) Snoring Tear of MCL (medial collateral ligament) of knee MEDICATIONS: ramipril (ALTACE) 10 mg capsule Take 1 capsule by mouth once daily. hydroCHLOROthiazide 25 mg tablet Take 1 tablet by mouth once daily. meloxicam (MOBIC) 15 mg tablet Take 1 tablet by mouth once daily. benzonatate (TESSALON PERLES) 100 mg capsule Take 2 capsules by mouth three times daily as needed. albuterol HFA (PROAIR HFA) 90 mcg/actuation inhaler Inhale 2 Puffs as instructed every 6 hours as needed. escitalopram oxalate (LEXAPRO) 5 mg tablet Take 1 tablet by mouth once daily. When wanting to discontinue, decrease to one half tablet daily x 2 weeks, then one half tab every other day x2 weeks, then discontinue fluticasone propionate (FLONASE NASAL) Use in the nose. aspirin(ADULT LOW DOSE ASPIRIN 81 MG TAB, DELAYED RELEASE) daily ALLERGIES: ALLERGIES No Known Allergies VITALS: BP 128/80 Pulse 85 Temp 37.3 C (99.2 F) (Tympanic) Resp 16 Wt 104.4 kg (230 lb 3.2 oz) SpO2 96% BMI (P) 35.00 kg/m PE: Pleasant, in no acute distress. EYES: PERRL, EOMI, sclera clear, mild edema right lower eyelid. 2mm erythematous papule palpebral conjunctiva lateral right lower eyelid. ASSESSMENT/PLAN: 1. Hordeolum internum of right lower eyelid - ICD9: 373.12, ICD10: H00.022 Treat with warm compress 3 times per day. Follow up with ophthalmology next week if not improving. William Moran MD documented in this encounter[facility]06-[facility]23 Miscellaneous Notes* Telephone Encounter - Kalin Harris APRN.CNS - 09/29/2022 4:35 PM EDT OK documented in this encounterSouth[facility]05-15-2023 Miscellaneous Notes* Telephone Encounter - Asia Billings LPN - 09/07/2022 7:31 PM EDT Patient has been identified by name and date of : Yes, Patient phones for refill(s): Requested Prescriptions Pending Prescriptions Disp Refills ramipril (ALTACE) 10 mg capsule 90 capsule 3 Sig: Take 1 capsule by mouth once daily. hydroCHLOROthiazide 25 mg tablet 90 tablet 3 Sig: Take 1 tablet by mouth once daily. Date of last office visit in primary care: 05/29/2022 Yearly: 04/14/2023 Last 2 Encounter Wt Readings: Date: Wt: 07/23/2022 104.9 kg (231 lb 3.2 oz) 05/29/2022 102.5 kg (226 lb) Previous labs/tests for medication: Blood Pressure: BUN (mg/dL) Date Value 03/05/2022 18 03/03/2021 15 Sodium (mmol/L) Date Value 03/05/2022 136 03/03/2021 137 Last 1 Encounter BP Readings: Date: BP: 07/23/2022 134/78 Please advise. Thank you. Asia Billings LPN documented in this encounterSouth[facility]04-[facility]-2023 History of Present illness Narrative* Mason Unger MD - 07/27/2022 10:05 AM EDT Mason Unger MD Department of Orthopaedics Orthopaedics [address] [facility] [address] Dept: [phone] Dept July 27, 2022 CHIEF COMPLAINT: New Patient and Pain of the Right Hip HPI Patient had a bit of an injury 6 months ago now where he slipped in his truck and inserted his split also landing on his posterior. He has been having groin as well as some pelvic pain sometimes radiating around to the back of his tailbone as well. He did recently take some prednisone for respiratory issue and has been feeling better. He certainly feels better than when it originally happened butdoes report few different falls and slips over that course of time. He did obtain an MRI from his primary care. He is here to discuss all of this. ASSESSMENT: M25.551 Right hip pain S73.191A Tear of right acetabular labrum, initial encounter PLAN: As of today, he seems to be doing quite a bit better. However, with her discussion about NSAIDs he would like to try a prescription anti-inflammatory for now to try and get him over the hump. He can certainly consider some physical therapy but it sound like he is doing much better. I certainly do not think he needs any surgical intervention with the hip regarding his labrum or some of the mild arthritis as he is not having symptoms from that at this time. FOLLOW UP INSTRUCTIONS: We'll try further NSAIDs Mr. Dilia Mast was advised as to contrast therapies and/or to take analgesics/anti-inflammatoriesas needed and all contraindications were reviewed. OBJECTIVE: Mr. Dilia Mast is a pleasant 67 year old in no apparent distress. Gen:There were no vitals taken for this visit. nl development, obese, no deformities ENT: Normocephalic, normal hearing, moist mucosa CV: Pulses:DP/PT= 2+ and symmetric, capillary refill < 2 secs, no peripheral edema/varicosities Skin: no rash, bruising or lesions. Good turgor. Psych: cooperative and appropriate, alert and oriented x 3, good mood and affect. Musculoskeletal: Patient walks without antalgia. Right hip without any obvious swelling. Flexion and internal rotation did not cause any pain. Some mild tenderness over the short external rotators. Some mild tenderness over his ischial tuberosity. Neurovascular exams intact throughout the lower extremity. IMAGING: IMPRESSION: SMALL ACETABULAR LABRAL TEAR AND RIGHT HIP DEGENERATIVE CHANGE. PUBIC SYMPHYSIS DEGENERATIVE CHANGE WITH REACTIVE EDEMA. Template Storage Clerk: JOSE ALFREDO Transcribe Date/Time: Jul 16 2022 11:22A Dictated by : STEVE PRECIADO MD This examination was interpreted and the report reviewed and electronically signed by: STEVE PRECIADO MD on Jul 16 2022 11:28AM EST Results-Findings * * *Final Report* * * DATE OF EXAM: Jul 16 2022 11:12AM M 0209 - MRI HIP WO/W IVCON RT / PROCEDURE REASON: multiple diagnoses * * * * Physician Interpretation * * * * EXAMINATION: MRI HIP WO/W IVCON RT HISTORY: INJURED 5 MOS AGO [place] GETTING INTO TRUCK, DID A SPLIT, PAIN RT GROIN/COCCYX/ISCHIAL AREA Pain in hip Injury of groin, initial encounter Right groin pain Pain in the coccyx. TECHNIQUE: MRI HIP WO/W IVCON RT COMPARISON: RESULT: Bone Marrow: No acute fracture or marrow infiltrating process. Reactive enhancement around the pubic symphysis. No enhancing mass or collection identified in the pelvis. Hip Joint(s): Small nondisplaced tear at the anterior superior acetabular labrum. Mild to moderate degenerative chondral thinning at the superior hip joint. No fracture or avascular necrosis. Tendons: Mild hamstring origin tendinosis bilaterally. Mild distal gluteus minimus tendinosis laterally but greater on the left. No acute tendon injury seen. Musculature: No acute muscle injury. Maintained signal and muscle bulk. Sacroiliac joints: Maintained with normal signal. Pubic symphysis: Moderate degenerative changes at the pubic symphysis with reactive bone marrow edema Ischiofemoral Space: Maintained with normal signal. Other Pelvic Findings: The prostate appears enlarged. No abnormal pelvic fluid or large pelvic lymph nodes. Supporting Subjective Information Below: Past Medical History: PAST MEDICAL HISTORY Diagnosis Date Basal cell carcinoma right inferior lateral upper back; Dr Santiago Aceves 07/11/14 Elevated fasting blood sugar Hypercholesterolemia Hypertension Obesity (BMI 30.0-34.9) Snoring Tear of MCL (medial collateral ligament) of knee Past Surgical History: PAST SURGICAL HISTORY Procedure Laterality Date COLONOSCOPY 11/03/2021 repeat in 5 years COLONOSCOPY FLX DX W/COLLJ SPEC WHEN PFRMD 04/05/2017 REPEAT 5 YEARS KNEE SURGERY HX SKIN BIOPSY HX Family History: FAMILY HISTORY Problem Relation Age of Onset None Mother Cancer Father prostate Skin Cancer Sister Social History: Social History Tobacco Use Smoking status: Never Smokeless tobacco: Never Vaping Use Vaping Use: Never used Substance Use Topics Alcohol use: Yes Comment: 0-1 / week Drug use: No Medications: Current Outpatient Medications Medication Sig predniSONE (DELTASONE) 20 mg tablet Take 2 tablets by mouth once daily for 5 days. benzonatate (TESSALON PERLES) 100 mg capsule Take 2 capsules by mouth three times daily as needed. doxycycline (VIBRA-TABS) 100 mg tablet Take 1 tablet by mouth twice daily for 7 days. albuterol HFA (PROAIR HFA) 90 mcg/actuation inhaler Inhale 2 Puffs as instructed every 6 hours as needed. escitalopram oxalate (LEXAPRO) 5 mg tablet Take 1 tablet by mouth once daily. When wanting to discontinue, decrease to one half tablet daily x 2 weeks, then one half tab every other day x2 weeks, then discontinue ramipril (ALTACE) 10 mg capsule Take 1 capsule by mouth once daily. hydroCHLOROthiazide (HYDRODIURIL, ESIDRIX) 25 mg tablet Take 1 tablet by mouth once daily. fluticasone propionate (FLONASE NASAL) Use in the nose. aspirin(ADULT LOW DOSE ASPIRIN 81 MG TAB, DELAYED RELEASE) daily No current facility-administered medications for this visit. Allergies: Patient has no known allergies. ROS: General (negative for fatigue, malaise, weight loss/gain) HEENT (negative for headache, earache, recent vision changes, sinus pain, sore throat) Respiratory (no recent shortness of breath, hemoptysis) CV (negative for chest tightness, palpitations) Musculoskeletal (see HPI) Psych (no depression, anxiety) REFERRING PHYSICIAN: Consultation requested by Kalin Harris for an opinion regarding right hip pain. My final recommendations will be communicated back to the requesting physician by way of shared Medical record or letter to requesting physician via US mail. Kalin Harris [address] [facility] [id number] Lilly Malone MD [address] [facility] [address] Mason Unger MD documented in this encounterSouthview [facility] Center03-30-2023 History of Present illness Narrative* Maritza Santamaria PA-C - 07/23/2022 7:31 AM EDT This note was created using Dolphinriter. Subjective Dilia Mast is a 67 year old male. HPI Patient presents with cough and sinus congestion over the past 3 weeks. Does not seem to be improving. His was sick as well but she had gotten over it. No fever. Home COVID test was negative. States is a little sore in his chest when he coughs. No shortness of breath. No history of asthma. He is never a smoker. No vomiting or diarrhea. He tried Nadiya-Waddington and DayQuil [id number]. Review of Systems Constitutional: Negative. HENT: Positive for congestion, ear pain, postnasal drip, rhinorrhea, sinus pressure, sinus pain andsore throat. Eyes: Negative. Respiratory: Positive for cough. Cardiovascular: Negative. Gastrointestinal: Negative. Genitourinary: Negative. Musculoskeletal: Negative. All other systems reviewed and are negative. PAST MEDICAL HISTORY Diagnosis Date Basal cell carcinoma right inferior lateral upper back; Dr Santiago Aceves 07/11/14 Elevated fasting blood sugar Hypercholesterolemia Hypertension Obesity (BMI 30.0-34.9) Snoring Tear of MCL (medial collateral ligament) of knee Current Outpatient Medications Medication Sig Dispense Refill escitalopram oxalate (LEXAPRO) 5 mg tablet Take 1 tablet by mouth once daily. When wanting to discontinue, decrease to one half tablet daily x 2 weeks, then one half tab every other day x2 weeks, then discontinue 90 tablet 3 ramipril (ALTACE) 10 mg capsule Take 1 capsule by mouth once daily. 90 capsule 3 hydroCHLOROthiazide (HYDRODIURIL, ESIDRIX) 25 mg tablet Take 1 tablet by mouth once daily. 90 tablet 3 fluticasone propionate (FLONASE NASAL) Use in the nose. predniSONE (DELTASONE) 20 mg tablet Take 2 tablets by mouth once daily for 5 days. 10 tablet 0 benzonatate (TESSALON PERLES) 100 mg capsule Take 2 capsules by mouth three times daily as needed. 30 capsule 0 doxycycline (VIBRA-TABS) 100 mg tablet Take 1 tablet by mouth twice daily for 7 days. 14 tablet 0 albuterol HFA (PROAIR HFA) 90 mcg/actuation inhaler Inhale 2 Puffs as instructed every 6 hours as needed. 1 Each 0 aspirin(ADULT LOW DOSE ASPIRIN 81 MG TAB, DELAYED RELEASE) daily 0 No current facility-administered medications for this visit. PAST SURGICAL HISTORY Procedure Laterality Date COLONOSCOPY 11/03/2021 repeat in 5 years COLONOSCOPY FLX DX W/COLLJ SPEC WHEN PFRMD 04/05/2017 REPEAT 5 YEARS KNEE SURGERY HX SKIN BIOPSY HX FAMILY HISTORY Problem Relation Age of Onset None Mother Cancer Father prostate Skin Cancer Sister Social History Tobacco Use Smoking status: Never Smokeless tobacco: Never Vaping Use Vaping Use: Never used Substance Use Topics Alcohol use: Yes Comment: 0-1 / week Drug use: No Objective BP 134/78 Pulse 83 Temp 36.8 C (98.2 F) (Tympanic) Resp 16 Wt 104.9 kg (231 lb 3.2 oz) SpO2 99% BMI (P) 35.15 kg/m Physical Exam Vitals reviewed. Constitutional: Appearance: Normal appearance. HENT: Head: Normocephalic and atraumatic. Right Ear: Tympanic membrane, ear canal and external ear normal. Left Ear: Tympanic membrane, ear canal and external ear normal. Nose: Congestion present. Right Sinus: Frontal sinus tenderness present. Left Sinus: Frontal sinus tenderness present. No maxillary sinus tenderness. Mouth/Throat: Mouth: Mucous membranes are moist. Pharynx: Oropharynx is clear. Cardiovascular: Rate and Rhythm: Normal rate and regular rhythm. Heart sounds: Normal heart sounds. Pulmonary: Effort: Pulmonary effort is normal. Breath sounds: Normal breath sounds. Musculoskeletal: Cervical back: Neck supple. Skin: General: Skin is warm and dry. Findings: No rash. Neurological: General: No focal deficit present. Mental Status: He is alert and oriented to person, place, and time. Assessment and Plan ASSESSMENT/PLAN: 1. Sinobronchitis - ICD9: 473.9, 490, ICD10: J32.9, J40 - Will begin treatment with Doxycycline - Supportive care with plenty of fluids, rest, and analgesia prn. - Follow up in 3-5 days if symptoms persist or worsen. - PREDNISONE 20 MG TABLET - BENZONATATE 100 MG CAPSULE - DOXYCYCLINE HYCLATE 100 MG TABLET - ALBUTEROL SULFATE HFA 90 MCG/ACTUATION AEROSOL INHALER Maritza Santamaria PA-C documented in this encounterSouth[facility] Center03-23-2023 Miscellaneous Notes* Telephone Encounter - Catia Jaramillo LPN - 07/16/2022 4:59 PM EDT Patient notified of providers message and verbalized understanding. Encounter sent to PSR to assistpatient in scheduling * Telephone Encounter - Kalin Harris APRN.JAXON - 07/16/2022 3:56 PM EDT Please let him know that MRI shows small nondisplaced labral tear of the right hip joint. Recommend orthopedic visit if he still having pain / difficulties due to this. RESULT: Bone Marrow: No acute fracture or marrow infiltrating process. Reactive enhancement around the pubic symphysis. No enhancing mass or collection identified in the pelvis. Hip Joint(s): Small nondisplaced tear at the anterior superior acetabular labrum. Mild to moderate degenerative chondral thinning at the superior hip joint. No fracture or avascular necrosis. Tendons: Mild hamstring origin tendinosis bilaterally. Mild distal gluteus minimus tendinosis laterally but greater on the left. No acute tendon injury seen. Musculature: No acute muscle injury. Maintained signal and muscle bulk. Sacroiliac joints: Maintained with normal signal. Pubic symphysis: Moderate degenerative changes at the pubic symphysis with reactive bone marrow edema Ischiofemoral Space: Maintained with normal signal. Other Pelvic Findings: The prostate appears enlarged. No abnormal pelvic fluid or large pelvic lymph nodes. documented in this encounterSouthview Medical Center03-23-2023 History of Present illness Narrative* Serene Becerra RT(R) - 07/16/2022 10:40 AM EDT Radiology Service Progress Note DATE OF SERVICE: July 16, 2022 TIME: 10:28 AM PATIENT IDENTITY VERIFICATION COMPLETED USING TWO (2) STANDARD IDENTIFIERS: Name and Date of confirmed by patient verbally. FALL SCREENING: Has the patient had 2 falls in the last year or 1 fall with injury or currently using an Ambulatory Assistive Device (Walker, Cane, Wheelchair, Crutches, etc.)? No PATIENT GENDER DATA: Male PATIENT RELEVANT IMPLANT DATA REVIEWED: Yes ALLERGIES: Reviewed and unchanged CONTRAST ALLERGY: NO. EXAM: MRI - CONTRAST TYPE: GROUP II PERIPHERAL IV DATA: Ambulatory: A peripheral IV was started in the Right antecubital site with a Angio cath: 22 gauge. RADIOLOGY DEPARTMENT: MR; Exam(s) Completed: Lower MSK: Hip, right SIGNATURE: RT Garrison(R) PATIENT NAME: Dilia Mast DATE: July 16, 2022 TIME: 10:28 AM documented in this encounterSouthview Medical Center02-22-2023 Miscellaneous Notes* Telephone Encounter - Prasad Clark - 06/17/2022 8:57 AM EST Called patient on 06/17/22 at 8:57 am to schedule their MSK US exam. No answer, left VM, 3rd attempt. * Telephone Encounter - Prasad Clark - 06/16/2022 11:17 AM EST Called patient on 06/16/22 at 11:17 am to schedule their MSK US exam. No answer, left VM, 2nd attempt. * Telephone Encounter - Carlos Leslie - 06/15/2022 9:34 AM EST Called patient on 06/15 at 9:34 to schedule their MSK US exam. No answer, left VM, 1st attempt. * Telephone Encounter - VINOD Seo - 06/14/2022 8:58 PM EST Visit Type: ANY MSK Visit Length: 45, 50 OR 60 MINUTES Order Name/Protocol: US HIP RT; [facility]-EVAL FOR RT INGUINAL HERNIA/SOFT TISSUE INJURY Preferred Provider: N/A Comment: Please ask if the patient has ever had any prior surgery to their RT hip/groin area. If so, upgrade the visit type to an MSK1 and notate the surgical hx in the Appointment Note. Location: Depending on the surgical hx, this patient can have this exam performed at any of our three locations. Slot held: N/A documented in this encounterSouthview Medical Center02-14-2023 Miscellaneous Notes* Telephone Encounter - Ana Siddqiui RN - 06/09/2022 3:17 PM EST Pt and [facility] US department notified of update below. Ana Siddiqui RN * Telephone Encounter - Kalin Harris APRN.CNS - 06/09/2022 1:47 PM EST Will await XR results, then decide on next testing; US vs. CT. If doing CT will complete here not [facility]. * Telephone Encounter - Ana Siddiqui RN - 06/09/2022 9:44 AM EST Romelia with [facility] Ultrasound Dept calling and states they received pt's order for: US HIP RT. Romelia states at their department, for concern for a hernia versus soft tissue, they advise a CT scan instead. Please advise. Please call pt with any updates/changes in orders as well. Ana Siddiqui RN documented in this encounterSouthview Medical Center02-13-2023 Miscellaneous Notes* Telephone Encounter - Catia Jaramillo LPN - 06/08/2022 4:25 PM EST Patient notified and order faxed to [facility] * Telephone Encounter - Kalin Harris APRN.CNS - 06/08/2022 4:03 PM EST OK * Telephone Encounter - Roslyn Han LPN - 06/08/2022 3:49 PM EST Pt calls to report he would have to go up towards [place] or [facility] to get US of hip done. Pt is asking if he can have it done at [facility]. Please review and advise. Roslyn Han LPN * Telephone Encounter - Denise Hoff - 06/08/2022 2:08 PM EST Patient has been identified by name and Date of : Yes Patient: Dilia Mast Date of : 1955 Provider for this encounter : sandip Malone MD Reason for call: xr hip Was an appointment scheduled: No Reason for requesting visit (RFV/signs and symptoms/diagnosis) : hip xray Person calling: self Return call to: self Call patient at: at home [phone] (home) [phone] (cell) Payor: [employer] MEDICARE / Plan: [employer] MEDICARE PPO / Product Type: PPO / Denise Hoff documented in this encounterSouthview Medical Center02-13-2023 Miscellaneous Notes* Telephone Encounter - Prasad Clark - 06/08/2022 3:45 PM EST Called patient on 06/08/22 at 3:45 pm to schedule their MSK US exam. PT declined to schedule due to available locations. * Telephone Encounter - Carlos Leslie - 06/08/2022 3:34 PM EST Pt called back at 3:33 please give this pt a call back to make sure their scheduled for an appt * Telephone Encounter - Prasad Clark - 06/08/2022 2:28 PM EST Called patient on 06/08/22 at 2:28 pm to schedule their MSK US exam. No answer, left VM, 1st attempt. * Telephone Encounter - VINOD Seo - 06/08/2022 2:20 PM EST Visit Type: ANY MSK Visit Length: 45, 50 OR 60 MINUTES Order Name/Protocol: US HIP RT; [facility]-EVAL FOR RT INGUINAL HERNIA/SOFT TISSUE INJURY Preferred Provider: N/A Comment: Please ask if the patient has ever had any prior surgery to their RT hip/groin area. If so, upgrade the visit type to an MSK1 and notate the surgical hx in the Appointment Note. Location: Depending on the surgical hx, this patient can have this exam performed at any of our three locations. Slot held: N/A documented in this encounterSouthview Medical Center02-13-2023 History of Present illness Narrative* Jacqui Galloway RT(R) - 06/08/2022 3:20 PM EST Radiology Service Progress Note PATIENT NAME: Diila Mast DATE OF SERVICE: June 08, 2022 TIME: 3:13 PM PATIENT IDENTITY VERIFICATION COMPLETED USING TWO (2) IDENTIFIERS: Name and Date of confirmedby patient verbally. FALL SCREENING: Has the patient had 2 falls in the last year or 1 fall with injury or currently using an Ambulatory Assistive Device (Walker, Cane, Wheelchair, Crutches, etc.)? No PATIENT GENDER DATA: Male PATIENT RELEVANT IMPLANT DATA REVIEWED: Yes RADIOLOGY DEPARTMENT: General X-ray: Exam(s) Completed: Spine X-Ray(s): Sacrum/Coccyx Pelvis X-Ray: Pelvis with Hip Right PERIPHERAL IV DATA: Not applicable SIGNED BY: RT Mandy(R) June 08, 2022 3:13 PM documented in this encounterSouthview Medical Center02-03-2023 History of Present illness Narrative* Kalin Harris APRN.MATERNITY FLOOR SUPERVISOR - 05/29/2022 4:14 PM EST SUBJECTIVE: ADVANCE DIRECTIVE DISCUSSION due on 04/26/2022 DEPRESSION ASSESSMENT due on 04/26/2022 HPI Dilia Mast is a 66 year old male presents today regarding right groin and coccyx/pelvic pain after misstepping when getting in his truck doing a spilt, now with 5 months of pain in the anterior right groin and the coccyx/ischial area on the right.. Did not seek care when this occurred. Achey dullpain, fairly constant. Mild at rest, moderate with walking or first few steps, then improves. Rest,Tylenol do help. Review of Systems Constitutional: Negative. Respiratory: Negative. Cardiovascular: Negative. Endocrine: Negative. Musculoskeletal: Positive for arthralgias. Neurological: Negative for numbness. Psychiatric/Behavioral: Negative for dysphoric mood. Objective BP 128/70 Pulse 72 Resp 16 Wt 102.5 kg (226 lb) SpO2 96% BMI (P) 34.36 kg/m Physical Exam Vitals and nursing note reviewed. Constitutional: Appearance: Normal appearance. HENT: Head: Normocephalic and atraumatic. Eyes: Conjunctiva/sclera: Conjunctivae normal. Cardiovascular: Rate and Rhythm: Normal rate. Pulmonary: Effort: Pulmonary effort is normal. Abdominal: General: Bowel sounds are normal. There is no distension. Palpations: Abdomen is soft. There is no mass. Tenderness: There is no abdominal tenderness. There is no guarding or rebound. Hernia: No hernia is present. Musculoskeletal: Cervical back: Muscular tenderness present. Right lower leg: No edema. Comments: TTP right anterior groin, no mass appreciated, TTP coccyx, right ischial region Skin: General: Skin is warm and dry. Neurological: General: No focal deficit present. Mental Status: He is alert and oriented to person, place, and time. Psychiatric: Attention and Perception: Attention normal. Speech: Speech normal. Cognition and Memory: Cognition normal. ALLERGIES No Known Allergies Medications escitalopram oxalate (LEXAPRO) 5 mg tablet Take 1 tablet by mouth once daily. When wanting to discontinue, decrease to one half tablet daily x 2 weeks, then one half tab every other day x2 weeks, then discontinue ramipril (ALTACE) 10 mg capsule Take 1 capsule by mouth once daily. hydroCHLOROthiazide (HYDRODIURIL, ESIDRIX) 25 mg tablet Take 1 tablet by mouth once daily. fluticasone propionate (FLONASE NASAL) Use in the nose. aspirin(ADULT LOW DOSE ASPIRIN 81 MG TAB, DELAYED RELEASE) daily PAST MEDICAL HISTORY Diagnosis Date Basal cell carcinoma right inferior lateral upper back; Dr Santiago Aceves 07/11/14 Elevated fasting blood sugar Hypercholesterolemia Hypertension Obesity (BMI 30.0-34.9) Snoring Tear of MCL (medial collateral ligament) of knee Social History Tobacco Use Smoking status: Never Smokeless tobacco: Never Vaping Use Vaping Use: Never used Substance Use Topics Alcohol use: Yes Comment: 0-1 / week Drug use: No ASSESSMENT/PLAN: 1. Injury of groin, initial encounter - ICD9: 959.19, ICD10: S39.91XA (primary diagnosis) - US HIP RT - XR HIP GENERAL 3V PELV/AP/LAT RIGHT 2. Right groin pain - ICD9: 789.03, ICD10: R10.31 - US HIP RT - XR HIP GENERAL 3V PELV/AP/LAT RIGHT 3. Pain in the coccyx - ICD9: 724.79, ICD10: M53.3 - XR SACRUM/COCCYX 3V AP/LAT Complete initial testing, refer to orthopedics or general surgery as indicated / if needed. Consider PT as needed. Kalin Harris APRN.MATERNITY FLOOR SUPERVISOR Medical Decision Making: Problems: Low: Acute, uncomplicated illness or injury Data: Unique test(s) ordered: 2 Medical Decision Making Level: 3 - Low documented in this encounterSouthview Medical Center12-16-2022 History of Present illness Narrative* Lilly Malone MD - 04/10/2022 9:20 AM EST This note was created using NoteWriter. Subjective Dilia Mast is a 67 year old male. HISTORY Dilia Mast is a 67 year old gentleman here for yearly exam and follow up appointment. Weight at home 216 and goal 215 lbs. Eating less portions. Small pizza instead of larger one. Not eating after 9PM. Drinking water all day long. Joined [employer] and working 2 to3 time as week. Nocturia no more than once a night. No pain noted. No trouble emptying the bladder. Doing well on Lexapro 5 mg daily. Asked to drop off copy; is HCDPOA. Has LW PAST MEDICAL HISTORY Diagnosis Date Basal cell carcinoma right inferior lateral upper back; Dr Santiago Aceves 07/11/14 Elevated fasting blood sugar Hypercholesterolemia Hypertension Obesity (BMI 30.0-34.9) Snoring Tear of MCL (medial collateral ligament) of knee Current Outpatient Medications Medication Sig escitalopram oxalate (LEXAPRO) 5 mg tablet Take 1 tablet by mouth once daily. When wanting to discontinue, decrease to one half tablet daily x 2 weeks, then one half tab every other day x2 weeks, then discontinue ramipril (ALTACE) 10 mg capsule Take 1 capsule by mouth once daily. hydroCHLOROthiazide (HYDRODIURIL, ESIDRIX) 25 mg tablet Take 1 tablet by mouth once daily. fluticasone propionate (FLONASE NASAL) Use in the nose. Omeprazole Magnesium (PRILOSEC OTC) 20 mg tablet Take 1 tablet by mouth daily before breakfast. 1/2hr before meal. sodium chloride (SALINE MIST) 0.65 % nasal spray Use 1 [place] in the nose as needed for Cold/AllergySymptoms (nasal congestion). aspirin(ADULT LOW DOSE ASPIRIN 81 MG TAB, DELAYED RELEASE) daily No current facility-administered medications for this visit. ALLERGIES No Known Allergies FAMILY HISTORY Problem Relation Age of Onset None Mother Cancer Father prostate Skin Cancer Sister Social History Tobacco Use Smoking status: Never Smokeless tobacco: Never Vaping Use Vaping Use: Never used Substance Use Topics Alcohol use: Yes Comment: 0-1 / week Drug use: No Review of Systems Objective BP (P) 126/78 (BP Site: Left Arm, BP Position: Sitting, BP Cuff Size: Large Adult) Pulse (P) 72 Ht (P) 172.7 cm (5' 8) Wt (P) 102.5 kg (226 lb) BMI (P) 34.36 kg/m Last 5 Encounter Wt Readings: Date: Wt: 02/02/2022 103.9 kg (229 lb) 11/03/2021 103.9 kg (229 lb 0.9 oz) 09/08/2021 103.9 kg (229 lb) 08/04/2021 98 kg (216 lb) 06/05/2021 99.8 kg (220 lb) No waist measurement recorded Estimated body mass index is 34.36 kg/m (pended) as calculated from the following: Height as of this encounter: (P) 172.7 cm (5' 8). Weight as of this encounter: (P) 102.5 kg (226 lb). Last 5 Encounter BP Readings: Date: BP: 02/02/2022 126/80 11/03/2021 115/76 09/08/2021 120/82 08/04/2021 118/82 06/05/2021 130/82 Physical Exam Component Latest Ref Rng & Units 02/15/2019 03/15/2020 03/03/2021 03/05/2022 Protein, Total 6.3 - 8.0 g/dL 7.4 7.5 7.4 7.2 Albumin 3.9 - 4.9 g/dL 4.3 4.4 4.4 4.2 Calcium 8.5 - 10.2 mg/dL 9.4 9.3 9.5 9.3 Bilirubin, Total 0.2 - 1.3 mg/dL 0.3 0.5 0.4 0.4 Alkaline Phosphatase 38 - 113 U/L 59 60 63 72 AST 14 - 40 U/L 26 27 19 24 Glucose 74 - 99 mg/dL 103 (H) 92 110 (H) 105 (H) BUN 9 - 24 mg/dL 12 17 15 18 Creatinine 0.73 - 1.22 mg/dL 0.88 0.88 0.94 0.82 Sodium 136 - 144 mmol/L 141 137 137 136 Potassium 3.7 - 5.1 mmol/L 3.9 3.1 (L) 3.9 4.0 Chloride 97 - 105 mmol/L 99 98 98 100 CO2 22 - 30 mmol/L 26 25 26 25 Anion Gap 9 - 18 mmol/L 16 14 13 11 ALT 10 - 54 U/L 26 29 24 24 eGFR- >60 >60 >60 eGFR-All Other Races . >60 >60 >60 eGFR >=60 mL/min/1.73m 97 WBC 3.70 - 11.00 k/uL 6.61 6.56 7.01 RBC 4.20 - 6.00 m/uL 5.23 5.50 5.37 Hemoglobin 13.0 - 17.0 g/dL 16.5 17.2 (H) 16.6 Hematocrit 39.0 - 51.0 % 48.5 50.8 48.2 MCV 80.0 - 100.0 fL 92.7 92.4 89.8 MCH 26.0 - 34.0 pg 31.5 31.3 30.9 MCHC 30.5 - 36.0 g/dL 34.0 33.9 34.4 RDW-CV 11.5 - 15.0 % 13.2 12.6 12.6 Platelet Count 150 - 400 k/uL 349 343 374 MPV 9.0 - 12.7 fL 9.7 9.9 9.7 Absolute nRBC <0.01 k/uL <0.01 <0.01 <0.01 Cholesterol, Total <200 mg/dL 175 160 Triglyceride <150 mg/dL 171 (H) 134 HDL Cholesterol >39 mg/dL 38 (L) 34 (L) LDL Cholesterol <100 mg/dL 103 (H) 99 Non HDL Cholesterol <130 mg/dL 137 (H) 126 Fasting Time hrs 12 12 VLDL Cholesterol <30 mg/dL 34 (H) 27 TC:HDL Ratio <5.10 4.61 4.71 LDL:HDL Ratio <2.54 2.71 (H) 2.91 (H) Total Cholesterol, Nonfasting <200 mg/dL 149 159 Triglycerides, Nonfasting <150 mg/dL 103 112 HDL Cholesterol, Nonfasting >39 mg/dL 37 (L) 36 (L) LDL Cholesterol, Nonfasting <100 mg/dL 91 101 (H) Non HDL Cholesterol, Nonfasting <130 mg/dL 112 123 VLDL Cholesterol, Nonfasting <30 mg/dL 21 22 Total Chol/HDL Ratio, Nonfasting <5.10 mg/dL 4.03 4.42 LDL/HDL Ratio, Nonfasting <2.54 mg/dL 2.46 2.81 (H) HIV 12 Combo (Ag/Ab) Nonreactive Nonreactive HIV 1/2 Ab HIV Interpretation Hemoglobin A1C 4.3 - 5.6 % 5.6 5.5 5.5 Estimated Average Glucose mg/dL 114 111 111 PSA Screening <2.60 ng/mL 3.88 (H) The 10-year ASCVD risk score (Julienne DK, et al., 2019) is: 15.3% Values used to calculate the score: Age: 67 years Sex: Male Is Non- : No Diabetic: No Tobacco smoker: No Systolic Blood Pressure: 126 mmHg Is BP treated: Yes HDL Cholesterol: 34 mg/dL Total Cholesterol: 160 mg/dL Assessment and Plan Encounter Diagnosis ICD-10-CM 1. Essential hypertension I10 COMP METABOLIC PANEL CBC 2. IFG (impaired fasting glucose) R73.01 HGB A1C COMP METABOLIC PANEL 3. Anxiety F41.9 4. Low HDL (under 40) E78.6 LIPID PANEL BASIC 5. Need for vaccination Z23 PNEUMOCOCCAL VACCINE (PREVNAR 20) 6. Elevated PSA, less than 10 ng/ml R97.20 PSA/PROSTSPECAG DIAG <4. Plan to recheck in a year. Further evaluation and treatment as needed. Patient here for yearly exam and follow up. Above issues addressed with patient. Patient involved in shared decision making for management of medical issues. History and medications reviewed. Epic updated as needed Refills taken care of and meds adjusted as indicated after reviewed history, exam and labs. Health Maintenance reviewed. Updated record and/or ordered tests as recorded. Encouraged on efforts at healthy diet and regular exercise and adequate sleep. Doing well on current meds. Follow up as noted above. Continues to follow up with with Dr. Santiago Aceves for bread slicer machine. Treating with 5-FU for prevention of SCC. Lilly Malone MD [facility] Miscellaneous Notes* Telephone Encounter - Chaya Mendez APRN.CNP - 2022 1:54 PM EDT See more recent My Chart encounter 12/31, closing this one Chaya Mendez APRN.CNP documented in this encounter[facility]10-[facility]22 History of Present illness Narrative* Ranjeet García APRN.CNP - 02/02/2022 7:16 AM EDT Images from the original note were not included. Subjective HPI HPI Dilia Mast is a 66 year old male who presents today for CC of right eye irritation after mowing grass 2 days ago, grass blew into face, vision slightly obscurred. Has tried old atb drops and visene. Symptoms are worsened by light. Risk factors hx of right eye corneal abrasion. Denies eye pain, double vision. .Patient presents with: Eye Problem: watery, blurry right eye irritation after mowing yard on wednesday PAST MEDICAL HISTORY Diagnosis Date Basal cell carcinoma right inferior lateral upper back; Dr Santiago Aceves 07/11/14 Elevated fasting blood sugar Hypercholesterolemia Hypertension Obesity (BMI 30.0-34.9) Snoring Tear of MCL (medial collateral ligament) of knee PAST SURGICAL HISTORY Procedure Laterality Date COLONOSCOPY 11/03/2021 repeat in 5 years COLONOSCOPY FLX DX W/COLLJ SPEC WHEN PFRMD 04/05/2017 REPEAT 5 YEARS KNEE SURGERY HX SKIN BIOPSY HX ALLERGIES Patient has no known allergies. MEDICATIONS Omeprazole Magnesium (PRILOSEC OTC) 20 mg tablet Take 1 tablet by mouth daily before breakfast. 1/2hr before meal. escitalopram oxalate (LEXAPRO) 5 mg tablet Take 1 tablet by mouth once daily. When wanting to discontinue, decrease to one half tablet daily x 2 weeks, then one half tab every other day x2 weeks, then discontinue ramipril (ALTACE) 10 mg capsule Take 1 capsule by mouth once daily. hydroCHLOROthiazide (HYDRODIURIL, ESIDRIX) 25 mg tablet Take 1 tablet by mouth once daily. fluticasone propionate (FLONASE NASAL) Use in the nose. sodium chloride (SALINE MIST) 0.65 % nasal spray Use 1 [place] in the nose as needed for Cold/AllergySymptoms (nasal congestion). aspirin(ADULT LOW DOSE ASPIRIN 81 MG TAB, DELAYED RELEASE) daily FAMILY HISTORY Problem Relation Age of Onset None Mother Cancer Father prostate Skin Cancer Sister Social History Tobacco Use Smoking status: Never Smokeless tobacco: Never Vaping Use Vaping Use: Never used Substance Use Topics Alcohol use: Yes Comment: 0-1 / week Drug use: No ROS Objective Blood pressure 126/80, pulse 70, temperature 36.4 C (97.5 F), resp. rate 16, weight 103.9 kg (229 lb), SpO2 98 %. Physical Exam Constitutional: General: He is not in acute distress. Appearance: He is not toxic-appearing or diaphoretic. HENT: Head: Normocephalic and atraumatic. Eyes: General: Lids are normal. Right eye: No foreign body, discharge or hordeolum. Left eye: No foreign body, discharge or hordeolum. Pulmonary: Effort: Pulmonary effort is normal. No accessory muscle usage or respiratory distress. Neurological: Mental Status: He is alert and oriented to person, place, and time. ASSESSMENT/PLAN: 1. Cornea abrasion, right, initial encounter - ICD9: 918.1, ICD10: S05.01XA Take medication as prescribed See eye dr in 2 days Urgent f/u for worsening s/s. - ERYTHROMYCIN 5 MG/GRAM (0.5 %) EYE OINTMENT Ranjeet García APRN.COUPLER documented in this encounter[facility]08-[facility]-2022 Miscellaneous Notes* Telephone Encounter - Marc Godinez RN - 12/08/2021 9:56 AM EDT Patient checking on reply. documented in this encounterSouth[facility]07-22-2022 History of Present illness Narrative* Sherri Woodruff PA-C - 11/14/2021 8:17 AM EDT In lieu of an in-person visit due to COVID-19 concerns, a virtual visit was performed on the patient. Patient is aware that I am not fully able to assess symptoms and do a full physical examination including vital signs assessment at this time. Patient consents to this encounter. FOLLOW UP VISIT - ENDOSCOPY NAME: Dilia Mast [facility] NO.: [id number] DATE OF SERVICE: 11/14/2021 : 1955 REFERRING PHYSICIAN: Lilly Malone MD Dilia is a patient I am following for surveillance colonoscopy due to personal history of colon polyps. Dr. Holcomb performed lower endoscopy on 11/03/21. The patient was found to have a small transverse colon polyp which was removed, and was also noted to have sigmoid diverticulosis and internal hemorrhoids. Pathology demonstrated: FINAL DIAGNOSIS Colon, transverse, polypectomy: -Tubular adenoma The patient notes no complaints since the procedure. On limited video-enabled visual exam: General: patient is alert, cooperative, pleasant and in no acute distress Normal speech and affect, answers all questions appropriately Assessment IMPRESSION: s/p colonoscopy with polypectomy-tubular adenoma PLAN: The operative findings and pathology report were reviewed with the patient, and the patient has hadthe opportunity to ask questions and have questions answered. If the patient notes any problems or changes in bowel function, the patient should contact me immediately. Otherwise I recommend follow up endoscopy in 5 years for surveillance. HM updated and recall letter generated. Patient verbalized understanding of all above and agreed with the plan Diagnoses: (D36.9) Tubular adenoma (primary encounter diagnosis) (Z86.010) History of colonic polyps I spent a total of 22 minutes on the date of the service which included preparing to see the patient, [id number] patient care, completing clinical documentation, obtaining and/or reviewing separately obtained history, independently interpreting results (not separately reported) and communicating r esults to the patient/family/caregiver. Sherri Woodruff PA-C documented in this encounterSouth[facility]07-11-2022 History and physical note * Lan Holcomb MD - 11/03/2021 10:15 AM EDT Images from the original note were not included. HISTORY AND PHYSICAL Dilia Chapman Vikash 1955 REFERRING PHYSICIAN: Kalin Harris APRN.MATERNITY FLOOR SUPERVISOR CHIEF COMPLAINT: Consult (colonoscopy consultation) HPI: The patient is a 66 year old male referred for endoscopy. Dilia notes no colon complaints. Patient denies any change in bowel habits, weight changes, blood in stools, black tarry stools or abdominal pain. Denies family history of colon issues. The patient notes no upper GI complaints. Dilia has undergone prior endoscopy. Most recent colonoscopy 04/05/[address] Varghese under conscioussedation with removal of a 6 mm adenomatous descending colon polyp with 5 year repeat recommended. Patient denies chest pain, shortness of breath or recent hospitalizations. Denies problems with sedation in the past. PAST MEDICAL HISTORY PAST MEDICAL HISTORY Diagnosis Date Basal cell carcinoma right inferior lateral upper back; Dr Santiago Aceves 07/11/14 Elevated fasting blood sugar Hypercholesterolemia Hypertension Obesity (BMI 30.0-34.9) Snoring Tear of MCL (medial collateral ligament) of knee PAST SURGICAL HISTORY PAST SURGICAL HISTORY Procedure Laterality Date COLONOSCOPY FLX DX W/COLLJ SPEC WHEN PFRMD 04/05/2017 REPEAT 5 YEARS KNEE SURGERY HX CURRENT MEDICATIONS Current Outpatient Medications Medication Sig Omeprazole Magnesium (PRILOSEC OTC) 20 mg tablet Take 1 tablet by mouth daily before breakfast. 1/2hr before meal. escitalopram oxalate (LEXAPRO) 5 mg tablet Take 1 tablet by mouth once daily. When wanting to discontinue, decrease to one half tablet daily x 2 weeks, then one half tab every other day x2 weeks, then discontinue [START ON 10/01/2021] ramipril (ALTACE) 10 mg capsule Take 1 capsule by mouth once daily. [START ON 10/01/2021] hydroCHLOROthiazide (HYDRODIURIL, ESIDRIX) 25 mg tablet Take 1 tablet by mouth once daily. fluticasone propionate (FLONASE NASAL) Use in the nose. sodium chloride (SALINE MIST) 0.65 % nasal spray Use 1 [place] in the nose as needed for Cold/AllergySymptoms (nasal congestion). aspirin(ADULT LOW DOSE ASPIRIN 81 MG TAB, DELAYED RELEASE) daily No current facility-administered medications for this visit. ALLERGIES: Patient has no known allergies. PERSONAL HISTORY: SOCIAL HISTORY Social History Tobacco Use Smoking status: Never Smoker Smokeless tobacco: Never Used Vaping Use Vaping Use: Never used Substance Use Topics Alcohol use: Yes Comment: 0-1 / week Drug use: No FAMILY HISTORY: FAMILY HISTORY FAMILY HISTORY Problem Relation Age of Onset None Mother Cancer Father prostate Skin Cancer Sister REVIEW OF SYMPTOMS: The review of systems data was entered by the nurse and reviewed by ia Nursing Notes: Joaquina Curtis 09/08/2021 8:58 AM Signed REVIEW OF SYSTEMS: General: The patient denies fatigue, denies weight loss, denies weight gain, denies feeling hot, and denies feelings of cold. Eyes: The patient denies glaucoma, denies eye injury/surgery, wears glasses or contacts. Ear/Nose/Throat: The patient NOTES allergies, denies hayfever, denies ear infections, and denies bloody noses. Cardiovascular: The patient denies chest pain, denies heart disease, NOTES high blood pressure,denies cardiac stent, denies prior heart attack, denies irregular heart beat, denies high cholesterol, denies poor circulation, denies heart failure, other cardiac issues, denies claudication, denies coldfeet, denies peripheral arterial stent. Respiratory: The patient denies tuberculosis, denies pneumonia, denies frequent cough, denies pulmonary embolism, denies shortness of breath, and denies coughing up blood. Gastrointestinal: The patient denies difficulty swallowing, NOTES acid reflux, denies ulcers, denies vomiting, denies jaundice/hepatitis, denies gallbladder problems, denies black or tarry stools, denies hemorrhoids, denies bleeding from rectum, denies diverticulitis, denies constipation, denies diarrhea, denies loss of stool control, and denies hernias. Kidney/Bladder: The patient denies kidney stones, denies urine infections, and denies bloody urine. Skin: The patient NOTES a history of skin cancer, denies bleeding/changing moles, and denies a history of skin rash. Neurologic: The patient denies a history of epilepsy/convulsions, denies headaches, denies head/spinal injuries, and denies stroke/TIA. Psychiatric: The patient denies psychiatric medications, NOTES depression, and denies voices, denies substance abuse. Endocrine: The patient denies thyroid disorders, denies diabetes, and denies hormonal problems. Hematologic: The patient denies a history of bruising, denies bleeding, and denies anemia, denies blood clots. Infections: The patient denies a history of measles and mumps, denies rheumatic fever, and denies sexually transmitted diseases. Musculoskeletal: The patient denies back pain/injury, denies back problems, NOTES sciatica, denies knee/foot trouble, denies arthritis, or denies gout. When was patient's last Mammogram screening? N/A Last Colonoscopy: 04/05/2017 Joaquina Curtis I have confirmed and edited as necessary, the PFSH and ROS obtained by others. Sherri Woodruff PA-C PHYSICAL EXAMINATION: General: The patient is 66 year old male, well nourished, well hydrated in no acute distress. The patient is oriented to time, place, and person. VITALS: Blood pressure 120/82, pulse 73, temperature 36.7 C (98 F), height 175.3 cm (5' 9), djkumw565.9 kg (229 lb), SpO2 98 %. Body mass index is 33.82 kg/m . HEENT: Normal cephalic, ataumatic, pupils are equally round, sclera are anicteric, mucous membranesare moist, oropharynx is clear. Neck has no masses, asymmetry or lymphadenopathy. Respiratory: Clear to auscultation and percussion. Normal respiratory excursion and pattern. Cardiac: Examination is regular rate and rhythm. Normal S1/S2 Abdominal exam: Soft, nontender, with no palpable masses. No hepatosplenomegaly. No palpable hernias. Extremities: no clubbing, cyanosis or edema. No adenopathy. LABORATORY VALUES: As Noted RADIOLOGIC STUDIES: As Noted Assessment IMPRESSION: encounter for high-risk surveillance colonoscopy due to personal history of adenomatouscolon polyp PLAN: I have reviewed my findings with the surgeon. Will plan for lower endoscopy. We discussed therisks and benefits of the planned endoscopy. I have informed the patient that complications can occur including failure to complete the endoscopy and perforation. The patient had the opportunity to ask questions concerning the planned endoscopy. My staff has also explained the procedure to the patient in understandable terms and has given the patient printed material concerning the procedure. Thepatient freely consents to surgery. The patient was offered a [facility]. I have counseled the patient regarding the risk of exposure to and/or potential harm posed by the COVID-19 virus with having a surgery/procedure at this time versus the risk of delaying the surgery/procedure. It is not possible to know either the risk of delaying the surgery or procedure or chance of getting an infection with perfect accuracy, but a joint decision was made between the patient and myself to proceed at this time with endoscopy. Recommended patient check with insurance prior to procedure regarding coverage based on date of last colonoscopy I plan to use Golytely bowel preparation Diagnoses: (Z12.11, Z12.12) Screening for colorectal cancer Consultation requested by Kalin Harris CNP for an opinion regarding screening colonoscopy. My final recommendations will be communicated back to the requesting physician by way of shared Medical record or letter to requesting physician via US mail. Sherri Woodruff PA-C UPDATED HISTORY AND PHYSICAL EXAMINATION SERVICE DATE: 11/03/2021 SERVICE TIME: 9:45 AM PHYSICAL EXAM MUST BE COMPLETED ON ADMISSION The History and Physical (completed in the past 30 days) has been reviewed and the patient has beenexamined. The contents accurately reflect the patient's condition with the following additions or revisions since the H&P was completed. Examination indicates no changes. This H&P can be found in the attached. SIGNATURE: Lan Holcomb III, MD PATIENT NAME: Dilia Mast DATE: November 03, 2021 TIME: 9:45 AM documented in this encounterSouth[facility]07-11-2022 Nurse Note* Evelyne Jung RN - 11/03/2021 10:08 AM EDT Patient received in PACU, on left side, eyes open, answers questions, respirations regular and unlabored, abdomen soft non distended, denies pain. documented in this encounter[facility]05-16-2022 Miscellaneous Notes* Telephone Encounter - Joaquinacarleen Curtis - 09/08/2021 9:08 AM EDT 11/03/2021 COLON ASC documented in this encounterSouth[facility]05-16-2022 Nurse Note* Joaquina Curtis - 09/08/2021 8:54 AM EDT REVIEW OF SYSTEMS: General: The patient denies fatigue, denies weight loss, denies weight gain, denies feeling hot, and denies feelings of cold. Eyes: The patient denies glaucoma, denies eye injury/surgery, wears glasses or contacts. Ear/Nose/Throat: The patient NOTES allergies, denies hayfever, denies ear infections, and denies bloody noses. Cardiovascular: The patient denies chest pain, denies heart disease, NOTES high blood pressure,denies cardiac stent, denies prior heart attack, denies irregular heart beat, denies high cholesterol, denies poor circulation, denies heart failure, other cardiac issues, denies claudication, denies coldfeet, denies peripheral arterial stent. Respiratory: The patient denies tuberculosis, denies pneumonia, denies frequent cough, denies pulmonary embolism, denies shortness of breath, and denies coughing up blood. Gastrointestinal: The patient denies difficulty swallowing, NOTES acid reflux, denies ulcers, denies vomiting, denies jaundice/hepatitis, denies gallbladder problems, denies black or tarry stools, denies hemorrhoids, denies bleeding from rectum, denies diverticulitis, denies constipation, denies diarrhea, denies loss of stool control, and denies hernias. Kidney/Bladder: The patient denies kidney stones, denies urine infections, and denies bloody urine. Skin: The patient NOTES a history of skin cancer, denies bleeding/changing moles, and denies a history of skin rash. Neurologic: The patient denies a history of epilepsy/convulsions, denies headaches, denies head/spinal injuries, and denies stroke/TIA. Psychiatric: The patient denies psychiatric medications, NOTES depression, and denies voices, denies substance abuse. Endocrine: The patient denies thyroid disorders, denies diabetes, and denies hormonal problems. Hematologic: The patient denies a history of bruising, denies bleeding, and denies anemia, denies blood clots. Infections: The patient denies a history of measles and mumps, denies rheumatic fever, and denies sexually transmitted diseases. Musculoskeletal: The patient denies back pain/injury, denies back problems, NOTES sciatica, denies knee/foot trouble, denies arthritis, or denies gout. When was patient's last Mammogram screening? N/A Last Colonoscopy: 04/05/2017 Joaquina Curtis documented in this encounter[facility]05-[facility]-2022 History of Present illness Narrative* Sherri Woodruff PA-C - 09/08/2021 8:19 AM EDT HISTORY AND PHYSICAL Dilia Mast 1955 REFERRING PHYSICIAN: Kalin Harris APRN.MATERNITY FLOOR SUPERVISOR CHIEF COMPLAINT: Consult (colonoscopy consultation) HPI: The patient is a 66 year old male referred for endoscopy. Dilia notes no colon complaints. Patient denies any change in bowel habits, weight changes, blood in stools, black tarry stools or abdominal pain. Denies family history of colon issues. The patient notes no upper GI complaints. Dilia has undergone prior endoscopy. Most recent colonoscopy 04/05/[address] Varghese under conscioussedation with removal of a 6 mm adenomatous descending colon polyp with 5 year repeat recommended. Patient denies chest pain, shortness of breath or recent hospitalizations. Denies problems with sedation in the past. PAST MEDICAL HISTORY Diagnosis Date Basal cell carcinoma right inferior lateral upper back; Dr Santiago Aceves 07/11/14 Elevated fasting blood sugar Hypercholesterolemia Hypertension Obesity (BMI 30.0-34.9) Snoring Tear of MCL (medial collateral ligament) of knee PAST SURGICAL HISTORY Procedure Laterality Date COLONOSCOPY FLX DX W/COLLJ SPEC WHEN PFRMD 04/05/2017 REPEAT 5 YEARS KNEE SURGERY HX Current Outpatient Medications Medication Sig Omeprazole Magnesium (PRILOSEC OTC) 20 mg tablet Take 1 tablet by mouth daily before breakfast. 1/2hr before meal. escitalopram oxalate (LEXAPRO) 5 mg tablet Take 1 tablet by mouth once daily. When wanting to discontinue, decrease to one half tablet daily x 2 weeks, then one half tab every other day x2 weeks, then discontinue [START ON 10/01/2021] ramipril (ALTACE) 10 mg capsule Take 1 capsule by mouth once daily. [START ON 10/01/2021] hydroCHLOROthiazide (HYDRODIURIL, ESIDRIX) 25 mg tablet Take 1 tablet by mouth once daily. fluticasone propionate (FLONASE NASAL) Use in the nose. sodium chloride (SALINE MIST) 0.65 % nasal spray Use 1 [place] in the nose as needed for Cold/AllergySymptoms (nasal congestion). aspirin(ADULT LOW DOSE ASPIRIN 81 MG TAB, DELAYED RELEASE) daily No current facility-administered medications for this visit. ALLERGIES: Patient has no known allergies. PERSONAL HISTORY: Social History Tobacco Use Smoking status: Never Smoker Smokeless tobacco: Never Used Vaping Use Vaping Use: Never used Substance Use Topics Alcohol use: Yes Comment: 0-1 / week Drug use: No FAMILY HISTORY: FAMILY HISTORY Problem Relation Age of Onset None Mother Cancer Father prostate Skin Cancer Sister REVIEW OF SYMPTOMS: The review of systems data was entered by the nurse and reviewed by ia Nursing Notes: Joaquina Curtis 09/08/2021 8:58 AM Signed REVIEW OF SYSTEMS: General: The patient denies fatigue, denies weight loss, denies weight gain, denies feeling hot, and denies feelings of cold. Eyes: The patient denies glaucoma, denies eye injury/surgery, wears glasses or contacts. Ear/Nose/Throat: The patient NOTES allergies, denies hayfever, denies ear infections, and denies bloody noses. Cardiovascular: The patient denies chest pain, denies heart disease, NOTES high blood pressure,denies cardiac stent, denies prior heart attack, denies irregular heart beat, denies high cholesterol, denies poor circulation, denies heart failure, other cardiac issues, denies claudication, denies coldfeet, denies peripheral arterial stent. Respiratory: The patient denies tuberculosis, denies pneumonia, denies frequent cough, denies pulmonary embolism, denies shortness of breath, and denies coughing up blood. Gastrointestinal: The patient denies difficulty swallowing, NOTES acid reflux, denies ulcers, denies vomiting, denies jaundice/hepatitis, denies gallbladder problems, denies black or tarry stools, denies hemorrhoids, denies bleeding from rectum, denies diverticulitis, denies constipation, denies diarrhea, denies loss of stool control, and denies hernias. Kidney/Bladder: The patient denies kidney stones, denies urine infections, and denies bloody urine. Skin: The patient NOTES a history of skin cancer, denies bleeding/changing moles, and denies a history of skin rash. Neurologic: The patient denies a history of epilepsy/convulsions, denies headaches, denies head/spinal injuries, and denies stroke/TIA. Psychiatric: The patient denies psychiatric medications, NOTES depression, and denies voices, denies substance abuse. Endocrine: The patient denies thyroid disorders, denies diabetes, and denies hormonal problems. Hematologic: The patient denies a history of bruising, denies bleeding, and denies anemia, denies blood clots. Infections: The patient denies a history of measles and mumps, denies rheumatic fever, and denies sexually transmitted diseases. Musculoskeletal: The patient denies back pain/injury, denies back problems, NOTES sciatica, denies knee/foot trouble, denies arthritis, or denies gout. When was patient's last Mammogram screening? N/A Last Colonoscopy: 04/05/2017 Joaquina Curtis I have confirmed and edited as necessary, the PFSH and ROS obtained by others. Sherri Woodruff PA-C PHYSICAL EXAMINATION: General: The patient is 66 year old male, well nourished, well hydrated in no acute distress. The patient is oriented to time, place, and person. VITALS: Blood pressure 120/82, pulse 73, temperature 36.7 C (98 F), height 175.3 cm (5' 9), rofnne413.9 kg (229 lb), SpO2 98 %. Body mass index is 33.82 kg/m . HEENT: Normal cephalic, ataumatic, pupils are equally round, sclera are anicteric, mucous membranesare moist, oropharynx is clear. Neck has no masses, asymmetry or lymphadenopathy. Respiratory: Clear to auscultation and percussion. Normal respiratory excursion and pattern. Cardiac: Examination is regular rate and rhythm. Normal S1/S2 Abdominal exam: Soft, nontender, with no palpable masses. No hepatosplenomegaly. No palpable hernias. Extremities: no clubbing, cyanosis or edema. No adenopathy. LABORATORY VALUES: As Noted RADIOLOGIC STUDIES: As Noted Assessment IMPRESSION: encounter for high-risk surveillance colonoscopy due to personal history of adenomatouscolon polyp PLAN: I have reviewed my findings with the surgeon. Will plan for lower endoscopy. We discussed therisks and benefits of the planned endoscopy. I have informed the patient that complications can occur including failure to complete the endoscopy and perforation. The patient had the opportunity to ask questions concerning the planned endoscopy. My staff has also explained the procedure to the patient in understandable terms and has given the patient printed material concerning the procedure. Thepatient freely consents to surgery. The patient was offered a surgery/procedure at a [facility] facility. I have counseled the patient regarding the risk of exposure to and/or potential harm posed by the COVID-19 virus with having a surgery/procedure at this time versus the risk of delaying the surgery/procedure. It is not possible to know either the risk of delaying the surgery or procedure or chance of getting an infection with perfect accuracy, but a joint decision was made between the patient and myself to proceed at this time with endoscopy. Recommended patient check with insurance prior to procedure regarding coverage based on date of last colonoscopy I plan to use Golytely bowel preparation Diagnoses: (Z12.11, Z12.12) Screening for colorectal cancer Consultation requested by Kalin Harris CNP for an opinion regarding screening colonoscopy. My final recommendations will be communicated back to the requesting physician by way of shared Medical record or letter to requesting physician via US mail. Sherri Woodruff PA-C [facility] History of Present illness Narrative* Kalin HarrisABBIE.MATERNITY FLOOR SUPERVISOR - 08/04/2021 8:20 AM EDT SUBJECTIVE: HIV SCREENING Never done PROSTATE CANCER SCREENING DISCUSSION due on 07/24/2021 HPI HPI excerpted from last visit: Dilia Mast is a 66 year old male presents today regarding shoulder pain and numbness. Notes he had therapy in the past which was helpful. He was seen in urgent care May 31 and reported this complaint. Noted related to bow hunting. Similar to what he is experienced in the past. Previously helped with physical therapy. Today presents reports chronic neck and shoulder pain for which he sees chiropractor monthly. Says he has a back and neck brace provided through the chiropractor previously. Notes he gets monthly adjustments which seems to help. Currently noting left shoulder and left neck discomfort . Intermittentnumbness and tingling in his left hand. He notes has been doing home exercises and applying heat which seem to have helped. Notes this seems to have been aggravated by recent snowblowing. Separately reports heartburn sensation most days but not all day. No report of GERD. Symptoms do not occur at night. Iintermittent. Trying to eat a mild diet. Has cut back on caffeine intake and started taking Prilosec OTC which has helped. Also notes that his father in June, granddaughter very recently; 1 of a set of twins that he met and then she was taken off ventilator. Notes mood has been low subsequently. Interested in trying medication. Notes not currently going to counselor, has not seen a grief counselor or had support group. Notes he feels best when he is active. Symptoms seem less when he is active as well, not exertional. Functional capacity is unchanged. Last HgA1C was Hemoglobin A1C (%) Date Value 03/03/2021 5.5 03/15/2020 5.6 HTN: No report of headache, chest pain, palpitations, dyspnea, peripheral edema, orthopnea, fatigueor PND. He notes consistently taking medication. Notes positional lightheadedness when arising froma chair too quickly the passes in seconds without intervention and no associated symptoms. Last 14 Encounter BP Readings: Date: BP: 06/05/2021 130/82 04/17/2021 130/84 04/08/2021 122/84 04/02/2020 130/76 03/20/2019 110/78 03/14/2018 116/70 03/31/2017 120/80 02/03/2017 113/76 11/06/2016 118/76 10/26/2016 116/80 08/07/2016 110/70 02/07/2016 128/80 08/01/2015 134/90 07/03/2009 125/81 Today reports he is overall feeling much improved. Physical therapy was very helpful. He was seen by Dr. Unger, noted likely cervical cause for discomfort. Continues with warm moist heat in the morning and home exercises which are helpful. Shoulder: much improved Depression: Mood is stable, much improved, thinks he may want to discontinue Lexapro soon. No voiced SI HI GERD: Without current complaints, has continued on with PPI. Review of Systems Constitutional: Negative. Respiratory: Negative. Cardiovascular: Negative. Endocrine: Negative. Musculoskeletal: Positive for arthralgias. Neurological: Positive for numbness. Psychiatric/Behavioral: Positive for dysphoric mood. Objective BP 118/82 Pulse 68 Resp 26 Wt 98 kg (216 lb) BMI 34.86 kg/m Physical Exam Vitals and nursing note reviewed. Constitutional: Appearance: Normal appearance. HENT: Head: Normocephalic and atraumatic. Eyes: Conjunctiva/sclera: Conjunctivae normal. Cardiovascular: Rate and Rhythm: Normal rate. Pulmonary: Effort: Pulmonary effort is normal. Abdominal: General: Bowel sounds are normal. There is no distension. Palpations: Abdomen is soft. There is no mass. Tenderness: There is no abdominal tenderness. There is no guarding or rebound. Hernia: No hernia is present. Musculoskeletal: Left shoulder: Tenderness and crepitus present. Cervical back: No crepitus. Muscular tenderness present. Right lower leg: No edema. Skin: General: Skin is warm and dry. Neurological: General: No focal deficit present. Mental Status: He is alert and oriented to person, place, and time. Psychiatric: Attention and Perception: Attention normal. Mood and Affect: Affect is tearful. Speech: Speech normal. Cognition and Memory: Cognition normal. ALLERGIES No Known Allergies Medications escitalopram oxalate (LEXAPRO) 5 mg tablet Take 1 tablet by mouth once daily. May increase to two tablets after one week Omeprazole Magnesium (PRILOSEC OTC) 20 mg tablet Take 1 tablet by mouth daily before breakfast. 1/2hr before meal. fluticasone propionate (FLONASE NASAL) Use in the nose. hydroCHLOROthiazide (HYDRODIURIL, ESIDRIX) 25 mg tablet Take 1 tablet by mouth once daily. ramipril (ALTACE) 10 mg capsule Take 1 capsule by mouth once daily. sodium chloride (SALINE MIST) 0.65 % nasal spray Use 1 [place] in the nose as needed for Cold/AllergySymptoms (nasal congestion). aspirin(ADULT LOW DOSE ASPIRIN 81 MG TAB, DELAYED RELEASE) daily PAST MEDICAL HISTORY Diagnosis Date Basal cell carcinoma right inferior lateral upper back; Dr Santiago Aceves 07/11/14 Elevated fasting blood sugar Hypercholesterolemia Hypertension Obesity (BMI 30.0-34.9) Snoring Tear of MCL (medial collateral ligament) of knee Social History Tobacco Use Smoking status: Never Smoker Smokeless tobacco: Never Used Vaping Use Vaping Use: Never used Substance Use Topics Alcohol use: Yes Comment: 0-1 / week Drug use: No ASSESSMENT/PLAN: 1. Left cervical radiculopathy - ICD9: 723.4, ICD10: M54.12 (primary diagnosis) 2. Cervicalgia - ICD9: 723.1, ICD10: M54.2 3. Acute pain of left shoulder - ICD9: 719.41, ICD10: M25.512 4. Numbness and tingling in left hand - ICD9: 782.0, ICD10: R20.0, R20.2 Much improved with current treatment. Continue unchanged for now, continue to monitor. 5. Depression, unspecified depression type - ICD9: 311, ICD10: F32.A Feeling improved on escitalopram, interested in discontinuing. Recommend taking for 6 to 12 months if willing. When he wants to discontinue recommend reducing dose from 5 mg to 2.5 mg daily x2-weeks,then 2.5 mg every other day for 2 weeks then discontinue - ESCITALOPRAM 5 MG TABLET - CONSULT TO [facility] 6. Heartburn - ICD9: 787.1, ICD10: R12 He notes feeling much improved on current medication. Continue on for 2 months, may try stopping for 1 week at the end of his current prescription to seeif feeling improved. If so may discontinue. If not would recommend resuming. Limiting caffeine and alcohol endorsed. - OMEPRAZOLE MAGNESIUM 20 MG TABLET,DELAYED RELEASE 7. Screening for HIV (human immunodeficiency virus) - ICD9: V73.89, ICD10: Z11.4 - HIV 1 2 COMBO(AG/AB),WITH REFLEX TO DIFFERENTIATION 8. Screening for prostate cancer - ICD9: V76.44, ICD10: Z12.5 no current complaints - PSA/PROSTSPECAG SCRN 9. Screening for colorectal cancer - ICD9: V76.51, V76.41, ICD10: Z12.11, Z12.12 due for colon cancer screening Mar 2022 - CONSULT TO GASTROENTEROLOGY - CONSULT TO GENERAL SURGERY 6 mo follow up with Lilly Malone MD with labs prior Kalin Harris APRN.CNS Medical Decision Making: Problems: Low: 2+ self-limited or minor problems Data: Unique source(s) for external note(s) reviewed: 1 Unique test result(s) reviewed: 1 Unique test(s) ordered: 2 Risk: Moderate: Drug management Medical Decision Making Level: 4 - Moderate [facility] Diagnosis Left cervical radiculopathy- Primary Brachial neuritis or radiculitis nos Depression, unspecified depression type Heartburn Screening for HIV (human immunodeficiency virus) Special screening examination for other specified viral diseases Screening for prostate cancer Special screening for malignant neoplasm of prostate Screening for colorectal cancer Special screening for malignant neoplasms, colon Cervicalgia Numbness and tingling in left hand Disturbance of skin sensation Acute pain of left shoulder [facility] Diagnosis Heartburn [facility]* Diagnosis History of colonic polyps- Primary Personal history of colonic polyps Screening for colorectal cancer Special screening for malignant neoplasms, colon [facility]* Diagnosis History of colonic polyps Personal history of colonic polyps [facility]* Diagnosis Tubular adenoma- Primary Benign neoplasm of unspecified site History of colonic polyps Personal history of colonic polyps [facility]* Diagnosis History of colonic polyps- Primary Personal history of colonic polyps [facility]* Diagnosis Cornea abrasion, right, initial encounter- Primary [facility]* Diagnosis Essential hypertension- Primary Unspecified essential hypertension IFG (impaired fasting glucose) Impaired fasting glucose Anxiety Anxiety state, unspecified Low HDL (under 40) Lipoprotein deficiencies Need for vaccination Need for prophylactic vaccination and inoculation against unspecified single disease Elevated PSA, less than 10 ng/ml Elevated prostate specific antigen (PSA) documented [facility]* Diagnosis Injury of groin, initial encounter- Primary Right groin pain Abdominal pain, right lower quadrant Pain in the coccyx Other disorder of coccyx [facility]* Diagnosis Right hip pain- Primary Pain in joint, pelvic region and thigh Tear of right acetabular labrum, initial encounter [facility]* Diagnosis Sinobronchitis- Primary Unspecified sinusitis (chronic) [facility]* Diagnosis Right hip pain Pain in joint, pelvic region and thigh Tear of right acetabular labrum, initial encounter [facility]* Diagnosis Anxiety Anxiety state, unspecified [facility]* Diagnosis Hordeolum internum of right lower eyelid- Primary Hordeolum internum [facility]* Diagnosis Pain in hip Pain in joint, pelvic region and thigh Injury of groin, initial encounter Right groin pain Abdominal pain, right lower quadrant Pain in the coccyx Other disorder of coccyx [facility]* Diagnosis Sinobronchitis Unspecified sinusitis (chronic) [facility]* Diagnosis PND (post-nasal drip)- Primary Postnasal drip Ear fullness, bilateral Watery eyes Epiphora, unspecified as to cause [facility]* Diagnosis PND (post-nasal drip) Postnasal drip Ear fullness, bilateral [facility]* Diagnosis Eye muscle twitches- Primary Abnormal involuntary movements Stress at home Unspecified family circumstance [facility]* Diagnosis Injury of groin, initial encounter Right groin pain Abdominal pain, right lower quadrant Pain in the coccyx Other disorder of coccyx [facility]* Diagnosis Cervicalgia Acute pain of left shoulder Numbness and tingling in left hand Disturbance of skin sensation [facility]* Diagnosis Medicare annual wellness visit, subsequent- Primary Routine general medical examination at a health care facility Primary hypertension Unspecified essential hypertension IFG (impaired fasting glucose) Impaired fasting glucose Obesity (BMI 30.0-34.9) Obesity, unspecified Encounter for screening examination for other mental health and behavioral disorders Screening for depression documented in [facility]* Diagnosis Acute pain of left knee- Primary Arthritis of both knees Unspecified arthropathy, lower leg Acute pain of left knee [facility]* Diagnosis Acute pain of left knee documented in [facility]* Diagnosis Acute pain of left knee Arthritis of both knees Unspecified arthropathy, lower leg Primary osteoarthritis of left knee Primary localized osteoarthrosis, lower leg Primary osteoarthritis of right knee Primary localized osteoarthrosis, lower leg Chondrocalcinosis of right knee [facility] Outpatient Procedure (Routine) - Closed Specialty Diagnoses / Procedures Referred By Robert mercado Referred To Contact [facility] Diagnoses History of colonic polyps Procedures COLONOSCOPY SCREENING COLONOSCOPY FLX DX W/COLLJ SPEC WHEN Sherri Vasquez PA-C [address] [place] [address] [facility] [address] [place] [address] Referral ID Status Reason Start Date Expiration Date V isits Requested Visits Authorized [id number] Closed Auto-Generate d Referral 09/08/2021 09/08/2022 1 [facility] Outpatient Procedure (Routine) - Closed Specialty Diagnoses / Procedures Referred By Robert mercado Referred To Contact [facility] Diagnoses History of colonic polyps Procedures COLONOSCOPY SCREENING COLONOSCOPY FLX DX W/COLLJ SPEC WHEN PFRMD Sherri Woodruff PA-C [address] [facility] [place] [address] [facility] [address] [place] [address] Referral ID Status Reason Start Date Expiration Date V isits Requested Visits Authorized [id number] Closed Auto-Generate d Referral 09/08/2021 09/08/2022 1 1 [facility] for referral (narrative)* Diagnostic Procedure Only (Routine) - Pending Review Specialty Diagnoses / Procedures Referred By Contac t Referred To Contact [facility] Diagnoses Pain in the coccyx Procedures XR SACRUM/COCCYX 3V AP/LAT RADEX SACRUM & COCCYX MINIMUM 2 VIEWS Kalin Harris APRN.MATERNITY FLOOR SUPERVISOR [address] [place] [address] [facility] Referral ID Status Reason Start Date Expiration Date Visits Requested Visits Authorized [id number] Pending Review Auto-Generat ed Referral 05/29/2022 06/28/2023 1 1 * Diagnostic Procedure Only (Routine) - Pending Review Specialty Diagnoses / Procedures Referred By Contac t Referred To Contact [facility] Diagnoses Injury of groin, initial encounter Right groin pain Procedures XR HIP GENERAL 3V PELV/AP/LAT RIGHT RADEX HIP UNILATERAL WITH PELVIS 2-3 VIEWS Kalin Harris APRN.MATERNITY FLOOR SUPERVISOR [address] [place] [address] [facility] Referral ID Status Reason Start Date Expiration Date Visits Requested Visits Authorized [id number] Pending Review Auto-Generat ed Referral 05/29/2022 06/28/2023 1 1 * Diagnostic Procedure Only (Routine) - Pending Review Specialty Diagnoses / Procedures Referred By Contac t Referred To Contact [facility] Diagnoses Injury of groin, initial encounter Right groin pain Procedures US HIP RT US COMPL JOINT R-T W/IMAGE DOCUMENTATION Kalin Harris APRN.MATERNITY FLOOR SUPERVISOR [address] [place] [address] [facility] Referral ID Status Reason Start Date Expiration Date Visits Requested Visits Authorized [id number] Pending Review Auto-Generat ed Referral 05/29/2022 06/28/2023 1 1 [facility] for referral (narrative)* Diagnostic Procedure Only (Routine) - Closed Specialty Diagnoses / Procedures Referred By Contac t Referred To Contact [facility] Diagnoses Pain in the coccyx Procedures XR SACRUM/COCCYX 3V AP/LAT RADEX SACRUM & COCCYX MINIMUM 2 VIEWS Kalin Harris APRN.MATERNITY FLOOR SUPERVISOR [address] [place] [address] [place] [address] Referral ID Status Reason Start Date Expiration Date V isits Requested Visits Authorized [id number] Closed Auto-Generate d Referral 05/29/2022 06/28/2023 1 1 * Diagnostic Procedure Only (Routine) - Closed Specialty Diagnoses / Procedures Referred By Contac t Referred To Contact [facility] Diagnoses Injury of groin, initial encounter Right groin pain Procedures XR HIP GENERAL 3V PELV/AP/LAT RIGHT RADEX HIP UNILATERAL WITH PELVIS 2-3 VIEWS Kalin Harris APRN.MATERNITY FLOOR SUPERVISOR [address] [place] [address] [place] [address] Referral ID Status Reason Start Date Expiration Date V isits Requested Visits Authorized [id number] Closed Auto-Generate d Referral 05/29/2022 06/28/2023 1 1 [facility] for referral (narrative)* Diagnostic Procedure Only (Routine) - Closed Specialty Diagnoses / Procedures Referred By Contac t Referred To Contact [facility] IM[facility] Diagnoses Acute pain of left shoulder Numbness and tingling in left hand Procedures XR SHOULDER LIMITED 2V AP/TRUE AP LEFT RADEX SHOULDER COMPLETE MINIMUM 2 VIEWS Kalin Harris APRN.MATERNITY FLOOR SUPERVISOR [address] [place] [address] [place] [address] Referral ID Status Reason Start Date Expiration Date V isits Requested Visits Authorized [id number] Closed Auto-Generate d Referral 06/05/2021 07/05/2022 1 1 * Diagnostic Procedure Only (Routine) - Closed Specialty Diagnoses / Procedures Referred By Contac t Referred To Contact [facility] Diagnoses Cervicalgia Left cervical radiculopathy Procedures XR CERV GENERAL 2V AP/LAT RADEX SPINE CERVICAL 2 OR 3 VIEWS Kalin Harris APRN.MATERNITY FLOOR SUPERVISOR [address] [place] [address] [place] [address] Referral ID Status Reason Start Date Expiration Date V isits Requested Visits Authorized [id number] Closed Auto-Generate d Referral 06/05/2021 07/05/2022 1 1 [facility]No reason for referral information [facility]Bloom[facility] Work Phone: Reason for visit Narrative* Outpatient Procedure (Routine) - Closed Specialty Diagnoses / Procedures Referred By Contac t Referred To Contact [facility] Diagnoses History of colonic polyps Procedures COLONOSCOPY SCREENING COLONOSCOPY FLX DX W/COLLJ SPEC WHEN PFRMD Sherri Woodruff PA-C [address] [place] [address] [facility] [address] [place] [address] Referral ID Status Reason Start Date Expiration Date V isits Requested Visits Authorized [id number] Closed Auto-Generate d Referral 09/08/2021 09/08/2022 1 1 [facility] for visit Narrative* Diagnostic Procedure Only (Routine) - Closed Specialty Diagnoses / Procedures Referred By Contac t Referred To Contact [facility]R IMAGING Diagnoses Pain in the coccyx Procedures XR SACRUM/COCCYX 3V AP/LAT RADEX SACRUM & COCCYX MINIMUM 2 VIEWS Kalin Harris, APPLICATION CONSULTANT.MATERNITY FLOOR SUPERVISOR [address] [place] [address] [place] [address] Referral ID Status Reason Start Date Expiration Date V isits Requested Visits Authorized [id number] Closed Auto-Generate d Referral 05/29/2022 06/28/2023 1 1 [facility] for visit Narrative* Diagnostic Procedure Only (Routine) - Closed Specialty Diagnoses / Procedures Referred By Contac t Referred To Contact XR IMAGING Diagnoses Acute pain of left shoulder Numbness and tingling in left hand Procedures XR SHOULDER LIMITED 2V AP/TRUE AP LEFT RADEX SHOULDER COMPLETE MINIMUM 2 VIEWS Kalin Harris, APPLICATION CONSULTANT.MATERNITY FLOOR SUPERVISOR [address] [place] [address] [place] [address] Referral ID Status Reason Start Date Expiration Date V isits Requested Visits Authorized [id number] Closed Auto-Generate d Referral 06/05/2021 07/05/2022 1 1 [facility] for visit Narrative* Diagnostic Procedure Only (Urgent) - Closed Specialty Diagnoses / Procedures Referred By Contac t Referred To Contact [facility]R IMAG[facility] Diagnoses Acute pain of left knee Unilateral primary osteoarthritis, left knee Procedures XR KNEE GENERAL 4V AP BOTH/PA BOTH/LAT/MERC LEFT RADIOLOGIC EXAM KNEE COMPLETE 4/MORE VIEWS Kalin Harris, APPLICATION CONSULTANT.MATERNITY FLOOR SUPERVISOR [address] [place] [address] Phone: tel: fax: [place] [address] Referral ID Status Reason Start Date Expiration Date V isits Requested Visits Authorized [id number] Closed Auto-Generate d Referral 08/11/2024 09/10/2025 1 1 [facility] Summary Purpose Family History No Family History Records FoundNo Family History Records FoundNo Family History Records Found Advance Directives Documents on File Type Date Recorded Patient Workers' Compensation Hearings Officer Expl anation Advance Directive(s) 04/05/2017 11:39 AM Documents on File Type Date Recorded Patient Workers' Compensation Hearings Officer Expl anation Advance Directive(s) 04/05/2017 11:39 AM Documents on File Type Date Recorded Patient Workers' Compensation Hearings Officer Expl anation Advance Directive(s) 11/03/2021 8:39 AM Advance Directive(s) 04/05/2017 11:39 AM Documents on File Type Date Recorded Patient Workers' Compensation Hearings Officer Expl anation Advance Directive(s) 11/03/2021 8:39 AM Advance Directive(s) 04/05/2017 11:39 AM Documents on File Type Date Recorded Patient Workers' Compensation Hearings Officer Expl anation Advance Directive(s) 01/05/2024 8:20 AM Documents on File Type Date Recorded Patient Workers' Compensation Hearings Officer Expl anation Advance Directive(s) 2024 4:51 PM Advance Directive(s) 01/05/2024 8:20 AM Documents on File Type Date Recorded Patient Workers' Compensation Hearings Officer Expl anation Advance Directive(s) 2024 4:51 PM Advance Directive(s) 01/05/2024 8:20 AM Reason for Referral Specialty Diagnoses / Procedures Referred By Contac t Referred To Contact General Surgery Diagnoses Screening for colorectal cancer Procedures CONSULT TO GENERAL SURGERY OFFICE/OUTPATIENT [facility] 60-74 MINUTES Kalin Harris, APPLICATION CONSULTANT.MATERNITY FLOOR SUPERVISOR [address] [place] [address] Referral ID Status Reason Start Date Expiration Date Visits Requested Visits Authorized [id number] Authorized PCP Requested Referral 08/04/2021 08/04/2022 1 1 Specialty Diagnoses / Procedures Referred By Contac t Referred To Contact Gastroenterology Diagnoses Screening for colorectal cancer Procedures CONSULT TO GASTROENTEROLOGY OFFICE/OUTPATIENT [facility] 60-74 MINUTES Kalin Harris, APPLICATION CONSULTANT.MATERNITY FLOOR SUPERVISOR [address] [place] [address] Referral ID Status Reason Start Date Expiration Date Visits Requested Visits Authorized [id number] Authorized PCP Requested Referral 08/04/2021 08/04/2022 1 1 Specialty Diagnoses / Procedures Referred By Contac t Referred To Contact Orthopedics Diagnoses Right hip pain Tear of right acetabular labrum, initial encounter Procedures CONSULT TO ORTHOPAEDICS OFFICE/OUTPATIENT [facility] 60-74 MINUTES Kalin Harris, APPLICATION CONSULTANT.MATERNITY FLOOR SUPERVISOR [address] [place] [address] Referral ID Status Reason Start Date Expiration Date Visits Requested Visits Authorized [id number] Pending Review PCP Requested Referral 07/16/2022 07/16/2023 1 1 Specialty Diagnoses / Procedures Referred By Contac t Referred To Contact MR IMAGING Diagnoses Pain in hip Injury of groin, initial encounter Right groin pain Pain in the coccyx Procedures MRI HIP WO/W IVCON RT MRI ANY JT LOWER EXTREM W/O & W/CONTRAST Kalin Taylor, APPLICATION CONSULTANT.MATERNITY FLOOR SUPERVISOR [address] [place] [address] [place] [address] Referral ID Status Reason Start Date Expiration Date V isits Requested Visits Authorized [id number] Closed Auto-Generate d Referral 06/15/2022 07/15/2023 1 1 Medications Administered Section Inactive Administered Medications - up to 3 most recent administrations Medication Order MAR Action Action Date Dose Rate Site diphenhydrAMINE 12.5-50 mg injection (BENADRYL) 12.5-50 mg, INTRAVENOUS, DIRECTED, Starting on Wed11/03/21 at 1000, Until Wed11/03/21 at 1359, DOSING DIRECTED BY PHYSICIAN FOR PROCEDURAL SEDATION ONLY, Intraprocedure Given 11/03/2021 9:47 AM EDT 50 mg fentaNYL 50 mcg/mL 25-100 mcg injection (SUBLIMAZE) 25-100 mcg, INTRAVENOUS, DIRECTED, Starting on Wed11/03/21 at 1000, Until Wed11/03/21 at 1359, DOSING DIRECTED BY PHYSICIAN FOR PROCEDURAL SEDATION ONLY, Intraprocedure Given 11/03/2021 9:45 AM EDT 50 mcg lactated ringers iv infusion 30 mL/hr, INTRAVENOUS, CONTINUOUS, Starting on Wed11/03/21 at 0930, Until Wed11/03/21 at 1009, Preprocedure New Bag/Syringe/Cherie le 11/03/2021 9:08 AM EDT 30 mL/hr 30 mL/hr Hand, Right midazolam (PF) 1-5 mg injection (VERSED) 1-5 mg, INTRAVENOUS, DIRECTED, Starting on Wed11/03/21 at 1000, Until Wed11/03/21 at 1359, DOSING DIRECTED BY PHYSICIAN FOR PROCEDURAL SEDATION ONLY, Intraprocedure Given 11/03/2021 9:50 AM EDT 2 mg Given 11/03/2021 9:45 AM EDT 3 mg Chief Complaint and Reason for Visit Chief Complaint Admit Date BACK PAIN June 27, 2024 9:45 am BACK PAIN July 26, 2024 8:09 am BACK PAIN September 04, 2024 8:11a m BACK PAIN October 09, 2024 8:28 am Reason for Visit Admit Date Back pain June 27, 2024 9:45 am Segmental and somatic dysfunction of cer vical region June 27, 2024 9:45am Segmental and somatic dysfunction of lum bar region June 27, 2024 9:45am Segmental and somatic dysfunction of pel susie region June 27, 2024 9:45am Segmental and somatic dysfunction of tho racic region June 27, 2024 9:45am Scoliosis of lumbar spine June 27 9:45am Back pain July 26, 2024 8:09 am Segmental and somatic dysfunction of cer vical region July 26, 2024 8:09am Segmental and somatic dysfunction of lum bar region July 26, 2024 8:09am Segmental and somatic dysfunction of pel susie region July 26, 2024 8:09am Segmental and somatic dysfunction of tho racic region July 26, 2024 8:09am Scoliosis of lumbar spine July 26 8:09am Back pain September 04, 2024 8:11a m Segmental and somatic dysfunction of cer vical region September 04, 2024 8:11am Segmental and somatic dysfunction of lum bar region September 04, 2024 8:11am Segmental and somatic dysfunction of pel susie region September 04, 2024 8:11am Segmental and somatic dysfunction of tho racic region September 04, 2024 8:11am Scoliosis of lumbar spine September 04, 2024 8:11am Segmental and somatic dysfunction of cer vical region October 09, 2024 8:28am Segmental and somatic dysfunction of lum bar region October 09, 2024 8:28am Segmental and somatic dysfunction of pel susie region October 09, 2024 8:28am Segmental and somatic dysfunction of tho racic region October 09, 2024 8:28am Scoliosis of lumbar spine October 09 8:28am Additional Source Comments (unrecognized sect ion and content) No Status Records FoundNo Status Records FoundNo Status Records Found INFORMATION SOURCE (unrecogn ized section and content) DATE CREATED AUTHOR 08/03/2020 [facility] DATE CREATED AUTHOR AUTHOR'S ORGANIZ ATION 09/13/2024 [facility] DATE CREATED AUTHOR AUTHOR'S ORGANIZ ATION 10/10/2024 [facility] Source Comments (unrecognize d section and content) In the event this informatio n is protected by the Federal Confidentiality of Alcohol and Drug Abuse Patient Records regulations: The Federal rules restrict any use of the information to criminally investigate or prosecute any alcohol or drug abuse patient.[facility] CenterIn the event this information is protected by the Federal Confidentiality of Alcohol and Drug Abuse Patient Records regulations: The Federal rules restrict any use of the information to criminally investigate or prosecute any alcohol or drug abuse patient.[facility] CenterIn the event this information is protected by the Federal Confidentiality of Alcohol and Drug Abuse Patient Records regulations: The Federal rules restrict any use of the information to criminally investigate or prosecute any alcohol or drug abuse patient.[facility] CenterIn the event this information is protected by the Federal Confidentiality of Alcohol and Drug Abuse Patient Records regulations: The Federal rules restrict any use of the information to criminally investigate or prosecute any alcohol or drug abuse patient.[facility] CenterIn the event this information is protected by the Federal Confidentiality of Alcohol and Drug Abuse Patient Records regulations: The Federal rules restrict any use of the information to criminally investigate or prosecute any alcohol or drug abuse patient.[facility] CenterIn the event this information is protected by the Federal Confidentiality of Alcohol and Drug Abuse Patient Records regulations: The Federal rules restrict any use of the information to criminally investigate or prosecute any alcohol or drug abuse patient.[facility] CenterIn the event this information is protected by the Federal Confidentiality of Alcohol and Drug Abuse Patient Records regulations: The Federal rules restrict any use of the information to criminally investigate or prosecute any alcohol or drug abuse patient.[facility] CenterIn the event this information is protected by the Federal Confidentiality of Alcohol and Drug Abuse Patient Records regulations: The Federal rules restrict any use of the information to criminally investigate or prosecute any alcohol or drug abuse patient.[facility] CenterIn the event this information is protected by the Federal Confidentiality of Alcohol and Drug Abuse Patient Records regulations: The Federal rules restrict any use of the information to criminally investigate or prosecute any alcohol or drug abuse patient.[facility] CenterIn the event this information is protected by the Federal Confidentiality of Alcohol and Drug Abuse Patient Records regulations: The Federal rules restrict any use of the information to criminally investigate or prosecute any alcohol or drug abuse patient.[facility] CenterIn the event this information is protected by the Federal Confidentiality of Alcohol and Drug Abuse Patient Records regulations: The Federal rules restrict any use of the information to criminally investigate or prosecute any alcohol or drug abuse patient.[facility] CenterIn the event this information is protected by the Federal Confidentiality of Alcohol and Drug Abuse Patient Records regulations: The Federal rules restrict any use of the information to criminally investigate or prosecute any alcohol or drug abuse patient.[facility] CenterIn the event this information is protected by the Federal Confidentiality of Alcohol and Drug Abuse Patient Records regulations: The Federal rules restrict any use of the information to criminally investigate or prosecute any alcohol or drug abuse patient.[facility] CenterIn the event this information is protected by the Federal Confidentiality of Alcohol and Drug Abuse Patient Records regulations: The Federal rules restrict any use of the information to criminally investigate or prosecute any alcohol or drug abuse patient.[facility] CenterIn the event this information is protected by the Federal Confidentiality of Alcohol and Drug Abuse Patient Records regulations: The Federal rules restrict any use of the information to criminally investigate or prosecute any alcohol or drug abuse patient.[facility] CenterIn the event this information is protected by the Federal Confidentiality of Alcohol and Drug Abuse Patient Records regulations: The Federal rules restrict any use of the information to criminally investigate or prosecute any alcohol or drug abuse patient.[facility] CenterIn the event this information is protected by the Federal Confidentiality of Alcohol and Drug Abuse Patient Records regulations: The Federal rules restrict any use of the information to criminally investigate or prosecute any alcohol or drug abuse patient.[facility] CenterIn the event this information is protected by the Federal Confidentiality of Alcohol and Drug Abuse Patient Records regulations: The Federal rules restrict any use of the information to criminally investigate or prosecute any alcohol or drug abuse patient.[facility] CenterIn the event this information is protected by the Federal Confidentiality of Alcohol and Drug Abuse Patient Records regulations: The Federal rules restrict any use of the information to criminally investigate or prosecute any alcohol or drug abuse patient.[facility] CenterIn the event this information is protected by the Federal Confidentiality of Alcohol and Drug Abuse Patient Records regulations: The Federal rules restrict any use of the information to criminally investigate or prosecute any alcohol or drug abuse patient.[facility] CenterIn the event this information is protected by the Federal Confidentiality of Alcohol and Drug Abuse Patient Records regulations: The Federal rules restrict any use of the information to criminally investigate or prosecute any alcohol or drug abuse patient.[facility] CenterIn the event this information is protected by the Federal Confidentiality of Alcohol and Drug Abuse Patient Records regulations: The Federal rules restrict any use of the information to criminally investigate or prosecute any alcohol or drug abuse patient.[facility] CenterIn the event this information is protected by the Federal Confidentiality of Alcohol and Drug Abuse Patient Records regulations: The Federal rules restrict any use of the information to criminally investigate or prosecute any alcohol or drug abuse patient.[facility] CenterIn the event this information is protected by the Federal Confidentiality of Alcohol and Drug Abuse Patient Records regulations: The Federal rules restrict any use of the information to criminally investigate or prosecute any alcohol or drug abuse patient.[facility] CenterIn the event this information is protected by the Federal Confidentiality of Alcohol and Drug Abuse Patient Records regulations: The Federal rules restrict any use of the information to criminally investigate or prosecute any alcohol or drug abuse patient.[facility] CenterIn the event this information is protected by the Federal Confidentiality of Alcohol and Drug Abuse Patient Records regulations: The Federal rules restrict any use of the information to criminally investigate or prosecute any alcohol or drug abuse patient.[facility] CenterIn the event this information is protected by the Federal Confidentiality of Alcohol and Drug Abuse Patient Records regulations: The Federal rules restrict any use of the information to criminally investigate or prosecute any alcohol or drug abuse patient.[facility] CenterIn the event this information is protected by the Federal Confidentiality of Alcohol and Drug Abuse Patient Records regulations: The Federal rules restrict any use of the information to criminally investigate or prosecute any alcohol or drug abuse patient.[facility] CenterIn the event this information is protected by the Federal Confidentiality of Alcohol and Drug Abuse Patient Records regulations: The Federal rules restrict any use of the information to criminally investigate or prosecute any alcohol or drug abuse patient.[facility] CenterIn the event this information is protected by the Federal Confidentiality of Alcohol and Drug Abuse Patient Records regulations: The Federal rules restrict any use of the information to criminally investigate or prosecute any alcohol or drug abuse patient.[facility] CenterIn the event this information is protected by the Federal Confidentiality of Alcohol and Drug Abuse Patient Records regulations: The Federal rules restrict any use of the information to criminally investigate or prosecute any alcohol or drug abuse patient.[facility] CenterIn the event this information is protected by the Federal Confidentiality of Alcohol and Drug Abuse Patient Records regulations: The Federal rules restrict any use of the information to criminally investigate or prosecute any alcohol or drug abuse patient.[facility] CenterIn the event this information is protected by the Federal Confidentiality of Alcohol and Drug Abuse Patient Records regulations: The Federal rules restrict any use of the information to criminally investigate or prosecute any alcohol or drug abuse patient.[facility] CenterIn the event this information is protected by the Federal Confidentiality of Alcohol and Drug Abuse Patient Records regulations: The Federal rules restrict any use of the information to criminally investigate or prosecute any alcohol or drug abuse patient.[facility] CenterIn the event this information is protected by the Federal Confidentiality of Alcohol and Drug Abuse Patient Records regulations: The Federal rules restrict any use of the information to criminally investigate or prosecute any alcohol or drug abuse patient.[facility] CenterIn the event this information is protected by the Federal Confidentiality of Alcohol and Drug Abuse Patient Records regulations: The Federal rules restrict any use of the information to criminally investigate or prosecute any alcohol or drug abuse patient.[facility] CenterIn the event this information is protected by the Federal Confidentiality of Alcohol and Drug Abuse Patient Records regulations: The Federal rules restrict any use of the information to criminally investigate or prosecute any alcohol or drug abuse patient.[facility] CenterIn the event this information is protected by the Federal Confidentiality of Alcohol and Drug Abuse Patient Records regulations: The Federal rules restrict any use of the information to criminally investigate or prosecute any alcohol or drug abuse patient.[facility] CenterIn the event this information is protected by the Federal Confidentiality of Alcohol and Drug Abuse Patient Records regulations: The Federal rules restrict any use of the information to criminally investigate or prosecute any alcohol or drug abuse patient.[facility] CenterIn the event this information is protected by the Federal Confidentiality of Alcohol and Drug Abuse Patient Records regulations: The Federal rules restrict any use of the information to criminally investigate or prosecute any alcohol or drug abuse patient.[facility] CenterIn the event this information is protected by the Federal Confidentiality of Alcohol and Drug Abuse Patient Records regulations: The Federal rules restrict any use of the information to criminally investigate or prosecute any alcohol or drug abuse patient.[facility] CenterIn the event this information is protected by the Federal Confidentiality of Alcohol and Drug Abuse Patient Records regulations: The Federal rules restrict any use of the information to criminally investigate or prosecute any alcohol or drug abuse patient.[facility] CenterIn the event this information is protected by the Federal Confidentiality of Alcohol and Drug Abuse Patient Records regulations: The Federal rules restrict any use of the information to criminally investigate or prosecute any alcohol or drug abuse patient.[facility] CenterIn the event this information is protected by the Federal Confidentiality of Alcohol and Drug Abuse Patient Records regulations: The Federal rules restrict any use of the information to criminally investigate or prosecute any alcohol or drug abuse patient.[facility] CenterIn the event this information is protected by the Federal Confidentiality of Alcohol and Drug Abuse Patient Records regulations: The Federal rules restrict any use of the information to criminally investigate or prosecute any alcohol or drug abuse patient.[facility] Reason for Visit (unrecogniz ed section and content) Reason Comments Follow Up Reason Comments Consult colonoscopy consulta tion Specialty Diagnoses / Procedures Referred By Contreza t Referred To Contact Gastroenterology Diagnoses Screening for colorectal cancer Procedures CONSULT TO GASTROENTEROLOGY OFFICE/OUTPATIENT [facility] MDM 60-74 MINUTES Kalin Harris, APPLICATION CONSULTANT.MATERNITY FLOOR SUPERVISOR [address] [place] [address] Referral ID Status Reason Start Date Expiration Date V isits Requested Visits Authorized [id number] Closed PCP Requested Referral 08/04/2021 08/04/2022 1 1 Reason Comments Follow Up Reason Comments 11/03/2021 COL[facility] Reason Comments Eye Problem watery, blurry right eye irritation after mowing yard on wednesday Reason Comments Yearly Exam Reason Comments Appointment Reason Comments Orders Reason Comments Order Update Reason Comments Results MRI hip Reason Comments Cough Pt reported throat p ain, nasal congestion x3 wks. Reason Comments New Patient Pain Specialty Diagnoses / Procedures Referred By Robert mercado Referred To Contact Orthopedics Diagnoses Right hip pain Tear of right acetabular labrum, initial encounter Procedures CONSULT TO ORTHOPAEDICS OFFICE/OUTPATIENT [facility] 60-74 MINUTES Kalin Harris, APPLICATION CONSULTANT.MATERNITY FLOOR SUPERVISOR [address] [place] [address] Referral ID Status Reason Start Date Expiration Date Visits Requested Visits Authorized [id number] Pending Review PCP Requested Referral 07/16/2022 07/16/2023 1 1 Reason Onset Date Comments Refill Request 09/07/2022 Reason Comments Eye Problem Irritation under low er right eyelid x 3 days Specialty Diagnoses / Procedures Referred By Robert mercado Referred To Contact MR IMAGING Diagnoses Pain in hip Injury of groin, initial encounter Right groin pain Pain in the coccyx Procedures MRI HIP WO/W IVCON RT MRI ANY JT LOWER EXTREM W/O & W/CONTRAST MATRL Kalin Harris, APPLICATION CONSULTANT.MATERNITY FLOOR SUPERVISOR [address] [place] [address] [place] [address] Referral ID Status Reason Start Date Expiration Date V isits Requested Visits Authorized [id number] Closed Auto-Generate d Referral 06/15/2022 07/15/2023 1 1 Reason Comments Cough Fatigue Reason Comments Pressure In Ear(s) Ears and sinus Reason Onset Date Comments Refill Request 09/02/2023 Reason Onset Date Comments Refill Request 09/03/2023 Reason Comments Patient Question Reason Onset Date Comments Refill Request 10/04/2023 Reason Comments Eye Problem flutter,twitching be low left eye and mid forehead off and on for the last 3-4 weeksQuestion if maybe stress related due to moving mother into his home Reason Comments Medicare Wellness Exam Labs Reason Onset Date Comments Population Health Navigation Outreach 06/16/2024 [employer] High Risk - Attempt 1 Reason Comments Left Knee Pain Reason Comments Established Patient Pain Specialty Diagnoses / Procedures Referred By Robert mercado Referred To Contact Orthopedics Diagnoses Acute pain of left knee Unilateral primary osteoarthritis, left knee Procedures CONSULT TO ORTHOPAEDICS OFFICE/OUTPATIENT [facility] 60 MINUTES Kalin Harris APRN.MATERNITY FLOOR SUPERVISOR [address] [place] [address] Phone: tel: fax: Referral ID Status Reason Start Date Expiration Date V isits Requested Visits Authorized [id number] Closed PCP Requested Referral 08/11/2024 08/11/2025 1 1 Reason Onset Date Comments Refill Request 10/24/2024 Care Teams (unrecognized sec tion and content) Billet Checker Relationship Specialty Start Date End Date Lilly Malone MD [address] [place] [address] PCP - General Internal Medicine 02/07/16 Billet Checker Relationship Specialty Start Date End Date Lilly Malone MD [facility] [place] [address] PCP - General Internal Medicine 02/07/16 Billet Checker Relationship Specialty Start Date End Date Lilly Malone MD [address] [place] [address] PCP - General Internal Medicine 02/07/16 Billet Checker Relationship Specialty Start Date End Date Lilly Malone MD [address] [place] [address] PCP - General Internal Medicine 02/07/16 Billet Checker Relationship Specialty Start Date End Date Lilly Malone MD [address] [place] [id number] PCP - General Internal Medicine 02/07/16 Billet Checker Relationship Specialty Start Date End Date Lilly Malone MD [address] [place] [address] PCP - General Internal Medicine 02/07/16 Billet Checker Relationship Specialty Start Date End Date Lilly Malone MD [address] [place] [address] PCP - General Internal Medicine 02/07/16 Billet Checker Relationship Specialty Start Date End Date Lilly Malone MD [facility] [place] [address] PCP - General Internal Medicine 02/07/16 Billet Checker Relationship Specialty Start Date End Date Lilly Malone MD [address] [place] [address], [place] [address] PCP - General Internal Medicine 02/07/16 Billet Checker Relationship Specialty Start Date End Date Lilly Malone MD [address] [place] [address], [place] [address] PCP - General Internal Medicine 02/07/16 Billet Checker Relationship Specialty Start Date End Date Lilly Malone MD [address] [place] [address], [place] [address] PCP - General Internal Medicine 02/07/16 Billet Checker Relationship Specialty Start Date End Date Lilly Malone MD [address] [place] [address], [place] [address] PCP - General Internal Medicine 02/07/16 Billet Checker Relationship Specialty Start Date End Date Lilly Malone MD [address] [place] [address], [place] [address] PCP - General Internal Medicine 02/07/16 Billet Checker Relationship Specialty Start Date End Date Lilly Malone MD [address] [place] [address], [place] [address] PCP - General Internal Medicine 02/07/16 Billet Checker Relationship Specialty Start Date End Date Lilly Malone MD [address] [place] [address], [place] [address] PCP - General Internal Medicine 02/07/16 Billet Checker Relationship Specialty Start Date End Date Lilly Malone MD [address] [place] [address] PCP - General Internal Medicine 02/07/16 Billet Checker Relationship Specialty Start Date End Date Lilly Malone MD [address] [place] [address] PCP - General Internal Medicine 02/07/16 Billet Checker Relationship Specialty Start Date End Date Lilly Malone MD [address] [place] [address] PCP - General Internal Medicine 02/07/16 Billet Checker Relationship Specialty Start Date End Date Lilly Malone MD [address] [place] [address] PCP - General Internal Medicine 02/07/16 Billet Checker Relationship Specialty Start Date End Date Lilly Malone MD [address] [place] [address] PCP - General Internal Medicine 02/07/16 Billet Checker Relationship Specialty Start Date End Date Lilly Malone MD [address] [place] [address] PCP - General Internal Medicine 02/07/16 Billet Checker Relationship Specialty Start Date End Date Lilly Malone MD [address] [place] [address] PCP - General Internal Medicine 02/07/16 Billet Checker Relationship Specialty Start Date End Date Lilly Malone MD [address] [place] [address] PCP - General Internal Medicine 02/07/16 Billet Checker Relationship Specialty Start Date End Date Lilly Malone MD [address] [place] [address] PCP - General Internal Medicine 02/07/16 Billet Checker Relationship Specialty Start Date End Date Lilly Malone MD [address] [place] [address] PCP - General Internal Medicine 02/07/16 Billet Checker Relationship Specialty Start Date End Date Lilly Malone MD [address] [place] [address] PCP - General Internal Medicine 02/07/16 Billet Checker Relationship Specialty Start Date End Date Lilly Malone MD [address] [place] [address] PCP - General Internal Medicine 02/07/16 Billet Checker Relationship Specialty Start Date End Date Lilly Malone MD [address] [place] [address] PCP - General Internal Medicine 02/07/16 Billet Checker Relationship Specialty Start Date End Date Lilly Malone MD [address] [facility] [place] [address] PCP - General Internal Medicine 02/07/16 Billet Checker Relationship Specialty Start Date End Date Lilly Malone MD [address] [facility] [place] [address] PCP - General Internal Medicine 02/07/16 Billet Checker Relationship Specialty Start Date End Date Lilly Malone MD [address] [place] [address] PCP - General Internal Medicine 02/07/16 Kalin Harris, ABBIE.MATERNITY FLOOR SUPERVISOR [address] [place] [address] Maintenance Supervisor Internal Medicine 04/03/24 Jodee Rea APRN.COUPLER [address] [place] [address] Maintenance Supervisor Internal Medicine 04/03/24 Billet Checker Relationship Specialty Start Date End Date Lilly Malone MD [address] [place] [address] PCP - General Internal Medicine 02/07/16 Kalin Harris APPLICATION CONSULTANT.MATERNITY FLOOR SUPERVISOR [address] [place] [address] Maintenance Supervisor Internal Medicine 04/03/24 Jodee Rea APRN.COUPLER [address] [place] [address] Maintenance Supervisor Internal Medicine 04/03/24 Billet Checker Relationship Specialty Start Date End Date Lilly Malone MD [address] [place] [address] PCP - General Internal Medicine 02/07/16 Kalin Harris APPLICATION CONSULTANT.MATERNITY FLOOR SUPERVISOR [address] [place] [address] Maintenance Supervisor Internal Medicine 04/03/24 Jodee Rea APPLICATION CONSULTANT.COUPLER [address] [place] [address] [facility] Internal Medicine 07/18/24 Billet Checker Relationship Specialty Start Date End Date Lilly Malone MD [address] [facility] [place] [address] PCP - General Internal Medicine 02/07/16 Kalin Harris, APPLICATION CONSULTANT.MATERNITY FLOOR SUPERVISOR [address] [facility] [place] [address] Maintenance Supervisor Internal Medicine 04/03/24 Jodee Rea APPLICATION CONSULTANT.COUPLER [address] [facility] [address] [facility] Internal Medicine 07/18/24 Billet Checker Relationship Specialty Start Date End Date Lilly Malone MD [address] [place] [address] PCP - General Internal Medicine 02/07/16 Kalin Harris, APPLICATION CONSULTANT.MATERNITY FLOOR SUPERVISOR [address] [place] [address] [facility] Internal Medicine 04/03/24 Jodee Rea APPLICATION CONSULTANT.COUPLER [address] [place] [address] [facility] Internal Medicine 07/18/24 Billet Checker Relationship Specialty Start Date End Date Lilly Malone MD [address] [place] [address] PCP - General Internal Medicine 02/07/16 Kalin Harris, APPLICATION CONSULTANT.MATERNITY FLOOR SUPERVISOR [address] [place] [address] [facility] Internal Medicine 04/03/24 Jodee Rea APRN.CNP [address] [place] [address] [facility] Internal Medicine 07/18/24 Team Status: Active Member Role Status Dates Dr. Johanny Hilario MD Primary Care Provider Active Team Status: Inactive Member Role Status Dates Dr. Johanny Hilario MD Primary Care Provider Active Start: June 27, 2024 End: June 27, 2024 Dr. Johanny Hilario MD Referring Provider Active Start: June 27, 2024 End: June 27, 2024 Dr. Mitzy Conde DC Attending Provider Active S tart: June 27, 2024 End: June 27, 2024 Team Status: Inactive Member Role Status Dates Dr. Johanny Hilario MD Primary Care Provider Active Start: July 26, 2024 End: July 26, 2024 Dr. Johanny Hilario MD Referring Provider Active Start: July 26, 2024 End: July 26, 2024 Dr. Mitzy Conde DC Attending Provider Active S tart: July 26, 2024 End: July 26, 2024 Team Status: Inactive Member Role Status Dates Dr. Johanny Hilario MD Primary Care Provider Active Start: September 04, 2024 End: September 04, 2024 Dr. Johanny Hilario MD Referring Provider Active Start: September 04, 2024 End: September 04, 2024 Dr. Mitzy Conde DC Attending Provider Active S tart: September 04, 2024 End: September 04, 2024 Team Status: Inactive Member Role Status Dates Dr. Johanny Hilario MD Primary Care Provider Active Start: October 09, 2024 End: October 09, 2024 Dr. Johanny Hilario MD Referring Provider Active Start: October 09, 2024 End: October 09, 2024 Dr. Mitzy Conde DC Attending Provider Active S tart: October 09, 2024 End: October 09, 2024 Billet Checker Relationship Specialty Start Date End Date Lilly Malone MD [address] [place] [address] PCP - General Internal Medicine 02/07/16 Kalin Harris, APPLICATION CONSULTANT.MATERNITY FLOOR SUPERVISOR [address] [place], [place] [address] [facility] Internal Medicine 04/03/24 09/12/24 Jodee Rea APPLICATION CONSULTANT.COUPLER [address] [place], [place] [address] [facility] Internal Medicine 07/18/24 Kalin Harris, APPLICATION CONSULTANT.MATERNITY FLOOR SUPERVISOR [address] [place], [place] [address] [facility] Internal Medicine 09/13/24 Billet Checker Relationship Specialty Start Date End Date Lilly Malone MD [address] [place], [place] [address] PCP - General Internal Medicine 02/07/16 Jodee Rea APPLICATION CONSULTANT.COUPLER [address] [place], [place] [address] [facility] Internal Medicine 07/18/24 Kalin Harris, APPLICATION CONSULTANT.MATERNITY FLOOR SUPERVISOR [address] [place], [place] [address] [facility] Internal [facility] 09/13/24 FOR RECORDS PERTAINING TO PATIENTS WHO ARE OR HAVE BEEN ENROLLED IN A CHEMICAL DEPENDENCY/SUBSTANCEABUSE PROGRAM, SOME INFORMATION MAY BE OMITTED. This clinical summary was aggregated from multiple sources. Caution should be exercised in using it in the provision of clinical care. This summary normalizes information from multiple sources, and as a consequence, information in this document may materially change the coding, format and clinical context of patient data. In addition, data may be omitted in some cases. CLINICAL DECISIONS SHOULD BE BASED ON THE PRIMARY CLINICAL RECORDS. [employer] provides no warranty or guarantee of the accuracy or completeness of information in this document.
[2025-04-14 11:26] LABS: Anion Gap 14 (5-15); BUN 14 mg/dL (4-19); BUN/Creat Ratio 13.5 RATIO (10-20); Calcium,Total 9.4 mg/dL (7.6-11.0); Carbon Dioxide 27.1 mmol/L (21.0-32.0); Chloride 95 mmol/L (98-108); Estimated Creatinine Clearance 83.79 ml/min (50-250); Glucose 164 mg/dL (70-99); Potassium 3.1 mmol/L (3.3-5.1)
--- NOTE | 2025-04-14 11:35 | PCM.HP.STD ---
[facility] - General General Date of Admission: 04/14/25 Date of Service: 04/14/25 HPI Narrative DILIA MAST, is a 70 M who presents via the ED on 04/14/2025 with a complaint of palpitations which started on the morning of admission. He said he checks his heart rate every morning and said his heart rate was fine yesterday but he noted that he was having a fast heart rate this morning. He denied any shortness of breath, dizziness, nausea, vomiting, chest pain or any other symptoms. Review of systems is otherwise negative. He has no history of afib. He denied any recent travel and admitted to a personal history of afib. Vitals in the ED were 126/83, [place] of 99, Resp of 18 and oxygen sats of 100% on room air. CBC showed hb of 17.2, wbc of 9.3 and platelets of 351. Chemistry showed sodium of 136, potassium of 3.1 and bicarb of 27.1. Initial troponin was 11. EKG showed afib with RVR. He was given a dose of IV cardizem bolus in the ED. CXR showed no acute cardiopulmonary pathology. He is being admitted to be managed for new onset afib with RVR. REPLACED BY [facility] Medical History (Updated 04/14/25 @ 12:52 by Mary Rodriguez) Atrial fibrillation Home Medications ?Medication ?Instructions ?Recorded ?Last Taken ?Type aspirin 81 mg tablet,delayed 81 mg PO DAILY prevention 09/21/23 Unknown History release hydrochlorothiazide 25 mg tablet 25 mg PO DAILY blood pressure 09/21/23 Unknown History meloxicam 15 mg tablet 15 mg PO DAILY PRN hip pain 09/21/23 Unknown History ramipril 10 mg capsule 10 mg PO DAILY blood pressure 09/21/23 Unknown History Allergy/AdvReac Type Severity Reaction Status Date / Time No Known Allergies Allergy Verified 04/14/25 10:31 Social History (Updated 04/14/25 @ 12:52 by Mary Rodriguez) Smoking Status: Never smoker alcohol intake: never substance use type: does not use ROS Constitutional Constitutional: Denies anorexia, chills, fatigue, fever(s), malaise or weakness Eyes Eyes: Denies change in vision ENT HEENT: Denies dysphagia Cardiovascular Cardiovascular: Reports palpitations and rapid heart rate; Denies chest pain, dyspnea on exertion, edema, lightheadedness, orthopnea, paroxysmal nocturnal dyspnea or syncope Respiratory/Chest Respiratory/Chest: Denies cough, dyspnea, shortness of breath at rest or shortness of breath with exertion Gastrointestinal Gastrointestinal: Denies abdominal pain, diarrhea, nausea or vomiting Genitourinary Genitourinary: Denies burning urination or dysuria Musculoskeletal Musculoskeletal: Denies arthralgias or joint pain Neurologic Neurologic: Denies confusion, dizziness, focal weakness, headache(s), numbness or seizures Psychiatric Psychiatric: Denies anxiety Endocrine Endocrinology: Denies cold intolerance Patient's Goals Of Care . What would you like to achieve or improve as a result of your hospital stay?: to find out why he has afib Vital Signs Vital Signs Vital Signs: 04/14/25 10:29 04/14/25 10:31 Temperature 98.1 F 97.9 F Temperature Source Oral Oral Pulse Rate 108 H 99 Respiratory Rate 20 H 18 Blood Pressure 115/82 H 126/83 H Blood Pressure Mean 93 97 Pulse Ox 100 100 Oxygen Delivery Method Room Air Room Air Weight Weight: 228 lb Body Mass Index (BMI) 33.6 Physical Exam Const alert, oriented x3 and no apparent distress Constitutional Narrative: class I obesity General Appearance: cooperative HEENT normocephalic, head/scalp atraumatic, moist oral mucous membranes and oropharynx normal Mouth: oral and palatal mucosa normal Eyes EOMs intact bilaterally and conjunctivae normal Neck supple and no JVD Resp Resp Narrative: mildly diminished breath sounds bibasally, no wheezes or crackles. On room air. Cardio regular rate, S1 normal heart sound, S2 normal heart sound and no murmurs Cardio Narrative: afib, rate controlled GI normal to inspection, nondistended, normoactive bowel sounds, soft to palpation and non-tender Extremity normal to inspection, full ROM and no clubbing, cyanosis or edema Neuro oriented x3, CN's II-XII intact bilaterally and moves all extremities Sensorium / Orientation: awake and alert Motor Exam: strength 5/5 throughout Psych affect normal Results Lab / Micro Data 04/14/25 10:30 04/14/25 10:30 Labs: Laboratory Results - last 24 hr 04/14/25 10:30: WBC 9.3, RBC 5.39, Hgb 17.2 H, Hct 47.6, MCV 88.3, MCH 31.9, MCHC 36.1 H, RDW Std Deviation 39.8, RDW Coeff of Brayden 12.2, Plt Count 351, MPV 9.2, Immature Gran % (Auto) 0.300, Neut % (Auto) 61.9, Lymph % (Auto) 25.1, Haralson % (Auto) 10.4 H, Eos % (Auto) 1.8, Baso % (Auto) 0.5, Absolute Neuts (auto) 5.8, Absolute Lymphs (auto) 2.34, Nucleated RBC % 0, Sodium 136, Potassium 3.1 L, Chloride 95 L, Carbon Dioxide 27.1, Anion Gap 14, BUN 14, Creatinine 1.00, Estim Creat Clear Calc 83.79, Est GFR (MDRD) Non-Af 82, BUN/Creatinine Ratio 13.5, Glucose 164 H, Calcium 9.4, Troponin T High Sens 11 Imaging Radiology Impression Chest X-Ray 04/14/25 11:20 IMPRESSION: No acute cardiopulmonary process. Reading Location: [facility] Assessment & Plan Assessment/Plan (1) Acute hypokalemia: (2) Hypertension: (3) Atrial fibrillation, new onset: PLAN: Plan #New onset afib admit to PCU admitted with a complaint of tachycardia. Found to be in afib with RVR does not have a history of afib. was given a bolus of cardizem in the ED. start on PO metoprolol 12.5mg bid. given a dose of therapeutic lovenox in the ED.Continue with eliquis for stroke prophylaxis get 2D echo check Mg and TSH. K is 3.1 so will replace Patient's says he snores and has apneic periods. With that we will benefit from referral to pulmonology on outpatient basis for workup for sleep apnea. #Hypokalemia: K is 3.1. Will replace and trend. # Hypertension: On ramipril and hydrochlorothiazide. Started on metoprolol also for A-fib DVT prophylaxis: Not indicated as patient being placed on Eliquis CODE STATUS: Full code Patient and counseled extensively about different types of CODE STATUS including full code, DNR CCA and DNR CCA. Patient elects to be full code. Total [id number] time 17 minutes. Charges/Coding Visit Charges Inpatient E&M: 47612 Init Hosp L3 Procedures Hospitalists Procedures: 98505 Advncd Care Plan 30 Min
[2025-04-14] MEDS: Potassium Chloride Oral Tablet 20 MEQ 40 MEQ PO (11:41)
--- OUTSIDE RECORDS SUMMARY | 2025-04-14 12:12 | XMS RPT_ITS | CCD ---
Author Organization [facility]iniSys[facility] Care Team Providers Care Telegraph Messenger Name Role Phone Lilly Malone MD Primary Care Provider Lilly Malone MD Primary Care Provider Harris CIVIL TRANSPORTATION ENGINEER.COOKING TEACHER, Kalin Unavailable Rona CIVIL TRANSPORTATION ENGINEER.FAST FOOD CASHIER, Jodee Unavailable Rona CIVIL TRANSPORTATION ENGINEER.FAST FOOD CASHIER, Jodee Unavailable [phone] TALAMPAS, LILLY D [...] Yanelis POTTS, Dr. Orlando Primary Care Provider Dr. Johanny Hilario MD Referring Provider Dr. Mitzy Conde DC Attending Provider Mitzy Conde Attending Unavailable Bonezzi, Johanny Primary Care Unavailable Bonezzbryson, Johanny Referring Unavailable DosMitzy hayden Attending Unavailable [...] Primary Care Unavailable DosMitzy hayden Attending Unavailable [place] CIVIL TRANSPORTATION ENGINEER.COOKING TEACHER, Kalin Unavailable [phone] Harris CIVIL TRANSPORTATION ENGINEER.COOKING TEACHER, Kalin Unavailable Medications Current Medications Medication Drug Class(es) Dates Sig (Normalized) Sig (Original) acetaminophen 32 mg/ml oral solution (1 source) Start: 09-21-2023 take 650 mg by mouth every six hours as needed Acetaminophen 650 mg/20.3 mL solution Active 650 mg PO EVERY 6 HOURS as needed September 21, 2023 12:00am [id number] 200 actuat albuterol 0.09 mg/actuat metered dose [...] on above: Take 1 capsule by mo [facility] once daily. Completed/Discontinued Medications Medication Drug Class(es) [...] 1/2 hr before meal. polyethylene glycol 3350 044458 mg / potassium chloride 2970 mg / sodium bicarbonate 6740 mg / sodium chloride 5860 mg / sodium sulfate 11542 mg powder for oral solution (1 source) [...] Indications: Acute non-recurrent maxillary sinusitis Use 1 [place] in the nose as needed for Cold/Allergy Symptoms (nasal congestion). 50 mL 1 05/27/2020 04/10/2022 Discontinued Comment on above: Use 1 [place] in the n ose as needed for [...] [facility] Facility Chiropractic Reporton 2024 Chiropractic Report [facility] [address] [place] [address] OFFICE VISIT Date of Service: 10/09/24 MR#: [id number] Acct: [id number] Name: DILIA MAST Ari Rep #: [id number] : 1955 Provider: THOMAS Asencio Age/Sex: 69/M Location: [facility] Status: Signed Intake Vital Signs 09/21/23 08:45 [...] CPT Codes Procedures - Manipulation: 3-4 regions (12787) Clinical Quality Measures Falls Risk Screen (more content not included)... [facility] ([facility]THWS ) -------- DILIA MAST ([id number]) 1955 M Date Time Provider Department 09/11/24 8:00 AM MASON UNGER During your visit today, we recorded the following information about you: Mason Unger MD 09/11/2024 12:02 PM Addendum Mason Unger MD Department of Orthopaedics Orthopaedics [address] [facility] [address] Dept: [phone] Dept September 11, 2024 CHIEF COMPLAINT: Established [...] regularly. Kit is physically active, regularly attending [employer] and engaging in fishing during the summer, [...] knee arthroscopy about 25 years ago at [facility]. He continues with pain intermittently. If he [...] turgor. P (more content not included)... Normal [facility] Chiropractic Reporton 2024 Chiropractic Report [facility] [place] [address] OFFICE VISIT Date of Service: 09/04/24 MR#: [id number] Acct: [id number] Name: DILIA MAST Rep #: [id number] : 1955 Provider: THOMAS Forrester Do ssi Age/Sex: 69/M [place] [facility] Status: Signed Intake Vital Signs 09/21/23 08:45 [...] he has been moving his daughter from [place] which has caused the flare up. He [...] low back (more content not included)... Normal [facility] CNOVon 08-11-2024 [facility] Office Visit (INTMWS ) -------- DILIA MAST ([id number]) 1955 M Date Time Provider Department 08/11/24 11:20 AM KALIN HARRIS INTMWS During your visit today, we recorded the following information about you: Pulse Respiration Blood pressure Weight 78/minute 16/minute 119/67 102 kg Kalin Harris APRN.COOKING TEACHER 08/11/2024 11:56 AM Signed Subjective Patient ID: [...] activity, including moving his daughter back to [place], packing, and working on home projects, going [...] reduce swelling. - Referral to Dr. Unger, citizen participation specialist, for further evaluation and management. If not improing with conservative measure endorse ortho appt, PT appt. - Dilia Mast understands and agrees with the treatment plan. Kalin Harris APRN.COOKING TEACHER Medical Decision Making: Problems: Low: Acute, uncomplicated [...] KNEE GENERAL 4V AP BOTH/PA BOTH/LAT/MERC LEFT [2054530] Order #: [id number] FUTURE CONSULT TO ORTHOPAEDICS [9039] Order #: [id number]: 1 FUTURE CONSULT TO PHYSICAL THERAPY [9041] Order #: [id number]: 1 FUTURE meloxicam (MOBIC) 15 mg tabletTake [...] This Enco (more content not included)... Normal [facility] XR KNEE 4V AP/PA BOTH+LAT/ME R [...] spurring patella IMPRESSION: Degenerative changes as discussed Port Crane Operator: JOSE ALFREDO Transcribe Date/Time: Aug 11 2024 12:15P Dictated by : LUCIO CONROY DO This examination was interpreted and the report reviewed and electronically signed by: LUCIO CONROY DO on Aug 11 2024 12:17PM EST [id number] Normal [facility] XR Knee - left 4 Viewson IMPRESSION: Degenerative changes as discussed Port Crane Operator: JOSE ALFREDO Transcribe Date/Time: Aug 11 2024 [...] patella DIVISION OF RADIOLOGY Provider, Candida talbert [place] - 08/11/2024 * * *Final Report* * [...] patella IMPRESSION IMPRESSION: Degenerative changes as discussed Port Crane Operator: JOSE ALFREDO Transcribe Date/Time: Aug 11 2024 12:15P Dictated by : LUCIO CONROY DO This examination was interpreted and the report reviewed and electronically signed by: LUCIO CONROY DO on Aug 11 2024 12:17PM EST [facility] Radiology Study observation (narrative) [facility] XR Knee - left 4 ViewsOrdere d By: Ccf Provider on 08-11-2024 [facility] Chiropractic Reporton 2024 Chiropractic Report [facility] [address] [place] [address] OFFICE VISIT Date of Service: 07/26/24 MR#: [id number] Acct: [id number] Name: DILIA MAST Rep #: [id number] : 1955 Provider: THOMAS Asencio Age/Sex: 69/M Location: [facility] Status: Signed Intake Vital Signs 09/21/23 08:45 [...] M99.02 Segmenta (more content not included)... Normal [facility] Chiropractic Reporton 2024 Chiropractic Report [facility] [address] [place] [address] OFFICE VISIT Date of Service: 06/27/24 MR#: [id number] Acct: [id number] Name: DILIA MAST Rep #: [id number] : 1955 Provider: THOMAS Forrester Do ssi Age/Sex: 69/M Location: [facility] Status: Signed Intake Vital Signs 09/21/23 08:45 [...] and somatic (more content not included)... Normal [facility] 04-25-2024 [facility] Office Visit (INTMWS ) -------- DILIA MAST ([id number]) 1955 M Date Time Provider Department 04/25/24 8:40 AM LILLY MALONE INTMWS During your visit today, we recorded the following information about you: Temperature Pulse Respiration Blood pressure 98.7 degrees 73/minute 16/minute 114/62 Weight Height 97.5 kg 1.715 m Lilly Malone MD 04/25/2024 9:56 AM Signed This note was created using Betfairriter. Subjective Dilia Mast is a 69 year [...] walking. He has recently resumed going to [employer] and aims to attend three to four [...] cardiovascular disease and is currently seeing a spinning bath patroller and an proposal rep. He has completed his advance directives and has a healthcare power of deputy county attorney in place. He is up to [...] Pharynx: Or (more content not included)... Normal [facility] CBC panel Auto (Bld)on 04-14 Erythrocyte distribution width (RBC) [Ratio] 12.6 % Normal 11.5-15.0 [facility] Comment on above: Order Comment: Speci men Type: BLOOD SPECIMENOrdering Facility: [facility] Address: [address] [place] [address] Performed By: #### 5 8410-2 ####[facility] LABCLIA [id number] [place] [address] [place] Hematocrit (Bld) [Volume fraction] 47.5 % Normal 39.0-51.0 [facility] Comment on above: Order Comment: Speci men Type: BLOOD SPECIMENOrdering Facility: [facility] Address: [address] [place] [address] Performed By: #### 5 8410-2 ####[facility] LABCLIA [id number] [place] [address] [place] Hemoglobin (Bld) [Mass/Vol] 16.3 g/dL Normal 13.0-17.0 [facility] Comment on above: Order Comment: Speci men Type: BLOOD SPECIMENOrdering Facility: [facility] Address: [address] [place] [address] Performed By: #### 5 8410-2 ####[facility] LABCLIA [id number] [place] [address] [place] MCH (RBC) [Entitic mass] 31.0 pg Normal 26.0-34.0 [facility] Comment on above: Order Comment: Speci men Type: BLOOD SPECIMENOrdering Facility: [facility] Address: [address] [place] [address] Performed By: #### 5 8410-2 ####[facility] LABCLIA [id number] [place] [address] [place] MCHC (RBC) [Mass/Vol] 34.3 g/dL Normal 30.5-36.0 [facility] Comment on above: Order Comment: Speci men Type: BLOOD SPECIMENOrdering Facility: [facility] Address: [address] [place] [address] Performed By: #### 5 8410-2 ####[facility] LABCLIA [id number] [place] [address] [place] MCV (RBC) [Entitic vol] 90.3 fL Normal 80.0-100.0 [facility] Comment on above: Order Comment: Speci men Type: BLOOD SPECIMENOrdering Facility: [facility] Address: [address] [place] [address] Performed By: #### 5 8410-2 ####[facility] LABIA [id number] [place] [address] [place] Nucleated RBC (Bld) [#/Vol] 10*3/uL Normal <0.01 [facility] Comment on above: Order Comment: Speci men Type: BLOOD SPECIMENOrdering Facility: [facility] Address: [address] [place] [address] Performed By: #### 5 8410-2 ####[facility] LABIA [id number] [place] [address] [place] Platelet mean volume (Bld) [Entitic vol] 9.4 fL Normal 9.0-12.7 [facility] Comment on above: Order Comment: Speci men Type: BLOOD SPECIMENOrdering Facility: [facility] Address: [address] [place] [address] Performed By: #### 5 8410-2 ####[facility] LABIA [id number] [place] [address] [place] Platelets (Bld) [#/Vol] 336 10*3/uL Normal 150-400 [facility] Comment on above: Order Comment: Speci men Type: BLOOD SPECIMENOrdering Facility: [facility] Address: [address] [place] [address] Performed By: #### 5 8410-2 ####[facility] LABCLIA [id number] [place] [address] [place] RBC (Bld) [#/Vol] 5.26 10*6/uL Normal 4.20-6.00 [facility] Comment on above: Order Comment: Speci men Type: BLOOD SPECIMENOrdering Facility: [facility] Address: [address] [place] [address] Performed By: #### 5 8410-2 ####[facility] LABCLIA [id number] [address] [address] [place] WBC (Bld) [#/Vol] 6.38 10*3/uL Normal 3.70-11.00 [facility] Comment on above: Order Comment: Speci men Type: BLOOD SPECIMENOrdering Facility: [facility] Address: [address] [place] [address] Performed By: #### 5 8410-2 ####[facility] LABCLIA [id number] [place] [address] [place] Comprehensive metabolic 2000 panelon 04-14-2024 Albumin [Mass/Vol] 4.2 g/dL Normal 3.9-4.9 [facility] Comment on above: Order Comment: Speci men Type: BLOOD SPECIMENOrdering Facility: [facility] Address: [address] [place] [address] Performed By: #### 2 4323-8, 52848-2 ####[facility] LABCLIA [id number] [place] [address] [place] ALP [Catalytic activity/Vol] 61 U/L Normal 38-113 [facility] Comment on above: Order Comment: Speci men Type: BLOOD SPECIMENOrdering Facility: [facility] Address: [address] [place] [address] Performed By: #### 2 4323-8, 73791-2 ####[facility] LABCLIA [id number] [place] [id number] [place] ALT [Catalytic activity/Vol] 27 U/L Normal 10-54 [facility] Comment on above: Order Comment: Speci men Type: BLOOD SPECIMENOrdering Facility: [facility] Address: [address] [place] [address] Performed By: #### 2 4323-8, 92633-2 ####[facility] LABCLIA [id number] [place] [address] [place] Anion gap [Moles/Vol] 11 mmol/L Normal 8-15 [facility] Comment on above: Order Comment: Speci men Type: BLOOD SPECIMENOrdering Facility: [facility] Address: [address] [place] [address] Performed By: #### 2 4323-8, 39017-9 ####[facility] LABCLIA [id number] [place] [address] [place] AST [Catalytic activity/Vol] 18 U/L Normal 14-40 [facility] Comment on above: Order Comment: Speci men Type: BLOOD SPECIMENOrdering Facility: [facility] Address: [address] [place] [address] Performed By: #### 2 4323-8, 47730-2 ####[facility] LABCLIA [id number] [place] [address] [place] Bilirubin [Mass/Vol] 0.3 mg/dL Normal 0.2-1.3 [facility] Comment on above: Order Comment: Speci men Type: BLOOD SPECIMENOrdering Facility: [facility] Address: [address] [place] [address] Performed By: #### 2 4323-8, 56420-0 ####[facility] LABCLIA [id number] [place] [address] [place] Calcium [Mass/Vol] 9.0 mg/dL Normal 8.5-10.2 [facility] Comment on above: Order Comment: Speci men Type: BLOOD SPECIMENOrdering Facility: [facility] Address: [address] [place] [address] Performed By: #### 2 4323-8, 74219-7 ####[facility] LABCLIA [id number] [address] [address] [place] Chloride [Moles/Vol] 98 mmol/L Normal 98-107 [facility] Comment on above: Order Comment: Speci men Type: BLOOD SPECIMENOrdering Facility: [facility] Address: [address] [place] [address] Performed By: #### 2 4323-8, 26141-2 ####[facility] LABCLIA [id number] [place] [address] [place] CO2 [Moles/Vol] 29 mmol/L Normal 22-30 [facility] Comment on above: Order Comment: Speci men Type: BLOOD SPECIMENOrdering Facility: [facility] Address: [address] [place] [address] Performed By: #### 2 4323-8, 93275-4 ####[facility] LABCLIA [id number] [place] [address] [place] Creatinine [Mass/Vol] 0.86 mg/dL Normal 0.73-1.22 [facility] Comment on above: Order Comment: Speci men Type: BLOOD SPECIMENOrdering Facility: [facility] Address: [address] [place] [address] Performed By: #### 2 4323-8, 75098-6 ####[facility] LABIA [id number] [place] [address] [place] Creatinine and Glomerular filtration rate.predicted panel (S/P/Bld) 95 mL/min/1.73m??? Normal >=60 [facility] Comment on above: Order Comment: Speci men Type: BLOOD SPECIMENOrdering Facility: [facility] Address: [address] [place] [address] Result Comment: Elena mated Glomerular Filtration Rate [...] actual GFR. Performed By: #### 2 4323-8, 30531-6 ####[facility] LABCLIA [id number] [address] [address] [place] Glucose [Mass/Vol] 112 mg/dL High 74-99 [facility] Comment on above: Order Comment: Specbryson parrish Type: BLOOD SPECIMENOrdering Facility: [facility] Address: [address] [place] [address] Result Comment: The [place] Diabetes Association (ADA) provides guidance for cutoff [...] Standards of Medical Care in Diabetes 2016, [place] Diabetes Association. Diabetes Care. 2016.39(Suppl 1). Performed By: #### 2 4323-8, ####[facility] LABCLIA [id number] [place] [id number] [place] Potassium [Moles/Vol] 3.9 mmol/L Normal 3.7-5.1 [facility] Comment on above: Order Comment: Jonathan parrish Type: BLOOD SPECIMENOrdering Facility: [facility] Address: [address] [place] [address] Performed By: #### 2 4323-8, ####[facility] LABCLIA [id number] [address] [address] [place] Protein [Mass/Vol] 7.3 g/dL Normal 6.3-8.0 [facility] Comment on above: Order Comment: Speci men Type: BLOOD SPECIMENOrdering Facility: [facility] Address: [address] [place] [address] Performed By: #### 2 4323-8, 38496-8 ####[facility] LABCLIA [id number] [place] [id number] [place] Sodium [Moles/Vol] 138 mmol/L Normal 136-144 [facility] Comment on above: Order Comment: Speci men Type: BLOOD SPECIMENOrdering Facility: [facility] Address: [address] [place] [address] Performed By: #### 2 4323-8, 31586-4 ####[facility] LABCLIA [id number] [place] [address] [place] Urea nitrogen [Mass/Vol] 19 mg/dL Normal 9-24 [facility] Comment on above: Order Comment: Speci men Type: BLOOD SPECIMENOrdering Facility: [facility] Address: [address] [place] [address] Performed By: #### 2 4323-8, 87888-7 ####[facility] LABCLIA [id number] [place] [address] [place] HbA1c (Bld)on 04-14-2024 Average glucose Estimated from glycated hemoglobin (Bld) [Mass/Vol] 120 mg/dL Normal [facility] Comment on above: Order Comment: Speci men Type: BLOOD SPECIMENOrdering Facility: [facility] Address: [address] [place] [address] Result Comment: eAG: (Estimated average glucose) is a calculated value from HgbA1c and is leasing representative of the average blood glucose level in the last 2-3 month period. Performed By: #### 5 5454-3 ####[facility] LABCLIA [id number] [place] [address] [place] HbA1c (Bld) [Mass fraction] 5.8 % High 4.3-5.6 [facility] Comment on above: Order Comment: Speci men Type: BLOOD SPECIMENOrdering Facility: [facility] Address: [address] [place] [address] Result Comment: [place] Diabetes Association guidelines indicate that patients with HgbA1c in the range 5.7-6.4% are at increased risk for development of diabetes, and intervention by lifestyle modification may be beneficial. HgbA1c greater or equal to 6.5% is considered diagnostic of diabetes. Performed By: #### 5 5454-3 ####[facility] LABCLIA [id number] [place] [address] [place] Lipid 1996 panelon 4 Cholesterol [Mass/Vol] 173 mg/dL Normal <200 [facility] Comment on above: Order Comment: Katherinei men Type: BLOOD SPECIMENOrdering Facility: [facility] Address: [address] [place] [address] Result Comment: <200 mg/dL, Desirable 200-239 mg/dL, Borderline high >239 mg/dL, High Performed By: #### 2 4323-8, 95965-1 ####[facility] LABCLIA [id number] [address] [place] Cholesterol in HDL [Mass/Vol] 39 mg/dL Low >39 [facility] Comment on above: Order Comment: Speci men Type: BLOOD SPECIMENOrdering Facility: [facility] Address: [address] [place] [address] Result Comment: 40-5 9 mg/dL, Acceptable >59 mg/dL, High: Negative risk factor for coronary heart disease <40 mg/dL, Low: Positive risk factor for coronary heart disease Performed By: #### 2 4323-8, 17590-2 ####[facility] LABCLIA [id number] [address] [place] Cholesterol in LDL [Mass/Vol] 95 mg/dL Normal <100 [facility] Comment on above: Order Comment: Speci men Type: BLOOD SPECIMENOrdering Facility: [facility] Address: [address] [place] [address] Result Comment: <100 mg/dL, Optimal 100-129 mg/dL, Near optimal/above optimal 130-159 mg/dL, Borderline high 160-189 mg/dL, High >189 mg/dL, Very high Secondary prevention optimal LDL Cholesterol levels are recommended to be < 70 mg/dL Performed By: #### 2 4323-8, 98424-6 ####[facility] LABCLIA [id number] [place] [address] [place] Cholesterol in LDL/Cholesterol in HDL [Mass ratio] 2.44 {ratio} Normal <2.54 [facility] Comment on above: Order Comment: Speci men Type: BLOOD SPECIMENOrdering Facility: [facility] Address: [address] [place] [address] Result Comment: Refe rence: 1. National Cholesterol Education Program ATP III Guideline At-A-Glance Quick Desk Reference: National Heart, Lung, and Blood [place]. National Institutes of Health. 2001: NIH Publication No. 01-3305. 2. An International Atherosclerosis Society position paper: global recommendations for the management of dyslipidemia: executive summary, Atherosclerosis. 2014: 232(2):410-413. Performed By: #### 2 4323-8, 20977-4 ####[facility] LABCLIA [id number] [place] [address] [place] Cholesterol in VLDL [Mass/Vol] 39 mg/dL High <30 [facility] Comment on above: Order Comment: Speci men Type: BLOOD SPECIMENOrdering Facility: [facility] Address: [address] [place] [address] Performed By: #### 2 4323-8, 92026-2 ####[facility] LABCLIA [id number] [place] [address] [place] Cholesterol non HDL [Mass/Vol] 134 mg/dL High <130 [facility] Comment on above: Order Comment: Speci men Type: BLOOD SPECIMENOrdering Facility: [facility] Address: [address] [place] [address] Result Comment: <130 mg/dL, Optimal 130-159 mg/dL, Near optimal/above optimal 160-189 mg/dL, Borderline high 190-219 mg/dL, High >219 mg/dL, Very high Secondary prevention optimal non HDL Cholesterol levels are recommended to be <100 mg/dL Performed By: #### 2 4323-8, 38129-7 ####[facility] LABCLIA [id number] [place] [address] [place] Cholesterol.total/Chol esterol in HDL [Mass ratio] 4.44 {ratio} Normal <5.10 [facility] Comment on above: Order Comment: Speci men Type: BLOOD SPECIMENOrdering Facility: [facility] Address: [address] [place] [address] Performed By: #### 2 4323-8, 44971-9 ####[facility] LABCLIA [id number] [place] [address] [place] FASTING TIME 13 hrs Normal [facility] Comment on above: Order Comment: Speci men Type: BLOOD SPECIMENOrdering Facility: [facility] Address: [address] [place] [address] Performed By: #### 2 4323-8, 02108-0 ####[facility] LABCLIA [id number] [place] [address] [place] Triglyceride [Mass/Vol] 195 mg/dL High <150 [facility] Comment on above: Order Comment: Speci men Type: BLOOD SPECIMENOrdering Facility: [facility] Address: [address] [place] [address] Result Comment: <150 mg/dL, Normal 150-199 mg/dL, Borderline high 200-499 mg/dL, High >499 mg/dL, Very high Performed By: #### 2 4323-8, 22397-3 ####[facility] LABCLIA [id number] [facility] [place] [address] [place] Chiropractic Reporton 2023 Chiropractic Report [facility] [place] [address] OFFICE VISIT Date of Service: 04/04/24 MR#: [id number] Acct: [id number] Name: DILIA MAST Rep #: [id number] : 1955 Provider: THOMAS Asencio Age/Sex: 69/M Location: [facility] Status: Signed Intake Vital Signs 09/21/23 08:45 [...] somatic dysfunc (more content not included)... Normal [facility] CNOVon 12-14-2023 CNOV Office Visit (INTMWS ) -------- DILIA MAST ([id number]) 1955 M Date Time Provider Department 12/14/23 10:00 AM JODEE REA INTMWS During your visit today, we recorded the following information about you: Pulse Blood pressure Weight 84/minute 112/78 100.9 kg Jodee Rea APRN.FAST FOOD CASHIER 12/14/2023 10:15 AM Signed SUBJECTIVE Dilia Mast [...] to upda (more content not included)... Normal [facility] Chiropractic Reporton 2023 Chiropractic Report [facility] Chiropractic [address] [place] [id number] OFFICE VISIT Date of Service: 11/30/23 MR#: [id number] Acct: [id number] Name: DILIA MAST Rep #: [id number] : 1955 Provider: THOMAS Asencio Age/Sex: 68/M Location: [facility] Status: Signed Intake Vital Signs 09/21/23 08:45 [...] Back pain (more content not included)... Normal [facility] Chiropractic Reporton 2023 Chiropractic Report [facility] Chiropractic [address] [place] [address] [id number] OFFICE VISIT Date of Service: 10/25/23 MR#: [id number] Acct: [id number] Name: DILIA MAST Rep #: [id number] : 1955 Provider: THOMAS Asencio Age/Sex: 68/M Location: [facility] Status: Signed Intake Vital Signs 09/21/23 08:45 [...] presence: wit (more content not included)... Normal [facility] Chiropractic Reporton 2023 Chiropractic Report [facility] Chiropractic [address] [place] [address] OFFICE VISIT Date of Service: 10/18/23 MR#: [id number] Acct: [id number] Name: DILIA MAST Rep #: [id number] : 1955 Provider: THOMAS Asencio Age/Sex: 68/M Location: [facility] Status: Signed Intake Vital Signs 09/21/23 08:45 [...] somatic dysfunction o (more content not included)... [facility] 09-17-2023 [facility] Telephone (INTMWS) -------- DILIA MAST ([id number]) 1955 M Date Time Provider Department 09/17/23 LILLY MALONE INTWS During your visit today, we recorded the following information about you: Paola Byrne RN 09/17/2023 12:14 PM Signed Patient calls and states that his mother is moving to [facility]. Patient states that Dr. Malone had told him at patient's last appointment that Dr. Malone would see patient's mother as patient. Patient asking if Dr. Malone will see mother? Patient also needs ramipril to be sent to [facility]. Prescription was previously sent to [facility]. Please review and advise, TAYLOR Jones Liza [...] stating he also needs HCTZ sent to [facility] instead of [facility]. Pended as such. [...] Status:Closed by ANTONI GERMAN on 09/21/23 Normal [facility] MRI HIP WO/W IVCON RTon 03- [facility] No Panel Informationon 06-12 IMPRESSION: No acute abnormality Port Crane Operator: JOSE ALFREDO Transcribe Date/Time: Jun 12 2022 2:35P Dictated by : JACOB LOCK MD This examination was interpreted and the report reviewed and electronically signed by: JACOB LOCK MD on Jun 12 2022 2:36PM [facility] DIVISION OF RADIOLOGY No Panel InformationOrdered By: Ccf Provider on 06-12-2022 [facility] XR Pelvis and Hip - right AP [...] fracture or dislocation. DIVISION OF RADIOLOGY Provider, [facility] - 06/12/2022 * * *Final [...] or dislocation. IMPRESSION IMPRESSION: No acute abnormality Port Crane [facility] Transcribe Date/Time: Jun 12 2022 2:35P Dictated by : JACOB LOCK MD This examination was interpreted and the report reviewed and electronically signed by: JACOB LOCK MD on Jun 12 2022 2:36PM [facility] XR Sacrum and Coccyx 3 Views on [...] fracture or dislocation. DIVISION OF RADIOLOGY Provider, [facility] - 06/12/2022 * * *Final [...] or dislocation. IMPRESSION IMPRESSION: No acute abnormality Port Crane Operator: [facility] Transcribe Date/Time: Jun 12 2022 2:35P Dictated by : JACOB LOCK MD This examination was interpreted and the report reviewed and electronically signed by: JACOB LOCK MD on Jun 12 2022 2:36PM EST [facility] No Panel Informationon 06-08 Radiology Study observation (narrative) [facility] No Panel Informationon 11-03 [facility] No Panel InformationOrdered By: Ccf Provider on 06-05-2021 [facility] No Panel Informationon 06-05 Radiology Study observation (narrative) [facility] XR Cervical spine AP and Lat eralon 06-05-2021 IMPRESSION: Degenera tive changes as detailed in report. Port Crane Operator: JOSE ALFREDO Transcribe Date/Time: Jun 05 2021 3:56P Dictated by : ABEL CUBA MD This examination was interpreted and the report reviewed and electronically signed by: ABEL CUBA MD on Jun 05 2021 3:58PM [facility] DIVISION OF RADIOLOGY * * *Final Report* [...] relevant examinations available for comparison within the [facility] Imaging Archives. RESULT: 2 views of the [...] soft tissue abnormality. DIVISION OF RADIOLOGY Provider, [facility] Bebe Woodward - 06/05/2021 * * *Final [...] relevant examinations available for comparison within the [facility] Imaging Archives. RESULT: 2 views of the [...] IMPRESSION: Degenerative changes as detailed in report. Port Crane Operator: [facility] Transcribe Date/Time: Jun 05 2021 3:56P Dictated by : ABEL CUBA MD This examination was interpreted and the report reviewed and electronically signed by: ABEL CUBA MD on Jun 05 2021 3:58PM EST [facility] XR Shoulder - left 2 Viewson 06-05-2021 IMPRESSION: Findings are suggestive of degenerative changes of the acromioclavicular joint. Port Crane Operator: [facility] Transcribe Date/Time: Jun 05 2021 3:58P Dictated by : EVIE BUENROSTRO MD This examination was interpreted and the report reviewed and electronically signed by: EVIE BUENROSTRO MD on Jun 05 2021 4:01PM [facility] DIVISION OF RADIOLOGY * * *Final Report* [...] soft tissue swelling. DIVISION OF RADIOLOGY [facility], [facility] * * *Final Report* * [...] of degenerative changes of the acromioclavicular joint. Port Crane Operator: JOSE ALFREDO Transcribe Date/Time: Jun 05 2021 3:58P Dictated by : EVIE BUENROSTRO MD This examination was interpreted and the report reviewed and electronically signed by: EVIE BUENROSTRO MD on Jun 05 2021 4:01PM [facility] CNNURSEon 07-30-2020 CNNURSE Nurse Visit (COVAMD) -------- DILIA MAST ([id number]) 1955 M Date Time Provider Department 07/30/20 MAINE BYRNE JR During your visit today, we recorded the following information about you: Allergies As of Date: 07/30/2020 (No Known Allergies) Date Reviewed: 05/27/2020 Reviewed by: Kalin ([facility]) Sandip - Fully Assessed Order(s):[employer] SARS-COV-2 VACCINE 2D DOSE APPT [[id number]] Order #: [id number] Prescriptions as of 07/30/2020 Sig: SALINE MIST 0.65 % NASAL SPRA* Use 1 [place] in the nose as ne* HYDROCHLOROTHIAZIDE 25 [...] Left cervical radiculopathy [M54.12] 03/28/2018 Encounter Status:Open [facility] Vital Signs Date Time Vital Sign Value Performing Clinician Darrion sun 08-11-2024 11:14-0400 Body mass index (BMI) [Ratio] 34.68 kg/m2 Kalin Harris CIVIL TRANSPORTATION ENGINEER.COOKING TEACHER Work Phone: [facility] 08-11-2024 11:14-0400 Body weight 102 kg Kalin Harris CIVIL TRANSPORTATION ENGINEER.COOKING TEACHER Work Phone: [facility] 08-11-2024 11:14-0400 Diastolic blood pressure 67 mm[Hg] Kalin Harris CIVIL TRANSPORTATION ENGINEER.COOKING TEACHER Work Phone: [facility] 08-11-2024 11:14-0400 Heart rate 78 /min Kalin Harris CIVIL TRANSPORTATION ENGINEER.COOKING TEACHER Work Phone: [facility] 08-11-2024 11:14-0400 Respiratory rate 16 /min Kalin Harris CIVIL TRANSPORTATION ENGINEER.COOKING TEACHER Work Phone: [facility] 08-11-2024 11:14-0400 Systolic blood pressure 119 mm[Hg] Kalni Harris CIVIL TRANSPORTATION ENGINEER.COOKING TEACHER Work Phone: [facility] 04-25-2024 08:51-0500 Body height 171.5 cm Lilly Malone MD Work Phone: [facility] 04-25-2024 08:51-0500 Body mass index (BMI) [Ratio] 33.16 kg/m2 Lilly Malone MD Work Phone: [facility] 04-25-2024 08:51-0500 Body temperature 98.71 [degF] Lilly Malone MD Work Phone: [facility] 04-25-2024 08:51-0500 Body weight 97.52 kg Lilly Malone MD Work Phone: [facility] 04-25-2024 08:51-0500 Diastolic blood pressure 62 mm[Hg] Lilly Malone MD Work Phone: [facility] 04-25-2024 08:51-0500 Heart rate 73 /min Lilly Malone MD Work Phone: [facility] 04-25-2024 08:51-0500 Respiratory rate 16 /min Lilly Malone MD Work Phone: [facility] 04-25-2024 08:51-0500 Systolic blood pressure 114 mm[Hg] Lilly Malone MD Work Phone: [facility] 12-14-2023 09:54-0400 Diastolic blood pressure 78 mm[Hg] Jodee Rona CIVIL TRANSPORTATION ENGINEER.FAST FOOD CASHIER Work Phone: [facility] 12-14-2023 09:54-0400 Systolic blood pressure 112 mm[Hg] Jodee Rona CIVIL TRANSPORTATION ENGINEER.FAST FOOD CASHIER Work Phone: [facility] 12-14-2023 09:52-0400 Body mass index (BMI) [Ratio] 33.91 kg/m2 Jodee Rona CIVIL TRANSPORTATION ENGINEER.FAST FOOD CASHIER Work Phone: [facility] 12-14-2023 09:52-0400 Body weight 100.9 kg Jodee Rona CIVIL TRANSPORTATION ENGINEER.FAST FOOD CASHIER Work Phone: [facility] 12-14-2023 09:52-0400 Heart rate 84 /min Jodee Rona CIVIL TRANSPORTATION ENGINEER.FAST FOOD CASHIER Work Phone: [facility] 12-14-2023 09:52-0400 SaO2% (BldA) [Mass fraction] 98 % Jodee Rona CIVIL TRANSPORTATION ENGINEER.FAST FOOD CASHIER Work Phone: [facility] 08-27-2023 09:55-0400 Body mass index (BMI) [Ratio] 34.45 kg/m2 Kalin Harris CIVIL TRANSPORTATION ENGINEER.COOKING TEACHER Work Phone: [facility] 08-27-2023 09:55-0400 Body temperature 98.4 [degF] Kalin Harris CIVIL TRANSPORTATION ENGINEER.COOKING TEACHER Work Phone: [facility] 08-27-2023 09:55-0400 Body weight 102.51 kg Kalin Harris CIVIL TRANSPORTATION ENGINEER.COOKING TEACHER Work Phone: [facility] 08-27-2023 09:55-0400 Diastolic blood pressure 73 mm[Hg] Kalin Harris CIVIL TRANSPORTATION ENGINEER.COOKING TEACHER Work Phone: [facility] 08-27-2023 09:55-0400 Heart rate 76 /min Kalin Harris CIVIL TRANSPORTATION ENGINEER.COOKING TEACHER Work Phone: [facility] 08-27-2023 09:55-0400 Respiratory rate 16 /min Kalin Harris CIVIL TRANSPORTATION ENGINEER.COOKING TEACHER Work Phone: [facility] 08-27-2023 09:55-0400 Systolic blood pressure 118 mm[Hg] Kalin Harris CIVIL TRANSPORTATION ENGINEER.COOKING TEACHER Work Phone: [facility] 06-14-2023 08:06-0500 Diastolic blood pressure 84 mm[Hg] Kalin Harris CIVIL TRANSPORTATION ENGINEER.COOKING TEACHER Work Phone: [facility] 06-14-2023 08:06-0500 Systolic blood pressure 147 mm[Hg] Kalin Harris CIVIL TRANSPORTATION ENGINEER.COOKING TEACHER Work Phone: [facility] 06-14-2023 08:04-0500 Body temperature 100.6 [degF] Kalin Harris CIVIL TRANSPORTATION ENGINEER.COOKING TEACHER Work Phone: [facility] 06-14-2023 08:04-0500 Body weight 103.42 kg Kalin Harris CIVIL TRANSPORTATION ENGINEER.COOKING TEACHER Work Phone: [facility] 06-14-2023 08:04-0500 Heart rate 94 /min Kalin Harris CIVIL TRANSPORTATION ENGINEER.COOKING TEACHER Work Phone: [facility] 06-14-2023 08:04-0500 Respiratory rate 16 /min Kalin Harris CIVIL TRANSPORTATION ENGINEER.COOKING TEACHER Work Phone: [facility] 06-14-2023 08:04-0500 SaO2% (BldA) [Mass fraction] 98 % Kalin Harris APRN.CNS Work Phone: [facility] 01-14-2023 19:01-0400 Body temperature 99.19 [degF] William Moran MD Work Phone: [facility] 01-14-2023 19:01-0400 Body weight 104.42 kg William Moran MD Work Phone: [facility] 01-14-2023 19:01-0400 Diastolic blood pressure 80 mm[Hg] William Moran MD Work Phone: [facility] 01-14-2023 19:01-0400 Heart rate 85 /min William Moran MD Work Phone: [facility] 01-14-2023 19:01-0400 Respiratory rate 16 /min William Moran MD Work Phone: [facility] 01-14-2023 19:01-0400 SaO2% (BldA) [Mass fraction] 96 % William Moran MD Work Phone: [facility] 01-14-2023 19:01-0400 Systolic blood pressure 128 mm[Hg] William Moran MD Work Phone: [facility] 07-23-2022 07:09-0400 Body temperature 98.2 [degF] Maritza Athy PA-C Work Phone: [facility] 07-23-2022 07:09-0400 Body weight 104.87 kg Maritza Athy PA-C Work Phone: [facility] 07-23-2022 07:09-0400 Diastolic blood pressure 78 mm[Hg] Maritza Athy PA-C Work Phone: [facility] 07-23-2022 07:09-0400 Heart rate 83 /min Maritza Athy PA-C Work Phone: [facility] 07-23-2022 07:09-0400 Respiratory rate 16 /min Maritza Athy PA-C Work Phone: [facility] 07-23-2022 07:09-0400 SaO2% (BldA) [Mass fraction] 99 % Maritzamandy Anney PA-C Work Phone: [facility] 07-23-2022 07:09-0400 Systolic blood pressure 134 mm[Hg] Maritzamandy Anney PA-C Work Phone: [facility] 05-29-2022 16:08-0500 Body weight 102.51 kg Kalin Harris CIVIL TRANSPORTATION ENGINEER.COOKING TEACHER Work Phone: [facility] 05-29-2022 16:08-0500 Diastolic blood pressure 70 mm[Hg] Kalin Harris CIVIL TRANSPORTATION ENGINEER.COOKING TEACHER Work Phone: [facility] 05-29-2022 16:08-0500 Heart rate 72 /min Kalin Harris CIVIL TRANSPORTATION ENGINEER.COOKING TEACHER Work Phone: [facility] 05-29-2022 16:08-0500 Respiratory rate 16 /min Kalin Harris CIVIL TRANSPORTATION ENGINEER.COOKING TEACHER Work Phone: [facility] 05-29-2022 16:08-0500 SaO2% (BldA) [Mass fraction] 96 % Kalin Harris CIVIL TRANSPORTATION ENGINEER.COOKING TEACHER Work Phone: [facility] 05-29-2022 16:08-0500 Systolic blood pressure 128 mm[Hg] Kalin Harris CIVIL TRANSPORTATION ENGINEER.COOKING TEACHER Work Phone: [facility] 02-02-2022 07:12-0400 Body temperature 97.5 [degF] Ranjeet García CIVIL TRANSPORTATION ENGINEER.FAST FOOD CASHIER Work Phone: [facility] 02-02-2022 07:12-0400 Body weight 103.87 kg Ranjeet García CIVIL TRANSPORTATION ENGINEER.FAST FOOD CASHIER Work Phone: [facility] 02-02-2022 07:12-0400 Diastolic blood pressure 80 mm[Hg] Ranjeet García CIVIL TRANSPORTATION ENGINEER.FAST FOOD CASHIER Work Phone: [facility] 02-02-2022 07:12-0400 Heart rate 70 /min Ranjeet García CIVIL TRANSPORTATION ENGINEER.FAST FOOD CASHIER Work Phone: [facility] 02-02-2022 07:12-0400 Respiratory rate 16 /min Ranjeet García CIVIL TRANSPORTATION ENGINEER.FAST FOOD CASHIER Work Phone: [facility] 02-02-2022 07:12-0400 SaO2% (BldA) [Mass fraction] 98 % Ranjeet García CIVIL TRANSPORTATION ENGINEER.FAST FOOD CASHIER Work Phone: [facility] 02-02-2022 07:12-0400 Systolic blood pressure 126 mm[Hg] Ranjeet King CIVIL TRANSPORTATION ENGINEER.FAST FOOD CASHIER Work Phone: [facility] 11-03-2021 10:38-0400 Diastolic blood pressure 76 mm[Hg] Lan Holcomb MD Work Phone: [facility] 11-03-2021 10:38-0400 Heart rate 69 /min Lan Holcomb MD Work Phone: [facility] 11-03-2021 10:38-0400 Respiratory rate 16 /min Lan Holcomb MD Work Phone: [facility] 11-03-2021 10:38-0400 SaO2% (BldA) [Mass fraction] 94 % Lan Holcomb MD Work Phone: [facility] 11-03-2021 10:38-0400 Systolic blood pressure 115 mm[Hg] Lan Holcomb MD Work Phone: [facility] 11-03-2021 09:17-0400 Body temperature 98.29 [degF] Lan Holcomb MD Work Phone: [facility] 11-03-2021 09:17-0400 Body weight 103.9 kg Lan Holcomb MD Work Phone: [facility] 09-08-2021 07:59-0400 Body height 175.3 cm Sherri REYES-C Work Phone: [facility] 09-08-2021 07:59-0400 Body temperature 98.01 [degF] Sherri REYES-C Work Phone: [facility] 09-08-2021 07:59-0400 Body weight 103.87 kg Sherri Ranjan PA-C Work Phone: [facility] 09-08-2021 07:59-0400 Diastolic blood pressure 82 mm[Hg] Sherri [place] PA-C Work Phone: [facility] 09-08-2021 07:59-0400 Heart rate 73 /min Sherri Ranjan PA-C Work Phone: [facility] 09-08-2021 07:59-0400 SaO2% (BldA) [Mass fraction] 98 % Sherri [place] PA-C Work Phone: [facility] 09-08-2021 07:59-0400 Systolic blood pressure 120 mm[Hg] Sherri Ranjan PA-C Work Phone: [facility] 08-04-2021 08:18-0400 Body weight 97.98 kg Kalin Harris CIVIL TRANSPORTATION ENGINEER.COOKING TEACHER Work Phone: [facility] 08-04-2021 08:18-0400 Diastolic blood pressure 82 mm[Hg] Kalin Harris CIVIL TRANSPORTATION ENGINEER.COOKING TEACHER Work Phone: [facility] 08-04-2021 08:18-0400 Heart rate 68 /min Kalin Harris CIVIL TRANSPORTATION ENGINEER.COOKING TEACHER Work Phone: [facility] 08-04-2021 08:18-0400 Respiratory rate 26 /min Kalin Harris CIVIL TRANSPORTATION ENGINEER.COOKING TEACHER Work Phone: [facility] 08-04-2021 08:18-0400 Systolic blood pressure 118 mm[Hg] Kalin Harris CIVIL TRANSPORTATION ENGINEER.COOKING TEACHER Work Phone: [facility] Encounters Encounter Date Encounter Type Care Provider Facility Start: 10-24-2024 End: 10-25-2024 Refill Lilly Malone MD Work Phone: [facility] Comment on above: Refill Request Start: 10-09-2024 End: 10-09-[address] Mitzy Conde [place] [facility] Work Phone: Start: 10-09-2024 End: 10-09-[address] Johanny Hilario MD Work Phone: [facility] Work Phone: Start: 09-11-2024 End: 09-11-2024 Patient encounter procedure Mason Unger MD Work Phone: Orthopaedics Comment on above: Acute pain of left k nee; Arthritis of both knees; Primary osteoarthritis of left knee; Primary osteoarthritis of right knee; Chondrocalcinosis of right knee Start: 09-11-2024 End: 09-11-2024 ambulatory MASON UNGER Facility:[facility] Start: 09-04-2024 End: 09-04-[address] Mitzy Conde [place] -[facility] Work Phone: Start: 09-04-2024 End: 09-04-2024 ambulatory Johanny Hilario Facility:[facility] Start: 08-11-2024 End: 10-11-2024 Follow-up encounter Kalin Harris APRN.COOKING TEACHER Work Phone: [facility] [place] Start: 08-11-2024 End: 08-11-2024 Subsequent hospital visit by physician X[facility] [place] Work Phone: Radiology Comment on above: Acute pain of left k nee [M25.562] Start: 08-11-2024 End: 08-11-2024 Office outpatient visit 15 minutes Kalin Harris APRN.COOKING TEACHER Work Phone: [facility] Comment on above: Acute pain of left k nee (Primary Dx); Arthritis of both knees Start: 08-11-2024 End: 08-11-2024 ambulatory KALIN HARRIS Facility:[facility] Start: 08-10-2024 End: 08-11-2024 ambulatory Lilly Malone MD Work Phone: [facility] [place] Comment on above: left knee instabilit y Start: 07-26-2024 End: 07-26-[address] Mitzy Conde [place] -[facility] Work Phone: Start: 07-26-2024 End: 07-26-2024 ambulatory Johanny Sandersi Facility:[facility] Start: 06-27-2024 End: 06-27-[address] Mitzy Conde [place] [facility] Work Phone: Start: 06-27-2024 End: 06-27-2024 ambulatory Johanny Gavintoddi Facility:[facility] Start: 06-16-2024 End: 06-16-2024 ambulatory Trinidad Tapia MA [facility] [place] Start: 06-16-2024 End: 06-16-2024 Patient encounter [facility] [place] [facility] Comment on above: Population Health Na vigation Outreach ([employer] High Risk - Attempt 1) Start: 04-25-2024 End: 04-25-2024 ambulatory LILLY MALONE Facility:[facility] Start: 04-25-2024 End: 04-25-2024 Patient encounter procedure Lilly Malone MD Work Phone: [facility] [place] Comment on above: Medicare annual well ness visit, subsequent (Primary Dx); Primary hypertension; IFG (impaired fasting glucose); Obesity (BMI 30.0-34.9); Encounter for screening examination for other mental health and behavioral disorders; Screening for depression Start: 04-14-2024 End: 04-14-2024 ambulatory LILLY MALONE Facility:[facility] Start: 04-04-2024 End: 04-04-2024 ambulatory Johanny Hilario Facility:[facility] Start: 12-14-2023 End: 12-14-2023 ambulatory JODEE REA Facility:[facility] Start: 12-14-2023 End: 12-14-2023 Patient encounter procedure Jodee Rea CIVIL TRANSPORTATION ENGINEER.FAST FOOD CASHIER Work Phone: [facility] Comment on above: Eye muscle twitches (Primary Dx); Stress at home Start: 11-30-2023 End: 11-30-2023 ambulatory Mitzy Conde Facility:[facility] Start: 10-25-2023 End: 10-25-2023 ambulatory Mitzy Conde Facility:[facility] Start: 10-18-2023 End: 10-18-2023 ambulatory Mitzy Conde Facility:[facility] Start: 10-04-2023 Refill Lilly benson MD Work Phone: [address] [place] [address] Comment on above: Refill Request Start: 09-17-2023 Telephone encounter Lilly hawkins MD Work Phone: [facility] [place] Comment on above: Patient Question Start: 09-03-2023 Refill Kalin Harris CIVIL TRANSPORTATION ENGINEER.COOKING TEACHER Work Phone: [facility] [place] Comment on above: Refill Request Start: 09-02-2023 Refill Kalin Harris CIVIL TRANSPORTATION ENGINEER.COOKING TEACHER Work Phone: [facility] Comment on above: Refill Request Start: 08-27-2023 End: 08-27-2023 Office outpatient visit 15 minutes Kalin Harris CIVIL TRANSPORTATION ENGINEER.COOKING TEACHER Work Phone: [facility] [place] Comment on above: PND (post-nasal drip ) (Primary Dx); Ear fullness, bilateral; Watery eyes Start: 08-25-2023 ambulatory Lilly benson MD Work Phone: [facility] [place] Comment on above: Sinus pressure Start: 06-14-2023 End: 06-14-2023 Office outpatient visit 15 minutes Kalin Harris CIVIL TRANSPORTATION ENGINEER.COOKING TEACHER Work Phone: [facility] [place] Comment on above: Sinobronchitis Start: 06-13-2023 ambulatory Lilly benson MD Work Phone: [facility] [place] Comment on above: Cough and congestion Start: 01-14-2023 End: 01-14-2023 Patient encounter procedure William Moran MD Work Phone: [facility] Comment on above: Hordeolum internum o f right lower eyelid (Primary Dx) Start: 09-29-2022 ambulatory Lilly benson MD Work Phone: [facility] [place] Comment on above: Lorazepam Start: 09-07-2022 Refill Kalin Harris CIVIL TRANSPORTATION ENGINEER.COOKING TEACHER Work Phone: [facility] [place] Comment on above: Refill Request Start: 08-06-2022 ambulatory Mason Unger MD Work Phone: [place] [facility] Start: 08-06-2022 Manual pelvic examination Florencio Unger MD Work Phone: Orthopaedics Comment on above: Pelvic inflammation per MRI Start: 07-27-2022 End: 07-27-2022 Patient encounter procedure Mason Unger MD Work Phone: Orthopaedics Comment on above: Right hip pain; Tear of right acetabular labrum, initial encounter Start: 07-23-2022 End: 07-23-2022 Patient encounter procedure Maritza Santamaria PA-C Work Phone: [facility] Comment on above: Sinobronchitis (Prim trevin Dx) Start: 07-16-2022 Telephone encounter Kalin raymond CIVIL TRANSPORTATION ENGINEER.COOKING TEACHER Work Phone: [facility] [place] Comment on above: Results (MRI hip) Start: 07-16-2022 End: 07-16-2022 Subsequent hospital visit by physician Mri Radio [facility] (I-Stat/1.5t) Work Phone: Radiology Comment on above: Pain in hip [M25.559 ] Start: 06-14-2022 Telephone encounter Siri ( Coord) [facility] Comment on above: Appointment Start: 06-09-2022 Telephone encounter Lilly hawkins MD Work Phone: [facility] [place] Comment on above: Order Update Start: 06-08-2022 End: 06-08-2022 Subsequent hospital visit by physician Xr [facility] [place] Work Phone: Radiology Comment on above: Injury of groin, ini tial encounter [S39.91XA] Start: 06-08-2022 Telephone encounter Siri ( Coord) [facility] Comment on above: Appointment Orders Start: 05-29-2022 End: 05-29-2022 Office outpatient visit 15 minutes Kalin Harris CIVIL TRANSPORTATION ENGINEER.COOKING TEACHER Work Phone: [facility] [place] Comment on above: Injury of groin, ini tial encounter (Primary Dx); Right groin pain; Pain in the coccyx Start: 04-10-2022 End: 04-10-2022 Office outpatient visit 25 minutes Lilly Malone MD Work Phone: [facility] [place] Comment on above: Essential hypertensi on (Primary Dx); IFG (impaired fasting glucose); Anxiety; Low HDL (under 40); Need for vaccination; Elevated PSA, less than 10 ng/ml Start: 02-02-2022 End: 02-02-2022 Patient encounter procedure Ranjeet García UNA Work Phone: [facility] Comment on above: Cornea abrasion, rig ht, initial encounter (Primary Dx) Start: 12-15-2021 ambulatory Lilly benson MD Work Phone: [facility] [place] Comment on above: Indigestion Start: 11-30-2021 ambulatory Lilly benson MD Work Phone: [facility] [place] Comment on above: Baby aspirin Start: 11-14-2021 End: 11-14-2021 ambulatory Sherri Woodruff PA-C Work Phone: General Surgery Comment on above: Tubular adenoma ([facility] alf Dx); History of colonic polyps Start: 11-14-2021 End: 11-14-2021 Telemedicine consultation with patient Sherri Woodruff PA-C Work Phone: [facility] Start: 11-03-2021 End: 11-03-2021 Subsequent hospital visit [...] colorectal cancer Start: 08-07-2021 ambulatory Kalin Harris APRN.COOKING TEACHER Work Phone: [facility] [place] Comment on above: Prilosec Start: 08-05-2021 ambulatory Kalin Harris APRN.COOKING TEACHER Work Phone: [facility] [place] Comment on above: Prilosec Start: 08-04-2021 End: 08-04-2021 Patient encounter procedure Kalin Harris APRN.COOKING TEACHER Work Phone: [facility] [place] Comment on above: Left cervical radicu lopathy (Primary Dx); Depression, unspecified depression type; Heartburn; Screening for HIV (human immunodeficiency virus); Screening for prostate cancer; Screening for colorectal cancer; Cervicalgia; Numbness and tingling in left hand; Acute pain of left shoulder Start: 06-05-2021 End: 06-05-2021 Subsequent hospital visit by physician Xr [facility] [place] Work Phone: Radiology Comment on above: Cervicalgia [M54.2] Procedures Date Procedure Procedure Detail Performing Clinician Start: 08-11-2024 Radiologic exam knee complete 4/more views Kalin Harris APRN.COOKING TEACHER Work Phone: Start: 04-25-2024 Adult depression scr eening assessment Lilly Malone MD Work Phone: Start: 04-14-2024 Lipid 1995 panel - S johnnie or Plasma Lilly Malone MD Work Phone: Start: 03-30-2023 Lipid 1996 panel - S johnnie or Plasma Lilly Malone MD Work Phone: Start: 07-16-2022 Mri any jt lower ext rem w/o & w/contrast matrl Kalin Harris APRN.COOKING TEACHER Work Phone: Start: 06-08-2022 Radex hip unilateral with pelvis 2-3 views Kalin Harris APRN.COOKING TEACHER Work Phone: Start: 03-05-2022 Lipid 1996 panel - S johnnie or Plasma William Moran MD Work Phone: Start: 11-03-2021 Colon ca scrn not hi rsk ind Sherri Woodruff PA-C Work Phone: Start: 11-03-2021 Colonoscopy Lan bingham MD Work Phone: Start: 06-05-2021 End: 06-05-2021 Radex spine cervical 2 or 3 views Kalin Walkers CIVIL TRANSPORTATION ENGINEER.COOKING TEACHER Work Phone: Start: 04-06-2021 Adult depression scr eening assessment Kalinbryson Harris CIVIL TRANSPORTATION ENGINEER.COOKING TEACHER Work Phone: Start: 04-05-2017 Colonoscopy Kalinbryson raymond CIVIL TRANSPORTATION ENGINEER.COOKING TEACHER Work Phone: Plan of Treatment Date Care Activity Detail Author Start: 04-02-2030 Urine microalbumin profile [facility] Start: 04-14-2029 Lipid panel Lipid Screening [facility] Start: 03-30-2028 Lipid panel Lipid Screening [facility] Start: 04-14-2027 Diabetes Screening Diabetes Screenin g [facility] Start: 03-05-2027 Lipid 1996 panel - Serum or Plasma Lipid Screening [facility] Start: 03-05-2027 LIPID SCREEN LIPID SCREEN [facility] Start: 03-05-2027 PROSTATE CANCER SCREENING DISCUSSION PROSTATE CANCER SCREENING DISCUSSION [facility] Start: 03-05-2027 Prostate specific antigen measurement Prostate Cancer Screening Discussion [facility] Start: 11-03-2026 Colonoscopy COLONOSCOPY [facility] Start: 11-03-2026 COLORECTAL CANCER SCREENING COLORECTAL CANCER SCREENING [facility] Start: 11-03-2026 Screening for malignant neoplasm of colon [facility] Start: 03-30-2026 Diabetes Screening Diabetes Screenin g [facility] Start: 03-03-2026 LIPID SCREEN LIPID SCREEN [facility] Start: 08-11-2025 BP Controlled (<130/80) BP Controlled (<130/80) [facility] Start: 04-25-2025 Annual PCP Team Chronic Disease Visit Annual PCP Team Chronic Disease Visit [facility] Start: 04-25-2025 Anxiety Screening Anxiety Screening [facility] Start: 04-25-2025 BP Controlled (<130/80) BP Controlled (<130/80) [facility] Start: 04-25-2025 Depression Screening Depression Scre ening [facility] Start: 04-23-2025 End: 04-23-2025 Patient encounter procedure 04/23/2025 2:00 PM EST Office Visit [facility] [place] [address] [place] [address] Lilly Malone MD [address] [place] [address] Medicare Wellness [facility] [place] Comment on above: Medicare Wellness Start: 04-06-2025 End: 04-06-2025 ambulatory 04/06/2025 8:00 AM EST Results Only [place] [facility] Draw Station [address] [place] [address] [place] [facility] Start: 03-26-2025 End: 06-25-2025 CBC panel - Blood by Automated count COMPLETE BLOOD COUNT Lab Routine Primary hypertension Expected: 03/26/2025 (Approximate), Expires: 06/25/2025 [facility] Comment on above: Expected: 03/26/2025 (Approximate), Expires: 06/25/2025 Start: 03-26-2025 End: 06-25-2025 Comprehensive metabolic 2000 panel - Serum or Plasma COMPREHENSIVE METABOLIC PANEL Lab Routine Primary hypertension IFG (impaired fasting glucose) Expected: 03/26/2025 (Approximate), Expires: 06/25/2025 [facility] Work Phone: Comment on above: Expected: 03/26/2025 (Approximate), Expires: 06/25/2025 Start: 03-26-2025 End: 06-25-2025 Hemoglobin A1c in Blood HEMOGLOBIN A1C Lab Routine IFG (impaired fasting glucose) Expected: 03/26/2025 (Approximate), Expires: 06/25/2025 [facility] Comment on above: Expected: 03/26/2025 (Approximate), Expires: 06/25/2025 Start: 03-26-2025 End: 06-25-2025 Lipid 1996 panel - Serum or Plasma LIPID PANEL BASIC Lab Routine Primary hypertension Expected: 03/26/2025 (Approximate), Expires: 06/25/2025 [facility] Comment on above: Expected: 03/26/2025 (Approximate), Expires: 06/25/2025 Start: 03-05-2025 DIABETES SCREEN DIABETES SCREEN [facility] Start: 03-05-2025 Diabetes Screening Diabetes Screenin g [facility] Start: 12-25-2024 Influenza vaccination Influenza Vacc ine (#1) [facility] Start: 12-13-2024 Annual PCP Team Chronic Disease Visit Annual PCP Team Chronic Disease Visit [facility] Start: 12-13-2024 BP Controlled (<130/80) BP Controlled (<130/80) [facility] Start: 08-28-2024 End: 08-28-2024 Patient encounter procedure 08/28/2024 9:30 AM EDT Office Visit Orthopaedics [address] [place] [id number] Mason Unger MD [address] [place] [address] Acute pain of left knee [M25.562] Orthopaedics Comment on above: Acute pain of left k nee [M25.562] Start: 08-26-2024 BP Controlled (<130/80) BP Controlled (<130/80) [facility] Start: 08-07-2024 Covid-19 Vaccine () Covid-19 Vaccine () [facility] Start: 04-26-2024 Advance Directive Discussion Advance Directive Discussion [facility] Start: 04-26-2024 Medicare Advantage Annual Wellness Visit Medicare Advantage Annual Wellness Visit [facility] Start: 04-25-2024 End: 04-25-2024 Patient encounter procedure 04/25/2024 8:40 AM EST Office Visit [facility] [place] [address] [place] [address] Lilly Malone MD [address] [address] medi well mar 2024 [facility] [place] Comment on above: medi well mar 2024 Start: 04-14-2024 Annual PCP Team Chronic Disease Visit Annual PCP Team Chronic Disease Visit [facility] Start: 03-03-2024 DIABETES SCREEN DI[address]ETES SCREEN [facility] Start: 12-26-2023 Covid-19 Vaccine () Covid-19 Vaccine () [facility] Start: 12-26-2023 Influenza vaccination Influenza Vacc ine (#1) [facility] Start: 08-27-2023 End: 08-27-2023 Patient encounter procedure 08/27/2023 10:00 AM EDT Office Visit [facility] [place] [address] [place], [place] [id number] Kalin Harris APRN.COOKING TEACHER [address] [place] [address] Ear and sinus pressure [facility] [place] Comment on above: Ear and sinus pressu re Start: 06-24-2023 Covid-19 Vaccine () Covid-19 Vaccine () [facility] Start: 05-29-2023 BP CONTROLLED (<130/80) BP CONTROLLED (<130/80) [facility] Start: 04-26-2023 Advance Directive Discussion Advance Directive Discussion [facility] Start: 04-26-2023 Behavioral Health Screening Behavioral Health Screening [facility] Start: 04-26-2023 Depression Assessment Depression Ass essment [facility] Start: 04-10-2023 ANNUAL PCP TEAM CHRONIC DISEASE VISIT ANNUAL PCP TEAM CHRONIC DISEASE VISIT [facility] Start: 04-10-2023 BP CONTROLLED (<130/80) BP CONTROLLED (<130/80) [facility] Start: 04-10-2023 End: 06-10-2023 CBC panel - Blood by Automated count CBC Lab Routine Essential hypertension Expected: 04/10/2023 (Approximate), Expires: 06/10/2023 [facility] Work Phone: Comment on above: Expected: 04/10/2023 (Approximate), Expires: 06/10/2023 Start: 04-10-2023 End: 06-10-2023 Comprehensive metabolic 2000 panel - Serum or Plasma COMP METABOLIC PANEL Lab Routine Essential hypertension IFG (impaired fasting glucose) Expected: 04/10/2023 (Approximate), Expires: 06/10/2023 [facility] Work Phone: Comment on above: Expected: 04/10/2023 (Approximate), Expires: 06/10/2023 Start: 04-10-2023 End: 06-10-2023 Hemoglobin A1c in Blood HGB A1C Lab Routine IFG (impaired fasting glucose) Expected: 04/10/2023 (Approximate), Expires: 06/10/2023 [facility] Work Phone: Comment on above: Expected: 04/10/2023 (Approximate), Expires: 06/10/2023 Start: 04-10-2023 End: 06-10-2023 Lipid 1996 panel - Serum or Plasma LIPID PANEL BASIC Lab Routine Low HDL (under 40) Expected: 04/10/2023 (Approximate), Expires: 06/10/2023 [facility] Work Phone: Comment on above: Expected: 04/10/2023 (Approximate), Expires: 06/10/2023 Start: 12-25-2022 Covid-19 Vaccine () Covid-19 Vaccine () [facility] Start: 12-25-2022 Influenza vaccination Influenza Vacc ine (#1) [facility] Start: 08-04-2022 ANNUAL PCP TEAM CHRONIC DISEASE VISIT ANNUAL PCP TEAM CHRONIC DISEASE VISIT [facility] Start: 06-05-2022 BP CONTROLLED (<130/80) BP CONTROLLED (<130/80) [facility] Start: 06-02-2022 Covid-19 Vaccine (6 - Pfizer series) Covid-19 Vaccine (6 - Pfizer series) [facility] Start: 04-26-2022 ADVANCE DIRECTIVE DISCUSSION ADVANCE DIRECTIVE DISCUSSION [facility] Start: 04-26-2022 DEPRESSION ASSESSMENT DEPRESSION ASS ESSMENT [facility] Start: 04-10-2022 End: 06-10-2022 Prostate specific Ag [Mass/volume] in Serum or Plasma PSA/PROSTSPECAG DIAG Lab Routine Elevated PSA, less than 10 ng/ml Expected: 04/10/2022, Expires: 06/10/2022 [facility] Work Phone: Comment on above: Expected: 04/10/2022 , Expires: 06/10/2022 Start: 04-08-2022 ANNUAL PCP TEAM CHRONIC DISEASE VISIT ANNUAL PCP TEAM CHRONIC DISEASE VISIT [facility] Start: 04-06-2022 Adult depression screening assessment DEPRESSION SCREENING [facility] Start: 04-05-2022 Colonoscopy COLONOSCOPY [facility] Start: 04-05-2022 COLORECTAL CANCER SCREENING COLORECTAL CANCER SCREENING [facility] Start: 03-26-2022 End: 07-27-2022 HIV 1+2 Ab [Presence] in Serum or Plasma by Immunoassay HIV 1 2 COMBO(AG/AB),WITH REFLEX TO DIFFERENTIATION Lab Routine Screening for HIV (human immunodeficiency virus) Expected: 03/26/2022, Expires: 07/27/2022 [facility] Work Phone: Comment on above: Expected: 03/26/2022 , Expires: 07/27/2022 Start: 03-26-2022 End: 07-27-2022 PSA/PROSTSPECAG SCRN PSA/PROSTSPECAG SCRN Lab Routine Screening for prostate cancer Expected: 03/26/2022, Expires: 07/27/2022 [facility] Work Phone: Comment on above: Expected: 03/26/2022 , Expires: 07/27/2022 Start: 2022 ADVANCE DIRECTIVE DISCUSSION ADVANCE DIRECTIVE DISCUSSION [facility] Start: 2022 PNEUMOCOCCAL: 65+ (1 - PCV) PNEUMOCOCCAL: 65+ (1 - PCV) [facility] Start: 12-25-2021 Influenza vaccination INFLUENZA (#1) [facility] Start: 07-24-2021 PROSTATE CANCER SCREENING DISCUSSION PROSTATE CANCER SCREENING DISCUSSION [facility] Start: 04-26-2021 DEPRESSION ASSESSMENT DEPRESSION ASS ESSMENT [facility] Start: 2017 RSV Vaccine (1 - 1-dose 60+ series) RSV Vaccine (1 - 1-dose 60+ series) [facility] Start: 2002 COLOGUARD (FIT-DNA) COLOGUARD (FIT-D NA) [facility] Start: [address] [facility] Start: 2002 FECAL OCCULT BLOOD FECAL OCCULT BLOO D [facility] Start: 2002 Screening for malignant neoplasm of colon [facility] Start: 2002 [facility] Start: 1975 Anxiety Screening Anxiety Screening [facility] Start: 1975 Depression Screening Depression Scre ening [facility] Start: 1975 HIV SCREENING HIV SCREENING [facility] End: 06-28-2023 Radex sacrum & coccyx minimum 2 views XR SACRUM/COCCYX 3V AP/LAT Radiology Routine Pain in the coccyx 1 Occurrences starting 05/29/2022 until 06/28/2023 [facility] Work Phone: Comment on above: 1 Occurrences starti ng 05/29/2022 until 06/28/2023 SURGICAL PATHOLOGY [facility] Work Phone: Comment on above: Release Upon Orderin g for 1 Occurrences starting 11/03/2021, 1 completed End: 06-28-2023 Us compl joint r-t w/image documentation US HIP RT Radiology Routine Injury of groin, initial encounter Right groin pain 1 Occurrences starting 05/29/2022 until 06/28/2023 [facility] Work Phone: Comment on above: 1 Occurrences starti ng 05/29/2022 until 06/28/2023 End: 06-28-2023 XR HIP GENERAL 3V PELV/AP/LAT RIGHT XR HIP GENERAL 3V PELV/AP/LAT RIGHT Radiology Routine Injury of groin, initial encounter Right groin pain 1 Occurrences starting 05/29/2022 until 06/28/2023 [facility] Work Phone: Comment on above: 1 Occurrences starti ng 05/29/2022 until 06/28/[address] [facility] Immunizations Immunization Date Immunization Notes Care Provider Fa [facility] 02-07-2024 influenza, high dose seasonal, preservative-free Lilly Malone MD Work Phone: [facility] 02-07-2024 influenza virus vaccine, unspecified formulation Lilly Malone MD Work Phone: [facility] 02-22-2023 influenza (aIIV4) vaccine, age 65+ yr, quadrivalent, PF (FLUAD QUAD) Lilly Malone MD Work Phone: [facility] 02-22-2023 respiratory syncytia l virus (RSV) vaccine, bivalent (ABRYSVO) Lilly Malone MD Work Phone: [facility] 02-22-2023 influenza virus vaccine, unspecified formulation Jodee Rea CIVIL TRANSPORTATION ENGINEER.FAST FOOD CASHIER Work Phone: [facility] 04-10-2022 pneumococcal (PCV20) vaccine, 20 valent (PREVNAR 20) Lilly Malone MD Work Phone: [facility] 04-10-2022 pneumococcal Conjuga te, unspecified formulation Lilly Malone MD Work Phone: [facility] Work Phone: 02-16-2022 influenza, high dose seasonal, preservative-free Lilly Malone MD Work Phone: [facility] Work Phone: 02-16-2022 influenza, injectabl e, quadrivalent, preservative free Lilly Malone MD Work Phone: [facility] 02-16-2022 influenza virus vaccine, unspecified formulation William Moran MD Work Phone: [facility] 2021 influenza, injectabl e, quadrivalent, preservative free Kalin Harris CIVIL TRANSPORTATION ENGINEER.COOKING TEACHER Work Phone: [facility] 07-30-2020 COVID-19 vaccine, ag e 12+ yr (PFIZER-BIONTECH - PURPLE TOP) Kalin Harris APRN.COOKING TEACHER Work Phone: [facility] 07-09-2020 COVID-19 vaccine, ag e 12+ yr (PFIZER-BIONTECH - PURPLE TOP) Kalin Harris APRN.COOKING TEACHER Work Phone: [facility] Work Phone: 04-02-2020 tetanus toxoid, redu den diphtheria toxoid, and acellular pertussis vaccine, adsorbed Kalin Harris CIVIL TRANSPORTATION ENGINEER.COOKING TEACHER Work Phone: [facility] 01-11-2020 influenza, injectabl e, quadrivalent, preservative free Aklin Harris CIVIL TRANSPORTATION ENGINEER.COOKING TEACHER Work Phone: [facility] 03-20-2019 influenza, injectabl e, quadrivalent, contains preservative Kalin Harris CIVIL TRANSPORTATION ENGINEER.COOKING TEACHER Work Phone: [facility] Work Phone: 10-24-2018 zoster vaccine recombinant Kalin Harris CIVIL TRANSPORTATION ENGINEER.COOKING TEACHER Work Phone: [facility] Work Phone: 08-17-2018 zoster vaccine recombinant Kalin Harris CIVIL TRANSPORTATION ENGINEER.COOKING TEACHER Work Phone: [facility] Work Phone: 03-14-2018 influenza, injectabl e, quadrivalent, contains preservative Kalin Harris CIVIL TRANSPORTATION ENGINEER.COOKING TEACHER Work Phone: [facility] 05-24-2008 tetanus and diphther ia toxoids, not adsorbed, for adult use Kalin Harris CIVIL TRANSPORTATION ENGINEER.COOKING TEACHER Work Phone: [facility] Payers Date Payer Category Payer Self-pay 2022 Medicare A[employer] MEDICARE A ETNA MEDICARE PPO [id number] 2022-Present [phone] [facility] [id number] [place] [address] [facility] [id number] 2022 Medicare (Managed Care) [employer] MD [place] [id number] 2022 Medicare [id number] 2018 Unknown MMO MMO SU[employer] PLUS [id number] 2018-Present [phone] [address] [place] [address] PPO [id number] 2018 Unknown MMO MMO SUPERMED PPO [id number] 2018-2021 [address] [place] [address] PPO [id number] 2012 Unknown [facility] [id number] Unknown [id number] Unknown [id number] Unknown [id number] Unknown [id number] Unknown [id number] Unknown [id number] Unknown [id number] Unknown [id number] Social History Date Type Detail Facility Start: 02-02-2022 End: 09-21-2023 Tobacco smoking status NHIS Never smoked tobacco [facility] Work Phone: Start: 08-04-2021 End: 09-11-2024 Alcohol intake Current drinker of alcohol (finding) [facility] Start: 04-06-2021 End: 04-04-2022 History SDOH Alcohol Frequency 3 [facility] Start: 04-06-2021 End: 04-04-2022 History SDOH Alcohol Std Drinks 1 [facility] Start: 08-01-2015 History SDOH Alcohol Comment 0-1 / week [facility] Start: 04-06-2021 End: 04-04-2022 History SDOH Social Connections Phone 5 [facility] Start: 04-06-2021 History SDOH Social Connections Get Together 4 [facility] Start: 03-20-2020 End: 04-04-2022 History SDOH Social Connections Membership 2 [facility] Start: 03-20-2020 Education 18 [facility] Start: 1955 Sex Assigned At Not on file C [facility] Start: 05-06-2021 End: 02-02-2022 Exposure to SARS-CoV-2 (event) Not sure [facility] Work Phone: Start: 03-20-2019 End: 02-02-2022 Tobacco use and exposure Smokeless tobacco non-user [facility] Work Phone: Start: 04-04-2022 End: 04-11-2023 History of Social function [facility] Start: 04-04-2022 End: 04-11-2023 Social connection and isolation panel [facility] Do you belong to any clubs or organizations such as advent groups, unions, fraternal or athletic groups, or school groups? No [facility] Are you now , , , , never or living with a partner? [facility] How often to you hav e a drink containing alcohol? 2-4 times a month [facility] How many standard dr inks containing alcohol do you have on a typical day? 1 or 2 [facility] How often do you hav e 6 or more drinks on 1 occasion? Never [facility] How hard is it for y ou to pay for the very basics like food, housing, medical care, and heating Not hard at all [facility] Do you feel stress - tense, restless, nervous, or anxious, or unable to sleep at night because your mind is troubled all the time - these days [OSQ] Only a little [facility] (I/We) worried wheth er (my/our) food would run out before (I/we) got money to buy more. Never true [facility] Do you belong to any clubs or organizations such as advent groups, unions, fraternal or athletic groups, or school groups? Yes [facility] How often to you hav e a drink containing alcohol? Monthly or less [facility] Do you feel stress - tense, restless, nervous, or anxious, or unable to sleep at night because your mind is troubled all the time - these days [OSQ] Not at all [facility] Do you feel stress - tense, restless, nervous, or anxious, or unable to sleep at night because your mind is troubled all the time - these days [OSQ] To some extent [facility] Start: 1955 Sex Assigned At Male [facility] Goals Date Patient Goal Desired Activity /State [...] by mouth once daily. Lilly Malone MD [facility] 10-24-2024 Miscellaneous Notes Formattin g of this [...] Ana Siddiqui RN documented in this encounter [facility] 10-24-2024 Telephone encount er Note The patient [...] by mouth once daily. Ana Siddiqui RN [facility] 10-09-2024 Progress note [facility] 10-09-2024 Progress note Note Date/Time October 09, 2024 9:21am [facility] [address] [place] [address] OFFICE VISIT Date of Service: 10/09/24 MR#: [id number] Acct: [id number] Name: DILIA MAST Rep #: [id number] : 1955 Provider: THOMAS Conde Age/Sex: 69/M Location: [facility] Status: Signed Intake Vital Signs 09/21/23 08:45 [...] CPT Codes Procedures - Manipulation: 3-4 regions (27030) Clinical Quality Measures Falls Risk Screening/Assistive Devices Have you fallen in the past year?: No 10/09/24 0921 <Electronically signed by Mitzy Alcazar> Date _ Mitzy Gonsales Signature: Date (if applicable) CC: ~ [facility] [employer] [facility] Work Phone: 1(351) 612-326705-20-2025 NoteHNO ID: [id number] Author: NILSA PALACIOS RN Service: ? Author [...] Nilsa Palacios RN September 12, 2024 9:58 [facility]05-20-2025 NotePatient Outreach ([facility]) DILIA MAST ([id number]) 1955 M Date Time Provider Department 09/12/24 NILSA PALACIOS [facility] During your visit today, we recorded the [...] R20.*06/06/2021 Encounter Status:Closed by NILSA PALACIOS on 09/12/24[facility] 09-11-2024 NoteHNO ID: [id number] Author: RAND MILLER MA Service: ? Author Type: Spike Machine Heater Type: Progress Notes Filed: 09/11/2024 12:01 Note Text: PT ASSESSMENT - CASTING ROOM Dilia presents for Application of brace. Applied M/L reaction brace to Left knee. Patient electronically signed Doron HERMAN. Patient has been instructed in Care and proper application of brace. Rand Miller [facility]05-19-2025 History of Present illness Narrative* Rand [...] MD Department of Orthopaedics Orthopaedics [address] [facility] [address] Dept: [phone] Dept September 11, 2024 CHIEF COMPLAINT: Established [...] regularly. Kit is physically active, regularly attending [employer] and engaging in fishing during the summer, [...] knee arthroscopy about 25 years ago at [facility]. He continues with pain intermittently. If he [...] (+) left knee instability Recording using ambient Ruckus software for draft documentation of the visit was discussed with the patient/authorized leasing representative; all questions welcomed and answered. Patient/authorized leasing representative agreed to proceed Mason Unger MD documented in this encounterMercy Health [facility] Hospital05-19-2025 NoteHNO ID: [id number] Author: MASON UNGER MD Service: ? Author Type: Physician Type: Progress Notes Filed: 09/11/2024 12:02 Note Text: Mason Unger MD Department of Orthopaedics Orthopaedics [address] [facility] [address] Dept: [phone] Dept September 11, 2024 CHIEF COMPLAINT: Established [...] knee arthroscopy about 25 years ago at [facility]. He continues with pain intermittently. If he [...] tilt laterally. - Right (more content not included)...[facility]04-18-2025 Progress note* Result Encounter Note - Kalin Harris APRN.CNS - 08/11/2024 1:26 PM EDT Bilateral findings shows chondrocalcinosis medial lateral aspects of both knees, severe narrowing of the medial lateral compartment on the left knee, moderate posterior spurring patella, no acute findings no fractures or dislocations [facility]04-18-2025 Miscellaneous Notes* Result Encounter Note - Kalin Harris APRN.CNS - 08/11/2024 1:26 PM EDT Bilateral findings shows chondrocalcinosis medial lateral aspects of both knees, severe narrowing of the medial lateral compartment on the left knee, moderate posterior spurring patella, no acute findings no fractures or dislocations documented in this encounterMercy Health Allen Hospital04-18-2025 History of Present illness Narrative* Blaise Luna [...] PATIENT PRESENTS WITH AN IMPLANTABLE OR ATTACHED ENVIRONMENTAL AIR SPECIALIST: No RADIOLOGY DEPARTMENT: General X-ray: Exam(s) Completed: Lower Extremity X- Ray(s): Knee, AP / Lat / Tunne / Merchant Left and Wt. Bearing PERIPHERAL IV DATA: Not applicable SIGNED BY: RT Hussain(R) August 11, 2024 11:50 AM documented in this encounterMercy Health Allen Hospital04-18-2025 NoteHNO ID: [id number] Author: BLAISE LUNA RT(R) Service: Radiology Author Type: Technologist [...] PATIENT PRESENTS WITH AN IMPLANTABLE OR ATTACHED ENVIRONMENTAL AIR SPECIALIST: No RADIOLOGY DEPARTMENT: General X-ray: Exam(s) Completed: Lower Extremity X-Ray(s): Knee, AP / Lat / Tunne / Merchant Left and Wt. Bearing PERIPHERAL IV DATA: Not applicable SIGNED BY: RT Hussain(Renetta) August 11, 2024 11:50 [facility]04-18-2025 NoteHNO ID: [id number] Author: KALIN HARRIS APRN.COOKING TEACHER Service: ? Author Type: Nurse Specialist Type: [...] activity, including moving his daughter back to [place], packing, and working on home projects, going [...] reduce swelling. - Referral to Dr. Unger, citizen participation specialist, for further evaluation and management. If not improing with conservative measure endorse ortho appt, PT appt. - Dilia Mast understands and agrees with the treatment plan. Kalin Harris APRN.JAXON Medical Decision Making: Problems: Low: Acute, uncomplicated illness or injury Data: Unique test(s) ordered: 1 Risk: Moderate: Drug management Medical Decision Making Level: 3 - LowPar[facility]04-18-2025 History of Present illness Narrative* Kalin Harris APRN.COOKING TEACHER - 08/11/2024 11:23 AM EDT Subjective Patient [...] activity, including moving his daughter back to [place],packing, and working on home projects, going up [...] reduce swelling. - Referral to Dr. Unger, citizen participation specialist, for further evaluation and management. If not improing with conservative measure endorse ortho appt, PT appt. - Dilia Mast understands and agrees with the treatment plan. Kalin Harris APRN.CNS Medical Decision Making: Problems: Low: Acute, uncomplicated illness or injury Data: Unique test(s) ordered: 1 Risk: Moderate: Drug management Medical Decision Making Level: 3 - Low documented in this encounterMercy Health [facility] Hospital03-04-2025 Evaluation note* Diagnosis Onset Date Resolution Status Admit Date Back pain acute June 27 9:45am Segmental and somatic dysfunction of cervical region acute [facility] 2024 9:45am Segmental and somatic dysfunction of lumbar region acute [facility] 2024 9:45am Segmental and somatic dysfunction of pelvic region acute [facility] 2024 9:45am Segmental and somatic dysfunction of thoracic region acute [facility] 2024 9:45am Scoliosis of lumbar spine chronic June 27, 2024 9:45am Back pain acute July 26 8:09am Segmental and somatic dysfunction of cervical region acute A pril 2024 8:09am Segmental and somatic dysfunction of lumbar region acute Apr [place] 2024 8:09am Segmental and somatic dysfunction of pelvic region acute Apr ga 2024 8:09am Segmental and somatic dysfunction of [...] lumbar spine chronic October 09, 2024 8:28am [facility] [employer] [facility] Work Phone: [phone]) [phone] NoteHNO ID: [id number] Author: TRINIDAD TAPIA MA Service: ? Author Type: Spike Machine Heater Type: Progress Notes Filed: 06/19/2024 08:16 Note Text: POPULATION HEALTH NAVIGATION OUTREACH Action/FYI Spoke to patient. Declined follow up. Reason for Outreach Returned Call/InsideAxis™hart Patient Contacted: Spoke to patient/parent/or legal guardian Patient identified by name and date of : Yes Returned call/InsideAxis™hart actions taken: Patient declined: Doesn't feel it's necessary Navigation Signature: Trinidad Tapia MA June 19, 2024 8:12 [facility]02-21-2025 NoteHNO ID: [id number] Author: TRINIDAD TAPIA MA Service: ? Author Type: Spike Machine Heater Type: Progress Notes Filed: 06/16/2024 15:20 Note Text: POPULATION HEALTH NAVIGATION OUTREACH Action/FYI Spoke to patient via DocsInk. Will await for response. Reason for Outreach Returned Call/InsideAxis™hart Patient Contacted: Spoke to patient/parent/or legal guardian Patient identified by name and date of : Yes Returned call/MyChart actions taken: No action required Navigation Signature: Trinidad Tapia MA June 16, 2024 3:[address] [facility]02-21-2025 History of Present illness Narrative* Trinidad Tapia [...] or unnecessary to reach patient: Left message InsideAxis™hart message sent Navigation Signature: Trinidad Tapia MA June 16, 2024 7:33 AM documented in this encounterMercy Health Allen Hospital02-21-2025 NoteHNO ID: [id number] Author: TRINIDAD TAPIA MA Service: ? Author Type: Spike Machine Heater Type: Progress Notes Filed: 06/16/2024 12:35 Note [...] Trinidad Tapia MA June 16, 2024 7:33 [facility]02-21-2025 NotePatient Outreach (NETNAV) DILIA MAST ([id number]) 1955 M Date Time Provider Department 06/16/24 TRINIDAD TAPIA NETNAV During your visit today, we recorded the following information about you: rTinidad Tapia MA 06/16/2024 12:35 PM Signed POPULATION HEALTH NAVIGATION OUTREACH Action/FYI Patient is on [employer] High Risk list for below and needs appointment to address: Advance Directive Discussion Hemoglobin A1C (%) Date Value 04/14/2024 5.8 03/03/2021 5.5 Patient due for: Follow up Appointment - AWV scheduled 03/2025 Shwrüm Active: Yes Left message for patient to call back. Sent DocsInk message. Reason for Outreach Care Gap/HCC or Scheduling Wellness Visits Care Gaps due: Follow-up Appointment Patient Contacted: Unable or unnecessary to reach patient: Left message Shwrüm message sent Navigation Signature: Trinidad Tapia MA June 16, 2024 7:33 AM Trinidad Tapia MA 06/16/2024 3:20 PM Signed POPULATION HEALTH NAVIGATION OUTREACH Action/FYI Spoke to patient via DocsInk. Will await for response. Reason for Outreach [...] R20.*06/06/2021 Encounter Status:Closed by TRINIDAD TAPIA on 06/16/24[facility]12[facility] Instructions* Patient Instructions* Lilly Malone MD - 04/25/2024 9:30 AM EST - Continue taking Altace 10 mg daily and hydrochlorothiazide 25 mg daily. - Continue taking Flonase, Moxicam, Patanol, Albuterol, and Zyrtec as needed. - Take Aspirin daily. - Incorporate more Regina-3 rich foods into your diet, such as [...] review all the medicines you take, even pkve-xht-pbwrlxo medicines. As you get older, the way [...] have certain medical conditions. documented in this encounterMercy Health Allen Hospital12-31-2024 NoteHNO ID: [id number] Author: LILLY MALONE MD Service: ? Author Type: Physician Type: Progress Notes Filed: 04/25/2024 09:56 Note Text: This note was created using Betfairriter. Subjective Dilia Mast is a 69 year [...] walking. He has recently resumed going to [employer] and aims to attend three to four [...] cardiovascular disease and is currently seeing a spinning bath patroller and an proposal rep. He has completed his advance directives and has a healthcare power of deputy county attorney in place. He is up to [...] Pulses: Normal pulses. H (more content not included)...[facility]12-31-2024 History of Present illness Narrative* Lilly Malone MD - 04/25/2024 9:27 AM EST Images from the original note were not included. This note was created using Betfairriter. Subjective Dilia Mast is a 69 year [...] walking. He has recently resumed going to [employer] and aims to attend three to four [...] cardiovascular disease and is currently seeing a spinning bath patroller and an proposal rep. He has completed his advance directives and has a healthcare power of deputy county attorney in place. He is up to [...] confirmed living will and healthcare power of deputy county attorney are on file. - Scheduled next [...] negative. Lilly Malone MD documented in this encounterMercy Health Allen Hospital08-20-2024 NoteHNO ID: [id number] Author: JODEE REA APRN.FAST FOOD CASHIER Service: ? Author Type: Nurse Practitioner Type: Progress Notes Filed: 12/14/2023 10:15 Note Text: SUBJECTIVE iDlia Mast is a 68 year old male [...] home - ICD9: V61.9 (more content not included)...[facility]08-20-2024 History of Present illness Narrative* Jodee Rea APRN.FAST FOOD CASHIER - 12/14/2023 9:53 AM EDT SUBJECTIVE Dilia [...] appointment.. Jodee Rea APRN-BELKIS documented in this encounterMercy Health Allen Hospital06-10-2024 Telephone encounter Note * Telephone Encounter - Catia Vasquez LPN - 10/04/2023 3:38 PM EDT Patient needs future refills to go to [facility]. He does not need meds at this [...] Vasquez LPN October 04, 2023 3:41 PM [facility]06-10-2024 Miscellaneous Notes* Telephone Encounter - Catia Vasquez LPN - 10/04/2023 3:38 PM EDT Patient needs future refills to go to [facility]. He does not need meds at this [...] Patient needs future refills to go to [facility]. He does not need meds at this time. documented in this encounterMercy Health Allen Hospital06-10-2024 Telephone encounter Note * Telephone Encounter - Yogesh CejaAmanda - 10/04/2023 3:33 PM EDT Patient needs future refills to go to [facility]. He does not need meds at this time. [facility]05-28-2024 Telephone encounter Note* Telephone Encounter - Lilly [...] once daily. Authorizing Provider: LILLY MALONE MD [facility]05-28-2024 Miscellaneous Notes* Telephone Encounter - Lilly Malone [...] stating he also needs HCTZ sent to [facility] instead of [facility]. Pended as such. [...] states that his mother is moving to [facility]. Patient states that Dr. Malone had told him at patient's last appointment that Dr. Malone would see patient's mother as patient. Patient asking if Dr. Malone will see mother? Patient also needs ramipril to be sent to [facility]. Prescription was previously sent to [facility]. Please review and advise, Paola Byrne RN documented in this encounterMercy Health Allen Hospital05-28-2024 Telephone encounter Note * Telephone Encounter - Shani Stanton OCCA - 09/21/2023 1:18 PM EDT TC to patient who verbalized understanding of below. Patient stating he also needs HCTZ sent to [facility] instead of [facility]. Pended as such. HOLLAND Corley [facility]05-27-2024 Telephone encounter Note* Telephone Encounter - Lilly [...] once daily. Authorizing Provider: LILLY MALONE MD [facility]05-24-2024 Telephone encounter Note* Telephone Encounter - Paola Byrne RN - 09/17/2023 12:09 PM EDT Patient calls and states that his mother is moving to [facility]. Patient states that Dr. Malone had told him at patient's last appointment that Dr. Malone would see patient's mother as patient. Patient asking if Dr. Malone will see mother? Patient also needs ramipril to be sent to [facility]. Prescription was previously sent to [facility]. Please review and advise, Paola Byrne RN [facility]05-09-2024 Telephone encounter Note* Telephone Encounter - Sudhir [...] Please advise. Thank you. Sudhir Vu MA. [facility]05-09-2024 Miscellaneous Notes* Telephone Encounter - Sudhir Vu [...] you. Sudhir Vu MA. documented in this encounterMercy Health Allen Hospital05-03-2024 History of Present illness Narrative* Kalin Harris, CIVIL TRANSPORTATION ENGINEER.COOKING TEACHER - 08/27/2023 10:00 AM EDT SUBJECTIVE: BP [...] tenderness or frontal sinus tenderness. Mouth/Throat: Lips: [place]. Mouth: Mucous membranes are moist. Pharynx: Oropharynx [...] Level: 3 - Low documented in this encounterMercy Health Allen Hospital02-19-2024 Miscellaneous Notes* Telephone Encounter - Catia Vasquez LPN - 06/14/2023 8:25 AM EST Patient made appointment and we seen today documented in this encounterMercy Health Allen Hospital02-19-2024 History of Present illness Narrative* Kalin Harris [...] Level: 3 - Low documented in this encounterMercy Health Allen Hospital09-21-2023 History of Present illness Narrative* William oMran MD - 01/14/2023 7:04 PM EDT Patient [...] improving. William Moran MD documented in this encounterMercy Health Allen Hospital06-06-2023 Miscellaneous Notes* Telephone Encounter - Kalin Harris APRN.CNS - 09/29/2022 4:35 PM EDT [place] documented in this encounterMercy Health Allen Hospital05-15-2023 Miscellaneous Notes* Telephone Encounter - Asia Billings [...] you. Asia Billings LPN documented in this encounterMercy Health Allen Hospital04-03-2023 History of Present illness Narrative* Mason Unger MD - 07/27/2022 10:05 AM EDT Mason Unger MD Department of Orthopaedics Orthopaedics [address] [facility] [address] Dept: [phone] Dept July 27, 2022 CHIEF COMPLAINT: New [...] PUBIC SYMPHYSIS DEGENERATIVE CHANGE WITH REACTIVE EDEMA. [place] Operator: JOSE ALFREDO Transcribe Date/Time: Jul 16 2022 [...] physician via US mail. Kalin Harris [address] [facility] [address] Lilly Malone MD [address] [facility] [address] Mason Unger MD documented in this encounterMercy Health Allen Hospital03-30-2023 History of Present illness Narrative* Maritza Santamaria PA-C - 07/23/2022 7:31 AM EDT This note was created using Betfairriter. Subjective Dilia Mast is a 67 year [...] smoker. No vomiting or diarrhea. He tried Nadiya-[place] and DayQuil afcv-rzs-wplzicf. Review of Systems Constitutional: Negative. HENT: Positive [...] INHALER Maritza Santamaria PA-C documented in this encounterMercy Health Allen Hospital03-23-2023 Miscellaneous Notes* Telephone Encounter - Catia Jaramillo [...] large pelvic lymph nodes. documented in this encounterMercy Health Allen Hospital03-23-2023 History of Present illness Narrative* Serene Becerra [...] 2022 TIME: 10:28 AM documented in this encounterMercy Health Allen Hospital02-22-2023 Miscellaneous Notes* Telephone Encounter - Prasad Clark [...] 60 MINUTES Order Name/Protocol: US HIP RT; [facility]-EV[facility] FOR RT INGUINAL HERNIA/SOFT TISSUE INJURY [...] locations. Slot held: N/A documented in this encounterMercy Health Allen Hospital02-14-2023 Miscellaneous Notes* Telephone Encounter - Ana Siddiqui RN - 06/09/2022 3:17 PM EST Pt and [facility] US department notified of update below. Ana Siddiqui RN * Telephone Encounter - Kalin Harris APRN.CNS - 06/09/2022 1:47 PM EST Will await XR results, then decide on next testing; US vs. CT. If doing CT will complete here not [facility]. * Telephone Encounter - Ana Siddiqui RN - 06/09/2022 9:44 AM EST Romelia with [facility] Ultrasound Dept calling and states they received pt's order for: US HIP RT. Romelia states at their department, for concern for a hernia versus soft tissue, they advise a CT scan instead. Please advise. Please call pt with any updates/changes in orders as well. Ana Siddiqui RN documented in this encounterMercy Health Allen Hospital02-13-2023 Miscellaneous Notes* Telephone Encounter - Catia Jaramillo LPN - 06/08/2022 4:25 PM EST Patient notified and order faxed to [facility] * Telephone Encounter - Kalin Harris APRN.CNS - 06/08/2022 4:03 PM EST OK * Telephone Encounter - Roslyn Han LPN - 06/08/2022 3:49 PM EST Pt calls to report he would have to go up towards [place] or [facility] to get US of hip done. Pt is asking if he can have it done at [facility]. Please review and advise. Roslyn Han LPN [...] to: self Call patient at: at home [phone] (home) [phone] (cell) Payor: AETNA MEDICARE / Plan: AETNA MEDICARE PPO / Product Type: PPO / Denise Hoff documented in this encounterMercy Health Allen Hospital02-13-2023 Miscellaneous Notes* Telephone Encounter - Prasad Clark [...] 60 MINUTES Order Name/Protocol: US HIP RT; [facility] FOR RT INGUINAL HERNIA/SOFT TISSUE INJURY [...] locations. Slot held: N/A documented in this encounterMercy Health Allen Hospital02-13-2023 History of Present illness Narrative* Jacqui Galloway RT(R) - 06/08/2022 3:20 PM EST Radiology Service Progress Note PATIENT NAME: Dilia Mast DATE OF SERVICE: June 08, 2022 [...] 08, 2022 3:13 PM documented in this encounterMercy Health Allen Hospital02-03-2023 History of Present illness Narrative* Kalin Harris APRN.COOKING TEACHER - 05/29/2022 4:14 PM EST SUBJECTIVE: ADVANCE [...] needed. Consider PT as needed. Kalin Harris APRN.COOKING TEACHER Medical Decision Making: Problems: Low: Acute, uncomplicated illness or injury Data: Unique test(s) ordered: 2 Medical Decision Making Level: 3 - Low documented in this encounterMercy Health Allen Hospital12-16-2022 History of Present illness Narrative* Lilly Malone [...] 9PM. Drinking water all day long. Joined [employer] and working 2 to3 time as week. [...] MIST) 0.65 % nasal spray Use 1 [place] in the nose as needed for Cold/AllergySymptoms [...] up with with Dr. Santiago Aceves for spinning bath patroller. Treating with 5-FU for prevention of SCC. Lilly Malone MD documented in this encounterMercy Health Allen Hospital10-26-2022 Miscellaneous Notes* Telephone Encounter - Chaya Mendez APRN.CNP - 2022 1:54 PM EDT See more recent My Chart encounter 12/31, closing this one Chaya Mendez APRN.CNP documented in this encounterMercy Health Allen Hospital10-10-2022 History of Present illness Narrative* Ranjeet García [...] MIST) 0.65 % nasal spray Use 1 [place] in the nose as needed for Cold/AllergySymptoms [...] MG/GRAM (0.5 %) EYE OINTMENT Ranjeet García APRN.FAST FOOD CASHIER documented in this encounterMercy Health Allen Hospital08-15-2022 Miscellaneous Notes* Telephone Encounter - Marc Godinez RN - 12/08/2021 9:56 AM EDT Patient checking on reply. documented in this encounterMercy Health Allen Hospital07-22-2022 History of Present illness Narrative* Sherri Woodruff [...] UP VISIT - ENDOSCOPY NAME: Dilia Mast [facility] NO.: [id number] DATE OF SERVICE: 11/14/2021 : 1955 REFERRING [...] which included preparing to see the patient, bkjg-hk-tuhh patient care, completing clinical documentation, obtaining and/or reviewing separately obtained history, independently interpreting results (not separately reported) and communicating r esults to the patient/family/caregiver. Sherri Woodruff PA-C documented in this encounterMercy Health Allen Hospital07-11-2022 History and physical note * Lan Holcomb MD - 11/03/2021 10:15 AM EDT Images from the original note were not included. HISTORY AND PHYSICAL Dilia Chapman Vikash 1955 REFERRING PHYSICIAN: Kalin Harris APRN.COOKING TEACHER CHIEF COMPLAINT: Consult (colonoscopy consultation) HPI: The [...] MIST) 0.65 % nasal spray Use 1 [place] in the nose as needed for Cold/AllergySymptoms [...] entered by the nurse and reviewed by ks Nursing Notes: Joaquina Curtis 09/08/2021 8:58 AM [...] (89 F), height 175.3 cm (5' 9), nlualm667.9 kg (229 lb), SpO2 98 %. Body [...] patient was offered a surgery/procedure at a [facility] facility. I have counseled the patient regarding [...] 2021 TIME: 9:45 AM [facility] Nurse Note* Evelyne Jung RN - 11/03/2021 10:08 AM EDT Patient received in PACU, on left side, eyes open, answers questions, respirations regular and unlabored, abdomen soft non distended, denies pain. [facility]22 Miscellaneous Notes* Telephone Encounter - Joaquinacarleen Curtis - 09/08/2021 9:08 AM EDT 11/03/2021 COLON ASC documented in this encounterMer[facility]05-16-2022 Nurse Note* Joaquina Curtis - 09/08/2021 8:54 [...] Colonoscopy: 04/05/2017 Joaquina Curtis documented in this encounterMer[facility]-16-[facility]22 History of Present illness Narrative* Sherri Woodruff PA-C - 09/08/2021 8:19 AM EDT HISTORY AND PHYSICAL Dilia Mast 1955 REFERRING PHYSICIAN: Kalin Harris APRN.COOKING TEACHER CHIEF COMPLAINT: Consult (colonoscopy consultation) HPI: The [...] MIST) 0.65 % nasal spray Use 1 [place] in the nose as needed for Cold/AllergySymptoms [...] entered by the nurse and reviewed by ks Nursing Notes: Joaquina Curtis 09/08/2021 8:58 AM [...] (89 F), height 175.3 cm (5' 9), iyuenw873.9 kg (229 lb), SpO2 98 %. Body [...] patient was offered a surgery/procedure at a [facility] facility. I have counseled the patient regarding [...] mail. Sherri Woodruff PA-C documented in this encounterMer[facility]04-11-2022 History of Present illness Narrative* Kalin HarrisABBIE.COOKING TEACHER - 08/04/2021 8:20 AM EDT SUBJECTIVE: HIV [...] MIST) 0.65 % nasal spray Use 1 [place] in the nose as needed for Cold/AllergySymptoms [...] Level: 4 - Moderate [facility]* Diagnosis Left cervical radiculopathy- Primary Brachial [...] of left shoulder [facility] Diagnosis Heartburn [facility] Diagnosis History of colonic polyps- Primary Personal history of colonic polyps Screening for colorectal cancer Special screening for malignant neoplasms, colon [facility]* Diagnosis History of colonic polyps Personal history of colonic polyps [facility]* Diagnosis Tubular adenoma- Primary Benign neoplasm of unspecified site History of colonic polyps Personal history of colonic polyps [facility] Diagnosis History of colonic polyps- Primary Personal history of colonic polyps [facility]* Diagnosis Cornea abrasion, right, initial encounter- Primary [facility]* Diagnosis Essential hypertension- Primary Unspecified essential hypertension IFG (impaired fasting glucose) Impaired fasting glucose Anxiety Anxiety state, unspecified Low HDL (under 40) Lipoprotein deficiencies Need for vaccination Need for prophylactic vaccination and inoculation against unspecified single disease Elevated PSA, less than 10 ng/ml Elevated prostate specific antigen (PSA) [facility]* Diagnosis Injury of groin, initial encounter- Primary Right groin pain Abdominal pain, right lower quadrant Pain in the coccyx Other disorder of coccyx [facility]* Diagnosis Right hip pain- Primary Pain in joint, pelvic region and thigh Tear of right acetabular labrum, initial encounter [facility]* Diagnosis Sinobronchitis- Primary Unspecified sinusitis (chronic) [facility]* Diagnosis Right hip pain Pain in joint, pelvic region and thigh Tear of right acetabular labrum, initial encounter [facility]* Diagnosis Anxiety Anxiety state, unspecified [facility]* Diagnosis Hordeolum internum of right lower eyelid- Primary Hordeolum internum [facility]* Diagnosis Pain in hip Pain in joint, pelvic region and thigh Injury of groin, initial encounter Right groin pain Abdominal pain, right lower quadrant Pain in the coccyx Other disorder of coccyx [facility]* Diagnosis Sinobronchitis Unspecified sinusitis (chronic) [facility]* Diagnosis PND (post-nasal drip)- Primary Postnasal drip Ear fullness, bilateral Watery eyes Epiphora, unspecified as to cause [facility]* Diagnosis PND (post-nasal drip) Postnasal drip Ear fullness, bilateral [facility]* Diagnosis Eye muscle twitches- Primary Abnormal involuntary movements Stress at home Unspecified family circumstance [facility]* Diagnosis Injury of groin, initial encounter Right groin pain Abdominal pain, right lower quadrant Pain in the coccyx Other disorder of coccyx [facility]* Diagnosis Cervicalgia Acute pain of left shoulder Numbness and tingling in left hand Disturbance of skin sensation [facility]* Diagnosis Medicare annual wellness visit, subsequent- Primary Routine general medical examination at a health care facility Primary hypertension Unspecified essential hypertension IFG (impaired fasting glucose) Impaired fasting glucose Obesity (BMI 30.0-34.9) Obesity, unspecified Encounter for screening examination for other mental health and behavioral disorders Screening for depression documented [facility]* Diagnosis Acute pain of left knee- Primary Arthritis of both knees Unspecified arthropathy, lower leg Acute pain of left knee [facility]* Diagnosis Acute pain of left knee documented [facility]* Diagnosis Acute pain of left knee Arthritis of both knees Unspecified arthropathy, lower leg Primary osteoarthritis of left knee Primary localized osteoarthrosis, lower leg Primary osteoarthritis of right knee Primary localized osteoarthrosis, lower leg Chondrocalcinosis of right knee [facility] (narrative)* Outpatient Procedure (Routine) - Closed Specialty Diagnoses / Procedures Referred By Robert mercado Referred To Contact [facility] Diagnoses History of colonic polyps Procedures COLONOSCOPY SCREENING COLONOSCOPY FLX DX W/COLLJ SPEC WHEN Sherri Vasquez PA-C [address] [place] [address] [facility] [address] [place] [id number] Referral ID Status Reason Start Date Expiration Date V isits Requested Visits Authorized [id number] Closed Auto-Generate d Referral 09/08/2021 09/08/2022 1 [facility]patient Procedure (Routine) - Closed Specialty Diagnoses / Procedures Referred By Robert mercado Referred To Contact [facility] Diagnoses History of colonic polyps Procedures COLONOSCOPY SCREENING COLONOSCOPY FLX DX W/COLLJ SPEC WHEN PFRMD Sherri Woodruff PA-C [address] [facility] [place] [address] [facility] [address] [place] [address] Referral ID Status Reason Start Date Expiration Date V isits Requested Visits Authorized [id number] Closed Auto-Generate d Referral 09/08/2021 09/08/2022 1 1 [facility] for referral (narrative)* Diagnostic Procedure Only (Routine) - Pending Review Specialty Diagnoses / Procedures Referred By Contac t Referred To Contact [facility] Diagnoses Pain in the coccyx Procedures XR SACRUM/COCCYX 3V AP/LAT RADEX SACRUM & COCCYX MINIMUM 2 VIEWS Kalin Harris APRN.COOKING TEACHER [address] [place] [address] [facility] Referral ID Status Reason Start Date Expiration Date Visits Requested Visits Authorized [id number] Pending Review Auto-Generat ed Referral 05/29/2022 06/28/2023 1 1 * Diagnostic Procedure Only (Routine) - Pending Review Specialty Diagnoses / Procedures Referred By Contac t Referred To Contact XR IMAGING Diagnoses Injury of groin, initial encounter Right groin pain Procedures XR HIP GENERAL 3V PELV/AP/LAT RIGHT RADEX HIP UNILATERAL WITH PELVIS 2-3 VIEWS Kalin Harris APRN.COOKING TEACHER [address] [place] [address] [facility] Referral ID Status Reason Start Date Expiration Date Visits Requested Visits Authorized [id number] Pending Review Auto-Generat ed Referral 05/29/2022 06/28/2023 1 1 * Diagnostic Procedure Only (Routine) - Pending Review Specialty Diagnoses / Procedures Referred By Contac t Referred To Contact [facility] Diagnoses Injury of groin, initial encounter Right groin pain Procedures US HIP RT US COMPL JOINT R-T W/IMAGE DOCUMENTATION Kalin Harris APRN.COOKING TEACHER [address] [place] [address] [facility] Referral ID Status Reason Start Date Expiration Date Visits Requested Visits Authorized [id number] Pending Review Auto-Generat ed Referral 05/29/2022 06/28/2023 1 1 [facility] for referral (narrative)* Diagnostic Procedure Only (Routine) - Closed Specialty Diagnoses / Procedures Referred By Contac t Referred To Contact XR IMAGING Diagnoses Pain in the coccyx Procedures XR SACRUM/COCCYX 3V AP/LAT RADEX SACRUM & COCCYX MINIMUM 2 VIEWS Kalin Harris APRN.COOKING TEACHER [address] [place] [address] [place] [address] Referral ID Status Reason Start Date Expiration Date V isits Requested Visits Authorized [id number] Closed Auto-Generate d Referral 05/29/2022 06/28/2023 1 1 * Diagnostic Procedure Only (Routine) - Closed Specialty Diagnoses / Procedures Referred By Contac t Referred To Contact XR IMAGING Diagnoses Injury of groin, initial encounter Right groin pain Procedures XR HIP GENERAL 3V PELV/AP/LAT RIGHT RADEX HIP UNILATERAL WITH PELVIS 2-3 VIEWS Kalin Harris APRN.COOKING TEACHER [address] [place] [address] [place] [address] Referral ID Status Reason Start Date Expiration Date V isits Requested Visits Authorized [id number] Closed Auto-Generate d Referral 05/29/2022 06/28/2023 1 1 [facility] for referral (narrative)* Diagnostic Procedure Only (Routine) - Closed Specialty Diagnoses / Procedures Referred By Contac t Referred To Contact XR IMAGING Diagnoses Acute pain of left shoulder Numbness and tingling in left hand Procedures XR SHOULDER LIMITED 2V AP/TRUE AP LEFT RADEX SHOULDER COMPLETE MINIMUM 2 VIEWS Kalin Harris APRN.COOKING TEACHER [address] [place] [address] [place] [address] Referral ID Status Reason Start Date Expiration Date V isits Requested Visits Authorized [id number] Closed Auto-Generate d Referral 06/05/2021 07/05/2022 1 1 * Diagnostic Procedure Only (Routine) - Closed Specialty Diagnoses / Procedures Referred By Contac t Referred To Contact XR IMAGING Diagnoses Cervicalgia Left cervical radiculopathy Procedures XR CERV GENERAL 2V AP/LAT RADEX SPINE CERVICAL 2 OR 3 VIEWS Kalin Harris APRN.COOKING TEACHER [address] [place] [address] [place] [address] Referral ID Status Reason Start Date Expiration Date V isits Requested Visits Authorized [id number] Closed Auto-Generate d Referral 06/05/2021 07/05/2022 1 1 [facility] (narrative)No reason for referral information [facility] Work Phone: Reason for visit Narrative* Outpatient Procedure (Routine) - Closed Specialty Diagnoses / Procedures Referred By Contac t Referred To Contact [facility] Diagnoses History of colonic polyps Procedures COLONOSCOPY SCREENING COLONOSCOPY FLX DX W/COLLJ SPEC WHEN PFRMD Sherri Woodruff PA-C [address] [place] [address] [facility] [address] [place] [address] Referral ID Status Reason Start Date Expiration Date V isits Requested Visits Authorized [id number] Closed Auto-Generate d Referral 09/08/2021 09/08/2022 1 1 [facility] for visit Narrative* Diagnostic Procedure Only (Routine) - Closed Specialty Diagnoses / Procedures Referred By Contac t Referred To Contact XR IMAGING Diagnoses Pain in the coccyx Procedures XR SACRUM/COCCYX 3V AP/LAT RADEX SACRUM & COCCYX MINIMUM 2 VIEWS Kalin Harris, CIVIL TRANSPORTATION ENGINEER.COOKING TEACHER [address] [place] [address] [place] [address] Referral ID Status Reason Start Date Expiration Date V isits Requested Visits Authorized [id number] Closed Auto-Generate d Referral 05/29/2022 06/28/2023 1 1 [facility] for visit Narrative* Diagnostic Procedure Only (Routine) - Closed Specialty Diagnoses / Procedures Referred By Contac t Referred To Contact XR IMAGING Diagnoses Acute pain of left shoulder Numbness and tingling in left hand Procedures XR SHOULDER LIMITED 2V AP/TRUE AP LEFT RADEX SHOULDER COMPLETE MINIMUM 2 VIEWS Kalin Harris, CIVIL TRANSPORTATION ENGINEER.COOKING TEACHER [address] [place] [address] [place] [address] Referral ID Status Reason Start Date Expiration Date V isits Requested Visits Authorized [id number] Closed Auto-Generate d Referral 06/05/2021 07/05/2022 1 1 [facility] for visit Narrative* Diagnostic Procedure Only (Urgent) - Closed Specialty Diagnoses / Procedures Referred By Contac t Referred To Contact XR IMAGING Diagnoses Acute pain of left knee Unilateral primary osteoarthritis, left knee Procedures XR KNEE GENERAL 4V AP BOTH/PA BOTH/LAT/MERC LEFT RADIOLOGIC EXAM KNEE COMPLETE 4/MORE VIEWS Kalin Harris, CIVIL TRANSPORTATION ENGINEER.COOKING TEACHER [address] [place] [address] Phone: tel: fax: [place] [address] Referral ID Status Reason Start Date Expiration Date V isits Requested Visits Authorized [id number] Closed Auto-Generate d Referral 08/11/2024 09/10/2025 1 1 [facility] Summary Purpose Family History No Family History Records FoundNo Family History Records FoundNo Family History Records Found Advance Directives Documents on File Type Date Recorded Patient Propulsion Systems Engineer Expl anation Advance Directive(s) 04/05/2017 11:39 AM Documents on File Type Date Recorded Patient Propulsion Systems Engineer Expl anation Advance Directive(s) 04/05/2017 11:39 AM Documents on File Type Date Recorded Patient Propulsion Systems Engineer Expl anation Advance Directive(s) 11/03/2021 8:39 AM Advance Directive(s) 04/05/2017 11:39 AM Documents on File Type Date Recorded Patient Propulsion Systems Engineer Expl anation Advance Directive(s) 11/03/2021 8:39 AM Advance Directive(s) 04/05/2017 11:39 AM Documents on File Type Date Recorded Patient Propulsion Systems Engineer Expl anation Advance Directive(s) 01/05/2024 8:20 AM Documents on File Type Date Recorded Patient Propulsion Systems Engineer Expl anation Advance Directive(s) 2024 4:51 PM Advance Directive(s) 01/05/2024 8:20 AM Documents on File Type Date Recorded Patient Propulsion Systems Engineer Expl anation Advance Directive(s) 2024 4:51 PM Advance Directive(s) 01/05/2024 8:20 AM Reason for Referral Specialty Diagnoses / Procedures Referred By Contac t Referred To Contact General Surgery Diagnoses Screening for colorectal cancer Procedures CONSULT TO GENERAL SURGERY OFFICE/OUTPATIENT [facility] 60-74 MINUTES Kalin Harris, CIVIL TRANSPORTATION ENGINEER.COOKING TEACHER [address] [place] [address] Referral ID Status Reason Start Date Expiration Date Visits Requested Visits Authorized [id number] Authorized PCP Requested Referral 08/04/2021 08/04/2022 1 1 Specialty Diagnoses / Procedures Referred By Contac t Referred To Contact Gastroenterology Diagnoses Screening for colorectal cancer Procedures CONSULT TO GASTROENTEROLOGY OFFICE/OUTPATIENT [facility] 60-74 MINUTES Kalin Harris, CIVIL TRANSPORTATION ENGINEER.COOKING TEACHER [address] [place] [address] Referral ID Status Reason Start Date Expiration Date Visits Requested Visits Authorized [id number] Authorized PCP Requested Referral 08/04/2021 08/04/2022 1 1 Specialty Diagnoses / Procedures Referred By Contac t Referred To Contact Orthopedics Diagnoses Right hip pain Tear of right acetabular labrum, initial encounter Procedures CONSULT TO ORTHOPAEDICS OFFICE/OUTPATIENT [facility] 60-74 MINUTES Kalin Harris, CIVIL TRANSPORTATION ENGINEER.COOKING TEACHER [address] [place] [address] Referral ID Status Reason Start Date Expiration Date Visits Requested Visits Authorized [id number] Pending Review PCP Requested Referral 07/16/2022 07/16/2023 1 1 Specialty Diagnoses / Procedures Referred By Contac t Referred To Contact MR IMAGING Diagnoses Pain in hip Injury of groin, initial encounter Right groin pain Pain in the coccyx Procedures MRI HIP WO/W IVCON RT MRI ANY JT LOWER EXTREM W/O & W/CONTRAST Kalin Taylor, CIVIL TRANSPORTATION ENGINEER.COOKING TEACHER [address] [place] [address] [place] [address] Referral ID Status Reason Start Date Expiration Date V isits Requested Visits Authorized [id number] Closed Auto-Generate d Referral 06/15/2022 07/15/2023 1 [...] section and content) DATE CREATED AUTHOR 08/03/2020 [facility] DATE CREATED AUTHOR AUTHOR'S ORGANIZ ATION 09/13/2024 [facility] DATE CREATED AUTHOR AUTHOR'S ORGANIZ ATION 10/10/2024 [facility] Source Comments (unrecognize d section and content) In the event this informatio n is protected by the Federal Confidentiality of Alcohol and Drug Abuse Patient Records regulations: The Federal rules restrict any use of the information to criminally investigate or prosecute any alcohol or drug abuse patient.[facility] the event this information is protected by the Federal Confidentiality of Alcohol and Drug Abuse Patient Records regulations: The Federal rules restrict any use of the information to criminally investigate or prosecute any alcohol or drug abuse patient.[facility] HospitalIn the event this information is protected by the Federal Confidentiality of Alcohol and Drug Abuse Patient Records regulations: The Federal rules restrict any use of the information to criminally investigate or prosecute any alcohol or drug abuse patient.[facility] HospitalIn the event this information is protected by the Federal Confidentiality of Alcohol and Drug Abuse Patient Records regulations: The Federal rules restrict any use of the information to criminally investigate or prosecute any alcohol or drug abuse patient.[facility] HospitalIn the event this information is protected by the Federal Confidentiality of Alcohol and Drug Abuse Patient Records regulations: The Federal rules restrict any use of the information to criminally investigate or prosecute any alcohol or drug abuse patient.[facility] HospitalIn the event this information is protected by the Federal Confidentiality of Alcohol and Drug Abuse Patient Records regulations: The Federal rules restrict any use of the information to criminally investigate or prosecute any alcohol or drug abuse patient.[facility] HospitalIn the event this information is protected by the Federal Confidentiality of Alcohol and Drug Abuse Patient Records regulations: The Federal rules restrict any use of the information to criminally investigate or prosecute any alcohol or drug abuse patient.[facility] HospitalIn the event this information is protected by the Federal Confidentiality of Alcohol and Drug Abuse Patient Records regulations: The Federal rules restrict any use of the information to criminally investigate or prosecute any alcohol or drug abuse patient.[facility] HospitalIn the event this information is protected by the Federal Confidentiality of Alcohol and Drug Abuse Patient Records regulations: The Federal rules restrict any use of the information to criminally investigate or prosecute any alcohol or drug abuse patient.[facility] HospitalIn the event this information is protected by the Federal Confidentiality of Alcohol and Drug Abuse Patient Records regulations: The Federal rules restrict any use of the information to criminally investigate or prosecute any alcohol or drug abuse patient.[facility] HospitalIn the event this information is protected by the Federal Confidentiality of Alcohol and Drug Abuse Patient Records regulations: The Federal rules restrict any use of the information to criminally investigate or prosecute any alcohol or drug abuse patient.[facility] HospitalIn the event this information is protected by the Federal Confidentiality of Alcohol and Drug Abuse Patient Records regulations: The Federal rules restrict any use of the information to criminally investigate or prosecute any alcohol or drug abuse patient.[facility] HospitalIn the event this information is protected by the Federal Confidentiality of Alcohol and Drug Abuse Patient Records regulations: The Federal rules restrict any use of the information to criminally investigate or prosecute any alcohol or drug abuse patient.[facility] HospitalIn the event this information is protected by the Federal Confidentiality of Alcohol and Drug Abuse Patient Records regulations: The Federal rules restrict any use of the information to criminally investigate or prosecute any alcohol or drug abuse patient.[facility] HospitalIn the event this information is protected by the Federal Confidentiality of Alcohol and Drug Abuse Patient Records regulations: The Federal rules restrict any use of the information to criminally investigate or prosecute any alcohol or drug abuse patient.[facility] HospitalIn the event this information is protected by the Federal Confidentiality of Alcohol and Drug Abuse Patient Records regulations: The Federal rules restrict any use of the information to criminally investigate or prosecute any alcohol or drug abuse patient.[facility] HospitalIn the event this information is protected by the Federal Confidentiality of Alcohol and Drug Abuse Patient Records regulations: The Federal rules restrict any use of the information to criminally investigate or prosecute any alcohol or drug abuse patient.[facility] HospitalIn the event this information is protected by the Federal Confidentiality of Alcohol and Drug Abuse Patient Records regulations: The Federal rules restrict any use of the information to criminally investigate or prosecute any alcohol or drug abuse patient.[facility] HospitalIn the event this information is protected by the Federal Confidentiality of Alcohol and Drug Abuse Patient Records regulations: The Federal rules restrict any use of the information to criminally investigate or prosecute any alcohol or drug abuse patient.[facility] HospitalIn the event this information is protected by the Federal Confidentiality of Alcohol and Drug Abuse Patient Records regulations: The Federal rules restrict any use of the information to criminally investigate or prosecute any alcohol or drug abuse patient.[facility] HospitalIn the event this information is protected by the Federal Confidentiality of Alcohol and Drug Abuse Patient Records regulations: The Federal rules restrict any use of the information to criminally investigate or prosecute any alcohol or drug abuse patient.[facility] HospitalIn the event this information is protected by the Federal Confidentiality of Alcohol and Drug Abuse Patient Records regulations: The Federal rules restrict any use of the information to criminally investigate or prosecute any alcohol or drug abuse patient.[facility] HospitalIn the event this information is protected by the Federal Confidentiality of Alcohol and Drug Abuse Patient Records regulations: The Federal rules restrict any use of the information to criminally investigate or prosecute any alcohol or drug abuse patient.[facility] HospitalIn the event this information is protected by the Federal Confidentiality of Alcohol and Drug Abuse Patient Records regulations: The Federal rules restrict any use of the information to criminally investigate or prosecute any alcohol or drug abuse patient.[facility] HospitalIn the event this information is protected by the Federal Confidentiality of Alcohol and Drug Abuse Patient Records regulations: The Federal rules restrict any use of the information to criminally investigate or prosecute any alcohol or drug abuse patient.[facility] HospitalIn the event this information is protected by the Federal Confidentiality of Alcohol and Drug Abuse Patient Records regulations: The Federal rules restrict any use of the information to criminally investigate or prosecute any alcohol or drug abuse patient.[facility] HospitalIn the event this information is protected by the Federal Confidentiality of Alcohol and Drug Abuse Patient Records regulations: The Federal rules restrict any use of the information to criminally investigate or prosecute any alcohol or drug abuse patient.[facility] HospitalIn the event this information is protected by the Federal Confidentiality of Alcohol and Drug Abuse Patient Records regulations: The Federal rules restrict any use of the information to criminally investigate or prosecute any alcohol or drug abuse patient.[facility] HospitalIn the event this information is protected by the Federal Confidentiality of Alcohol and Drug Abuse Patient Records regulations: The Federal rules restrict any use of the information to criminally investigate or prosecute any alcohol or drug abuse patient.[facility] HospitalIn the event this information is protected by the Federal Confidentiality of Alcohol and Drug Abuse Patient Records regulations: The Federal rules restrict any use of the information to criminally investigate or prosecute any alcohol or drug abuse patient.[facility] HospitalIn the event this information is protected by the Federal Confidentiality of Alcohol and Drug Abuse Patient Records regulations: The Federal rules restrict any use of the information to criminally investigate or prosecute any alcohol or drug abuse patient.[facility] HospitalIn the event this information is protected by the Federal Confidentiality of Alcohol and Drug Abuse Patient Records regulations: The Federal rules restrict any use of the information to criminally investigate or prosecute any alcohol or drug abuse patient.[facility] HospitalIn the event this information is protected by the Federal Confidentiality of Alcohol and Drug Abuse Patient Records regulations: The Federal rules restrict any use of the information to criminally investigate or prosecute any alcohol or drug abuse patient.[facility] HospitalIn the event this information is protected by the Federal Confidentiality of Alcohol and Drug Abuse Patient Records regulations: The Federal rules restrict any use of the information to criminally investigate or prosecute any alcohol or drug abuse patient.[facility] HospitalIn the event this information is protected by the Federal Confidentiality of Alcohol and Drug Abuse Patient Records regulations: The Federal rules restrict any use of the information to criminally investigate or prosecute any alcohol or drug abuse patient.[facility] HospitalIn the event this information is protected by the Federal Confidentiality of Alcohol and Drug Abuse Patient Records regulations: The Federal rules restrict any use of the information to criminally investigate or prosecute any alcohol or drug abuse patient.[facility] HospitalIn the event this information is protected by the Federal Confidentiality of Alcohol and Drug Abuse Patient Records regulations: The Federal rules restrict any use of the information to criminally investigate or prosecute any alcohol or drug abuse patient.[facility] HospitalIn the event this information is protected by the Federal Confidentiality of Alcohol and Drug Abuse Patient Records regulations: The Federal rules restrict any use of the information to criminally investigate or prosecute any alcohol or drug abuse patient.[facility] HospitalIn the event this information is protected by the Federal Confidentiality of Alcohol and Drug Abuse Patient Records regulations: The Federal rules restrict any use of the information to criminally investigate or prosecute any alcohol or drug abuse patient.[facility] HospitalIn the event this information is protected by the Federal Confidentiality of Alcohol and Drug Abuse Patient Records regulations: The Federal rules restrict any use of the information to criminally investigate or prosecute any alcohol or drug abuse patient.[facility] HospitalIn the event this information is protected by the Federal Confidentiality of Alcohol and Drug Abuse Patient Records regulations: The Federal rules restrict any use of the information to criminally investigate or prosecute any alcohol or drug abuse patient.[facility] HospitalIn the event this information is protected by the Federal Confidentiality of Alcohol and Drug Abuse Patient Records regulations: The Federal rules restrict any use of the information to criminally investigate or prosecute any alcohol or drug abuse patient.[facility] HospitalIn the event this information is protected by the Federal Confidentiality of Alcohol and Drug Abuse Patient Records regulations: The Federal rules restrict any use of the information to criminally investigate or prosecute any alcohol or drug abuse patient.[facility] HospitalIn the event this information is protected by the Federal Confidentiality of Alcohol and Drug Abuse Patient Records regulations: The Federal rules restrict any use of the information to criminally investigate or prosecute any alcohol or drug abuse patient.[facility] HospitalIn the event this information is protected by the Federal Confidentiality of Alcohol and Drug Abuse Patient Records regulations: The Federal rules restrict any use of the information to criminally investigate or prosecute any alcohol or drug abuse patient.[facility] Reason for Visit (unrecogniz ed section and content) Reason Comments Follow Up Reason Comments Consult colonoscopy consulta tion Specialty Diagnoses / Procedures Referred By Contreza t Referred To Contact Gastroenterology Diagnoses Screening for colorectal cancer Procedures CONSULT TO GASTROENTEROLOGY OFFICE/OUTPATIENT [facility] MDM 60-74 MINUTES Kalin Harris, CIVIL TRANSPORTATION ENGINEER.COOKING TEACHER [address] [place] [address] Referral ID Status Reason Start Date Expiration Date V isits Requested Visits Authorized [id number] Closed PCP Requested Referral 08/04/2021 08/04/2022 1 [...] NEW HIGH MDM 60-74 MINUTES Kalin Harris, CIVIL TRANSPORTATION ENGINEER.COOKING TEACHER [address] [place] [address] Referral ID Status Reason Start Date Expiration Date Visits Requested Visits Authorized [id number] Pending Review PCP Requested Referral 07/16/2022 07/16/2023 1 1 Reason Onset Date Comments Refill Request 09/07/2022 Reason Comments Eye Problem Irritation under low er right eyelid x 3 days Specialty Diagnoses / Procedures Referred By Robert mecrado Referred To Contact [facility] Diagnoses Pain in hip Injury of groin, initial encounter Right groin pain Pain in the coccyx Procedures MRI HIP WO/W IVCON RT MRI ANY JT LOWER EXTREM W/O & W/CONTRAST MATRL Kalin Harris, CIVIL TRANSPORTATION ENGINEER.COOKING TEACHER [address] [place] [address] [place] [id number] Referral ID Status Reason Start Date Expiration Date V isits Requested Visits Authorized [id number] Closed Auto-Generate d Referral 06/15/2022 07/15/2023 1 [...] left knee Procedures CONSULT TO ORTHOPAEDICS OFFICE/OUTPATIENT [facility] 60 MINUTES Kalin Harris APRN.COOKING TEACHER [address] [place] [address] Phone: tel: fax: Referral ID Status Reason Start Date Expiration Date V isits Requested Visits Authorized [id number] Closed PCP Requested Referral 08/11/2024 08/11/2025 1 1 Reason Onset Date Comments Refill Request 10/24/2024 Care Teams (unrecognized sec tion and content) Telegraph Messenger Relationship Specialty Start Date End Date Lilly Malone MD [address] [place] [address] PCP - General Internal Medicine 02/07/16 Telegraph Messenger Relationship Specialty Start Date End Date Lilly Malone MD [facility] [place] [address] PCP - General Internal Medicine 02/07/16 Telegraph Messenger Relationship Specialty Start Date End Date Lilly Malone MD [address] [place] [address] PCP - General Internal Medicine 02/07/16 Telegraph Messenger Relationship Specialty Start Date End Date Lilly Malone MD [address] [place] [address] PCP - General Internal Medicine 02/07/16 Telegraph Messenger Relationship Specialty Start Date End Date Lilly Malone MD [address] [place] [address] PCP - General Internal Medicine 02/07/16 Telegraph Messenger Relationship Specialty Start Date End Date Lilly Malone MD [address] [place] [address] PCP - General Internal Medicine 02/07/16 Telegraph Messenger Relationship Specialty Start Date End Date Lilly Malone MD [address] [place] [address] PCP - General Internal Medicine 02/07/16 Telegraph Messenger Relationship Specialty Start Date End Date Lilly Malone MD [facility] [place] [address] PCP - General Internal Medicine 02/07/16 Telegraph Messenger Relationship Specialty Start Date End Date Lilly Malone MD [address] [place] [address], [place] [address] PCP - General Internal Medicine 02/07/16 Telegraph Messenger Relationship Specialty Start Date End Date Lilly Malone MD [address] [place] [address], [place] [address] PCP - General Internal Medicine 02/07/16 Telegraph Messenger Relationship Specialty Start Date End Date Lilly Malone MD [address] [place] [address], [place] [address] PCP - General Internal Medicine 02/07/16 Telegraph Messenger Relationship Specialty Start Date End Date Lilly Malone MD [address] [place] [address], [place] [address] PCP - General Internal Medicine 02/07/16 Telegraph Messenger Relationship Specialty Start Date End Date Lilly Malone MD [address] [place] [address], [place] [address] PCP - General Internal Medicine 02/07/16 Telegraph Messenger Relationship Specialty Start Date End Date Lilly Malone MD [address] [place] [address], [place] [address] PCP - General Internal Medicine 02/07/16 Telegraph Messenger Relationship Specialty Start Date End Date Lilly Malone MD [address] [place] [address], [place] [address] PCP - General Internal Medicine 02/07/16 Telegraph Messenger Relationship Specialty Start Date End Date Lilly Malone MD [address] [place] [address] PCP - General Internal Medicine 02/07/16 Telegraph Messenger Relationship Specialty Start Date End Date Lilly Malone MD [address] [place] [address] PCP - General Internal Medicine 02/07/16 Telegraph Messenger Relationship Specialty Start Date End Date Lilly Malone MD [address] [place] [address] PCP - General Internal Medicine 02/07/16 Telegraph Messenger Relationship Specialty Start Date End Date Lilly Malone MD [address] [place] [address] PCP - General Internal Medicine 02/07/16 Telegraph Messenger Relationship Specialty Start Date End Date Lilly Malone MD [address] [place] [address] PCP - General Internal Medicine 02/07/16 Telegraph Messenger Relationship Specialty Start Date End Date Lilly Malone MD [address] [place] [address] PCP - General Internal Medicine 02/07/16 Telegraph Messenger Relationship Specialty Start Date End Date Lilly Malone MD [address] [place] [address] PCP - General Internal Medicine 02/07/16 Telegraph Messenger Relationship Specialty Start Date End Date Lilly Malone MD [address] [place] [address] PCP - General Internal Medicine 02/07/16 Telegraph Messenger Relationship Specialty Start Date End Date Lilly Malone MD [address] [place] [address] PCP - General Internal Medicine 02/07/16 Telegraph Messenger Relationship Specialty Start Date End Date Lilly Malone MD [address] [place] [address] PCP - General Internal Medicine 02/07/16 Telegraph Messenger Relationship Specialty Start Date End Date Lilly Malone MD [address] [place] [address] PCP - General Internal Medicine 02/07/16 Telegraph Messenger Relationship Specialty Start Date End Date Lilly Malone MD [address] [place] [address] PCP - General Internal Medicine 02/07/16 Telegraph Messenger Relationship Specialty Start Date End Date Lilly Malone MD [address] [place] [address] PCP - General Internal Medicine 02/07/16 Telegraph Messenger Relationship Specialty Start Date End Date Lilly Malone MD [address] [place] [address] PCP - General Internal Medicine 02/07/16 Telegraph Messenger Relationship Specialty Start Date End Date Lilly Malone MD [address] [place] [address] PCP - General Internal Medicine 02/07/16 Telegraph Messenger Relationship Specialty Start Date End Date Lilly Malone MD [address] [place] [address] PCP - General Internal Medicine 02/07/16 Kalin Harris, ABBIE.COOKING TEACHER [address] [place] [address] Federal [employer] Law Clerk Internal Medicine 04/03/24 Jodee Rea APRN.FAST FOOD CASHIER [address] [place] [address] Federal Judicial Law Clerk Internal Medicine 04/03/24 Telegraph Messenger Relationship Specialty Start Date End Date Lilly Malone MD [address] [place] [address] PCP - General Internal Medicine 02/07/16 Kalin Harris CIVIL TRANSPORTATION ENGINEER.COOKING TEACHER [address] [place] [address] Federal Judicial Law Clerk Internal Medicine 04/03/24 Jodee Rea APRN.FAST FOOD CASHIER [address] [place] [address] Federal Judicial Law Clerk Internal Medicine 04/03/24 Telegraph Messenger Relationship Specialty Start Date End Date Lilly Malone MD [address] [place] [address] PCP - General Internal Medicine 02/07/16 Kalin Harris CIVIL TRANSPORTATION ENGINEER.COOKING TEACHER [address] [place] [address] Federal Judicial Law Clerk Internal Medicine 04/03/24 Jodee Rea CIVIL TRANSPORTATION ENGINEER.FAST FOOD CASHIER [address] [place] [address] [facility] Internal Medicine 07/18/24 Telegraph Messenger Relationship Specialty Start Date End Date Lilly Malone MD [address] [place] [address] PCP - General Internal Medicine 02/07/16 Kalin Harris, CIVIL TRANSPORTATION ENGINEER.COOKING TEACHER [address] [place] [address] Federal Judicial Law Clerk Internal Medicine 04/03/24 Jodee Rea CIVIL TRANSPORTATION ENGINEER.FAST FOOD CASHIER [address] [place] [address] [facility] Internal Medicine 07/18/24 Telegraph Messenger Relationship Specialty Start Date End Date Lilly Malone MD [address] [place] [address] PCP - General Internal Medicine 02/07/16 Kalin Harris, CIVIL TRANSPORTATION ENGINEER.COOKING TEACHER [address] [place] [address] [facility] Internal Medicine 04/03/24 Jodee Rea CIVIL TRANSPORTATION ENGINEER.FAST FOOD CASHIER [address] [place] [address] [facility] Internal Medicine 07/18/24 Telegraph Messenger Relationship Specialty Start Date End Date Lilly Malone MD [address] [place] [address] PCP - General Internal Medicine 02/07/16 Kalin Harris, CIVIL TRANSPORTATION ENGINEER.COOKING TEACHER [address] [place] [address] [facility] Internal Medicine 04/03/24 Jodee Rea APRN.CNP [address] [place] [address] [facility] Internal Medicine 07/18/24 Team Status: Active [...] October 09, 2024 End: October 09, 2024 Telegraph Messenger Relationship Specialty Start Date End Date Lilly Malone MD [address] [place] [address] PCP - General Internal Medicine 02/07/16 Kalin Harris, CIVIL TRANSPORTATION ENGINEER.COOKING TEACHER [address] [place], [place] [address] [facility] Internal Medicine 04/03/24 09/12/24 Jodee Rea CIVIL TRANSPORTATION ENGINEER.FAST FOOD CASHIER [address] [place], [place] [address] [facility] Internal Medicine 07/18/24 Kalin Harris, CIVIL TRANSPORTATION ENGINEER.COOKING TEACHER [address] [place], [place] [address] [facility] Internal Medicine 09/13/24 Telegraph Messenger Relationship Specialty Start Date End Date Lilly Malone MD [address] [place], [place] [address] PCP - General Internal Medicine 02/07/16 Jodee Rea CIVIL TRANSPORTATION ENGINEER.FAST FOOD CASHIER [address] [place], [place] [address] [facility] Internal Medicine 07/18/24 Kalin Harris, CIVIL TRANSPORTATION ENGINEER.COOKING TEACHER [address] [place], [place] [address] [facility] Internal [facility] 09/13/24 FOR RECORDS PERTAINING TO PATIENTS [...] BE BASED ON THE PRIMARY CLINICAL RECORDS. [employer] provides no warranty or guarantee of the accuracy or completeness of information in this document.
[2025-04-14 12:58] LABS: Troponin T High Sens 2 HR 17 ng/L (<=22)
[2025-04-14 13:00] LABS: Magnesium 2.0 mg/dL (1.5-2.2)
--- NOTE | 2025-04-14 14:54 | EKG12_ITS ---
Test Reason : IRREG HR Blood Pressure : */* mmHG Vent. Rate : 100 BPM Atrial Rate : * BPM P-R Int : * ms QRS Dur : 84 ms QT Int : 320 ms P-R-T Axes : * 5 9 degrees QTcB Int : 412 ms Atrial fibrillation Inferior infarct , age undetermined Abnormal ECG Reconfirmed by Flavia Mcgovern ([id number]), image editor RAUL ROBB ([id number]) on 04/16/2025 10:09:39 AM Also confirmed by Flavia Mcgovern ([id number]), image editor RAUL ROBB ([id number]) on 04/17/2025 8:10:07 AM Referred By: SALMA/SHERIF Confirmed By: Flavia Mcgovern
[2025-04-14 14:57] LABS: Troponin T High Sens 4 HR 13 ng/L (<=22)
[2025-04-14] MEDS: APIXABAN 5 MG TABLET PO (21:54)
[2025-04-15 05:00] VITALS: BP 112/74; PULSE 67; RESP 18; TEMP 36.6; O2SAT 96
--- NOTE | 2025-04-15 05:55 | ECHOD_ITS ---
Reason For Study Reason For Study: Atrial Fib-Flutter Procedure This was a 2D Doppler, Color Flow transthoracic echocardiogram. The study was technically difficult. Exam performed portable in patient room. Left Ventricle Normal LV size. Normal left ventricular thickness. The estimated ejection fraction is 60-65% %. Normal diastololic function. Right Ventricle Normal RV size. Normal systolic function. Atria The left and right atria are normal. Mitral Valve Normal mitral valve. There is no mitral valve stenosis. Trivial mitral valve insufficiency. Tricuspid Valve Normal tricuspid valve. There is no tricuspid stenosis. Trivial tricuspid valve insufficiency. Right ventricular systolic pressure estimated to be 15-20 mmHg mmHg. Aortic Valve Trisinus/trileaflet aortic valve. Mild diffuse aortic valve thickening. There is no aortic stenosis. No aortic valve insufficiency. Pulmonic Valve Normal pulmonic valve. Great Vessels Normal ascending aorta. Measured at 3.1 cm. The inferior vena cava is not dilated. Inferior vena cava collapse with respiration. Pericardium/Pleural No pericardial effusion. MMode/2D Measurements & Calculations LVIDd: 4.7 cm IVSd: 0.71 cm asc Aorta Diam: 3.1 cm LVIDs: 2.9 cm LVPWd: 0.97 cm RVDd: 3.5 cm FS: 39.8 % LAV(MOD-bp): 40.9 ml LVAd ap4: 27.6 cm2 LVAd ap2: 22.1 cm2 LAV(MOD-bp) Indexed: 18.7 ml/m2 LVLd ap4: 7.0 cm LVLd ap2: 7.1 cm LAV(MOD-sp2): 34.1 ml EDV(MOD-sp4): 91.0 ml EDV(MOD-sp2): 57.7 ml LAV(MOD-sp4): 42.1 ml EDV(sp4-el): 92.3 ml EDV(sp2-el): 58.4 ml LVAs ap4: 14.9 cm2 LVAs ap2: 10.5 cm2 LVLs ap4: 5.7 cm LVLs ap2: 5.5 cm ESV(MOD-sp4): 33.4 ml ESV(MOD-sp2): 16.7 ml ESV(sp4-el): 32.8 ml ESV(sp2-el): 17.1 ml EF(MOD-sp4): 63.3 % EF(MOD-sp2): 71.0 % EF(sp4-el): 64.5 % SV(MOD-sp4): 57.6 ml SV(MOD-sp2): 41.0 ml EDV(MOD-bp): 72.8 ml SI(MOD-sp4): 26.4 ml/m2 SI(MOD-sp2): 18.8 ml/m2 ESV(MOD-bp): 24.0 ml EF(MOD-bp): 67.0 % SV(sp4-el): 59.5 ml LA dimension(2D): 3.0 cm LA A4 area: 16.6 cm2 RA A4 area: 13.4 cm2 TAPSE: 1.8 cm Time Measurements MV dec time: 0.31 sec Doppler Measurements & Calculations MV E max cortez: 55.0 cm/sec Lat Peak E' Cortez: 12.0 cm/sec Med Peak E' Cortez: 6.5 cm/sec MV A max cortez: 70.2 cm/sec E/E' lat: 4.6 E/E' med: 8.5 MV E/A: 0.78 PA V2 max: 90.5 cm/sec TR max cortez: 212.0 cm/sec MV dec slope: 177.4 cm/sec2 TR max P.0 mmHg ECHO/Echo Complete Interpretation Summary The estimated ejection fraction is 60-65% %. Normal LV size. Normal left ventricular thickness. Normal diastololic function. No significant valvular heart disease appreciated. IVC normal size with normal respiratory collapse. Ordering Physician: Biat Funez Referring Physician: Johanny Hilario Performed By: Kolby Palomares RDCS
[2025-04-15 06:08] LABS: Hematocrit 44.4 % (40-54); Hemoglobin 15.5 g/dL (13.0-16.5); Immature Granulocytes Count 0.020 X10^3/uL (0.0-0.0); Mean Corp Hgb Conc 34.9 g/dL (32-36); Mean Corpuscular Volume 88.8 fL (80-94); Mean Platelet Vol. 9.2 fl (6.2-12.0); NRBC Flagged by Analyzer 0 % (0-5); Platelet Count 327 K/mm3 (150-450); RBC Distribution Width CV 12.3 % (11.6-14.6); RBC Distribution Width SD 40.0 fl (35.1-43.9); Red Blood Count 5.00 M/mm3 (4.6-6.2); White Blood Count 8.1 K/mm3 (4.4-11.0)
[2025-04-15 06:31] LABS: Anion Gap 14 (5-15); BUN 14 mg/dL (4-19); BUN/Creat Ratio 14.4 RATIO (10-20); Calcium,Total 8.9 mg/dL (7.6-11.0); Carbon Dioxide 23.6 mmol/L (21.0-32.0); Chloride 100 mmol/L (98-108); Estimated Creatinine Clearance 88.55 ml/min (50-250); Glucose 119 mg/dL (70-99); Potassium 3.6 mmol/L (3.3-5.1)
[2025-04-15 08:07] VITALS: BP 118/62; PULSE 67; RESP 14; TEMP 36.6; O2SAT 97
[2025-04-15] MEDS: Aspirin E.C. 81 MG Tablet PO (08:19)
[2025-04-15] MEDS: APIXABAN 5 MG TABLET PO ×2 (08:19→20:48)
[2025-04-15 08:20] VITALS: PULSE 67
--- NOTE | 2025-04-15 10:48 | PN_ITS ---
Subjective Subjective Patient seen and examined with his nurse by his bedside. He had no active complaints. He had an uneventful night and review of systems otherwise negative. He has converted back to normal sinus rhythm and has remained hemodynamically stable. Objective Data Objective Data Vital Signs: Vital Signs Temp Pulse Resp BP Pulse Ox O2 Del Method 98 F 67 14 118/62 97 Room Air 04/15/25 08:07 04/15/25 08:20 04/15/25 08:07 04/15/25 08:07 04/15/25 08:07 04/15/25 08:11 Oxygen Delivery Method Room Air Weight: 222 lb 3.615 oz Body Mass Index (BMI) 31.8 Intake & Output: Intake and Output for Last 24 Hours 04/13/25 04/14/25 04/15/25 23:59 23:59 23:59 Intake Total 1620 / 1620 Balance 1620 / 1620 Lab / Micro Data 04/15/25 05:22 04/15/25 05:22 Labs: Laboratory Results - last 24 hr 04/14/25 10:30: WBC 9.3, RBC 5.39, Hgb 17.2 H, Hct 47.6, MCV 88.3, MCH 31.9, M CHC 36.1 H, RDW Std Deviation 39.8, RDW Coeff of Brayden 12.2, Plt Count 351, MPV 9.2, Immature Gran % (Auto) 0.300, Neut % (Auto) 61.9, Lymph % (Auto) 25.1, [place] % (Auto) 10.4 H, Eos % (Auto) 1.8, Baso % (Auto) 0.5, Absolute Neuts (auto) 5.8, Absolute Lymphs (auto) 2.34, Nucleated RBC % 0, Sodium 136, Potassium 3.1 L, C hloride 95 L, Carbon Dioxide 27.1, Anion Gap 14, BUN 14, Creatinine 1.00, Estim Creat Clear Calc 83.79, Est GFR (MDRD) Non-Af 82, BUN/Creatinine Ratio 13.5, G lucose 164 H, Calcium 9.4, Magnesium 2.0, Troponin T High Sens 11, TSH 1.970 04/14/25 12:35: Troponin T Hi Sens 2 Hr 17 04/14/25 14:10: Troponin T Hi Sens 4Hr 13 04/15/25 05:22: WBC 8.1, RBC 5.00, Hgb 15.5, Hct 44.4, MCV 88.8, MCH 31.0, MCHC 34.9, RDW Std Deviation 40.0, RDW Coeff of Brayden 12.3, Plt Count 327, MPV 9.2, Immature Gran % (Auto) 0.200, Neut % (Auto) 56.8, Lymph % (Auto) 30.6, [place] % (Auto) 9.0, Eos % (Auto) 2.7, Baso % (Auto) 0.7, Absolute Neuts (auto) 4.6, Absolute Lymphs (auto) 2.48, Nucleated RBC % 0, Sodium 137, Potassium 3.6, Chloride 100, Carbon Dioxide 23.6, Anion Gap 14, BUN 14, Creatinine 0.95, Estim Creat Clear Calc 88.55, Est GFR (MDRD) Non-Af 88, BUN/Creatinine Ratio 14.4, G lucose 119 H, Calcium 8.9 Micro: Microbiology 04/14/25 11:22 Mucosa - Nose SARS-CoV-2, Influenza & RSV (PCR) - Final Radiography Diagnostic Testing: Radiology Impression Chest X-Ray 04/14/25 11:20 IMPRESSION: No acute cardiopulmonary process. Reading Location: [facility] Physical Exam Const alert, oriented x3 and no apparent distress Constitutional Narrative: class I obesity General Appearance: cooperative HEENT normocephalic, head/scalp atraumatic, moist oral mucous membranes and oropharynx normal Eyes EOMs intact bilaterally and conjunctivae normal Neck supple and no JVD Resp Resp Narrative: mildly diminished breath sounds bibasally, no wheezes or crackles. On room air. Cardio regular rate, regular rhythm, S1 normal heart sound, S2 normal heart sound and no murmurs GI normal to inspection, nondistended, normoactive bowel sounds, soft to palpation and non-tender Extremity normal to inspection, full ROM, normal capillary refill and no clubbing, cyanosis or edema General Extremity: no tenderness to palpation of joints or extremities Skin General Skin Exam: no breakdown Neuro oriented x3, CN's II-XII intact bilaterally and moves all extremities Sensorium / Orientation: awake and alert Motor Exam: strength 5/5 throughout Psych affect normal Appearance: appropriate Assessment & Plan Assessment/Plan (1) Acute hypokalemia: (2) Hypertension: (3) Atrial fibrillation, new onset: PLAN: Plan #New onset afib * Has now converted to normal sinus rhythm. * On p.o. metoprolol 12.5 mg twice daily and on Eliquis 5 mg twice daily. * TSH is within normal limits. Potassium and magnesium also normal. * 2D echo ordered and will be done tomorrow. * Patient's says he snores and has apneic periods. With that we will benefit from referral to pulmonology on outpatient basis for workup for sleep apnea. * #Hypokalemia:resolved. K is 3.6 today. # Hypertension: On ramipril and hydrochlorothiazide. On metoprolol also o/a of afib DVT prophylaxis: Not indicated as patient being placed on Eliquis CODE STATUS: Full code * Disposition: Anticipate discharge tomorrow once echo is done. Charges/Coding Visit Charges Inpatient E&M: 29574 Subs Hosp L2
[2025-04-15 15:12] VITALS: BP 127/72; PULSE 69; RESP 14; TEMP 36.8; O2SAT 97
[2025-04-15 20:47] VITALS: PULSE 68
[2025-04-15] MEDS: 0.9% Saline Lock 10 ML Syringe IV (20:48)
[2025-04-15 21:00] VITALS: BP 129/79; PULSE 66; RESP 18; TEMP 36; O2SAT 96
[2025-04-16 06:04] LABS: Hematocrit 44.4 % (40-54); Hemoglobin 15.9 g/dL (13.0-16.5); Immature Granulocytes Count 0.020 X10^3/uL (0.0-0.0); Mean Corp Hgb Conc 35.8 g/dL (32-36); Mean Corpuscular Volume 88.8 fL (80-94); Mean Platelet Vol. 9.1 fl (6.2-12.0); NRBC Flagged by Analyzer 0 % (0-5); Platelet Count 299 K/mm3 (150-450); RBC Distribution Width CV 12.4 % (11.6-14.6); RBC Distribution Width SD 40.1 fl (35.1-43.9); Red Blood Count 5.00 M/mm3 (4.6-6.2); White Blood Count 8.4 K/mm3 (4.4-11.0)
[2025-04-16 06:10] VITALS: BP 105/67; PULSE 67; RESP 18; TEMP 36.7; O2SAT 96
[2025-04-16 06:29] LABS: Anion Gap 12 (5-15); BUN 13 mg/dL (4-19); BUN/Creat Ratio 14.2 RATIO (10-20); Calcium,Total 9.1 mg/dL (7.6-11.0); Carbon Dioxide 25.9 mmol/L (21.0-32.0); Chloride 101 mmol/L (98-108); Estimated Creatinine Clearance 91.43 ml/min (50-250); Glucose 115 mg/dL (70-99); Potassium 3.7 mmol/L (3.3-5.1)
--- NOTE | 2025-04-16 08:23 | PCM.PN.HOSP ---
Subjective Subjective Feeling well. No complaints. Objective Data Objective Data Vital Signs: Vital Signs Temp Pulse Resp BP Pulse Ox O2 Del Method 36.7 C 67 18 105/67 96 Room Air 04/16/25 06:10 04/16/25 06:10 04/16/25 06:10 04/16/25 06:10 04/16/25 06:10 04/16/25 07:36 Oxygen Delivery Method Room Air Weight: 100.8 kg Body Mass Index (BMI) 31.8 Intake & Output: Intake and Output for Last 24 Hours 04/14/25 04/15/25 04/16/25 23:59 23:59 23:59 Intake Total 1620 / 1620 1375 / 1375 Balance 1620 / 1620 1375 / 1375 Lab / Micro Data 04/16/25 05:14 04/16/25 05:14 Labs: Laboratory Results - last 24 hr 04/16/25 05:14: WBC 8.4, RBC 5.00, Hgb 15.9, Hct 44.4, MCV 88.8, MCH 31.8, MCHC 35.8, RDW Std Deviation 40.1, RDW Coeff of Brayden 12.4, Plt Count 299, MPV 9.1, Immature Gran % (Auto) 0.200, Neut % (Auto) 61.1, Lymph % (Auto) 26.3, [place] % (Auto) 8.8, Eos % (Auto) 2.9, Baso % (Auto) 0.7, Absolute Neuts (auto) 5.1, Absolute Lymphs (auto) 2.21, Nucleated RBC % 0, Sodium 139, Potassium 3.7, Chloride 101, Carbon Dioxide 25.9, Anion Gap 12, BUN 13, Creatinine 0.92, Estim Creat Clear Calc 91.43, Est GFR (MDRD) Non-Af 91, BUN/Creatinine Ratio 14.2, Glucose 115 H, Calcium 9.1 Micro: Microbiology 04/14/25 11:22 Mucosa - Nose SARS-CoV-2, Influenza & RSV (PCR) - Final Physical Exam Const alert and no apparent distress HEENT head/scalp atraumatic and moist oral mucous membranes Resp normal respiratory effort, no retractions, no use of accessory muscles and clear to auscultation bilaterally Cardio regular rate, regular rhythm, S1 normal heart sound and S2 normal heart sound GI normal to inspection, nondistended, normoactive bowel sounds, soft to palpation, non-tender and non-distended Neuro Sensorium / Orientation: awake and alert Assessment & Plan Assessment/Plan (1) Acute hypokalemia: (2) Hypertension: (3) Atrial fibrillation, new onset: PLAN: Plan New onset afib [id number] score of 2. Has now converted to normal sinus rhythm. Telemetry reviewed, no further afib. On p.o. metoprolol 12.5 mg twice daily and on Eliquis 5 mg twice daily. TSH is within normal limits. Potassium and magnesium also normal. 2D echo ordered Patient's says he snores and has apneic periods. With that we will benefit from referral to pulmonology on outpatient basis for workup for sleep apnea. hypertension: On ramipril and hydrochlorothiazide. On metoprolol also o/a of afib DVT prophylaxis: Not indicated as patient being placed on Eliquis CODE STATUS: Full code Charges/Coding Visit Charges Inpatient E&M: 01578 Subs Hosp L2
[2025-04-16 10:03] VITALS: BP 109/65; PULSE 78; RESP 14; TEMP 36.7; O2SAT 98
[2025-04-16] MEDS: APIXABAN 5 MG TABLET PO (10:07)
[2025-04-16] MEDS: Aspirin E.C. 81 MG Tablet PO (10:07)
[2025-04-16 10:08] VITALS: PULSE 78
--- NOTE | 2025-04-16 11:59 | DS.PCM_ITS ---
Providers Date of Admission: 04/14/25 Primary Care Physician: Dr. Johanny Hilario MD Reason For Visit: AFIB WITH RVR Diagnosis Discharge Diagnosis (1) Acute hypokalemia: Status: Acute Code(s): E87.6 - Hypokalemia (2) Hypertension: Status: Chronic Code(s): I10 - Essential (primary) hypertension (3) Atrial fibrillation, new onset: Status: Acute Code(s): I48.91 - Unspecified atrial fibrillation Plan New onset afib * [id number] score of 2. * Has now converted to normal sinus rhythm. Telemetry reviewed, no further afib. * On p.o. metoprolol 12.5 mg twice daily and on Eliquis 5 mg twice daily. * TSH is within normal limits. Potassium and magnesium also normal. * 2D echo showed an EF 65% * Patient's says he snores and has apneic periods. With that we will benefit from referral to pulmonology on outpatient basis for workup for sleep apnea. * Follow up with cardiology as outpt. hypertension: On ramipril and hydrochlorothiazide. On metoprolol also o/a of afib DVT prophylaxis: Not indicated as patient being placed on Eliquis CODE STATUS: Full code Medications at Discharge Home Medications aspirin 81 mg tablet,delayed release 81 mg PO DAILY prevention 09/21/23 hydrochlorothiazide 25 mg tablet 25 mg PO DAILY blood pressure 09/21/23 ramipril 10 mg capsule 10 mg PO DAILY blood pressure 09/21/23 apixaban 5 mg tablet (Eliquis) 5 mg PO BID #60 tabs 04/16/25 metoprolol tartrate 25 mg tablet 12.5 mg (1/2 x 25 mg) PO BID #60 tabs 04/16/25 Hospital Course Operations None Procedures 2-D Echocardiogram Weight / BMI Weight Weight: 100.8 kg Body Mass Index (BMI) 31.8 ABG / Lab / Microbiology Data 04/16/25 05:14 04/16/25 05:14 Laboratory: Laboratory Results - last 24 hr 04/16/25 05:14: WBC 8.4, RBC 5.00, Hgb 15.9, Hct 44.4, MCV 88.8, MCH 31.8, MCHC 35.8, RDW Std Deviation 40.1, RDW Coeff of Brayden 12.4, Plt Count 299, MPV 9.1, Immature Gran % (Auto) 0.200, Neut % (Auto) 61.1, Lymph % (Auto) 26.3, [place] % (Auto) 8.8, Eos % (Auto) 2.9, Baso % (Auto) 0.7, Absolute Neuts (auto) 5.1, Absolute Lymphs (auto) 2.21, Nucleated RBC % 0, Sodium 139, Potassium 3.7, Chloride 101, Carbon Dioxide 25.9, Anion Gap 12, BUN 13, Creatinine 0.92, Estim Creat Clear Calc 91.43, Est GFR (MDRD) Non-Af 91, BUN/Creatinine Ratio 14.2, G lucose 115 H, Calcium 9.1 Microbiology: Microbiology 04/14/25 11:22 Mucosa - Nose SARS-CoV-2, Influenza & RSV (PCR) - Final Radiography Diagnostic Testing: Radiology Impression Echocardiogram 04/15/25 05:55 Interpretation Summary The estimated ejection fraction is 60-65% %. Normal LV size. Normal left ventricular thickness. Normal diastololic function. No significant valvular heart disease appreciated. IVC normal size with normal respiratory collapse. Ordering Physician: Bita Funez Referring Physician: Johanny Hilario Performed By: Kolby Palomares RDCS D/C Instructions DC O2, CPAP, BIPAP Needs Home O2 Discharge instructions: No Meaningful Use Info Meaningful Use Meaningful Use Diagnoses (Choose all that apply): None applicable Discharge Plan Admission Admit Date/Time: 04/14/25 11:58 Primary Reason for Your Visit: afib w RVR. Attending Provider: Bruce Ferrera Primary Care Provider: Johanny Hilario Consulting Providers: Bita Funez Discharge Orders/Prescriptions Prescriptions: New metoprolol tartrate 25 mg Tablet 12.5 mg PO BID Qty: 60 0RF Eliquis 5 mg Tablet 5 mg PO BID Qty: 60 0RF Continued ramipril 10 mg capsule 10 mg PO DAILY hydrochlorothiazide 25 mg tablet 25 mg PO DAILY aspirin 81 mg tablet,delayed release (DR/EC) 81 mg PO DAILY Discontinued meloxicam 15 mg tablet 15 mg PO DAILY PRN (Reason: hip pain ) Referrals / Follow Up: [facility] [Provider Group] - Within 1 Month Johanny Hilario MD [Primary Care Provider, Internal Medicine] - Within 2 Weeks Disposition Disposition (needs filled in before D/C Order can be placed): Home, Self Care Charges/Coding Visit Charges Inpatient E&M: 64949 Disch Hosp
--- NOTE | 2025-04-16 12:33 | CASEMGMT ---
Dx: Afib with RVR LACE:1 6-Clicks: 24 Medical record reviewed and patient evaluated for identification of discharge planning needs. Based on this review, at this time criteria are not present to indicate a need for discharge planning. Will remain available to assist with discharge planning needs as identified or requested.
--- NOTE | 2025-04-16 12:43 | CASEMGMT ---
Patient has order for discharge. Patient is discharging on Eliquis. RN CM called [facility], copay is $304. RN CM in to discuss needs at discharge. RN CM update patient regarding copay and provided Eliquis 30 day free trial card to patient. Patient denied needs or help at discharge. Patient had no further questions or concern.
--- NOTE | 2025-04-16 14:06 | PHA.DC_ITS ---
Pharmacy [facility] Counseling Pharmacy Service has performed discharge medication reconciliation and counseling for this patient. 1. APIXABAN 5MG PO BID 2. METOPROLOL TARTRATE 12.5MG PO BID The patient's discharge medication list was reviewed for discrepancies and discrepancies were resolved. The patient was counseled on the following discharge medications and changes in medications for homegoing were reviewed. The Reason for Use, instructions for use, and potential side effects were reviewed for all new medications. The patient's questions regarding all of their medications were answered. The patient was able to verbally demonstrate an understanding of their discharge medications. Medications at Discharge Home Medications aspirin 81 mg tablet,delayed release 81 mg PO DAILY prevention 09/21/23 hydrochlorothiazide 25 mg tablet 25 mg PO DAILY blood pressure 09/21/23 ramipril 10 mg capsule 10 mg PO DAILY blood pressure 09/21/23 apixaban 5 mg tablet (Eliquis) 5 mg PO BID #60 tabs 04/16/25 metoprolol tartrate 25 mg tablet 12.5 mg (1/2 x 25 mg) PO BID #60 tabs 04/16/25
== END 2025-04-16 13:54 | disposition home or self-care (01) ==
LOC: ED 11:35 → PCU 15:41
PROVIDERS: Admitting Provider Student in an Organized Health Care Education/Training Program; Emergency Provider Emergency Medicine; PCP Internal Medicine
DX: I48.91 Unspecified atrial fibrillation (principal); E66.811 Obesity, class 1; I10 Essential (primary) hypertension; E87.6 Hypokalemia; Z68.33 Body mass index [BMI] 33.0-33.9, adult; Z79.82 Long term (current) use of aspirin; Z79.899 Other long term (current) drug therapy
CPT/HCPCS: 36415; 71045; 80048; 83735; 84443; 84484; 85025; 87631; 93005; 93306; 96361; 96372; 96374; 99221; 99285; Q9957; A4216; G0378